=== PATIENT | male | born 1960 | race Caucasian/White ===

== ENCOUNTER 2018-09-22 16:58 | Inpatient (IN) | payer OTHER, SELFPAY ==
--- NOTE | 2018-09-22 17:00 | NURSING ---
Patient pleasant and cooperative, given demonstration of call maravilla use and aware that the must use the call maravilla for staff assist and verbalized understanding. Patient is alert and oriented but can be forgetful and confused per family report at times. PA in place and bed exit alarm.
[2018-09-22 17:23] VITALS: BP 154/79; PULSE 69; RESP 18; TEMP 36.4; O2SAT 95; BMI 31.1
--- NOTE | 2018-09-22 18:00 | NURSING ---
Oxygen use in place when patient is sleeping due to oxygen sats dropped below 88% on RA when patient was sleeping. Snoring heard very loud from his room up to the nurses station. Will monitor.
--- NOTE | 2018-09-22 19:03 | PCM.CONS.GEN ---
Problem List (1) Severe left internal carotid stenosis Status: Acute (2) Occlusion of right internal carotid artery Status: Acute (3) Embolic stroke Status: Acute (4) History of pulmonary embolism Status: Chronic (5) History of DVT (deep vein thrombosis) Status: Chronic (6) Hypertension Status: Chronic Reason for Consult Date of Consultation: 09/22/18 Reason for Consultation: Medical management after admission to inpatient rehab unit. History of Present Illness: The patient is a 58 year old M with past medical history as mentioned above admitted to inpatient rehabilitation unit after he suffered acute right MCA embolic stroke with resultant left-sided hemiplegia and left-sided facial droop and I am seeing this patient in consultation for medical management. Patient suffered a right MCA stroke on September 16, 2018 with resultant left-sided hemiplegia and left facial droop. No interventions was done for the acute stroke and it was treated conservatively. He was found to have occlusion of the right internal carotid artery and severe stenosis of the left internal carotid artery. The acute stroke presumed to be due to embolic stroke. At this time, patient complained of mild headache. Reportedly, patient had an episode of chest pain at the [facility] today before he was discharged for which EKG done as well as cardiac enzymes and reportedly, both came back negative. At this time, he denied any active chest pain. He did have left shoulder surgery on December, that was done for rotator cuff tear. He had a history of hypertension and according to his , he has not been taking his blood pressure medications consistently. He had a history of DVT and PE long time ago after he had left knee arthroscopic surgery and he was on Lovenox shots for a month and then he was on Coumadin that was completed. His mentioned that he had family history of blood clots as well. He had a history of GERD and he has been on omeprazole which seems to be under control. At this time, his blood pressure is 154/79, other vital signs are stable. Routine blood work from September 16, 2018 that was done at the outside facility was unremarkable. MRI brain revealed a right basal ganglia infarct. Imaging study of the neck revealed occlusion of the right internal carotid artery and severe stenosis of the left internal carotid artery. Past Medical History Past Medical History (Chronic Problems): Chronic Problems History of pulmonary embolism (Chronic) History of DVT (deep vein thrombosis) (Chronic) Hypertension (Chronic) Allergies codeine Allergy (Verified 09/22/18 17:24) Rash Home Medications: Ambulatory Orders Medication Instructions Recorded Acetaminophen [Tylenol] 325 mg PO TID PRN 09/22/18 Aspirin [Aspirin, Baby] 81 mg PO DAILY@0800 09/22/18 Atorvastatin Calcium [Lipitor] 40 mg PO QHS 09/22/18 Clopidogrel Bisulfate [Plavix] 75 mg PO DAILY 09/22/18 Diclofenac Sodium [Voltaren] 100 gm TP 4X/DAY 09/22/18 Lisinopril [Zestril] 10 mg PO DAILY 09/22/18 Omeprazole [Prilosec] 20 mg PO DAILY 09/22/18 Sennosides/Docusate Sodium 1 each PO DAILY 09/22/18 [Senna-S Tablet] Sertraline HCl [Zoloft] 25 mg PO DAILY 09/22/18 Surgical History: colectomy, - - Knee arthroscopic surgery. Back surgery. Psychiatric History: No pertinent psych hx Lives: Spouse/ Significant Other Smoking Status: Former smoker Alcohol: None Drugs: None - *Family History Maternal History Items: DVT, - - Blood clots. Paternal History Items: No pertinent history Sibling History Items: - - Brother with history of blood clots as well. Review of Systems Constitutional: Denies: Anorexia, Chills, Fever, Weakness Eyes: Denies: Blurred vision, Double vision, Drainage, Redness HEENT: Reports: Head Aches. Denies: Difficulty Hearing, Dysphasia, Ear Pain, Eye Pain, Nasal Congestion, Sore Throat Cardiovascular: Denies: Chest Pain, Chest Pressure, Chest Tightness, Heaviness, Light Headedness, Palpitations, Syncope Respiratory: Denies: Cough, Pleuritic Pain, Shortness of Breath, Sputum production, Wheezing Gastrointestinal: Denies: Abdominal Pain, Constipation, Diarrhea, Nausea, Vomiting Genitourinary: Denies: Dysuria, Frequency, Hematuria Musculoskeletal: Denies: Arm Pain, Back Pain, Foot Pain Skin: Denies: Dryness, Rash Neurological: Reports: Change in Speech, Focal weakness, Headaches. Denies: Balance problems, Confusion, Numbness, Tingling Psychiatric: Reports: Depression. Denies: Anxiety Endocrine: Denies: Change in Body Habitus, Polydipsia Patient Problems: Active and Suspected Problems Severe left internal carotid stenosis (Acute) Occlusion of right internal carotid artery (Acute) Embolic stroke (Acute) - Physical Exam General: Alert, Oriented x3, Cooperative, No apparent distress, - - Left facial droop. HEENT: Atraumatic, PERRLA, EOMI, Normocephalic Oral: Moist Mucosa, No Gingival or Mucosal Lesions/ Ulcerations Neck: Supple, No JVD, Negative Carotid Bruits, Trachea Midline, Thyroid Normal Size and Texture Lungs: Clear to auscultation, No rhonchi, No wheeze, No rales, Diminished Cardiovascular: Regular rate, Regular Rhythm, Normal S1, Normal S2, PMI Normal Abdomen: Bowel Sounds Present, Soft, Non Tender, Non-Distended, No Hepato-splenomegaly Extremities: No clubbing, No cyanosis, No edema Skin: No rashes, No breakdown Lymphatic: No Cervical, Supraclavicular, or Inguinal Adenopathy Neurological: - - Left facial droop, minimal dysarthria, left side hemiplegia. Power on the left upper extremity is 0 x 5, power on the left lower extremity is 3 x 5. Psych/Mental Status: Normal Affect, Appropriate, Alert and oriented to time, place, person, mood and affect Vital Signs Temp Pulse Resp BP Pulse Ox 97.5 F L 69 18 154/79 H 95 09/22/18 17:23 09/22/18 17:23 09/22/18 17:23 09/22/18 17:23 09/22/18 17:23 Oxygen Delivery Method Room Air Weight: 249 lb 1.957 oz Body Mass Index (BMI) 31.1 Intake and Output for Last 24 Hours 09/20/18 09/21/18 09/22/18 23:59 23:59 23:59 Output Total 250 / 250 Balance -250 / -250 CBC from September 16, 2018: Hemoglobin is 14.8, WBC 10.7, platelet count is 370,000. BMP from September 16, 2018: Glucose 133, sodium 141, potassium 4.5, serum bicarbonate 22, BUN 17, creatinine is 1.03. TSH is 1.03. Assessment/Plan All Active Problems Severe left internal carotid stenosis (Acute) Occlusion of right internal carotid artery (Acute) Embolic stroke (Acute) This is a 58-year-old male patient admitted to inpatient rehabilitation unit from [facility] after he suffered acute right MCA embolic stroke with resultant left-sided hemiplegia and left facial droop and I am seeing this patient in consultation for medical management. #1 acute right MCA embolic stroke: With resultant left-sided hemiplegia. MRI brain from the outside facility reviewed as well as the imaging studies of the neck. Patient was found to have a right basal ganglia infarct. Also, he was found to have complete occlusion of the right internal carotid artery and severe stenosis of the left internal carotid artery. At this time, his vital signs are stable, blood pressure slightly elevated but acceptable. Routine blood work from the outside facility reviewed and was unremarkable. He is on aspirin, statins and Plavix. Blood pressure seems to be under control. Plan for PT OT according to rehab team, CBC and CMP tomorrow morning. #2 occlusion of the right internal carotid artery/severe stenosis of the left internal carotid artery: Plan to continue aspirin, statins and Plavix, patient will need vascular surgery evaluation for the left internal carotid stenosis as outpatient. #3 hypertension: Blood pressure stable at this time, continue on lisinopril, close monitoring, adjust medication as needed. #4 history of DVT/PE: This was a long time ago, it was provoked after left knee arthroscopic surgery. Patient received Lovenox and Coumadin at that time, completed. #5 GERD: Continue PPI. #6 DVT prophylaxis: Subcu Lovenox. This note was generated with [employer] dictation software. It may contain incorrect words, spelling, and punctuation that were not noted in checking the note before signing. Code Visit Inpatient E&M: 30306 Init Hosp L2
[2018-09-22] MEDS: amLODIPine 5 MG Tablet PO (19:04)
[2018-09-22 19:46] VITALS: BP 163/87; PULSE 60; RESP 16; TEMP 36.9; O2SAT 97
[2018-09-22 21:35] VITALS: BMI 31.1
[2018-09-22] MEDS: Atorvastatin Calcium 40 MG Tablet PO (22:05)
[2018-09-22] MEDS: CYCLOBENZAPRINE HCL 5 MG TABLET PO (22:05)
[2018-09-23 06:29] LABS: Hematocrit 44.8 % (40-54); Hemoglobin 15.6 g/dl (13.0-16.5); Mean Corp Hgb Conc 34.8 g/gl (32-36); Mean Corpuscular Hgb 30.5 pg (27.0-32.0); Mean Corpuscular Volume 87.5 fL (80-94); Mean Platelet Vol. 10.3 fl (6.2-12.0); Platelet Count 324 K/mm3 (150-450); RBC Distribution Width CV 13.6 % (11.6-14.6); RBC Distribution Width SD 42.2 fl (35.1-43.9); Red Blood Count 5.12 M/mm3 (4.6-6.2); Scan Indicated on CBC? Y/N NO; White Blood Count 9.9 K/mm3 (4.4-11.0)
[2018-09-23 06:34] VITALS: O2SAT 92
[2018-09-23] MEDS: Enoxaparin 40 MG/0.4 ML Syringe SC (06:37)
[2018-09-23 06:46] LABS: ALB/GLOB Ratio 0.9 RATIO (0.9-2.4); AST(SGOT) 23 U/L (15-37); Alanine Aminotransfer ALT/SGPT 36 U/L (16-61); Albumin, Serum 3.3 g/dL (3.2-5.0); Alkaline Phosphatase 52 U/L (45-117); Anion Gap 11 (5-15); BUN 13 mg/dL (7-18); BUN/Creat Ratio 13.7 RATIO (10-20); Calcium,Total 8.9 mg/dL (8.5-10.1); Chloride 108 mmol/L (98-107); Creatinine, Serum 0.95 mg/dL (0.70-1.30); EST Glomerular Filtration Rate 86 mL/min (>60); Est Glom Filt Rate - Afr Amer 104 mL/min (>60); Estimated Creatinine Clearance 98.83 ml/min; Globulin 3.5 g/dL (2.2-4.2); Glucose 101 mg/dL (74-106); Potassium 3.6 mmol/L (3.5-5.1); Protein, Total 6.8 g/dL (6.4-8.2); Sodium Level 141 mmol/L (136-145)
[2018-09-23 07:13] VITALS: BP 145/72; PULSE 88; RESP 18; TEMP 36.9; O2SAT 94
[2018-09-23] MEDS: amLODIPine 10 MG Tablet PO (08:05)
[2018-09-23] MEDS: Aspirin 81 MG TAB.CHEW PO (08:05)
[2018-09-23] MEDS: Clopidogrel Bisulfate 75 MG Tablet PO (08:06)
[2018-09-23] MEDS: Pantoprazole Sodium 20 MG Tablet PO (08:06)
[2018-09-23] MEDS: Sertraline 50 MG Tablet 25 MG PO (08:06)
[2018-09-23] MEDS: Lisinopril 10 MG Tablet PO (08:06)
--- NOTE | 2018-09-23 14:11 | PCM.HP.COS ---
History of Present Illness Date of Admission: 09/22/18 Chief Complaint: CVA The patient is a 58 year old right handed male who was admitted to the rehab unit for rehabilitation after suffering a right MCA embolic stroke. He has a PMH of HTN, GERD, obesity (BMI is 31.1) and PE/DVT following Knee replacement surgery, which he was treated with Lovenox for a month and then Coumadin which he has completed. On 09/16/18 he to an OSH with left sided weakness and R eye deviation. NIHSS was 10. a CTH showed a hyperdense R MCA. He was then transferred to [facility] for possible thrombectomy. An MRI was done which showed a core infarct in R basal ganglia, vessel imaging showed a complete R ICA occlusion and > 70% stenosis of his L ICA. No intervention was done for the acute stroke and he was treated conservatively. He was seen by the Neurosurgery team who recommended follow up as an outpatient for consideration of CEA in 6-8 weeks, and to continue the ASA, and Plavix. Prior to discharge the patient had an episode of chest pain, an EKG was performed along with cardiac enzymes and reportedly, both came back negative. He also had left shoulder surgery on December, that was done for rotator cuff tear. He is still having moderate amount of pain in this area. He has several blisters on his left hand that where the result of a liquid burn from hot coffee, on arrival adaptic was placed on the area and the hand was wrapped in gauze. His left sided flaccidity has not changed. He lives with his in a single story home with no steps to get into the house, he was previously completely functionally independent and is admitted to the rehab unit in order to restore his previous level of functional independence. Past Medical History Past Medical History (Chronic Problems): Chronic Problems History of pulmonary embolism (Chronic) History of DVT (deep vein thrombosis) (Chronic) Hypertension (Chronic) Allergies codeine Allergy (Verified 09/22/18 17:24) Rash Home Medications: Ambulatory Orders Medication Instructions Recorded Acetaminophen [Tylenol] 325 mg PO TID PRN 09/22/18 Aspirin [Aspirin, Baby] 81 mg PO DAILY@0800 09/22/18 Atorvastatin Calcium [Lipitor] 40 mg PO QHS 09/22/18 Clopidogrel Bisulfate [Plavix] 75 mg PO DAILY 09/22/18 Diclofenac Sodium [Voltaren] 100 gm TP 4X/DAY 09/22/18 Lisinopril [Zestril] 10 mg PO DAILY 09/22/18 Omeprazole [Prilosec] 20 mg PO DAILY 09/22/18 Sennosides/Docusate Sodium 1 each PO DAILY 09/22/18 [Senna-S Tablet] Sertraline HCl [Zoloft] 25 mg PO DAILY 09/22/18 Surgical History: colectomy, - - Knee arthroscopic surgery. Back surgery. Psychiatric History: No pertinent psych hx Lives: Spouse/ Significant Other Smoking Status: Former smoker Tobacco Use: Cigarettes Alcohol: None Drugs: None - *Family History Maternal History Items: DVT, - - Blood clots. Paternal History Items: No pertinent history Sibling History Items: - - Brother with history of blood clots as well. Review of Systems Constitutional: Denies: Chills, Fever, Weight Change HEENT: Reports: Head Aches. Denies: Sinus Congestion, Sinus Drainage Cardiovascular: Denies: Chest Pain, Palpitations Respiratory: Denies: Cough, Shortness of breath at rest, Sputum production Gastrointestinal: Denies: Abdominal Pain, Nausea, Vomiting Genitourinary: Denies: Dysuria Musculoskeletal: Denies: Joint Pain, Joint Tenderness Skin: Denies: Rash, Wounds Neurological: Reports: Change in Speech, Focal weakness, Headaches. Denies: Numbness, Tingling Psychiatric: Reports: Depression. Denies: Anxiety, Homicidal Ideations, Suicidal Ideations Hematologic/ Lymphatic: Denies: Easy Bruising, Easy Bleeding VTE Information - Inpt Only VTE Present on Admission: No VTE Mechan Device Prophylaxis: SCD's, Knee High GENA Hose VTE Pharm Prophylaxis ordered?: Yes Patient Problems: Active and Suspected Problems Severe left internal carotid stenosis (Acute) Occlusion of right internal carotid artery (Acute) Embolic stroke (Acute) - Physical Exam General: Alert, Oriented x3, Cooperative, - - left facial droop HEENT: Atraumatic, PERRLA, EOMI, Normocephalic Neck: Supple, No JVD, Negative Carotid Bruits Lungs: Clear to auscultation, Normal air movement Cardiovascular: Regular rate, No murmurs Abdomen: Bowel Sounds Present, Soft, Non Tender Extremities: No edema, Capillary Refill Less than 3 Seconds, - Skin: No rashes, No breakdown Musculoskeletal: No Tenderness to Palpation of Joints or Extremities Neurological: Cranial nerves II-XII grossly intact, Facial Droop - Left, - - Left facial droop, minimal dysarthria, left side hemiplegia. Power on the left upper extremity is 0 x 5, power on the left lower extremity is 3 x 5. Psych/Mental Status: Normal Affect, Appropriate, Depressed Vital Signs Temp Pulse Resp BP Pulse Ox 98.4 F 88 18 145/72 H 94 09/23/18 07:13 09/23/18 07:13 09/23/18 07:13 09/23/18 07:13 09/23/18 07:13 Oxygen Flow Rate (L/min) 2 Oxygen Delivery Method Room Air Weight: 113 kg Body Mass Index (BMI) 31.1 Intake and Output for Last 24 Hours 09/21/18 09/22/18 09/23/18 23:59 23:59 23:59 Output Total 250 / 250 Balance -250 / -250 Laboratory Tests Past 24 Hrs 09/23/18 09/23/18 05:48 05:48 WBC 9.9 RBC 5.12 Hgb 15.6 Hct 44.8 MCV 87.5 MCH 30.5 MCHC 34.8 RDW 13.6 RDW Differential 42.2 Plt Count 324 MPV 10.3 Sodium 141 Potassium 3.6 Chloride 108 H Carbon Dioxide 22.0 Anion Gap 11 BUN 13 Creatinine 0.95 Estim Creat Clear Calc 98.83 Est GFR (MDRD) Af Amer 104 Est GFR (MDRD) Non-Af 86 BUN/Creatinine Ratio 13.7 Glucose 101 Calcium 8.9 Total Bilirubin 0.50 AST 23 ALT 36 Alkaline Phosphatase 52 Total Protein 6.8 Albumin 3.3 Globulin 3.5 Albumin/Globulin Ratio 0.9 Active Medications Acetaminophen (Tylenol) 325 mg PO TID PRN PRN Reason: PAIN Amlodipine Besylate (Norvasc) 10 mg PO DAILY [facility] Last Admin: 09/23/18 08:05 Dose: 10 mg Aspirin (Aspirin, Baby) 81 mg PO DAILY@0800 [facility] Last Admin: 09/23/18 08:05 Dose: 81 mg Atorvastatin Calcium (Lipitor) 40 mg PO QHS [facility] Last Admin: 09/22/18 22:05 Dose: 40 mg Bisacodyl (Dulcolax) 10 mg RECTAL .PRN X 1 PRN PRN Reason: Constipation Clopidogrel Bisulfate (Plavix) 75 mg PO DAILY [facility] Last Admin: 09/23/18 08:06 Dose: 75 mg Diclofenac Sodium (Voltaren) 1 applic TP 4X/DAY [facility] Enoxaparin Sodium (Lovenox) 40 mg SC DAILY@0600 [facility] Last Admin: 09/23/18 06:37 Dose: 40 mg Lisinopril (Zestril) 10 mg PO DAILY [facility] Last Admin: 09/23/18 08:06 Dose: 10 mg Magnesium Hydroxide (Milk Of Magnesia) 30 ml PO .PRN X 1 PRN PRN Reason: Constipation Menthol (Bengay Vanishing Scent) 1 applic TOPICAL 4X/DAY PRN PRN PRN Reason: PAIN Last Admin: 09/23/18 08:06 Dose: 1 applic Modafinil (Provigil) 200 mg PO DAILY@0600 [facility] Pantoprazole Sodium (Protonix) 20 mg PO DAILY [facility] Last Admin: 09/23/18 08:06 Dose: 20 mg Senna/Docusate Sodium (Senokot-S, Gladis-Colace) 1 tablet PO DAILY [facility] Last Admin: 09/23/18 09:09 Dose: Not Given Sertraline HCl (Zoloft) 25 mg PO DAILY [facility] Last Admin: 09/23/18 08:06 Dose: 25 mg Assessment/Plan All Active Problems Severe left internal carotid stenosis (Acute) Occlusion of right internal carotid artery (Acute) Embolic stroke (Acute) Debility status post Right MCA, complicated by a complete right ICA occlusion, >70% stenosis of his Left ICA, and HTN. Goal of rehab is islam of prior level of functional independence. Plan: - Physical therapy for gait and balance - Occupational Therapy for ADLs - As needed analgesics - Bowel protocol - DVT PPX - Lovenox, SCDs. - HLD - continue home dose of statin - GERD - continue home dose of PPI - HTN - stable => continue on lisinopril, and Norvasc, continue monitoring and adjust medication as needed - Acute right MCA embolic stroke -> continue on Plavix, ASA and statin - Complete occlusion of the right ICA and severe stenosis >70% of the left ICA -> continue aspirin, statins and Plavix, patient will need vascular surgery evaluation for stenosis of the left ICA on discharge as an outpatient. 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 - Hx of GERD: Continue PPI. - Loud Snoring - on O2 at night 2/2 loud snoring, and drop in SATs < 88% at night => Schedule a portable sleep study as soon as possible with placement on Auto-pap once study is complete, on discharge formal sleep study - Depression - continue Zoloft - Hypersomnia - start on Provigil 200mg daily at 0600 AM - Genetic testing for excessive clotting - Factor II, VIII, XI, and Von Willebrand - on discharge 30 day event monitor - Fall precaution
--- NOTE | 2018-09-23 15:37 | NURSING ---
wound photo: left hand
[2018-09-23 17:23] LABS: Bacteria 0 SEEN /hpf (None Seen); Mucous, Urine 0 SEEN /hpf (<or=2+); White Blood Cells 0 SEEN /hpf (0-5)
[2018-09-23 17:26] LABS: Color, Urine Yellow (Yellow); Glucose, Dipstick Normal (Normal); Ketone-Dipstick 50 mg/dl (Negative); Leukocyte Esterase-Dipstick Negative /ul (Negative); Nitrite-Dipstick Negative (Negative); Occult Blood-Urine 10 /ul (Negative); Protein-Dipstick 15 mg/dl (Negative); Specific Gravity, Urine 1.025 (1.002-1.030); Urine Bilirubin Dipstick Negative (Negative); Urine Clarity Clear (Clear); Urine Urobilinogen 1 mg/dl (Normal)
[2018-09-23 17:32] LABS: Red Blood Cells-Urine 0-5 SEEN /hpf (0-5); Squamous Epithelial Cells - UA 0-5 SEEN /hpf (0-5)
[2018-09-23 19:40] VITALS: BP 151/74; PULSE 76; RESP 18; TEMP 36.6; O2SAT 93
[2018-09-23 20:40] VITALS: PULSE 76; RESP 18; O2SAT 93
[2018-09-23] MEDS: Atorvastatin Calcium 40 MG Tablet PO (20:55)
--- NOTE | 2018-09-24 04:36 | NURSING ---
Reviewed and agree with PLATE CUTTER documentation and FIMs charting.
[2018-09-24] MEDS: Enoxaparin 40 MG/0.4 ML Syringe SC (06:05)
[2018-09-24] MEDS: Modafinil 200 MG Tablet PO (06:05)
[2018-09-24] MEDS: Acetaminophen 325 MG Tablet PO ×3 (06:05→23:56)
[2018-09-24 07:15] VITALS: O2SAT 93
[2018-09-24] MEDS: Aspirin 81 MG TAB.CHEW PO (08:09)
[2018-09-24] MEDS: Sertraline 50 MG Tablet 25 MG PO (08:14)
[2018-09-24] MEDS: Lisinopril 10 MG Tablet PO (08:16)
[2018-09-24] MEDS: Clopidogrel Bisulfate 75 MG Tablet PO (08:17)
[2018-09-24] MEDS: Pantoprazole Sodium 20 MG Tablet PO (08:17)
[2018-09-24] MEDS: amLODIPine 10 MG Tablet PO (08:17)
[2018-09-24 08:36] VITALS: BP 156/78; PULSE 78; RESP 16; TEMP 36.6; O2SAT 94
[2018-09-24 09:43] LABS: Hemoglobin A1c 6.4 % (4.2-6.3)
--- NOTE | 2018-09-24 12:22 | CASEMGMT ---
Insurance Clinical information sent. Pending continued stay approval at this time. Auth#[id number] TYRELL Braden, FRAUD MANAGER
--- NOTE | 2018-09-24 15:16 | CASEMGMT ---
Social Work Patient agreeable to this log chain worker contacting patient spouse in regards to discharge planning and insurance update process. This log chain worker contacting patient spouse, Jd. This log chain worker communicating to Jd that there is no guarantee of continued coverage by insurance. Jd voicing concern of this as patient level of care is currently more then Jd would be able to manage within the home. This log chain worker explaining other options for patient including possible skilled services if insurance would approve the transition. The hope is that insurance will continue to cover the Inpatient Rehab unit but there is a need to discuss a plan B if needed. Jd requesting for this log chain worker to contact the [facility] to check who is in network with patient insurance. Telephone call made to all mentioned facilities, none of the above mentioned facilities are in network with patient insurance. This log chain worker communicating this information to patient spouse. Jd to be in later to see patient and wanting to meet with this log chain worker to discuss further options. Support given. Will continue to follow. TYRELL Braden, PLATFORM MATERIAL HANDLING SUPERVISOR
--- NOTE | 2018-09-24 16:29 | PCM.PN.NEU ---
Patient Problems: Active and Suspected Problems Severe left internal carotid stenosis (Acute) Occlusion of right internal carotid artery (Acute) Embolic stroke (Acute) Subjective: Patient seen, tolerating therapy. The blisters on each finger of his left hand are still intact, covering with adaptic and gauze, dressing changed daily. Patient is refusing to eat or drink 2/2 not liking the honey thickened liquids and pureed diet. - Physical Exam General: Alert, Oriented x3, Cooperative HEENT: Atraumatic, PERRLA, EOMI, Normocephalic Neck: Supple, No JVD, Negative Carotid Bruits Lungs: Clear to auscultation, Normal air movement Cardiovascular: Regular rate, No murmurs Abdomen: Bowel Sounds Present, Soft, Non Tender Extremities: No edema, Capillary Refill Less than 3 Seconds, - - left side remains flaccid Skin: No rashes, No breakdown Musculoskeletal: No Tenderness to Palpation of Joints or Extremities Neurological: Cranial nerves II-XII grossly intact, Facial Droop - left -improving, - - left side Psych/Mental Status: Normal Affect, Appropriate, Alert and oriented to time, place, person, mood and affect Vital Signs Temp Pulse Resp BP Pulse Ox 97.9 F 78 16 156/78 H 94 09/24/18 08:36 09/24/18 08:36 09/24/18 08:36 09/24/18 08:36 09/24/18 08:36 Oxygen Flow Rate (L/min) 1 Oxygen Delivery Method Room Air Weight: 113 kg Body Mass Index (BMI) 31.1 Intake and Output for Last 24 Hours 09/22/18 09/23/18 09/24/18 23:59 23:59 23:59 Output Total 250 / 250 350 / 350 Balance -250 / -250 -350 / -350 Laboratory Tests Past 24 Hrs 09/23/18 09/24/18 09/24/18 15:50 06:48 06:48 Factor VIII Activity Pending von Willebrand Comment Pending Hemoglobin A1c 6.4 H Urine Color Yellow Urine Clarity Clear Urine pH 6.0 Ur Specific [place] 1.025 Urine Protein 15 H Urine Glucose (UA) Normal Urine Ketones 50 H Urine Occult Blood 10 H Urine Nitrite Negative Urine Bilirubin Negative Urine Urobilinogen 1 H Ur Leukocyte Esterase Negative Urine RBC 0-5 SEEN Urine WBC 0 SEEN Ur Squamous Epith Cells 0-5 SEEN Urine Bacteria 0 SEEN Urine Mucus 0 SEEN Factor II DNA Analysis Pending Active Medications Acetaminophen (Tylenol) 325 mg PO TID PRN PRN Reason: PAIN Last Admin: 09/24/18 06:05 Dose: 325 mg Amlodipine Besylate (Norvasc) 10 mg PO DAILY [facility] Last Admin: 09/24/18 08:17 Dose: 10 mg Aspirin (Aspirin, Baby) 81 mg PO DAILY@0800 [facility] Last Admin: 09/24/18 08:09 Dose: 81 mg Atorvastatin Calcium (Lipitor) 40 mg PO QHS [facility] Last Admin: 09/23/18 20:55 Dose: 40 mg Bisacodyl (Dulcolax) 10 mg RECTAL .PRN X 1 PRN PRN Reason: Constipation Clopidogrel Bisulfate (Plavix) 75 mg PO DAILY [facility] Last Admin: 09/24/18 08:17 Dose: 75 mg Diclofenac Sodium (Voltaren) 1 applic TP 4X/DAY [facility] Last Admin: 09/24/18 14:43 Dose: 1 applicatio Enoxaparin Sodium (Lovenox) 40 mg SC DAILY@0600 [facility] Last Admin: 09/24/18 06:05 Dose: 40 mg Sodium Chloride () 1,000 mls @ 75 mls/hr IV .[id number] [facility] Lisinopril (Zestril) 10 mg PO DAILY [facility] Last Admin: 09/24/18 08:16 Dose: 10 mg Magnesium Hydroxide (Milk Of Magnesia) 30 ml PO .PRN X 1 PRN PRN Reason: Constipation Menthol (Bengay Vanishing Scent) 1 applic TOPICAL 4X/DAY PRN PRN PRN Reason: PAIN Last Admin: 09/23/18 08:06 Dose: 1 applic Modafinil (Provigil) 200 mg PO DAILY@0600 [facility] Last Admin: 09/24/18 06:05 Dose: 200 mg Pantoprazole Sodium (Protonix) 20 mg PO DAILY [facility] Last Admin: 09/24/18 08:17 Dose: 20 mg Senna/Docusate Sodium (Senokot-S, Gladis-Colace) 1 tablet PO DAILY [facility] Last Admin: 09/24/18 08:14 Dose: Not Given Sertraline HCl (Zoloft) 25 mg PO DAILY [facility] Last Admin: 09/24/18 08:14 Dose: 25 mg Medical Necessity - Tobacco Use Smoking Status: Former smoker Tobacco Use: Cigarettes Assessment/Plan All Active Problems Severe left internal carotid stenosis (Acute) Occlusion of right internal carotid artery (Acute) Embolic stroke (Acute) Debility status post Right MCA, complicated by a complete right ICA occlusion, >70% stenosis of his Left ICA, and HTN. Goal of rehab is [place] of prior level of functional independence. Plan: - Physical therapy for gait and balance - Occupational Therapy for ADLs - As needed analgesics - Bowel protocol - DVT PPX - Lovenox, SCDs. - HLD - continue home dose of statin - GERD - continue home dose of PPI - HTN - stable => continue on lisinopril, and Norvasc, continue monitoring and adjust medication as needed - Acute right MCA embolic stroke -> continue on Plavix, ASA and statin - Complete occlusion of the right ICA and severe stenosis >70% of the left ICA -> continue aspirin, statins and Plavix, patient will need vascular surgery evaluation for stenosis of the left ICA on discharge as an outpatient. 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 - Hx of GERD: Continue PPI. - Loud Snoring - on O2 at night 2/2 loud snoring, and drop in SATs < 88% at night => Schedule a portable sleep study as soon as possible with placement on Auto-pap once study is complete, on discharge formal sleep study - Depression - continue Zoloft - Hypersomnia - start on Provigil 200mg daily at 0600 AM - Genetic testing for excessive clotting - Factor II, VIII, XI, and Von Willebrand - on discharge 30 day event monitor - Fall precaution - refusing to eat or drink - currently on a pureed diet and honey thicken liquids - IV placed for fluids NS 1L @ 75cc/hr
--- NOTE | 2018-09-24 16:34 | PN.NEURO_ITS ---
Patient Problems: Active and Suspected Problems Severe left internal carotid stenosis (Acute) Occlusion of right internal carotid artery (Acute) Embolic stroke (Acute) Subjective: Patient seen, tolerating therapy. The blisters on each finger of his left hand are still intact, covering with adaptic and gauze, dressing changed daily. Patient is refusing to eat or drink 2/2 not liking the honey thickened liquids and pureed diet. - Physical Exam General: Alert, Oriented x3, Cooperative HEENT: Atraumatic, PERRLA, EOMI, Normocephalic Neck: Supple, No JVD, Negative Carotid Bruits Lungs: Clear to auscultation, Normal air movement Cardiovascular: Regular rate, No murmurs Abdomen: Bowel Sounds Present, Soft, Non Tender Extremities: No edema, Capillary Refill Less than 3 Seconds, - - left side remains flaccid Skin: No rashes, No breakdown Musculoskeletal: No Tenderness to Palpation of Joints or Extremities Neurological: Cranial nerves II-XII grossly intact, Facial Droop - left - improving, - - left side Psych/Mental Status: Normal Affect, Appropriate, Alert and oriented to time, place, person, mood and affect Vital Signs Temp Pulse Resp BP Pulse Ox 97.9 F 78 16 156/78 H 94 09/24/18 08:36 09/24/18 08:36 09/24/18 08:36 09/24/18 08:36 09/24/18 08:36 Oxygen Flow Rate (L/min) 1 Oxygen Delivery Method Room Air Weight: 113 kg Body Mass Index (BMI) 31.1 Intake and Output for Last 24 Hours 09/22/18 09/23/18 09/24/18 23:59 23:59 23:59 Output Total 250 / 250 350 / 350 Balance -250 / -250 -350 / -350 Laboratory Tests Past 24 Hrs 09/23/18 09/24/18 09/24/18 15:50 06:48 06:48 Factor VIII Activity Pending von Willebrand Comment Pending Hemoglobin A1c 6.4 H Urine Color Yellow Urine Clarity Clear Urine pH 6.0 Ur Specific [place] 1.025 Urine Protein 15 H Urine Glucose (UA) Normal Urine Ketones 50 H Urine Occult Blood 10 H Urine Nitrite Negative Urine Bilirubin Negative Urine Urobilinogen 1 H Ur Leukocyte Esterase Negative Urine RBC 0-5 SEEN Urine WBC 0 SEEN Ur Squamous Epith Cells 0-5 SEEN Urine Bacteria 0 SEEN Urine Mucus 0 SEEN Factor II DNA Analysis Pending Active Medications Acetaminophen (Tylenol) 325 mg PO TID PRN PRN Reason: PAIN Last Admin: 09/24/18 06:05 Dose: 325 mg Amlodipine Besylate (Norvasc) 10 mg PO DAILY [facility] Last Admin: 09/24/18 08:17 Dose: 10 mg Aspirin (Aspirin, Baby) 81 mg PO DAILY@0800 [facility] Last Admin: 09/24/18 08:09 Dose: 81 mg Atorvastatin Calcium (Lipitor) 40 mg PO QHS [facility] Last Admin: 09/23/18 20:55 Dose: 40 mg Bisacodyl (Dulcolax) 10 mg RECTAL .PRN X 1 PRN PRN Reason: Constipation Clopidogrel Bisulfate (Plavix) 75 mg PO DAILY [facility] Last Admin: 09/24/18 08:17 Dose: 75 mg Diclofenac Sodium (Voltaren) 1 applic TP 4X/DAY [facility] Last Admin: 09/24/18 14:43 Dose: 1 applicatio Enoxaparin Sodium (Lovenox) 40 mg SC DAILY@0600 [facility] Last Admin: 09/24/18 06:05 Dose: 40 mg Sodium Chloride () 1,000 mls @ 75 mls/hr IV .[id number] [facility] Lisinopril (Zestril) 10 mg PO DAILY [facility] Last Admin: 09/24/18 08:16 Dose: 10 mg Magnesium Hydroxide (Milk Of Magnesia) 30 ml PO .PRN X 1 PRN PRN Reason: Constipation Menthol (Bengay Vanishing Scent) 1 applic TOPICAL 4X/DAY PRN PRN PRN Reason: PAIN Last Admin: 09/23/18 08:06 Dose: 1 applic Modafinil (Provigil) 200 mg PO DAILY@0600 [facility] Last Admin: 09/24/18 06:05 Dose: 200 mg Pantoprazole Sodium (Protonix) 20 mg PO DAILY [facility] Last Admin: 09/24/18 08:17 Dose: 20 mg Senna/Docusate Sodium (Senokot-S, Gladis-Colace) 1 tablet PO DAILY [facility] Last Admin: 09/24/18 08:14 Dose: Not Given Sertraline HCl (Zoloft) 25 mg PO DAILY [facility] Last Admin: 09/24/18 08:14 Dose: 25 mg Medical Necessity - Tobacco Use Smoking Status: Former smoker Tobacco Use: Cigarettes Assessment/Plan All Active Problems Severe left internal carotid stenosis (Acute) Occlusion of right internal carotid artery (Acute) Embolic stroke (Acute) Debility status post Right MCA, complicated by a complete right ICA occlusion, >70% stenosis of his Left ICA, and HTN. Goal of rehab is [place] of prior level of functional independence. Plan: - Physical therapy for gait and balance - Occupational Therapy for ADLs - As needed analgesics - Bowel protocol - DVT PPX - Lovenox, SCDs. - HLD - continue home dose of statin - GERD - continue home dose of PPI - HTN - stable => continue on lisinopril, and Norvasc, continue monitoring and adjust medication as needed - Acute right MCA embolic stroke -> continue on Plavix, ASA and statin - Complete occlusion of the right ICA and severe stenosis >70% of the left ICA - > continue aspirin, statins and Plavix, patient will need vascular surgery evaluation for stenosis of the left ICA on discharge as an outpatient. 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 - Hx of GERD: Continue PPI. - Loud Snoring - on O2 at night 2/2 loud snoring, and drop in SATs < 88% at night => Schedule a portable sleep study as soon as possible with placement on Auto-pap once study is complete, on discharge formal sleep study - Depression - continue Zoloft - Hypersomnia - start on Provigil 200mg daily at 0600 AM - Genetic testing for excessive clotting - Factor II, VIII, XI, and Von Willebrand - on discharge 30 day event monitor - Fall precaution - refusing to eat or drink - currently on a pureed diet and honey thicken liquids - IV placed for fluids NS 1L @ 75cc/hr
[2018-09-24] MEDS: 0.9% Normal Saline 1,000 ML 75 ML IV (18:02)
[2018-09-24 19:30] VITALS: BP 133/79; PULSE 84; RESP 18; TEMP 36.6; O2SAT 94
--- NOTE | 2018-09-24 19:35 | NURSING ---
pt removed. arianne griffith and states she does not need. Request they be thrown away by staff. Education provided.
[2018-09-24] MEDS: Atorvastatin Calcium 40 MG Tablet PO (20:13)
--- NOTE | 2018-09-25 01:16 | NURSING ---
pt has been restless this hs, reporting pain in his shoulder a 7/10 on pain scale even after volteran cream was applied and single tylenol was given as per order. pt attempting to use urinal per self and was incontinent requiring staff to change attends and bed linens. pt reports that he is also having spasms in his legs. pt given pudding with tylenol and finished cup and repositioned for comfort. pt remained restless for another hour before finally falling a sleep
--- NOTE | 2018-09-25 04:41 | NURSING ---
Reviewed and agree with [facility] documentation and [facility]IMs charting.
[2018-09-25] MEDS: Enoxaparin 40 MG/0.4 ML Syringe SC (06:01)
[2018-09-25] MEDS: Acetaminophen 325 MG Tablet PO ×3 (06:01→23:56)
[2018-09-25] MEDS: Modafinil 200 MG Tablet PO (06:01)
[2018-09-25 10:00] VITALS: BP 138/90; PULSE 69; RESP 16; TEMP 36.7; O2SAT 95
[2018-09-25] MEDS: Clopidogrel Bisulfate 75 MG Tablet PO (10:06)
[2018-09-25] MEDS: Lisinopril 10 MG Tablet PO (10:06)
[2018-09-25] MEDS: amLODIPine 10 MG Tablet PO (10:16)
[2018-09-25] MEDS: Aspirin 81 MG TAB.CHEW PO (10:16)
[2018-09-25] MEDS: Pantoprazole Sodium 20 MG Tablet PO (10:16)
[2018-09-25] MEDS: Sertraline 50 MG Tablet 25 MG PO (10:17)
--- NOTE | 2018-09-25 12:10 | NS ---
Patient would benefit from diet change to regular diet, no added salt from current cardiac diet. Continue w/ texture/consistency modification per CUSTOMER CARE REPRESENTATIVE recommendations. Regular diet will allow pt more options at meals which may encourage PO intake. If unable to advance textures/consistencies of diet, increase PO intake at meals, and/or if wt loss occurs over next week- may need to consider enteral support. Beto Pleitez MS, RDN, LD
--- NOTE | 2018-09-25 15:39 | CASEMGMT ---
Insurance Continued stay approved with next update due on 09/30/18. Auth#[id number] TYRELL Braden, COMPUTER FORENSICS INVESTIGATOR
[2018-09-25] MEDS: Gabapentin 400 MG Capsule PO (17:04)
--- NOTE | 2018-09-25 18:21 | NURSING ---
DC'd IV to L. AC occluded, no bleeding noted, pressure dressing applied, pt tolerated well.
--- NOTE | 2018-09-25 18:22 | NURSING ---
Dressing changed to L. hand, blisters intact, moderate amt. serous drainage noted area cleaned with soap/water, applied adaptic, kerlix and radu wrap. Pt tolerated well.
[2018-09-25 19:59] VITALS: BP 126/59; PULSE 61; RESP 16; TEMP 36.8; O2SAT 96
[2018-09-25] MEDS: Atorvastatin Calcium 40 MG Tablet PO (20:20)
[2018-09-25 20:25] VITALS: RESP 17
[2018-09-26] MEDS: Enoxaparin 40 MG/0.4 ML Syringe SC (06:29)
[2018-09-26] MEDS: Modafinil 200 MG Tablet PO (06:34)
[2018-09-26 07:00] VITALS: BP 133/62; PULSE 52; RESP 16; TEMP 36.3; O2SAT 98
[2018-09-26] MEDS: amLODIPine 10 MG Tablet PO (07:53)
[2018-09-26] MEDS: Pantoprazole Sodium 20 MG Tablet PO (07:53)
[2018-09-26] MEDS: Gabapentin 400 MG Capsule PO ×3 (07:53→17:16)
[2018-09-26] MEDS: Sertraline 50 MG Tablet 25 MG PO (07:53)
[2018-09-26] MEDS: Clopidogrel Bisulfate 75 MG Tablet PO (07:53)
[2018-09-26] MEDS: Lisinopril 10 MG Tablet PO (07:53)
[2018-09-26] MEDS: Aspirin 81 MG TAB.CHEW PO (07:53)
[2018-09-26 08:06] VITALS: O2SAT 98
--- NOTE | 2018-09-26 16:41 | PCM.PN.HOSP ---
Patient Problems: Active and Suspected Problems Severe left internal carotid stenosis (Acute) Occlusion of right internal carotid artery (Acute) Embolic stroke (Acute) Subjective: felt his left hip pop when doing therapy today. no movement in LUE, but improved movement in LLE. Vitals/I&O's: Vital Signs Temp Pulse Resp BP Pulse Ox 36.3 C L 52 L 16 133/62 H 98 09/26/18 07:00 09/26/18 07:00 09/26/18 07:00 09/26/18 07:00 09/26/18 08:06 Oxygen Flow Rate (L/min) 2.5 Oxygen Delivery Method Room Air Weight: 112.18 kg Body Mass Index (BMI) 31.1 Intake and Output for Last 24 Hours 09/24/18 09/25/18 09/26/18 23:59 23:59 23:59 Intake Total 75 / 75 240 / 240 180 / 180 Output Total 250 / 250 Balance 75 / 75 -10 / -10 180 / 180 General: Alert, Cooperative, No apparent distress HEENT: Atraumatic, Normocephalic Oral: Moist Mucosa, No Gingival or Mucosal Lesions/ Ulcerations Neck: No Nodes, Thyroid Normal Size and Texture Lungs: Clear to auscultation, Normal air movement, No rhonchi, No wheeze Cardiovascular: Regular rate, Regular Rhythm, Normal S1, Normal S2, No murmurs Abdomen: Bowel Sounds Present, Soft, Non Tender, Non-Distended, No Hepato-splenomegaly Extremities: No edema Musculoskeletal: - - FROM passive in left hip w/o crepitus nor pain. Neurological: - - MS 0/5 in LUE. MS 2/5 in LLE Microbiology Past 72 Hours 09/23/18 15:50 Urine, Catheterized Urine Culture - Final Culture exhibits no growth. Current Medications Acetaminophen (Tylenol) 325 mg PO TID PRN PRN Reason: PAIN Last Admin: 09/25/18 23:56 Dose: 325 mg Amlodipine Besylate (Norvasc) 10 mg PO DAILY [facility] Last Admin: 09/26/18 07:53 Dose: 10 mg Aspirin (Aspirin, Baby) 81 mg PO DAILY@0800 [facility] Last Admin: 09/26/18 07:53 Dose: 81 mg Atorvastatin Calcium (Lipitor) 40 mg PO QHS [facility] Last Admin: 09/25/18 20:20 Dose: 40 mg Bisacodyl (Dulcolax) 10 mg RECTAL .PRN X 1 PRN PRN Reason: Constipation Calcium Carbonate (Tums) 1,000 mg PO Q4H PRN PRN PRN Reason: HEARTBURN Clopidogrel Bisulfate (Plavix) 75 mg PO DAILY [facility] Last Admin: 09/26/18 07:53 Dose: 75 mg Diclofenac Sodium (Voltaren) 1 applic TP 4X/DAY [facility] Last Admin: 09/26/18 16:13 Dose: 1 applicatio Enoxaparin Sodium (Lovenox) 40 mg SC DAILY@0600 [facility] Last Admin: 09/26/18 06:29 Dose: 40 mg Gabapentin (Neurontin) 400 mg PO TIDCM [facility] Last Admin: 09/26/18 13:06 Dose: 400 mg Lisinopril (Zestril) 10 mg PO DAILY [facility] Last Admin: 09/26/18 07:53 Dose: 10 mg Magnesium Hydroxide (Milk Of Magnesia) 30 ml PO .PRN X 1 PRN PRN Reason: Constipation Menthol (Bengay Vanishing Scent) 1 applic TOPICAL 4X/DAY PRN PRN PRN Reason: PAIN Last Admin: 09/23/18 08:06 Dose: 1 applic Modafinil (Provigil) 200 mg PO DAILY@0600 [facility] Last Admin: 09/26/18 06:34 Dose: 200 mg Pantoprazole Sodium (Protonix) 20 mg PO DAILY [facility] Last Admin: 09/26/18 07:53 Dose: 20 mg Senna/Docusate Sodium (Senokot-S, Gladis-Colace) 1 tablet PO DAILY [facility] Last Admin: 09/26/18 10:06 Dose: Not Given Sertraline HCl (Zoloft) 25 mg PO DAILY [facility] Last Admin: 09/26/18 07:53 Dose: 25 mg Medical Necessity - Tobacco Use Smoking Status: Former smoker Tobacco Use: Cigarettes Assessment/Plan All Active Problems Severe left internal carotid stenosis (Acute) Occlusion of right internal carotid artery (Acute) Embolic stroke (Acute) 1. Acute right MCA CVA with Left-sided hemiparesis. Some improved mobility in leg Continue ASA, Plavix, HIS 2. Left hand hall reviewed pictures from 09/23 from wound care which showed large bullae on the dorsum on thumb, 2nd, and 3rd fingers extending to the DIPs. Smaller bullae on the dorsum of the 4th and 5th fingers, extending only to the DIP. Per patient and his , this was due to scalding from tea that he had spilled on himself while at . continue wound care Advised patient and family that proper wound care will minimize, but not eradicate risk of infection. 3. [facility] for now Follow up with vascular surgery as outpt. 4. HTN Controlled at this time. Continue Norvasc, Lisinopril 5. DVT proph: LMWH. Code Visit Inpatient E&M: 07565 Subs Hosp L2
--- NOTE | 2018-09-26 16:50 | PN_ITS ---
Patient Problems: Active and Suspected Problems Severe left internal carotid stenosis (Acute) Occlusion of right internal carotid artery (Acute) Embolic stroke (Acute) Subjective: felt his left hip pop when doing therapy today. no movement in LUE, but improved movement in LLE. Vitals/I&O's: Vital Signs Temp Pulse Resp BP Pulse Ox 36.3 C L 52 L 16 133/62 H 98 09/26/18 07:00 09/26/18 07:00 09/26/18 07:00 09/26/18 07:00 09/26/18 08:06 Oxygen Flow Rate (L/min) 2.5 Oxygen Delivery Method Room Air Weight: 112.18 kg Body Mass Index (BMI) 31.1 Intake and Output for Last 24 Hours 09/24/18 09/25/18 09/26/18 23:59 23:59 23:59 Intake Total 75 / 75 240 / 240 180 / 180 Output Total 250 / 250 Balance 75 / 75 -10 / -10 180 / 180 General: Alert, Cooperative, No apparent distress HEENT: Atraumatic, Normocephalic Oral: Moist Mucosa, No Gingival or Mucosal Lesions/ Ulcerations Neck: No Nodes, Thyroid Normal Size and Texture Lungs: Clear to auscultation, Normal air movement, No rhonchi, No wheeze Cardiovascular: Regular rate, Regular Rhythm, Normal S1, Normal S2, No murmurs Abdomen: Bowel Sounds Present, Soft, Non Tender, Non-Distended, No Hepato- splenomegaly Extremities: No edema Musculoskeletal: - - FROM passive in left hip w/o crepitus nor pain. Neurological: - - MS 0/5 in LUE. MS 2/5 in LLE Microbiology Past 72 Hours 09/23/18 15:50 Urine, Catheterized Urine Culture - Final Culture exhibits no growth. Current Medications Acetaminophen (Tylenol) 325 mg PO TID PRN PRN Reason: PAIN Last Admin: 09/25/18 23:56 Dose: 325 mg Amlodipine Besylate (Norvasc) 10 mg PO DAILY [facility] Last Admin: 09/26/18 07:53 Dose: 10 mg Aspirin (Aspirin, Baby) 81 mg PO DAILY@0800 [facility] Last Admin: 09/26/18 07:53 Dose: 81 mg Atorvastatin Calcium (Lipitor) 40 mg PO QHS [facility] Last Admin: 09/25/18 20:20 Dose: 40 mg Bisacodyl (Dulcolax) 10 mg RECTAL .PRN X 1 PRN PRN Reason: Constipation Calcium Carbonate (Tums) 1,000 mg PO Q4H PRN PRN PRN Reason: HEARTBURN Clopidogrel Bisulfate (Plavix) 75 mg PO DAILY [facility] Last Admin: 09/26/18 07:53 Dose: 75 mg Diclofenac Sodium (Voltaren) 1 applic TP 4X/DAY [facility] Last Admin: 09/26/18 16:13 Dose: 1 applicatio Enoxaparin Sodium (Lovenox) 40 mg SC DAILY@0600 [facility] Last Admin: 09/26/18 06:29 Dose: 40 mg Gabapentin (Neurontin) 400 mg PO TIDCM [facility] Last Admin: 09/26/18 13:06 Dose: 400 mg Lisinopril (Zestril) 10 mg PO DAILY [facility] Last Admin: 09/26/18 07:53 Dose: 10 mg Magnesium Hydroxide (Milk Of Magnesia) 30 ml PO .PRN X 1 PRN PRN Reason: Constipation Menthol (Bengay Vanishing Scent) 1 applic TOPICAL 4X/DAY PRN PRN PRN Reason: PAIN Last Admin: 09/23/18 08:06 Dose: 1 applic Modafinil (Provigil) 200 mg PO DAILY@0600 [facility] Last Admin: 09/26/18 06:34 Dose: 200 mg Pantoprazole Sodium (Protonix) 20 mg PO DAILY [facility] Last Admin: 09/26/18 07:53 Dose: 20 mg Senna/Docusate Sodium (Senokot-S, Gladis-Colace) 1 tablet PO DAILY [facility] Last Admin: 09/26/18 10:06 Dose: Not Given Sertraline HCl (Zoloft) 25 mg PO DAILY [facility] Last Admin: 09/26/18 07:53 Dose: 25 mg Medical Necessity - Tobacco Use Smoking Status: Former smoker Tobacco Use: Cigarettes Assessment/Plan All Active Problems Severe left internal carotid stenosis (Acute) Occlusion of right internal carotid artery (Acute) Embolic stroke (Acute) 1. Acute right MCA CVA with Left-sided hemiparesis. Some improved mobility in leg Continue ASA, Plavix, HIS 2. Left hand hall reviewed pictures from 09/23 from wound care which showed large bullae on the dorsum on thumb, 2nd, and 3rd fingers extending to the DIPs. Smaller bullae on the dorsum of the 4th and 5th fingers, extending only to the DIP. Per patient and his , this was due to scalding from tea that he had spilled on himself while at . continue wound care Advised patient and family that proper wound care will minimize, but not eradicate risk of infection. 3. [facility] for now Follow up with vascular surgery as outpt. 4. HTN Controlled at this time. Continue Norvasc, Lisinopril 5. DVT proph: LMWH. Code Visit Inpatient E&M: 27223 Subs Hosp L2
[2018-09-26 21:02] VITALS: BP 124/67; PULSE 61; RESP 18; TEMP 36.7; O2SAT 94
[2018-09-26 22:00] VITALS: O2SAT 95
[2018-09-26 23:00] VITALS: BP 120/72; PULSE 52; RESP 12; TEMP 36.3; O2SAT 96
--- NOTE | 2018-09-26 23:15 | NURSING ---
DR NAQVI NOTIFIED THAT PT DIFFICULT TO AWAKE AND MEDICATION NOT GIVEN PT DOES NOT SEEM AWAKE ENOUGH TO SWALLOW PILL. INFORMED THAT PT'S RESPIRATIONS ARE IRREGULAR AND THAT PT ASKS WHY CAN'T I WAKE UP? PT REMAINS EXTREMELY SLEEPY AFTER INTERACTION AND BEING REPOSITIONED. DR PRADO ADVISES TO GO AHEAD WITH SCHEDULED MED AND NO FURTHER ORDERS GIVEN.
[2018-09-26] MEDS: Atorvastatin Calcium 40 MG Tablet PO (23:21)
[2018-09-27] MEDS: Modafinil 200 MG Tablet PO (06:33)
[2018-09-27] MEDS: Enoxaparin 40 MG/0.4 ML Syringe SC (06:33)
[2018-09-27 07:00] VITALS: BP 142/81; PULSE 55; RESP 16; TEMP 36.6; O2SAT 94
[2018-09-27 07:02] VITALS: O2SAT 97
[2018-09-27] MEDS: Lisinopril 10 MG Tablet PO (07:59)
[2018-09-27] MEDS: Sertraline 50 MG Tablet 25 MG PO (07:59)
[2018-09-27] MEDS: Gabapentin 400 MG Capsule PO ×3 (08:00→17:12)
[2018-09-27] MEDS: amLODIPine 10 MG Tablet PO (08:00)
[2018-09-27] MEDS: Pantoprazole Sodium 20 MG Tablet PO (08:00)
[2018-09-27] MEDS: Clopidogrel Bisulfate 75 MG Tablet PO (08:00)
[2018-09-27] MEDS: Aspirin 81 MG TAB.CHEW PO (08:00)
[2018-09-27] MEDS: Senna/Docusate Sodium 1 Tablet PO (08:00)
--- NOTE | 2018-09-27 19:21 | NURSING ---
Refused MOM today and day 3 no bm, bs x4 and patient has been toileted but unsuccessful with having a bm but passing a lot of flatus.
[2018-09-27 19:36] VITALS: BP 138/70; PULSE 67; RESP 18; TEMP 36.6; O2SAT 95
[2018-09-27] MEDS: Atorvastatin Calcium 40 MG Tablet PO (19:43)
[2018-09-27] MEDS: Acetaminophen 325 MG Tablet PO (19:46)
[2018-09-28] MEDS: Acetaminophen 325 MG Tablet PO (04:44)
[2018-09-28] MEDS: Enoxaparin 40 MG/0.4 ML Syringe SC (05:24)
[2018-09-28] MEDS: Modafinil 200 MG Tablet PO (05:24)
[2018-09-28 06:47] VITALS: O2SAT 97
--- NOTE | 2018-09-28 08:08 | RAD_ITS ---
STUDY: SWALLOWING STUDY REASON FOR EXAM: Male, 58 years old. Dysphasia. TECHNIQUE: The examination was performed with Speech Pathology in attendance. Under fluoroscopic observation, the patient ingested thin barium, thick barium, barium pudding, and barium coated cracker. FLUOROSCOPY TIME: 2:41 minutes/seconds. 2488 fluoroscopic spot images were obtained. RADIOLOGIST INVOLVEMENT: Radiologist was present and providing direct supervision. COMPARISON: None. FINDINGS: The following was observed during swallowing of the various mixtures of barium: Thin Barium: Transient penetration with ingestion of thin liquids. Thick Barium: There was no evidence of aspiration or laryngeal penetration. Barium Pudding: There was no evidence of aspiration or laryngeal penetration. Barium Coated Cracker: There was no evidence of aspiration or laryngeal penetration. RAD/Swallowing Function w/Video IMPRESSION: Transient penetration with ingestion of thin liquids. The swallow study findings were discussed with the patient by the speech pathologist at the conclusion of the examination. Please see speech pathology report for more information and recommendations. Electronically Signed: Iggy Dumont MD at 10:57 EST Tel [phone], Service support ,
[2018-09-28] MEDS: Calcium Carbonate 500 MG Tablet 1000 MG PO (08:43)
[2018-09-28 09:09] VITALS: BP 153/96; PULSE 84; RESP 16; TEMP 36.6; O2SAT 95
[2018-09-28] MEDS: Aspirin 81 MG TAB.CHEW PO (09:23)
[2018-09-28] MEDS: Pantoprazole Sodium 20 MG Tablet PO (09:24)
[2018-09-28] MEDS: amLODIPine 10 MG Tablet PO (09:24)
[2018-09-28] MEDS: Clopidogrel Bisulfate 75 MG Tablet PO (09:24)
[2018-09-28] MEDS: Sertraline 50 MG Tablet 25 MG PO (09:25)
[2018-09-28] MEDS: Lisinopril 10 MG Tablet PO (09:26)
[2018-09-28] MEDS: Gabapentin 400 MG Capsule PO ×3 (09:27→17:39)
--- NOTE | 2018-09-28 13:00 | SP.MBSS_ITS ---
PRIMARY / SECONDARY DIAGNOSIS: dysphagia (I69.391) REFERRING PHYSICIAN: Dr. Ana Hernandez MD CURRENT DIET: mechanical soft textures, honey thickened liquids DENTITION: natural; upper partial MENTAL STATUS: sufficient for participation RESPIRATORY STATUS: O2 via room air PREVIOUS MODIFIED BARIUM SWALLOW STUDY: 09/21/2018 MBS at report details an equivalent of moderate to severe oropharyngeal dysphagia with deficits in oral containment, pharyngeal dyssynchrony and dysmotility with resulting penetration without consistent ejection with SILENT aspiration of thin liquids and overt aspiration of regular textures; recommended repeat MBS in 3-4 weeks. 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 MEDICAL HISTORY: Pulmonary embolism, hypertension, deep vein thrombosis, and gastroesophageal reflux disease. STUDY FINDINGS: Patient participated in a Modified Barium Swallow (MBS) study on 09/28/2018. This study was recorded in the lateral view and images were sent to PACs for storage. The following consistencies were presented to this patient for analysis of oropharyngeal swallow function: thin liquids, pudding, and a regular textured, Megan Doone cookie. Results of the MBS are as follows: PENETRATION / ASPIRATION SCALE (PALENCIA): 1 = does not enter airway 2 = enters airway/above vocal folds/ejected 3 = enters airway/above vocal folds/not ejected 4 = enters airway/contacts vocal folds/ejected 5 = enters airway/contacts vocal folds/not ejected 6 = enters airway/below vocal folds/ejected 7 = enters airway/below vocal folds/not ejected despite effort 8 = enters airway/below vocal folds/no effort PENETRATION / ASPIRATION SCALE (SCORE): Thin liquid - 5 mL tsp.: 1 Thin liquids via cup (single sip): 1 Thin liquids via cup (single sip): 1 Thin liquids via cup (single sip): NA* Thin liquids via straw (single sip): 2 Thin liquids via straw (single sip): 1 Pudding via spoon: 1 Pudding via spoon (left head turn): 1 Thin liquids via straw (single sip): 2 Pudding via spoon (right head turn): 1 Regular textured cookie (right head turn): 1 Thin liquids via straw (chin tuck): 2 Thin liquids via straw (chin tuck): 1 Thin liquids via straw (chin tuck): 1 Thin liquids via straw (single sip): 2 * view compromised by excessive movement, no suspected penetration / aspiration. IMPRESSION: DIAGNOSIS: mild to moderate oropharyngeal dysphagia (I69.391) ORAL PHASE CHARACTERIZED BY: LABIAL SEAL: escape beyond mid chin TONGUE CONTROL DURING BOLUS MANIPULATION: posterior escape of less than half of bolus BOLUS PREPARATION / MASTICATION: slow prolonged chewing/mashing with complete recollection BOLUS TRANSPORT / LINGUAL MOTION: repetitive/disorganized tongue motion ORAL RESIDUE: residue collection on oral structures PHARYNGEAL PHASE CHARACTERIZED BY: INITIATION OF PHARYNGEAL SWALLOW: bolus head at posterior laryngeal surface of epiglottis at first hyoid excursion SOFT PALATE ELEVATION: trace column of contrast/air between soft palate and pharyngeal wall LARYNGEAL ELEVATION: partial superior movement of thyroid cartilage/partial approximation of arytenoids cartilage to epiglottic petiole ANTERIOR HYOID EXCURSION: partial anterior movement EPIGLOTTIC MOVEMENT: complete epiglottic inversion LARYNGEAL VESTIBULE CLOSURE AT HEIGHT OF SWALLOW: complete laryngeal vestibule closure with no air/contrast in laryngeal vestibule PHARYNGEAL STRIPPING WAVE: pharyngeal stripping wave present / diminished PHARYNGOESOPHAGEAL SEGMENT OPENING: partial distension and partial duration; partial obstruction of flow TONGUE BASE RETRACTION: trace column of contrast between tongue base and posterior pharyngeal wall PHARYNGEAL RESIDUE: collection of residue within or on pharyngeal structures ESOPHAGEAL PHASE CHARACTERIZED BY: ESOPHAGEAL BOLUS CLEARANCE IN THE UPRIGHT POSITION: complete clearance; esophageal coating EFFECTS OF TREATMENT STRATEGIES ATTEMPTED: Chin tuck posture = somewhat effective Left head turn = ineffective Right head turn = effective Liquid chaser = effective Reduced bolus size = effective Reduced rate of intake = effective DIET TEXTURE RECOMMENDATIONS: Will recommend a mechanical soft textured, thin liquid diet. 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 Oral phase marked by both intermittent right sided anterior bolus loss in addition to intermittent and premature posterior bolus loss with thin liquids; suboptimal bolus transportation with intermittent delayed onset with mild undulating movements; previously identified tendency for left sided bolus pocketing ameliorated with cueing for right sided bolus manipulate and transportation. Pharyngeal phase primarily marked by mild pharyngeal swallow onset dyssynchrony contributing to intermittent and transient prandial penetration with thin liquids somewhat improved with execution of the chin tuck posture; poor pharyngeal motility attributed to left sided posterior pharyngeal constrictor weakness ameliorated with execution of a right head turn during deglutition. Intermittent reductions in hyolaryngeal excursion correspond to bolus volume, lacking clinical significance, with sufficient laryngeal vestibule pressure generated to expel penetrated material. No aspiration appreciated throughout trials, unable to definitively rule out silent aspiration. RECOMMENDATIONS: Patient requires intensive skilled speech-language intervention targeting continued diet texture management; training and implementation of recommended compensatory strategies; training and implementation of recommended oropharyngeal strengthening exercises to facilitate improved labial control / strength, lingual control / strength, pharyngeal motility, and velopharyngeal competence; Patient and caregiver education regarding dysphagia associated with cerebrovascular accidents; and Patient / caregiver training targeting meal preparation / thickened liquid preparation if unable to advance to baseline diet textures prior to discharge. ADDITIONAL COMMENTS/RECOMMENDATIONS: Results and recommendations were discussed with the Patient immediately following MBS completion, with the Patient verbalizing understanding and agreement with all recommendations and education provided. IMAGE COUNT: [id number] G-CODES: SWALLOWING G8996 Current Status: CK SWALLOWING G8997 Goal Status: KENDRICK Westbrook M.A., CCC-[employer] ADMINISTRATOR [facility] Speech-Language Pathology Department [email or web address]
--- NOTE | 2018-09-28 14:03 | CASEMGMT ---
Team meeting held today with pt, and sister in law in attendance. Pt is making progress with therapy at this time. No d/c date has been set and plans are to continue with therapy. SW met with pt after team and explained insurance coverage. Pt is hopeful pt will be well enough to return home from [facility], but in the event pt is discharged prior to time can care for him at home, pt would prefer pt go to [facility] or [facility]. Will continue with treatment plan at this time and reteam next week. TYRELL Mccord
--- NOTE | 2018-09-28 15:40 | PCM.PN.NEU ---
Patient Problems: Active and Suspected Problems Severe left internal carotid stenosis (Acute) Occlusion of right internal carotid artery (Acute) Embolic stroke (Acute) Subjective: Staffed in team meeting. Family at bedside, questions answered. With Physical therapy, he he is a min assist of 2 to instant print operator the parallel bars. He is minimal to moderate assist for transfers, to go from a lying to a sitting position. With Occupational therapy he is moderate assist grooming and total assist for upper and lower body washing and dressing. With speech therapy he is advanced to regular diet with honey thicken liquids. His speech has improved. With Nursing he has chronic left shoulder pain from rotator cuff surgery, currently,on GPN will increase dose, schedule Tylenol 1000mg, and start Fentanyl patch. Will re-team again next Friday10/05/18. - Physical Exam General: Alert, Oriented x3, Cooperative HEENT: Atraumatic, PERRLA, EOMI, Normocephalic Neck: Supple, No JVD, Negative Carotid Bruits Lungs: Clear to auscultation, Normal air movement Cardiovascular: Regular rate, No murmurs Abdomen: Bowel Sounds Present, Soft, Non Tender Extremities: No edema, Capillary Refill Less than 3 Seconds Skin: No rashes, No breakdown Musculoskeletal: No Tenderness to Palpation of Joints or Extremities Neurological: Cranial nerves II-XII grossly intact Psych/Mental Status: Normal Affect, Appropriate, Alert and oriented to time, place, person, mood and affect Vital Signs Temp Pulse Resp BP Pulse Ox 98 F 84 16 153/96 H 95 09/28/18 09:09 09/28/18 09:09 09/28/18 09:09 09/28/18 09:09 09/28/18 09:09 Oxygen Flow Rate (L/min) 2.5 Oxygen Delivery Method Room Air Weight: 112.18 kg Body Mass Index (BMI) 31.1 Intake and Output for Last 24 Hours 09/26/18 09/27/18 09/28/18 23:59 23:59 23:59 Intake Total 1180 / 1180 1260 / 1260 200 / 200 Output Total 350 / 350 1300 / 1300 250 / 250 Balance 830 / 830 -40 / -40 -50 / -50 Microbiology Past 72 Hours 09/23/18 15:50 Urine Culture - Final Urine, Catheterized Culture exhibits no growth. Active Medications Acetaminophen (Tylenol) 325 mg PO TID PRN PRN Reason: PAIN Last Admin: 09/28/18 04:44 Dose: 325 mg Amlodipine Besylate (Norvasc) 10 mg PO DAILY [facility] Last Admin: 09/28/18 09:24 Dose: 10 mg Aspirin (Aspirin, Baby) 81 mg PO DAILY@0800 [facility] Last Admin: 09/28/18 09:23 Dose: 81 mg Atorvastatin Calcium (Lipitor) 40 mg PO QHS [facility] Last Admin: 09/27/18 19:43 Dose: 40 mg Bisacodyl (Dulcolax) 10 mg RECTAL .PRN X 1 PRN PRN Reason: Constipation Calcium Carbonate (Tums) 1,000 mg PO Q4H PRN PRN PRN Reason: HEARTBURN Last Admin: 09/28/18 08:43 Dose: 1,000 mg Clopidogrel Bisulfate (Plavix) 75 mg PO DAILY [facility] Last Admin: 09/28/18 09:24 Dose: 75 mg Diclofenac Sodium (Voltaren) 1 applic TP 4X/DAY [facility] Last Admin: 09/28/18 13:00 Dose: 1 applicatio Enoxaparin Sodium (Lovenox) 40 mg SC DAILY@0600 [facility] Last Admin: 09/28/18 05:24 Dose: 40 mg Gabapentin (Neurontin) 400 mg PO TIDCM [facility] Last Admin: 09/28/18 12:58 Dose: 400 mg Lisinopril (Zestril) 10 mg PO DAILY [facility] Last Admin: 09/28/18 09:26 Dose: 10 mg Magnesium Hydroxide (Milk Of Magnesia) 30 ml PO .PRN X 1 PRN PRN Reason: Constipation Menthol (Bengay Vanishing Scent) 1 applic TOPICAL 4X/DAY PRN PRN PRN Reason: PAIN Last Admin: 09/28/18 05:24 Dose: 1 applic Modafinil (Provigil) 200 mg PO DAILY@0600 [facility] Last Admin: 09/28/18 05:24 Dose: 200 mg Pantoprazole Sodium (Protonix) 20 mg PO DAILY [facility] Last Admin: 09/28/18 09:24 Dose: 20 mg Senna/Docusate Sodium (Senokot-S, Gladis-Colace) 1 tablet PO DAILY [facility] Last Admin: 09/28/18 09:29 Dose: Not Given Sertraline HCl (Zoloft) 25 mg PO DAILY [facility] Last Admin: 09/28/18 09:25 Dose: 25 mg Medical Necessity - Tobacco Use Smoking Status: Former smoker Tobacco Use: Cigarettes Assessment/Plan All Active Problems Severe left internal carotid stenosis (Acute) Occlusion of right internal carotid artery (Acute) Embolic stroke (Acute) Debility status post Right MCA, complicated by a complete right ICA occlusion, >70% stenosis of his Left ICA, and HTN. Goal of rehab is adventist of prior level of functional independence. Plan: - Physical therapy for gait and balance - Occupational Therapy for ADLs - As needed analgesics - Bowel protocol - DVT PPX - Lovenox, SCDs. - HLD - continue home dose of statin - GERD - continue home dose of PPI - HTN - stable => continue on lisinopril, and Norvasc, continue monitoring and adjust medication as needed - Acute right MCA embolic stroke -> continue on Plavix, ASA and statin - Complete occlusion of the right ICA and severe stenosis >70% of the left ICA -> continue aspirin, statins and Plavix, patient will need vascular surgery evaluation for stenosis of the left ICA on discharge as an outpatient. 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 - Hx of GERD: Continue PPI. - Loud Snoring - on O2 at night 2/2 loud snoring, and drop in SATs < 88% at night => Schedule a portable sleep study as soon as possible with placement on Auto-pap once study is complete, on discharge formal sleep study - Depression - continue Zoloft - Hypersomnia - start on Provigil 200mg daily at 0600 AM - Genetic testing for excessive clotting - Factor II, VIII, XI, and Von Willebrand - on discharge 30 day event monitor - Fall precaution - refusing to eat or drink - currently on a pureed diet and honey thicken liquids - IV placed for fluids NS 1L @ 75cc/hr - Diet changed to Regular diet with honey thicken liquids per Speech therapy -> tolerating new diet - Chronic pain start low dose of Fentanyl patch now that he is more awake then on admission.
[2018-09-28] MEDS: Acetaminophen 500 MG Tablet 1000 MG PO (21:29)
[2018-09-28] MEDS: Atorvastatin Calcium 40 MG Tablet PO (21:30)
--- NOTE | 2018-09-28 21:37 | NURSING ---
Dressing changed to left hand. Blistered areas cleansed with sterile water and patted dry with minimal drainage present. Fresh Adaptic reapplied and gauze wrapped around each finger. Gauze wrap & SARAN wrap applied around whole hand and hand elevated on pillow.
[2018-09-28 21:55] VITALS: BP 134/67; PULSE 60; RESP 18; TEMP 36.7; O2SAT 96
[2018-09-29] MEDS: Acetaminophen 500 MG Tablet 1000 MG PO ×3 (05:38→22:42)
[2018-09-29] MEDS: Enoxaparin 40 MG/0.4 ML Syringe SC (05:38)
[2018-09-29] MEDS: Modafinil 200 MG Tablet PO (05:39)
[2018-09-29 07:00] VITALS: BP 120/72; PULSE 58; RESP 18; TEMP 36.7; O2SAT 94
[2018-09-29] MEDS: Senna/Docusate Sodium 1 Tablet PO (07:36)
[2018-09-29] MEDS: Sertraline 50 MG Tablet 25 MG PO (07:36)
[2018-09-29] MEDS: Aspirin 81 MG TAB.CHEW PO (07:37)
[2018-09-29] MEDS: Pantoprazole Sodium 20 MG Tablet PO (07:37)
[2018-09-29] MEDS: Clopidogrel Bisulfate 75 MG Tablet PO (07:37)
[2018-09-29] MEDS: Mesalamine 1.2 GM Tablet 4.8 GM PO (07:37)
[2018-09-29] MEDS: amLODIPine 10 MG Tablet PO (07:37)
[2018-09-29] MEDS: Lisinopril 10 MG Tablet PO (07:37)
[2018-09-29] MEDS: Gabapentin 400 MG Capsule PO ×3 (07:37→17:22)
[2018-09-29 07:40] VITALS: O2SAT 95
[2018-09-29 13:22] LABS: Factor VIII Activity 217 % (57-163)
[2018-09-29 22:30] VITALS: BP 126/81; PULSE 55; RESP 16; TEMP 36.4; O2SAT 93
[2018-09-29] MEDS: Atorvastatin Calcium 40 MG Tablet PO (22:42)
--- NOTE | 2018-09-30 03:49 | NURSING ---
Reviewed and agree with ODD TICKET CLERK documentation and FIMs charting.
[2018-09-30] MEDS: Enoxaparin 40 MG/0.4 ML Syringe SC (04:57)
[2018-09-30] MEDS: Acetaminophen 500 MG Tablet 1000 MG PO ×3 (04:57→19:27)
[2018-09-30] MEDS: Modafinil 200 MG Tablet PO (04:58)
[2018-09-30] MEDS: Mesalamine 1.2 GM Tablet 4.8 GM PO (08:01)
[2018-09-30] MEDS: Gabapentin 400 MG Capsule PO ×3 (08:02→17:32)
[2018-09-30] MEDS: Lisinopril 10 MG Tablet PO (08:02)
[2018-09-30] MEDS: amLODIPine 10 MG Tablet PO (08:02)
[2018-09-30] MEDS: Sertraline 50 MG Tablet 25 MG PO (08:02)
[2018-09-30] MEDS: Clopidogrel Bisulfate 75 MG Tablet PO (08:02)
[2018-09-30] MEDS: Aspirin 81 MG TAB.CHEW PO (08:02)
[2018-09-30] MEDS: Pantoprazole Sodium 20 MG Tablet PO (08:02)
[2018-09-30] MEDS: Senna/Docusate Sodium 1 Tablet PO (08:08)
[2018-09-30 09:41] VITALS: BP 149/84; PULSE 58; RESP 16; TEMP 36.6; O2SAT 95
[2018-09-30] MEDS: Senna/Docusate Sodium 1 Tablet 2 TABLET PO ×2 (12:54→19:30)
--- NOTE | 2018-09-30 13:45 | CASEMGMT ---
Insurance Clinical information sent. Pending continued stay approval at this time. Auth#[id number] TYRELL Braden, ELECTROPHYSIOLOGY SCIENTIST
--- NOTE | 2018-09-30 15:10 | PCM.PN.NEU ---
Patient Problems: Active and Suspected Problems Severe left internal carotid stenosis (Acute) Occlusion of right internal carotid artery (Acute) Embolic stroke (Acute) Subjective: Patient seen, lying in bed conversing with a family friend. No new complaints, having some issues with constipation have increased his bowel regime to help with this. He is tolerating therapy, diet is advance to mechanical soft with thin liquids utilizing the chin tuck method to swallow. He starting to get movement in his left leg, able to move it, still 0/5 strength, is able to shrug his left shoulder slightly. - Physical Exam General: Alert, Oriented x3, Cooperative HEENT: Atraumatic, PERRLA, EOMI, Normocephalic Neck: Supple, No JVD, Negative Carotid Bruits Lungs: Clear to auscultation, Normal air movement Cardiovascular: Regular rate, No murmurs Abdomen: Bowel Sounds Present, Soft, Non Tender Extremities: No edema, Capillary Refill Less than 3 Seconds Skin: No rashes, No breakdown Musculoskeletal: No Tenderness to Palpation of Joints or Extremities Neurological: Cranial nerves II-XII grossly intact Psych/Mental Status: Normal Affect, Appropriate, Alert and oriented to time, place, person, mood and affect Vital Signs Temp Pulse Resp BP Pulse Ox 97.8 F 58 L 16 149/84 H 95 09/30/18 09:41 09/30/18 09:41 09/30/18 09:41 09/30/18 09:41 09/30/18 09:41 Oxygen Flow Rate (L/min) 2 Oxygen Delivery Method Room Air Weight: 107.9 kg Body Mass Index (BMI) 31.1 Intake and Output for Last 24 Hours 09/28/18 09/29/18 09/30/18 23:59 23:59 23:59 Intake Total 680 / 680 1420 / 1420 600 / 600 Output Total 500 / 500 750 / 750 400 / 400 Balance 180 / 180 670 / 670 200 / 200 Active Medications Acetaminophen (Tylenol) 1,000 mg PO TID [facility] Last Admin: 09/30/18 12:54 Dose: 1,000 mg Amlodipine Besylate (Norvasc) 10 mg PO DAILY [facility] Last Admin: 09/30/18 08:02 Dose: 10 mg Aspirin (Aspirin, Baby) 81 mg PO DAILY@0800 [facility] Last Admin: 09/30/18 08:02 Dose: 81 mg Atorvastatin Calcium (Lipitor) 40 mg PO QHS [facility] [place] Last Admin: 09/29/18 22:42 Dose: 40 mg Bisacodyl (Dulcolax) 10 mg RECTAL .PRN X 1 PRN PRN Reason: Constipation Calcium Carbonate (Tums) 1,000 mg PO Q4H PRN PRN PRN Reason: HEARTBURN Last Admin: 09/28/18 08:43 Dose: 1,000 mg Clopidogrel Bisulfate (Plavix) 75 mg PO DAILY [facility] [place] Last Admin: 09/30/18 08:02 Dose: 75 mg Diclofenac Sodium (Voltaren) 1 applic TP 4X/DAY [facility] [place] Last Admin: 09/30/18 12:55 Dose: 1 applicatio Enoxaparin Sodium (Lovenox) 40 mg SC DAILY@0600 [facility] Last Admin: 09/30/18 04:57 Dose: 40 mg Fentanyl (Duragesic Patch) 12 mcg TRANSDERM. Q3D [facility] Last Admin: 09/28/18 18:25 Dose: 12 mcg Gabapentin (Neurontin) 400 mg PO TIDCM [facility] Last Admin: 09/30/18 12:54 Dose: 400 mg Lisinopril (Zestril) 10 mg PO DAILY [facility] Last Admin: 09/30/18 08:02 Dose: 10 mg Magnesium Hydroxide (Milk Of Magnesia) 30 ml PO .PRN X 1 PRN PRN Reason: Constipation Menthol (Bengay Vanishing Scent) 1 applic TOPICAL 4X/DAY PRN PRN PRN Reason: PAIN Last Admin: 09/30/18 04:57 Dose: 1 applic Mesalamine (Lialda) 4.8 gm PO DAILY [facility] Last Admin: 09/30/18 08:01 Dose: 4.8 gm Modafinil (Provigil) 200 mg PO DAILY@0600 [facility] [place] Last Admin: 09/30/18 04:58 Dose: 200 mg Pantoprazole Sodium (Protonix) 20 mg PO DAILY [facility] [place] Last Admin: 09/30/18 08:02 Dose: 20 mg Senna/Docusate Sodium (Senokot-S, Gladis-Colace) 2 tablet PO BID [facility] Last Admin: 09/30/18 12:54 Dose: 2 tablet Sertraline HCl (Zoloft) 25 mg PO DAILY [facility] Last Admin: 09/30/18 08:02 Dose: 25 mg Medical Necessity - Tobacco Use Smoking Status: Former smoker Tobacco Use: Cigarettes Assessment/Plan All Active Problems Severe left internal carotid stenosis (Acute) Occlusion of right internal carotid artery (Acute) Embolic stroke (Acute) Debility status post Right MCA, complicated by a complete right ICA occlusion, >70% stenosis of his Left ICA, and HTN. Goal of rehab is scientology of prior level of functional independence. Plan: - Physical therapy for gait and balance - Occupational Therapy for ADLs - As needed analgesics - Bowel protocol - DVT PPX - Lovenox, SCDs. - HLD - continue home dose of statin - GERD - continue home dose of PPI - HTN - stable => continue on lisinopril, and Norvasc, continue monitoring and adjust medication as needed - Acute right MCA embolic stroke -> continue on Plavix, ASA and statin - Complete occlusion of the right ICA and severe stenosis >70% of the left ICA -> continue aspirin, statins and Plavix, patient will need vascular surgery evaluation for stenosis of the left ICA on discharge as an outpatient. 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 - Hx of GERD: Continue PPI. - Loud Snoring - on O2 at night 2/2 loud snoring, and drop in SATs < 88% at night => Schedule a portable sleep study as soon as possible with placement on Auto-pap once study is complete, on discharge formal sleep study - Depression - continue Zoloft - Hypersomnia - start on Provigil 200mg daily at 0600 AM - Genetic testing for excessive clotting - Factor II, VIII, XI, and Von Willebrand => Factor II, and Von Willebrand are Negative, his Factor VIII is 217 -> hematology has been consulted. - on discharge 30 day event monitor - Fall precaution - refusing to eat or drink - currently on a pureed diet and honey thicken liquids - IV placed for fluids NS 1L @ 75cc/hr - Diet changed to Regular diet with honey thicken liquids per Speech therapy -> tolerating new diet - Chronic pain start low dose of Fentanyl patch now that he is more awake then on admission.
--- NOTE | 2018-09-30 15:35 | NURSING ---
wound photo: left hand
[2018-09-30 19:07] VITALS: BP 124/67; PULSE 56; RESP 18; TEMP 36.6; O2SAT 94
[2018-09-30] MEDS: Atorvastatin Calcium 40 MG Tablet PO (19:29)
--- NOTE | 2018-09-30 21:16 | NURSING ---
PT C/O L SHOULDER PAIN. MERCEDEZ APPLIED AND PT REPOSITIONED. OK TO CALL HOSPITALIST FOR FURTHER PAIN MEDS ORDER FOR L SHOULDER THIS SHIFT IF NEEDED PER DR KIRAN PER TELEPHONE.
--- NOTE | 2018-10-01 03:43 | NURSING ---
CONTINENT OF URINE THUS FAR THIS SHIFT. URINE CLEAR, JENNIFER, WITHOUT ODOR.
[2018-10-01] MEDS: Acetaminophen 500 MG Tablet 1000 MG PO ×3 (06:15→20:52)
[2018-10-01] MEDS: Modafinil 200 MG Tablet PO (06:16)
[2018-10-01] MEDS: Enoxaparin 40 MG/0.4 ML Syringe SC (06:16)
--- NOTE | 2018-10-01 07:00 | NURSING ---
PT WANTS TO SIT ON A BEDPAN FOR A POSSIBLE BM. PT PASSES FLATUS ONLY AND NO STOOL. DOES NOT WANT TO SIT ON A BSC AT THIS TIME. PT DOES NOT WANT MILK OF MAG AND REQUESTS A RECTAL SUPP. GIVEN.
[2018-10-01 07:05] VITALS: O2SAT 94
[2018-10-01] MEDS: Bisacodyl 10 MG Suppository RECTAL (07:09)
[2018-10-01 08:16] VITALS: BP 120/71; PULSE 54; RESP 18; TEMP 36.8; O2SAT 92
[2018-10-01] MEDS: Mesalamine 1.2 GM Tablet 4.8 GM PO (08:44)
[2018-10-01] MEDS: Gabapentin 400 MG Capsule PO ×3 (08:46→17:11)
[2018-10-01] MEDS: Aspirin 81 MG TAB.CHEW PO (08:46)
[2018-10-01] MEDS: Senna/Docusate Sodium 1 Tablet 2 TABLET PO (08:49)
--- NOTE | 2018-10-01 09:08 | RAD_ITS ---
STUDY: X-RAY - LEFT HIP REASON FOR EXAM: Male, 58 years old. Left hip pain TECHNIQUE: 2 views of the hip. COMPARISON: None. FINDINGS: Surgery in the lower lumbosacral spine. Degenerative changes of the sacroiliac joints. The hip joints are normal. There are no acute fractures. Calcifications in both groins and there is a prominent prostate are noted in the colon RAD/HIP, UNI W/ Pelvis 2-3 Views IMPRESSION: No acute fracture. Degenerative changes of the lower lumbosacral spine. Electronically Signed: Antonio Puentes MD at 7:23 EST Tel , Service support ,
[2018-10-01] MEDS: Sertraline 50 MG Tablet 25 MG PO (09:44)
[2018-10-01] MEDS: Clopidogrel Bisulfate 75 MG Tablet PO (09:45)
[2018-10-01] MEDS: Lisinopril 10 MG Tablet PO (09:45)
[2018-10-01] MEDS: Pantoprazole Sodium 20 MG Tablet PO (09:45)
[2018-10-01] MEDS: amLODIPine 10 MG Tablet PO (09:46)
--- NOTE | 2018-10-01 11:21 | PCM.RU.PYE ---
Admission Information Status Changes from Prescreening?: No changes Identified Actual Problem List:: Mobility Impaired, Self Care Deficit, Ineffective Communication, BP, Hypertension Potential Problem List:: DVT, Bleeding, Infection, UTI, Aspiration, Falls, Skin Integrity, Depression Risk of Complications DVT: LMWH, GENA Hose, Sequential Compression Device Bleeding: Monitor Lab Values, Nursing to Teach Precautions for anti-coagulation therapy., Wound, if applicable, to be assessed every shift., Stroke patients assessed for lethargy or change in status. Infection: Clinical Staff to Monitor for S/S of infection:, S/S of infection include fever, redness, warmth, etc. Urinary Tract Infection: Monitor for frequency, burning, discomfort, or incontinence., Nursing will obtain urine sample for urinalysis and C&S when ordered. Aspiration: Clinical staff will monitor for coughing, drooling, congestion., Speech will evaluate swallowing and dsyphasia., Nursing will monitor patient swallowing during meals. Falls: Patient will be evaluated for Fall Precautions, Patient will be placed on Fall Precautions as indicated per protocol. Skin Breakdown: Nursing will assess skin daily using assessment tool., Nursing will place on Skin Breakdown Precautions as indicated. Pain: Clinical staff will assess patient's pain level per protocol., Medications will be given, if needed, and the pain level reassessed., Other methods: Massage, distraction, decrease stimulus, etc. used PRN. Plan of Care Patient requires physician specializing in physical medicine and rehab oversight to provide close medical supervision of rehab issues including: Pain Management, Sleep Problems, Bowel and Bladder, Medical and co-morbidity Management, DVT prophylaxis, Rehabilitation Leadership, Coordination of treatment team Patient needs Physical Therapy: For a minimum of 1 hour, At least 5 out of 7 days Patient needs Physical Therapy to improve:: Mobility, Mobility, Mobility, Strengthening, Transfers, Stretching, ROM, Endurance, Stairs, Gait, Balance Patient needs Occupational Therapy: For a minimum of 1 hour, At least 5 out of 7 days Patient needs Occupational Therapy to improve ADL's incl.: Eating, Grooming, Bathing, Dressing, Toileting, Toilet transfers, Community Reintegration, Higher functioning activities, Household tasks, Adaptive Equipment, Splinting, Other activities as determined Patient requires speech therapy: For a minimum of 1 hour, At least 5 out of 7 days Patient requires speech therapy for: Swallowing, Cognition, Language Skills, Compensatory Strategies Patient requires 24/7 Rehabilitation Nursing for: Pain Issues, Identifying and preventing risk factors, Monitoring and reporting current medical conditions, Assisting with ambulation, transfer, and all ADL's, Teaching patients about disease process and medications, Family teaching, Providing safe environment, Bowel and Bladder Issues, Skin integrity, Medication Management Patient needs Tractor Engine Assembler/ Case Management for: Discharge Planning, Arranging Home Equipment or Services, Family Interventions Patient needs Dietary and Nutrition Services for: Adequate Nutrition, Nutritional Supplements, Nutritional Education Goals Patient will remain: free from falls, or injury at time of discharge. Patient will perform bed mobility at: MOD I level of assist. Patient will complete transfers from bed to chair at: MOD I level of assist. Patient will ambulate: 100 feet, with MOD I assist, with LRD Patient will complete upper body dressing at: MOD I level of assist. Patient will complete lower body dressing at: MOD I level of assist. Patient will complete toileting at: MOD I level of assist. Patient will perform bathing at: MOD I level of assist. Patient will complete grooming at: MOD I level of assist. Patient will complete home management skills at: MOD I level of assist. Patient will achieve: 12 stairs, at MOD I assist Patient will have pain level of: of 3 or less Patient's skin will: remain intact, free from infection. Patient will receive: adequate nutrition. Discharge Planning Pt Prognosis for Sig. Practical Improv. w/in Reasonable Time: Fair Estimated Length of stay (days): 20 Anticipated D/C Destination: Home with Outpt Therapy Was Preadmission Assessment Accurate?: Yes
--- NOTE | 2018-10-01 11:32 | PCM.PN.NEU ---
Patient Problems: Active and Suspected Problems Elevated factor VIII level (Acute) Severe left internal carotid stenosis (Acute) Occlusion of right internal carotid artery (Acute) Embolic stroke (Acute) Subjective: Patient seen, his left hip is popping when he moves it lateral, per patient feels as if it is popping out of the socket. Pain has improved some. He is tolerating therapy. No issues with upgrade in diet to mechanical soft thin liquids. Had to have a suppository today since he has not had a bowel movement in the last three days. - Physical Exam General: Alert, Oriented x3, Cooperative HEENT: Atraumatic, PERRLA, EOMI, Normocephalic Neck: Supple, No JVD, Negative Carotid Bruits Lungs: Clear to auscultation, Normal air movement Cardiovascular: Regular rate, No murmurs Abdomen: Bowel Sounds Present, Soft, Non Tender Extremities: No edema, Capillary Refill Less than 3 Seconds Skin: No rashes, No breakdown Musculoskeletal: No Tenderness to Palpation of Joints or Extremities Neurological: Cranial nerves II-XII grossly intact Psych/Mental Status: Normal Affect, Appropriate, Alert and oriented to time, place, person, mood and affect Vital Signs Temp Pulse Resp BP Pulse Ox 98.3 F 54 L 18 120/71 92 10/01/18 08:16 10/01/18 08:16 10/01/18 08:16 10/01/18 08:16 10/01/18 08:16 Oxygen Flow Rate (L/min) 2 Oxygen Delivery Method Room Air Weight: 107.9 kg Body Mass Index (BMI) 31.1 Intake and Output for Last 24 Hours 09/29/18 09/30/18 10/01/18 23:59 23:59 23:59 Intake Total 1420 / 1420 600 / 600 Output Total 750 / 750 400 / 400 375 / 375 Balance 670 / 670 200 / 200 -375 / -375 Active Medications Acetaminophen (Tylenol) 1,000 mg PO TID [facility] Last Admin: 10/01/18 06:15 Dose: 1,000 mg Amlodipine Besylate (Norvasc) 10 mg PO DAILY [facility] Last Admin: 10/01/18 09:46 Dose: 10 mg Aspirin (Aspirin, Baby) 81 mg PO DAILY@0800 [facility] Last Admin: 10/01/18 08:46 Dose: 81 mg Atorvastatin Calcium (Lipitor) 40 mg PO QHS [facility] Last Admin: 09/30/18 19:29 Dose: 40 mg Bisacodyl (Dulcolax) 10 mg RECTAL .PRN X 1 PRN PRN Reason: Constipation Last Admin: 10/01/18 07:09 Dose: 10 mg Calcium Carbonate (Tums) 1,000 mg PO Q4H PRN PRN PRN Reason: HEARTBURN Last Admin: 09/28/18 08:43 Dose: 1,000 mg Clopidogrel Bisulfate (Plavix) 75 mg PO DAILY [facility] Last Admin: 10/01/18 09:45 Dose: 75 mg Diclofenac Sodium (Voltaren) 1 applic TP 4X/DAY [facility] Last Admin: 10/01/18 08:47 Dose: 1 applicatio Enoxaparin Sodium (Lovenox) 40 mg SC DAILY@0600 [facility] Last Admin: 10/01/18 06:16 Dose: 40 mg Fentanyl (Duragesic Patch) 12 mcg TRANSDERM. Q3D [facility] Last Admin: 09/28/18 18:25 Dose: 12 mcg Gabapentin (Neurontin) 400 mg PO TIDCM [facility] Last Admin: 10/01/18 08:46 Dose: 400 mg Lisinopril (Zestril) 10 mg PO DAILY [facility] Last Admin: 10/01/18 09:45 Dose: 10 mg Magnesium Hydroxide (Milk Of Magnesia) 30 ml PO .PRN X 1 PRN PRN Reason: Constipation Menthol (Bengay Vanishing Scent) 1 applic TOPICAL 4X/DAY PRN PRN PRN Reason: PAIN Last Admin: 10/01/18 06:17 Dose: 1 applic Mesalamine (Lialda) 4.8 gm PO DAILY [facility] Last Admin: 10/01/18 08:44 Dose: 4.8 gm Modafinil (Provigil) 200 mg PO DAILY@0600 [facility] Last Admin: 10/01/18 06:16 Dose: 200 mg Pantoprazole Sodium (Protonix) 20 mg PO DAILY [facility] Last Admin: 10/01/18 09:45 Dose: 20 mg Senna/Docusate Sodium (Senokot-S, Gladis-Colace) 2 tablet PO BID [facility] Last Admin: 10/01/18 08:49 Dose: 2 tablet Sertraline HCl (Zoloft) 25 mg PO DAILY [facility] Last Admin: 10/01/18 09:44 Dose: 25 mg Medical Necessity - Tobacco Use Smoking Status: Former smoker Tobacco Use: Cigarettes Assessment/Plan All Active Problems Elevated factor VIII level (Acute) Severe left internal carotid stenosis (Acute) Occlusion of right internal carotid artery (Acute) Embolic stroke (Acute) Debility status post Right MCA, complicated by a complete right ICA occlusion, >70% stenosis of his Left ICA, and HTN. Goal of rehab is shinto of prior level of functional independence. Plan: - Physical therapy for gait and balance - Occupational Therapy for ADLs - As needed analgesics - Bowel protocol - DVT PPX - Lovenox, SCDs. - HLD - continue home dose of statin - GERD - continue home dose of PPI - HTN - stable => continue on lisinopril, and Norvasc, continue monitoring and adjust medication as needed - Acute right MCA embolic stroke -> continue on Plavix, ASA and statin - Complete occlusion of the right ICA and severe stenosis >70% of the left ICA -> continue aspirin, statins and Plavix, patient will need vascular surgery evaluation for stenosis of the left ICA on discharge as an outpatient. 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 - Hx of GERD: Continue PPI. - Loud Snoring - on O2 at night 2/2 loud snoring, and drop in SATs < 88% at night => Schedule a portable sleep study as soon as possible with placement on Auto-pap once study is complete, on discharge formal sleep study - Depression - continue Zoloft - Hypersomnia - start on Provigil 200mg daily at 0600 AM - Genetic testing for excessive clotting - Factor II, VIII, XI, and Von Willebrand => Factor II, and Von Willebrand are Negative, his Factor VIII is 217 -> hematology has been consulted. - on discharge 30 day event monitor - Fall precaution - refusing to eat or drink - currently on a pureed diet and honey thicken liquids - IV placed for fluids NS 1L @ 75cc/hr - Diet changed to Regular diet with honey thicken liquids per Speech therapy -> tolerating new diet - Chronic pain start low dose of Fentanyl patch now that he is more awake then on admission. - Left hip popping causing pain - Hip/pelvic x-ray
--- NOTE | 2018-10-01 11:36 | PN.NEURO_ITS ---
Patient Problems: Active and Suspected Problems Elevated factor VIII level (Acute) Severe left internal carotid stenosis (Acute) Occlusion of right internal carotid artery (Acute) Embolic stroke (Acute) Subjective: Patient seen, his left hip is popping when he moves it lateral, per patient feels as if it is popping out of the socket. Pain has improved some. He is tolerating therapy. No issues with upgrade in diet to mechanical soft thin liquids. Had to have a suppository today since he has not had a bowel movement in the last three days. - Physical Exam General: Alert, Oriented x3, Cooperative HEENT: Atraumatic, PERRLA, EOMI, Normocephalic Neck: Supple, No JVD, Negative Carotid Bruits Lungs: Clear to auscultation, Normal air movement Cardiovascular: Regular rate, No murmurs Abdomen: Bowel Sounds Present, Soft, Non Tender Extremities: No edema, Capillary Refill Less than 3 Seconds Skin: No rashes, No breakdown Musculoskeletal: No Tenderness to Palpation of Joints or Extremities Neurological: Cranial nerves II-XII grossly intact Psych/Mental Status: Normal Affect, Appropriate, Alert and oriented to time, place, person, mood and affect Vital Signs Temp Pulse Resp BP Pulse Ox 98.3 F 54 L 18 120/71 92 10/01/18 08:16 10/01/18 08:16 10/01/18 08:16 10/01/18 08:16 10/01/18 08:16 Oxygen Flow Rate (L/min) 2 Oxygen Delivery Method Room Air Weight: 107.9 kg Body Mass Index (BMI) 31.1 Intake and Output for Last 24 Hours 09/29/18 09/30/18 10/01/18 23:59 23:59 23:59 Intake Total 1420 / 1420 600 / 600 Output Total 750 / 750 400 / 400 375 / 375 Balance 670 / 670 200 / 200 -375 / -375 Active Medications Acetaminophen (Tylenol) 1,000 mg PO TID [facility] Last Admin: 10/01/18 06:15 Dose: 1,000 mg Amlodipine Besylate (Norvasc) 10 mg PO DAILY [facility] Last Admin: 10/01/18 09:46 Dose: 10 mg Aspirin (Aspirin, Baby) 81 mg PO DAILY@0800 [facility] Last Admin: 10/01/18 08:46 Dose: 81 mg Atorvastatin Calcium (Lipitor) 40 mg PO QHS [facility] Last Admin: 09/30/18 19:29 Dose: 40 mg Bisacodyl (Dulcolax) 10 mg RECTAL .PRN X 1 PRN PRN Reason: Constipation Last Admin: 10/01/18 07:09 Dose: 10 mg Calcium Carbonate (Tums) 1,000 mg PO Q4H PRN PRN PRN Reason: HEARTBURN Last Admin: 09/28/18 08:43 Dose: 1,000 mg Clopidogrel Bisulfate (Plavix) 75 mg PO DAILY [facility] Last Admin: 10/01/18 09:45 Dose: 75 mg Diclofenac Sodium (Voltaren) 1 applic TP 4X/DAY [facility] Last Admin: 10/01/18 08:47 Dose: 1 applicatio Enoxaparin Sodium (Lovenox) 40 mg SC DAILY@0600 [facility] Last Admin: 10/01/18 06:16 Dose: 40 mg Fentanyl (Duragesic Patch) 12 mcg TRANSDERM. Q3D [facility] Last Admin: 09/28/18 18:25 Dose: 12 mcg Gabapentin (Neurontin) 400 mg PO TIDCM [facility] Last Admin: 10/01/18 08:46 Dose: 400 mg Lisinopril (Zestril) 10 mg PO DAILY [facility] Last Admin: 10/01/18 09:45 Dose: 10 mg Magnesium Hydroxide (Milk Of Magnesia) 30 ml PO .PRN X 1 PRN PRN Reason: Constipation Menthol (Bengay Vanishing Scent) 1 applic TOPICAL 4X/DAY PRN PRN PRN Reason: PAIN Last Admin: 10/01/18 06:17 Dose: 1 applic Mesalamine (Lialda) 4.8 gm PO DAILY [facility] Last Admin: 10/01/18 08:44 Dose: 4.8 gm Modafinil (Provigil) 200 mg PO DAILY@0600 [facility] Last Admin: 10/01/18 06:16 Dose: 200 mg Pantoprazole Sodium (Protonix) 20 mg PO DAILY [facility] Last Admin: 10/01/18 09:45 Dose: 20 mg Senna/Docusate Sodium (Senokot-S, Gladis-Colace) 2 tablet PO BID [facility] Last Admin: 10/01/18 08:49 Dose: 2 tablet Sertraline HCl (Zoloft) 25 mg PO DAILY [facility] Last Admin: 10/01/18 09:44 Dose: 25 mg Medical Necessity - Tobacco Use Smoking Status: Former smoker Tobacco Use: Cigarettes Assessment/Plan All Active Problems Elevated factor VIII level (Acute) Severe left internal carotid stenosis (Acute) Occlusion of right internal carotid artery (Acute) Embolic stroke (Acute) Debility status post Right MCA, complicated by a complete right ICA occlusion, >70% stenosis of his Left ICA, and HTN. Goal of rehab is judaism of prior level of functional independence. Plan: - Physical therapy for gait and balance - Occupational Therapy for ADLs - As needed analgesics - Bowel protocol - DVT PPX - Lovenox, SCDs. - HLD - continue home dose of statin - GERD - continue home dose of PPI - HTN - stable => continue on lisinopril, and Norvasc, continue monitoring and adjust medication as needed - Acute right MCA embolic stroke -> continue on Plavix, ASA and statin - Complete occlusion of the right ICA and severe stenosis >70% of the left ICA - > continue aspirin, statins and Plavix, patient will need vascular surgery evaluation for stenosis of the left ICA on discharge as an outpatient. 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 - Hx of GERD: Continue PPI. - Loud Snoring - on O2 at night 2/2 loud snoring, and drop in SATs < 88% at night => Schedule a portable sleep study as soon as possible with placement on Auto-pap once study is complete, on discharge formal sleep study - Depression - continue Zoloft - Hypersomnia - start on Provigil 200mg daily at 0600 AM - Genetic testing for excessive clotting - Factor II, VIII, XI, and Von Willebrand => Factor II, and Von Willebrand are Negative, his Factor VIII is 217 -> hematology has been consulted. - on discharge 30 day event monitor - Fall precaution - refusing to eat or drink - currently on a pureed diet and honey thicken liquids - IV placed for fluids NS 1L @ 75cc/hr - Diet changed to Regular diet with honey thicken liquids per Speech therapy -> tolerating new diet - Chronic pain start low dose of Fentanyl patch now that he is more awake then on admission. - Left hip popping causing pain - Hip/pelvic x-ray
[2018-10-01 20:50] VITALS: BP 131/71; PULSE 66; RESP 16; TEMP 36.9; O2SAT 93
[2018-10-01] MEDS: Atorvastatin Calcium 80 MG Tablet PO (20:54)
[2018-10-02 00:29] VITALS: BMI 31.1
--- NOTE | 2018-10-02 04:56 | NURSING ---
C/O feeling like I'm having a stroke. C/O chest pain 8/. No diaphoresis. Nausea present. c/o feeling dizzy. Seeing floaters. Hospitalist called. Here now to evaluate.
--- NOTE | 2018-10-02 04:58 | NURSING ---
139/82 HR 62 with sats of 93%. Resp easy and reg
--- NOTE | 2018-10-02 05:12 | EKGRS_ITS ---
Test Reason : CP Blood Pressure : / mmHG Vent. Rate : 066 BPM Atrial Rate : 066 BPM P-R Int : 148 ms QRS Dur : 090 ms QT Int : 404 ms P-R-T Axes : 021 017 -03 degrees QTc Int : 423 ms Sinus rhythm with Fusion complexes ST & T wave abnormality, consider inferior ischemia Abnormal ECG Confirmed by KEI SINGLETON, BETHANY ([id number]), web editor CURTIS ALATORRE ([id number] on 10/08/2018 11:12:39 AM Referred By: ALEX Confirmed By:BETHANY CHOUDHURY MD
[2018-10-02] MEDS: Enoxaparin 40 MG/0.4 ML Syringe SC (05:58)
[2018-10-02] MEDS: Mag Hydrox/Al Hydrox/Simeth 30 ML UDC PO (05:58)
[2018-10-02] MEDS: Modafinil 200 MG Tablet PO (06:03)
[2018-10-02] MEDS: Acetaminophen 500 MG Tablet 1000 MG PO ×2 (06:03→14:36)
--- NOTE | 2018-10-02 06:07 | PN_ITS ---
Progress Note Patient's nurse called that patient thinks he is having a stroke. Nurse reports that patients says he is having nausea, chest pain and he is seeing floaters. Patient reports that these signs are reminiscent of his previous stroke. Upon examination patient reported chest pain that started while he was in a chair. His symptoms started about 5-10 minutes prior to my examination. He describes substernal pain, 7/10 in severity; pressure-like pain with nausea and diaphoresis. His NIH was 9. He score 9 because of flaccid left arm; and no effort versus gravity on left leg but with some movements; and with left facial droop. Patient is here for rehab after MCA stroke where his NIH was scored as 10. He went to [facility] for his stroke. He is on aspirin 81mg, plavix, and high intensity statin. At outside hospital he received therapeutic anticoagulation. Physical exams showed normal heart sounds with S1, S2 present. Lungs sounds were clear. His abdomen was non tender and bowel sounds were present. About 5 minutes after initial assessment he reported that he is no longer seeing floaters; and his chest pain had resolved. EKG was done and it showed T-wave inversion in lateral leads. There were no previous EKG to compare with. Serial cardiac enzymes were ordered Assessment and Plan Indigestion - Mylanta ordered Angina-Chemical stress test was ordered. If stress test is remarkable consider transfer to PCU and consult cardiology. Will give aspirin 325mg x1 now. Continue aspirin 81mg daily. Continue plavix and high intensity statin. Etiology of his transient floaters is unclear at this time Case was discussed with Neurologist, Dr. Hernandez.
[2018-10-02 06:31] VITALS: O2SAT 96
[2018-10-02] MEDS: Aspirin 325 MG Tablet PO (06:55)
--- NOTE | 2018-10-02 08:09 | PCM.PN.BLA ---
Progress Note Patient is a 58-year-old male admitted to the rehab unit for physical therapy/occupational therapy following a right MCA ischemic CVA. He was seen and examined by the night hospitalist Dr. Woods for complaints of floaters and substernal chest pain. He is afebrile. Heart rate has ranged from 50-66 over the past 2 days. Blood pressures are well controlled. No sudden increase in blood pressure last night. Pulse ox is 93-96% on room air. EKG showed NSR with T wave inversions in lead III and lead aVF-possibly secondary to ischemia but also possibly a normal variant. No prior EKG to compare to. Floaters and CP resolved. Initial troponin is less than 0.015. He tells me that all day yesterday he was lightheaded and having trouble with his balance....it gets worse when he is sitting and standing. He got diaphoretic and felt as though he might faint. No radiation of the pain. No vomiting but felt nauseated No hx of CAD. There is a + FH of CAD in his mother He is somewhat anxious about having a chemical nuclear stress test because he feels he is not strong enough. Alert, oriented x3, somewhat anxious Lungs-clear to auscultation throughout Heart-regular rate and rhythm, no murmur, no gallop, no rub Abdomen-soft, nontender, nondistended, normal bowel sounds No calf tenderness, no ankle edema, no cyanosis Impressions 1. CP with an unremarkable EKG - T wave inversions in AVF and III can be normal 2. ischemic CVA - R MCA 3. HTN If the second troponin is negative today will proceed with the chemical nuclear stress test......pt was reassured that the test is safe. Check orthostatics Check H&H, BMP Code Visit Inpatient E&M: 89949 Subs Hosp L2
[2018-10-02 09:25] LABS: Anion Gap 10 (5-15); BUN 14 mg/dL (7-18); BUN/Creat Ratio 14.2 RATIO (10-20); Calcium,Total 9.2 mg/dL (8.5-10.1); Chloride 108 mmol/L (98-107); Creatinine, Serum 0.99 mg/dL (0.70-1.30); EST Glomerular Filtration Rate 82 mL/min (>60); Est Glom Filt Rate - Afr Amer 100 mL/min (>60); Estimated Creatinine Clearance 94.84 ml/min; Glucose 102 mg/dL (74-106); Magnesium 2.3 mg/dL (1.6-2.6); Sodium Level 143 mmol/L (136-145); Thyroid Stim Hormone (TSH) 0.95 uIU/mL (0.358-3.74)
--- NOTE | 2018-10-02 09:36 | NURSING ---
Pt. is off floor for stress test.
[2018-10-02 10:00] VITALS: BP 159/87; PULSE 59; RESP 18; TEMP 36.8; O2SAT 95
--- NOTE | 2018-10-02 11:26 | MDS.RN ---
Pt. returned from stress test, stable in room, bed in lowest position, call light within reach of pt.
[2018-10-02 11:59] LABS: Hematocrit 46.6 % (40-54); Hemoglobin 15.5 g/dl (13.0-16.5)
--- NOTE | 2018-10-02 12:15 | CASEMGMT ---
Social Work: Spoke to patient in room and by phone with patient's permission. Both aware that [facility] is approving more days in rehab and next update is due Friday10/06/18. GENE Yancey
--- NOTE | 2018-10-02 12:59 | STRESSREP_ITS ---
Stress Test Report Date: 10/02/2018 Procedure: Pharmacologic stress nuclear imaging study Indications: Chest pain Consent: Per the patient Procedure: The patient underwent pharmacologic (Regadenoson) evaluation with a peak heart rate of 96 beats per minute (60 predicted maximal heart rate) and a peak blood pressure of 158/80 mmHg. The baseline ECG demonstrated normal sinus rhythm; nonspecific ST segment abnormality. The peak pharmacologic ECG demonstrated no obvious G changes. There were no cardiac dysrhythmias pretest, during pharmacologic infusion, or recovery. There was no complaint of chest discomfort during pharmacologic infusion or recovery. The examination was discontinued secondary to completion of protocol. Impression: 1. Pharmacologic (Regadenoson) evaluation 2. Peak pharmacologic ECG with no obvious ECG changes. 3. There were no cardiac dysrhythmias pretest, during pharmacologic infusion, or recovery. 4. Nuclear images pending Myocardial perfusion imaging study: Technique: The patient was injected with 14.5 millicuries of technetium 99m Cardiolite and subsequently rest SPECT Cardiolite nuclear imaging was obtained in the horizontal long, vertical long, and short axis views. The patient underwent pharmacologic (Regadenoson) evaluation with a peak heart rate of 96 beats per minute (60 % percent predicted maximal heart rate) and a peak blood pressure of 158/80 mmHg. The patient was injected with 44.8 millicuries of technetium 99m Cardiolite and subsequently stress SPECT Cardiolite nuclear imaging was obtained in the horizontal long, vertical long, and short axis views. A gated Cardiolite study at peak stress was obtained. Interpretation: Rest and stress SPECT Cardiolite nuclear imaging status post realignment, normalization, and attenuation correction demonstrate relative uniform tracer uptake and myocardial perfusion appearing within normal limits. There is end systolic thickening and brightening. The gated Cardiolite study demonstrates myocardial thickening and inward wall motion. The reported LVEF is 82 %. Impression: 1. Rest and stress SPECT Cardiolite nuclear imaging demonstrate relative uniform tracer uptake and myocardial perfusion appearing within normal limits. 2. The gated Cardiolite study reports an LVEF of 82 %. This note was generated with [employer] software. It may contain incorrect words, spelling, and punctuation that were not noted in checking the note before signing.
--- NOTE | 2018-10-02 13:03 | CASEMGMT ---
Insurance: Auth#[id number] Patient approved additional days. Next clinical update due Friday with therapy notes and team meeting documentation. GENE Yancey
[2018-10-02] MEDS: Mesalamine 1.2 GM Tablet 4.8 GM PO (14:33)
[2018-10-02] MEDS: Senna/Docusate Sodium 1 Tablet 2 TABLET PO ×2 (14:33→20:22)
[2018-10-02] MEDS: Sertraline 50 MG Tablet 25 MG PO (14:34)
[2018-10-02] MEDS: Lisinopril 10 MG Tablet PO (14:34)
[2018-10-02] MEDS: amLODIPine 10 MG Tablet PO (14:35)
[2018-10-02] MEDS: Gabapentin 400 MG Capsule PO (14:35)
[2018-10-02] MEDS: Clopidogrel Bisulfate 75 MG Tablet PO (14:35)
[2018-10-02] MEDS: Pantoprazole Sodium 20 MG Tablet PO (14:35)
[2018-10-02 17:00] VITALS: BMI 31.1
--- NOTE | 2018-10-02 18:52 | NURSING ---
When attempting to give scheduled gabapetin, pt states she read side effects of this medication and thinks it may be what is keeping him fatigued. Pt refused gabapentin. Education given. RN made aware.
[2018-10-02 19:04] VITALS: BP 111/59; BP 127/73; BP 134/81; PULSE 64; PULSE 69; PULSE 78
[2018-10-02] MEDS: Atorvastatin Calcium 80 MG Tablet PO (20:21)
[2018-10-02 20:52] VITALS: BP 128/72; PULSE 58; RESP 18; TEMP 37; O2SAT 95
[2018-10-03 01:49] VITALS: BMI 31.1
[2018-10-03] MEDS: Enoxaparin 40 MG/0.4 ML Syringe SC (05:55)
[2018-10-03] MEDS: Acetaminophen 500 MG Tablet 1000 MG PO ×3 (05:55→21:11)
[2018-10-03] MEDS: Modafinil 200 MG Tablet PO (05:55)
[2018-10-03 07:55] VITALS: BP 146/80; PULSE 54; RESP 18; TEMP 36.6; O2SAT 95
[2018-10-03 08:32] VITALS: O2SAT 97
--- NOTE | 2018-10-03 10:15 | NURSING ---
Patient is drowsy. Will awaken to voice but is not interested in taking AM meds at this time. Will attempt to give later this morning.
--- NOTE | 2018-10-03 10:16 | NURSING ---
Pt found sitting on floor in front of recliner during shift change, no injury noted, v/s stable. Pt. stated to staff that he was trying to get up to urinate. , nurse mgr and banking supervisor notified. NNO's given.
[2018-10-03] MEDS: Aspirin 81 MG TAB.CHEW PO (11:18)
[2018-10-03] MEDS: Mesalamine 1.2 GM Tablet 4.8 GM PO (11:19)
[2018-10-03] MEDS: amLODIPine 10 MG Tablet PO (11:19)
[2018-10-03] MEDS: Senna/Docusate Sodium 1 Tablet 2 TABLET PO ×2 (11:20→21:11)
[2018-10-03] MEDS: Pantoprazole Sodium 20 MG Tablet PO ×2 (11:20→21:12)
[2018-10-03] MEDS: Lisinopril 10 MG Tablet PO (11:20)
[2018-10-03] MEDS: Sertraline 50 MG Tablet 25 MG PO (11:20)
[2018-10-03] MEDS: Clopidogrel Bisulfate 75 MG Tablet PO (11:21)
[2018-10-03 14:17] VITALS: BMI 31.1
[2018-10-03] MEDS: Ondansetron 8 MG Tablet 4 MG PO (15:18)
[2018-10-03 19:04] VITALS: BP 115/58; BP 137/78; BP 150/63; PULSE 63; PULSE 64; PULSE 72
[2018-10-03 21:06] VITALS: BMI 31.1
[2018-10-03] MEDS: Mesalamine 1.2 GM Tablet 2.4 GM PO (21:12)
[2018-10-03] MEDS: Atorvastatin Calcium 80 MG Tablet PO (21:12)
[2018-10-03] MEDS: Gabapentin 400 MG Capsule PO (21:12)
[2018-10-03 21:35] VITALS: PULSE 82; O2SAT 97
[2018-10-03 22:00] VITALS: BP 151/82; PULSE 64; RESP 16; TEMP 36.6; O2SAT 93
[2018-10-04] MEDS: Enoxaparin 40 MG/0.4 ML Syringe SC (05:50)
[2018-10-04] MEDS: Modafinil 200 MG Tablet PO (05:51)
[2018-10-04] MEDS: Acetaminophen 500 MG Tablet 1000 MG PO ×3 (05:51→17:26)
[2018-10-04] MEDS: 0.9% NaCl Peripheral Flush Adult/Peds IV (06:08)
[2018-10-04 06:38] VITALS: O2SAT 96
[2018-10-04 07:26] VITALS: BP 156/99; PULSE 66; RESP 18; TEMP 36.7; O2SAT 94
[2018-10-04] MEDS: Mesalamine 1.2 GM Tablet 2.4 GM PO ×2 (09:28→21:05)
[2018-10-04] MEDS: Aspirin 81 MG TAB.CHEW PO (09:28)
[2018-10-04] MEDS: amLODIPine 5 MG Tablet PO (09:29)
[2018-10-04] MEDS: Clopidogrel Bisulfate 75 MG Tablet PO (09:29)
[2018-10-04] MEDS: Pantoprazole Sodium 20 MG Tablet PO ×2 (09:29→21:06)
[2018-10-04] MEDS: Senna/Docusate Sodium 1 Tablet 2 TABLET PO ×2 (09:30→21:06)
[2018-10-04] MEDS: Lisinopril 10 MG Tablet PO (09:30)
[2018-10-04] MEDS: Sertraline 50 MG Tablet 25 MG PO (09:30)
[2018-10-04] MEDS: Gabapentin 100 MG Capsule 200 MG PO ×2 (09:34→14:26)
--- NOTE | 2018-10-04 10:46 | NURSING ---
removed SL from R. hand,cath. tip intact, no bleeding noted, applied bandage, pt tolerated well.
--- NOTE | 2018-10-04 10:47 | NURSING ---
changed dressing to L. hand, cleaned hand with soap and water, no drainage noted, reapplied adaptic and kerlix dressing, pt tolerated well.
--- NOTE | 2018-10-04 11:00 | NURSING ---
Suggested suppository to pt. d/t no bm since 10/01. Pt refused.
[2018-10-04 16:43] VITALS: BMI 31.1
--- NOTE | 2018-10-04 17:58 | NURSING ---
Patient requesting we take off fentanyl 12 mcg patch, stated he thinks that is what is making him dizzy and nauseated. Patch removed and wasted in destroyer in med room.
[2018-10-04 20:21] VITALS: BP 113/64; PULSE 62; RESP 16; TEMP 36.7; O2SAT 93
[2018-10-04] MEDS: Atorvastatin Calcium 80 MG Tablet PO (21:05)
[2018-10-04] MEDS: Gabapentin 400 MG Capsule PO (21:06)
[2018-10-04 21:22] VITALS: BMI 31.1
[2018-10-05 00:41] VITALS: BMI 31.1
--- NOTE | 2018-10-05 05:45 | NURSING ---
Pt asked by nurse to get up on BSC to enhance positioning for bm. Pt has not had bm since 10/01 and nurse has been encouraging better positioning and gravity. Pt refused and denied any urgency.
[2018-10-05] MEDS: Acetaminophen 500 MG Tablet 1000 MG PO ×3 (06:26→23:08)
[2018-10-05] MEDS: Modafinil 200 MG Tablet PO (06:27)
[2018-10-05] MEDS: Enoxaparin 40 MG/0.4 ML Syringe SC (06:27)
[2018-10-05 07:00] VITALS: BP 123/76; PULSE 65; RESP 18; TEMP 36.8; O2SAT 96
--- NOTE | 2018-10-05 07:24 | NURSING ---
Left hand dressing removed, cleaned with sterile water, and new adapetic applied. Fresh gauze and SARAN wrap applied.
--- NOTE | 2018-10-05 10:23 | CT_ITS ---
STUDY: CT BRAIN WITHOUT CONTRAST REASON FOR EXAM: Male, 58 years old. Mental status change RADIATION DOSAGE (If Supplied By Facility): CTDIvol = ( 44.99 ) mGy, DLP = ( 829.85 ) mGycm TECHNIQUE: Transaxial CT imaging of the brain was performed without administration of intravenous contrast material. Individualized dose optimization techniques were used for this CT. COMPARISON: None. FINDINGS: Normal soft tissue structures. Normal calvarium. Normal size ventricles and extra-axial spaces for the patient's age. Normal white matter tracts of the cerebral hemispheres. Hypoattenuation noted in the right basal ganglia suggests a subacute infarct. No acute hemorrhage noted. Normal brainstem. Normal cerebellum. There is no intracranial hemorrhage. There are no findings of an acute ischemic infarction. Normal visualized paranasal sinuses. CT/Brain/Head without Contrast IMPRESSION: Hypoattenuation in the right basal ganglia suggests subacute infarct. No acute hemorrhage midline shift or mass effect. Electronically Signed: Tomás Heaton MD at 16:46 EST , Service support ,
[2018-10-05 10:43] VITALS: O2SAT 96
--- NOTE | 2018-10-05 12:10 | CASEMGMT ---
Team meeting held. Patient present as well as patient family. No discharge date set at this time. Patient to continue with further care and treatment on the Inpatient Rehab Unit. Patient with insurance update due on 10/06/18 and aware that continued stay approval is not guaranteed. Patient plans to discharge to home with spouse vs. SNF at time of discharge. Support given. Will continue to follow. TYRELL Braden, THERMOMETER PRODUCTION WORKER
[2018-10-05] MEDS: Bisacodyl 10 MG Suppository RECTAL (13:26)
[2018-10-05] MEDS: Sertraline 50 MG Tablet 25 MG PO (13:28)
[2018-10-05] MEDS: Lisinopril 10 MG Tablet PO (13:28)
[2018-10-05] MEDS: Aspirin 81 MG TAB.CHEW PO (13:30)
[2018-10-05] MEDS: Senna/Docusate Sodium 1 Tablet 2 TABLET PO ×2 (13:40→23:10)
[2018-10-05] MEDS: Mesalamine 1.2 GM Tablet 2.4 GM PO ×2 (13:40→23:10)
[2018-10-05] MEDS: Clopidogrel Bisulfate 75 MG Tablet PO (13:41)
[2018-10-05] MEDS: Pantoprazole Sodium 20 MG Tablet PO ×2 (13:41→23:09)
[2018-10-05] MEDS: amLODIPine 5 MG Tablet PO (13:41)
[2018-10-05] MEDS: Gabapentin 100 MG Capsule 200 MG PO (13:43)
--- NOTE | 2018-10-05 14:32 | NURSING ---
In to reassess the hall to the left hand. very minimal drainage noted. can leave TOUR BUS DRIVER/GUIDE. will monitor.
--- NOTE | 2018-10-05 14:41 | NURSING ---
Pt had Lg. BM after suppository given on BSC. Pt was 3 assist getting back to bed. Pt stated to this RN and 2 other staff members that he is done for the day he just wants to go back to bed and sleep. This RN informed pt that he has PT at 1500, pt stated, I am done for the day, I am not doing it. This RN encouraged pt to do therapy again, pt still refusing.
--- NOTE | 2018-10-05 14:43 | PCM.PN.NEU ---
Patient Problems: Active and Suspected Problems Elevated factor VIII level (Acute) Severe left internal carotid stenosis (Acute) Occlusion of right internal carotid artery (Acute) Embolic stroke (Acute) Subjective: Staffed in team meeting. Family at bedside, questions addressed and answered. With Physical therapy, he is moderate assist 2 persons to walk with the paul walker, he was able to go 10 feet, with wheel chair follow. 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 With Occupational therapy, he is moderate assist for bathing, minimal assist with personal care, and minimal assist for dressing his upper body. He is total assist for lower body dressing, bathing and toileting. He still has no active movement in his left arm, has some movement in his hand. With Speech therapy, he is on soft textures and thin liquids and is doing well with the thin liquids. Will continue to work with him to get him on to regular texture foods. He has vision inattention to the left side. With nursing, will do a repeat CAT scan, had some blurry vision in his right field. Having some issues occasionally with urinating will do post residual voids and send a UA sample. Will re-team again next Thursday 10/12. - Physical Exam General: Alert, Oriented x3, Cooperative HEENT: Atraumatic, PERRLA, EOMI, Normocephalic Neck: Supple, No JVD, Negative Carotid Bruits Lungs: Clear to auscultation, Normal air movement Cardiovascular: Regular rate, No murmurs Abdomen: Bowel Sounds Present, Soft, Non Tender Extremities: No edema, Capillary Refill Less than 3 Seconds Skin: No rashes, No breakdown Musculoskeletal: No Tenderness to Palpation of Joints or Extremities Neurological: Cranial nerves II-XII grossly intact Psych/Mental Status: Normal Affect, Appropriate, Alert and oriented to time, place, person, mood and affect Vital Signs Temp Pulse Resp BP Pulse Ox 98.2 F 65 18 123/76 H 96 10/05/18 07:00 10/05/18 07:00 10/05/18 07:00 10/05/18 07:00 10/05/18 10:43 Oxygen Flow Rate (L/min) 2 Oxygen Delivery Method Room Air Weight: 107.9 kg Body Mass Index (BMI) 31.1 Intake and Output for Last 24 Hours 10/03/18 10/04/18 10/05/18 23:59 23:59 23:59 Intake Total 240 / 240 120 / 120 480 / 480 Output Total 100 / 100 Balance 240 / 240 20 / 20 480 / 480 Active Medications Acetaminophen (Tylenol) 1,000 mg PO TID [facility] Last Admin: 10/05/18 13:45 Dose: 1,000 mg Amlodipine Besylate (Norvasc) 5 mg PO DAILY [facility] Last Admin: 10/05/18 13:41 Dose: 5 mg Aspirin (Aspirin, Baby) 81 mg PO DAILY@0800 [facility] Last Admin: 10/05/18 13:30 Dose: 81 mg Atorvastatin Calcium (Lipitor) 80 mg PO QHS [facility] Last Admin: 10/04/18 21:05 Dose: 80 mg Bisacodyl (Dulcolax) 10 mg RECTAL .PRN X 1 PRN PRN Reason: Constipation Last Admin: 10/05/18 13:26 Dose: 10 mg Calcium Carbonate (Tums) 1,000 mg PO Q4H PRN PRN PRN Reason: HEARTBURN Last Admin: 09/28/18 08:43 Dose: 1,000 mg Clopidogrel Bisulfate (Plavix) 75 mg PO DAILY [facility] Last Admin: 10/05/18 13:41 Dose: 75 mg Diclofenac Sodium (Voltaren) 1 applic TP 4X/DAY [facility] Last Admin: 10/05/18 13:43 Dose: 1 applicatio Enoxaparin Sodium (Lovenox) 40 mg SC DAILY@0600 [facility] Last Admin: 10/05/18 06:27 Dose: 40 mg Gabapentin (Neurontin) 200 mg PO 0800,1400 [facility] Last Admin: 10/05/18 13:43 Dose: 200 mg Gabapentin (Neurontin) 400 mg PO QHS [facility] Last Admin: 10/04/18 21:06 Dose: 400 mg Lisinopril (Zestril) 10 mg PO DAILY [facility] Last Admin: 10/05/18 13:28 Dose: 10 mg Magnesium Hydroxide (Milk Of Magnesia) 30 ml PO .PRN X 1 PRN PRN Reason: Constipation Menthol (Bengay Vanishing Scent) 1 applic TOPICAL 4X/DAY PRN PRN PRN Reason: PAIN Last Admin: 10/01/18 06:17 Dose: 1 applic Mesalamine (Lialda) 2.4 gm PO BID [facility] Last Admin: 10/05/18 13:40 Dose: 2.4 gm Modafinil (Provigil) 200 mg PO DAILY@0600 [facility] Last Admin: 10/05/18 06:27 Dose: 200 mg Ondansetron HCl (Zofran) 4 mg PO Q8H PRN PRN PRN Reason: NAUSEA/VOMITING Last Admin: 10/03/18 15:18 Dose: 4 mg Pantoprazole Sodium (Protonix) 20 mg PO BID [facility] Last Admin: 10/05/18 13:41 Dose: 20 mg Polyethylene Glycol (Miralax) 17 gm PO DAILY PRN PRN Reason: CONSTIPATION Senna/Docusate Sodium (Senokot-S, Gladis-Colace) 2 tablet PO BID [facility] Last Admin: 10/05/18 13:40 Dose: 2 tablet Sertraline HCl (Zoloft) 25 mg PO DAILY [facility] Last Admin: 10/05/18 13:28 Dose: 25 mg Sodium Chloride () 5 - 15 ml IV UD PRN PRN Reason: SALINE FLUSH Last Admin: 10/04/18 06:08 Dose: 10 ml Medical Necessity - Tobacco Use Smoking Status: Former smoker Tobacco Use: Cigarettes Assessment/Plan All Active Problems Elevated factor VIII level (Acute) Severe left internal carotid stenosis (Acute) Occlusion of right internal carotid artery (Acute) Embolic stroke (Acute) Debility status post Right MCA, complicated by a complete right ICA occlusion, >70% stenosis of his Left ICA, and HTN. Goal of rehab is sabianist of prior level of functional independence. Plan: - Physical therapy for gait and balance - Occupational Therapy for ADLs - As needed analgesics - Bowel protocol - DVT PPX - Lovenox, SCDs. - HLD - continue home dose of statin - GERD - continue home dose of PPI - HTN - stable => continue on lisinopril, and Norvasc, continue monitoring and adjust medication as needed - Acute right MCA embolic stroke -> continue on Plavix, ASA and statin - Complete occlusion of the right ICA and severe stenosis >70% of the left ICA -> continue aspirin, statins and Plavix, patient will need vascular surgery evaluation for stenosis of the left ICA on discharge as an outpatient. 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 - Hx of GERD: Continue PPI. - Loud Snoring - on O2 at night 2/2 loud snoring, and drop in SATs < 88% at night => Schedule a portable sleep study as soon as possible with placement on Auto-pap once study is complete, on discharge formal sleep study - Depression - continue Zoloft - Hypersomnia - start on Provigil 200mg daily at 0600 AM - Genetic testing for excessive clotting - Factor II, VIII, XI, and Von Willebrand => Factor II, and Von Willebrand are Negative, his Factor VIII is 217 -> hematology has been consulted. - on discharge 30 day event monitor - Fall precaution - refusing to eat or drink - currently on a pureed diet and honey thicken liquids - IV placed for fluids NS 1L @ 75cc/hr - Diet changed to Regular diet with honey thicken liquids per Speech therapy -> tolerating new diet - Chronic pain start low dose of Fentanyl patch now that he is more awake then on admission. - Left hip popping causing pain - Hip/pelvic x-ray - shows some degenerative changes to the lumbosacral spine, but no acute processes - Stress test -> showed no Arrhythmia, LVEF 82% - Right lower field blurriness - repeat CTH scan - Difficulty with urinating do post residual scan and send UA for testing
--- NOTE | 2018-10-05 14:56 | NURSING ---
Pt assisted off BSC x3 assist. Pt assisted back to bed at this time. When RN stated to pt that he had PT at 1500, pt states I'm done, no more, tell them I'm not doing therapy. Education and reassurance given at this time.
[2018-10-05 16:15] LABS: Bacteria 0 SEEN /hpf (None Seen); Squamous Epithelial Cells - UA 0 SEEN /hpf (0-5)
[2018-10-05 16:29] LABS: Color, Urine Yellow (Yellow); Glucose, Dipstick 50 mg/dl (Normal); Ketone-Dipstick 5 mg/dl (Negative); Leukocyte Esterase-Dipstick 25 /ul (Negative); Nitrite-Dipstick Negative (Negative); Occult Blood-Urine 25 /ul (Negative); Protein-Dipstick 15 mg/dl (Negative); Specific Gravity, Urine 1.025 (1.002-1.030); Urine Clarity Clear (Clear); Urine Urobilinogen 1 mg/dl (Normal)
[2018-10-05 16:30] LABS: Urine Bilirubin Dipstick 1 mg/dL (Negative)
[2018-10-05 16:48] LABS: Mucous, Urine 1+ /hpf (<or=2+); Red Blood Cells-Urine 0-5 SEEN /hpf (0-5); White Blood Cells 0-5 SEEN /hpf (0-5)
[2018-10-05 17:00] VITALS: BMI 31.1
--- NOTE | 2018-10-05 17:06 | NURSING ---
PerKenrick Lemons, PATTERNMAKER WOOD need to send urine for culture before treating.
--- NOTE | 2018-10-05 21:49 | NURSING ---
Pt spouse called re: urine cx results. Urine was just sent during previous shift. Nurse explained that this result is not available at this time. Spouse asked if she could talk to nurse later in shift for updates.
[2018-10-05 22:45] VITALS: PULSE 76; RESP 16; BMI 31.1
[2018-10-05] MEDS: Gabapentin 400 MG Capsule PO (23:09)
[2018-10-05] MEDS: Atorvastatin Calcium 80 MG Tablet PO (23:10)
--- NOTE | 2018-10-06 01:08 | NURSING ---
Addendum entered by hSaunna Funk 10/06/18 01:29: 0030 bladder scan completed at this time and pt was noted to have 222cc in bladder and rn aware;pt had not voided when up to the bsc Original Note: 0000 spouse called and given update on pt. voiced concerned over possible uti and ct scan. spouse informed of ua results and that the culture was still pending before the uti was treated and pt needed to and should be encouraged to drink more fluids, in spouses response to pts urine being tea colored. explained to the spouse that pt vs were stable and afebrile. spouse asked if the pt had oxygen on at this time and staff responded no stating 94% was an acceptable level at this time. spouse also asked if pt had eaten dinner and staff responded that a family member had gone to [employer] but did not know for sure if that pt had eaten that or not. staff explained that the urine for ua was obtained via clean catch and no catheter was used. spoused thanked for her patience in waiting in staff to return her call. staff to recheck on pt who was resting with his eyes closed, o2 at 2l/m was placed on at this time for sleep apnea 0030 pt rings to report that his bowels have to move and wanted to use the bedpan, staff strongly encouraged to use the bsc and required 3 assists to complete the task. pt became nauseous upon returning to bed. pt positioned for comfort O2 placed back on and call light in reach pt .
--- NOTE | 2018-10-06 01:34 | NURSING ---
Reviewed and agree with EDUCATIONAL GUIDANCE COUNSELOR documentation and FIMs charting.
[2018-10-06] MEDS: Acetaminophen 500 MG Tablet 1000 MG PO ×3 (05:56→20:57)
[2018-10-06] MEDS: Ondansetron 8 MG Tablet 4 MG PO ×2 (05:56→20:56)
[2018-10-06] MEDS: Modafinil 200 MG Tablet PO (05:57)
[2018-10-06] MEDS: Enoxaparin 40 MG/0.4 ML Syringe SC (05:57)
[2018-10-06 06:56] VITALS: O2SAT 95
[2018-10-06] MEDS: Aspirin 81 MG TAB.CHEW PO (08:30)
[2018-10-06] MEDS: Senna/Docusate Sodium 1 Tablet 2 TABLET PO ×2 (08:30→20:56)
[2018-10-06] MEDS: amLODIPine 5 MG Tablet PO (08:31)
[2018-10-06] MEDS: Pantoprazole Sodium 20 MG Tablet PO ×2 (08:31→20:56)
[2018-10-06] MEDS: Mesalamine 1.2 GM Tablet 2.4 GM PO ×2 (08:31→20:58)
[2018-10-06] MEDS: Gabapentin 100 MG Capsule 200 MG PO ×2 (08:32→13:15)
[2018-10-06] MEDS: Clopidogrel Bisulfate 75 MG Tablet PO (08:33)
[2018-10-06] MEDS: Sertraline 50 MG Tablet 25 MG PO (08:34)
[2018-10-06] MEDS: Lisinopril 10 MG Tablet PO (08:35)
[2018-10-06 10:00] VITALS: BP 135/88; PULSE 77; RESP 18; TEMP 36.9; O2SAT 95
[2018-10-06 11:35] VITALS: BMI 31.1
--- NOTE | 2018-10-06 14:14 | CASEMGMT ---
Insurance Clinical information sent. Pending continued stay approval at this time. Auth#[id number] TYRELL Braden, TRUCK SAFETY INSPECTOR
--- NOTE | 2018-10-06 15:38 | CASEMGMT ---
Insurance Continued stay approved with next update due on 10/12/18. Auth#[id number] TYRELL Braden, CASE TECHNICIAN
[2018-10-06] MEDS: Gabapentin 400 MG Capsule PO (20:57)
[2018-10-06] MEDS: Atorvastatin Calcium 80 MG Tablet PO (20:58)
[2018-10-06 21:00] VITALS: BP 147/70; PULSE 67; RESP 18; TEMP 36.9; O2SAT 92; BMI 31.1
[2018-10-07] MEDS: Enoxaparin 40 MG/0.4 ML Syringe SC (04:42)
[2018-10-07] MEDS: Acetaminophen 500 MG Tablet 1000 MG PO ×3 (04:46→22:16)
[2018-10-07] MEDS: Modafinil 200 MG Tablet PO (04:47)
[2018-10-07] MEDS: Ondansetron 8 MG Tablet 4 MG PO (05:30)
[2018-10-07 07:00] VITALS: BP 140/91; PULSE 99; RESP 20; TEMP 36.7; O2SAT 95
[2018-10-07] MEDS: Gabapentin 100 MG Capsule 200 MG PO ×2 (07:45→14:05)
[2018-10-07] MEDS: Pantoprazole Sodium 20 MG Tablet PO ×2 (07:46→22:17)
[2018-10-07] MEDS: Senna/Docusate Sodium 1 Tablet 2 TABLET PO ×2 (07:46→22:16)
[2018-10-07] MEDS: Aspirin 81 MG TAB.CHEW PO (07:46)
[2018-10-07] MEDS: Lisinopril 10 MG Tablet PO (07:46)
[2018-10-07] MEDS: Sertraline 50 MG Tablet 25 MG PO (07:46)
[2018-10-07] MEDS: Clopidogrel Bisulfate 75 MG Tablet PO (07:46)
[2018-10-07] MEDS: Mesalamine 1.2 GM Tablet 2.4 GM PO ×2 (07:47→22:17)
[2018-10-07] MEDS: amLODIPine 5 MG Tablet PO (07:47)
[2018-10-07 10:54] VITALS: O2SAT 93
--- NOTE | 2018-10-07 13:49 | PCM.PN.NEU ---
Patient Problems: Active and Suspected Problems Elevated factor VIII level (Acute) Severe left internal carotid stenosis (Acute) Occlusion of right internal carotid artery (Acute) Embolic stroke (Acute) Subjective: Patient seen, had a large bowel movement on the 7th and a smaller one yesterday, states he is feeling much better. Repeat CTH scan showed no new stroke or hemorrhage. Tolerating therapy. No issues with . Tolerating mechanical soft diet. - Physical Exam General: Alert, Oriented x3, Cooperative HEENT: Atraumatic, PERRLA, EOMI, Normocephalic Neck: Supple, No JVD, Negative Carotid Bruits Lungs: Clear to auscultation, Normal air movement Cardiovascular: Regular rate, No murmurs Abdomen: Bowel Sounds Present, Soft, Non Tender Extremities: No edema, Capillary Refill Less than 3 Seconds Skin: No rashes, No breakdown Musculoskeletal: No Tenderness to Palpation of Joints or Extremities Neurological: Cranial nerves II-XII grossly intact Psych/Mental Status: Normal Affect, Appropriate, Alert and oriented to time, place, person, mood and affect Vital Signs Temp Pulse Resp BP Pulse Ox 98.1 F 99 20 H 140/91 H 93 10/07/18 07:00 10/07/18 07:00 10/07/18 07:00 10/07/18 07:00 10/07/18 10:54 Oxygen Flow Rate (L/min) 2 Oxygen Delivery Method Room Air Weight: 107.9 kg Body Mass Index (BMI) 31.1 Intake and Output for Last 24 Hours 10/05/18 10/06/18 10/07/18 23:59 23:59 23:59 Intake Total 720 / 720 440 / 440 180 / 180 Output Total 350 / 350 400 / 400 Balance 720 / 720 90 / 90 -220 / -220 Microbiology Past 72 Hours 10/05/18 15:40 Urine Culture - Preliminary Urine, Clean Catch Mixed Gram Positive Organisms Active Medications Acetaminophen (Tylenol) 1,000 mg PO TID [facility] Last Admin: 10/07/18 04:46 Dose: 1,000 mg Amlodipine Besylate (Norvasc) 5 mg PO DAILY [facility] Last Admin: 10/07/18 07:47 Dose: 5 mg Aspirin (Aspirin, Baby) 81 mg PO DAILY@0800 [facility] Last Admin: 10/07/18 07:46 Dose: 81 mg Atorvastatin Calcium (Lipitor) 80 mg PO QHS [facility] Last Admin: 10/06/18 20:58 Dose: 80 mg Bisacodyl (Dulcolax) 10 mg RECTAL .PRN X 1 PRN PRN Reason: Constipation Last Admin: 10/05/18 13:26 Dose: 10 mg Calcium Carbonate (Tums) 1,000 mg PO Q4H PRN PRN PRN Reason: HEARTBURN Last Admin: 09/28/18 08:43 Dose: 1,000 mg Clopidogrel Bisulfate (Plavix) 75 mg PO DAILY [facility] Last Admin: 10/07/18 07:46 Dose: 75 mg Diclofenac Sodium (Voltaren) 1 applic TP 4X/DAY [facility] Last Admin: 10/07/18 07:51 Dose: 1 applicatio Enoxaparin Sodium (Lovenox) 40 mg SC DAILY@0600 [facility] Last Admin: 10/07/18 04:42 Dose: 40 mg Gabapentin (Neurontin) 200 mg PO 0800,1400 [facility] Last Admin: 10/07/18 07:45 Dose: 200 mg Gabapentin (Neurontin) 400 mg PO QHS [facility] Last Admin: 10/06/18 20:57 Dose: 400 mg Lisinopril (Zestril) 10 mg PO DAILY [facility] Last Admin: 10/07/18 07:46 Dose: 10 mg Magnesium Hydroxide (Milk Of Magnesia) 30 ml PO .PRN X 1 PRN PRN Reason: Constipation Menthol (Bengay Vanishing Scent) 1 applic TOPICAL 4X/DAY PRN PRN PRN Reason: PAIN Last Admin: 10/07/18 04:40 Dose: 1 applic Mesalamine (Lialda) 2.4 gm PO BID [facility] Last Admin: 10/07/18 07:47 Dose: 2.4 gm Modafinil (Provigil) 200 mg PO DAILY@0600 [facility] Last Admin: 10/07/18 04:47 Dose: 200 mg Ondansetron HCl (Zofran) 4 mg PO Q8H PRN PRN PRN Reason: NAUSEA/VOMITING Last Admin: 10/07/18 05:30 Dose: 4 mg Pantoprazole Sodium (Protonix) 20 mg PO BID [facility] Last Admin: 10/07/18 07:46 Dose: 20 mg Polyethylene Glycol (Miralax) 17 gm PO DAILY PRN PRN Reason: CONSTIPATION Senna/Docusate Sodium (Senokot-S, Gladis-Colace) 2 tablet PO BID [facility] Last Admin: 10/07/18 07:46 Dose: 2 tablet Sertraline HCl (Zoloft) 50 mg PO DAILY [facility] Sodium Chloride () 5 - 15 ml IV UD PRN PRN Reason: SALINE FLUSH Last Admin: 10/04/18 06:08 Dose: 10 ml Medical Necessity - Tobacco Use Smoking Status: Former smoker Tobacco Use: Cigarettes Assessment/Plan All Active Problems Elevated factor VIII level (Acute) Severe left internal carotid stenosis (Acute) Occlusion of right internal carotid artery (Acute) Embolic stroke (Acute) Debility status post Right MCA, complicated by a complete right ICA occlusion, >70% stenosis of his Left ICA, and HTN. Goal of rehab is worship of prior level of functional independence. Plan: - Physical therapy for gait and balance - Occupational Therapy for ADLs - As needed analgesics - Bowel protocol - DVT PPX - Lovenox, SCDs. - HLD - continue home dose of statin - GERD - continue home dose of PPI - HTN - stable => continue on lisinopril, and Norvasc, continue monitoring and adjust medication as needed - Acute right MCA embolic stroke -> continue on Plavix, ASA and statin - Complete occlusion of the right ICA and severe stenosis >70% of the left ICA -> continue aspirin, statins and Plavix, patient will need vascular surgery evaluation for stenosis of the left ICA on discharge as an outpatient. 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 - Hx of GERD: Continue PPI. - Loud Snoring - on O2 at night 2/2 loud snoring, and drop in SATs < 88% at night => Schedule a portable sleep study as soon as possible with placement on Auto-pap once study is complete, on discharge formal sleep study - Depression - currently on Zoloft 25mg, increase to 50mg daily - Hypersomnia - start on Provigil 200mg daily at 0600 AM - Genetic testing for excessive clotting - Factor II, VIII, XI, and Von Willebrand => Factor II, and Von Willebrand are Negative, his Factor VIII is 217 -> hematology has been consulted. - on discharge 30 day event monitor - Fall precaution - refusing to eat or drink - currently on a pureed diet and honey thicken liquids - IV placed for fluids NS 1L @ 75cc/hr - Diet changed to Regular diet with honey thicken liquids per Speech therapy -> tolerating new diet - Chronic pain start low dose of Fentanyl patch now that he is more awake then on admission. - Left hip popping causing pain - Hip/pelvic x-ray - shows some degenerative changes to the lumbosacral spine, but no acute processes - Stress test -> showed no Arrhythmia, LVEF 82% - Right lower field blurriness - repeat CTH scan => negative for new stroke or hemorrhage - Difficulty with urinating do post residual scan and send UA for testing = negative for UTI, urination improved since having BM
--- NOTE | 2018-10-07 13:53 | PN.NEURO_ITS ---
Addendum entered and electronically signed by ROSSI Castorena 10/07/18 17:02: Original Note: Patient Problems: Active and Suspected Problems Elevated factor VIII level (Acute) Severe left internal carotid stenosis (Acute) Occlusion of right internal carotid artery (Acute) Embolic stroke (Acute) Subjective: Patient seen, had a large bowel movement on the 7th and a smaller one yesterday, states he is feeling much better. Repeat CTH scan showed no new stroke or hemorrhage. Tolerating therapy. No issues with . Tolerating mechanical soft diet. - Physical Exam General: Alert, Oriented x3, Cooperative HEENT: Atraumatic, PERRLA, EOMI, Normocephalic Neck: Supple, No JVD, Negative Carotid Bruits Lungs: Clear to auscultation, Normal air movement Cardiovascular: Regular rate, No murmurs Abdomen: Bowel Sounds Present, Soft, Non Tender Extremities: No edema, Capillary Refill Less than 3 Seconds Skin: No rashes, No breakdown Musculoskeletal: No Tenderness to Palpation of Joints or Extremities Neurological: Cranial nerves II-XII grossly intact Psych/Mental Status: Normal Affect, Appropriate, Alert and oriented to time, place, person, mood and affect Vital Signs Temp Pulse Resp BP Pulse Ox 98.1 F 99 20 H 140/91 H 93 10/07/18 07:00 10/07/18 07:00 10/07/18 07:00 10/07/18 07:00 10/07/18 10:54 Oxygen Flow Rate (L/min) 2 Oxygen Delivery Method Room Air Weight: 107.9 kg Body Mass Index (BMI) 31.1 Intake and Output for Last 24 Hours 10/05/18 10/06/18 10/07/18 23:59 23:59 23:59 Intake Total 720 / 720 440 / 440 180 / 180 Output Total 350 / 350 400 / 400 Balance 720 / 720 90 / 90 -220 / -220 Microbiology Past 72 Hours 10/05/18 15:40 Urine Culture - Preliminary Urine, Clean Catch Mixed Gram Positive Organisms Active Medications Acetaminophen (Tylenol) 1,000 mg PO TID [facility] Last Admin: 10/07/18 04:46 Dose: 1,000 mg Amlodipine Besylate (Norvasc) 5 mg PO DAILY [facility] Last Admin: 10/07/18 07:47 Dose: 5 mg Aspirin (Aspirin, Baby) 81 mg PO DAILY@0800 [facility] Last Admin: 10/07/18 07:46 Dose: 81 mg Atorvastatin Calcium (Lipitor) 80 mg PO QHS [facility] Last Admin: 10/06/18 20:58 Dose: 80 mg Bisacodyl (Dulcolax) 10 mg RECTAL .PRN X 1 PRN PRN Reason: Constipation Last Admin: 10/05/18 13:26 Dose: 10 mg Calcium Carbonate (Tums) 1,000 mg PO Q4H PRN PRN PRN Reason: HEARTBURN Last Admin: 09/28/18 08:43 Dose: 1,000 mg Clopidogrel Bisulfate (Plavix) 75 mg PO DAILY [facility] Last Admin: 10/07/18 07:46 Dose: 75 mg Diclofenac Sodium (Voltaren) 1 applic TP 4X/DAY [facility] Last Admin: 10/07/18 07:51 Dose: 1 applicatio Enoxaparin Sodium (Lovenox) 40 mg SC DAILY@0600 [facility] Last Admin: 10/07/18 04:42 Dose: 40 mg Gabapentin (Neurontin) 200 mg PO 0800,1400 [facility] Last Admin: 10/07/18 07:45 Dose: 200 mg Gabapentin (Neurontin) 400 mg PO QHS [facility] Last Admin: 10/06/18 20:57 Dose: 400 mg Lisinopril (Zestril) 10 mg PO DAILY [facility] Last Admin: 10/07/18 07:46 Dose: 10 mg Magnesium Hydroxide (Milk Of Magnesia) 30 ml PO .PRN X 1 PRN PRN Reason: Constipation Menthol (Bengay Vanishing Scent) 1 applic TOPICAL 4X/DAY PRN PRN PRN Reason: PAIN Last Admin: 10/07/18 04:40 Dose: 1 applic Mesalamine (Lialda) 2.4 gm PO BID [facility] Last Admin: 10/07/18 07:47 Dose: 2.4 gm Modafinil (Provigil) 200 mg PO DAILY@0600 [facility] Last Admin: 10/07/18 04:47 Dose: 200 mg Ondansetron HCl (Zofran) 4 mg PO Q8H PRN PRN PRN Reason: NAUSEA/VOMITING Last Admin: 10/07/18 05:30 Dose: 4 mg Pantoprazole Sodium (Protonix) 20 mg PO BID [facility] Last Admin: 10/07/18 07:46 Dose: 20 mg Polyethylene Glycol (Miralax) 17 gm PO DAILY PRN PRN Reason: CONSTIPATION Senna/Docusate Sodium (Senokot-S, Gladis-Colace) 2 tablet PO BID [facility] Last Admin: 10/07/18 07:46 Dose: 2 tablet Sertraline HCl (Zoloft) 50 mg PO DAILY [facility] Sodium Chloride () 5 - 15 ml IV UD PRN PRN Reason: SALINE FLUSH Last Admin: 10/04/18 06:08 Dose: 10 ml Medical Necessity - Tobacco Use Smoking Status: Former smoker Tobacco Use: Cigarettes Assessment/Plan All Active Problems Elevated factor VIII level (Acute) Severe left internal carotid stenosis (Acute) Occlusion of right internal carotid artery (Acute) Embolic stroke (Acute) Debility status post Right MCA, complicated by a complete right ICA occlusion, >70% stenosis of his Left ICA, and HTN. Goal of rehab is buddhism of prior level of functional independence. Plan: - Physical therapy for gait and balance - Occupational Therapy for ADLs - As needed analgesics - Bowel protocol - DVT PPX - Lovenox, SCDs. - HLD - continue home dose of statin - GERD - continue home dose of PPI - HTN - stable => continue on lisinopril, and Norvasc, continue monitoring and adjust medication as needed - Acute right MCA embolic stroke -> continue on Plavix, ASA and statin - Complete occlusion of the right ICA and severe stenosis >70% of the left ICA - > continue aspirin, statins and Plavix, patient will need vascular surgery evaluation for stenosis of the left ICA on discharge as an outpatient. 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 - Hx of GERD: Continue PPI. - Loud Snoring - on O2 at night 2/2 loud snoring, and drop in SATs < 88% at night => Schedule a portable sleep study as soon as possible with placement on Auto-pap once study is complete, on discharge formal sleep study - Depression - currently on Zoloft 25mg, increase to 50mg daily - Hypersomnia - start on Provigil 200mg daily at 0600 AM - Genetic testing for excessive clotting - Factor II, VIII, XI, and Von Willebrand => Factor II, and Von Willebrand are Negative, his Factor VIII is 217 -> hematology has been consulted. - on discharge 30 day event monitor - Fall precaution - refusing to eat or drink - currently on a pureed diet and honey thicken l iquids - IV placed for fluids NS 1L @ 75cc/hr - Diet changed to Regular diet with honey thicken liquids per Speech therapy -> tolerating new diet - Chronic pain start low dose of Fentanyl patch now that he is more awake then on admission. - Left hip popping causing pain - Hip/pelvic x-ray - shows some degenerative changes to the lumbosacral spine, but no acute processes - Stress test -> showed no Arrhythmia, LVEF 82% - Right lower field blurriness - repeat CTH scan => negative for new stroke or hemorrhage - Difficulty with urinating do post residual scan and send UA for testing = negative for UTI, urination improved since having BM
[2018-10-07 14:20] VITALS: BMI 31.1
[2018-10-07 19:43] VITALS: BP 107/63; PULSE 72; RESP 18; TEMP 36.8; O2SAT 95
[2018-10-07 22:00] VITALS: BMI 31.1
[2018-10-07] MEDS: Atorvastatin Calcium 80 MG Tablet PO (22:16)
[2018-10-07] MEDS: Gabapentin 400 MG Capsule PO (22:17)
[2018-10-08] MEDS: Ondansetron 8 MG Tablet 4 MG PO (06:51)
[2018-10-08] MEDS: Modafinil 200 MG Tablet PO (06:53)
[2018-10-08] MEDS: Enoxaparin 40 MG/0.4 ML Syringe SC (06:53)
[2018-10-08] MEDS: Acetaminophen 500 MG Tablet 1000 MG PO ×3 (06:54→20:16)
[2018-10-08 07:58] VITALS: BP 147/85; PULSE 67; RESP 18; TEMP 36.6; O2SAT 94
[2018-10-08] MEDS: Pantoprazole Sodium 20 MG Tablet PO ×2 (10:13→20:17)
[2018-10-08] MEDS: Sertraline 50 MG Tablet PO (10:13)
[2018-10-08] MEDS: Senna/Docusate Sodium 1 Tablet 2 TABLET PO ×2 (10:13→20:16)
[2018-10-08] MEDS: Lisinopril 10 MG Tablet PO (10:13)
[2018-10-08] MEDS: Clopidogrel Bisulfate 75 MG Tablet PO (10:13)
[2018-10-08] MEDS: Gabapentin 100 MG Capsule 200 MG PO ×2 (10:14→14:50)
[2018-10-08] MEDS: amLODIPine 5 MG Tablet PO (10:14)
[2018-10-08] MEDS: Mesalamine 1.2 GM Tablet 2.4 GM PO ×2 (10:14→20:17)
[2018-10-08] MEDS: Aspirin 81 MG TAB.CHEW PO (10:14)
[2018-10-08] MEDS: oxyCODONE 5 MG Tablet PO ×2 (10:22→19:56)
--- NOTE | 2018-10-08 12:05 | PCM.PN.NEU ---
Patient Problems: Active and Suspected Problems Elevated factor VIII level (Acute) Severe left internal carotid stenosis (Acute) Occlusion of right internal carotid artery (Acute) Embolic stroke (Acute) Subjective: Patient seen, lying quietly in bed working with Speech therapy. Having increase pain and discomfort in his left shoulder, and becomes very nauseated when he stands and moves his head around. Tolerating therapy and working hard. No issues with GI/ today. - Physical Exam General: Alert, Oriented x3, Cooperative HEENT: Atraumatic, PERRLA, EOMI, Normocephalic Neck: Supple, No JVD, Negative Carotid Bruits Lungs: Clear to auscultation, Normal air movement Cardiovascular: Regular rate, No murmurs Abdomen: Bowel Sounds Present, Soft, Non Tender Extremities: No edema, Capillary Refill Less than 3 Seconds Skin: No rashes, No breakdown Musculoskeletal: No Tenderness to Palpation of Joints or Extremities Neurological: Cranial nerves II-XII grossly intact Psych/Mental Status: Normal Affect, Appropriate, Alert and oriented to time, place, person, mood and affect Vital Signs Temp Pulse Resp BP Pulse Ox 97.9 F 67 18 147/85 H 94 10/08/18 07:58 10/08/18 07:58 10/08/18 07:58 10/08/18 07:58 10/08/18 07:58 Oxygen Flow Rate (L/min) 2 Oxygen Delivery Method Room Air Weight: 99.8 kg Body Mass Index (BMI) 31.1 Intake and Output for Last 24 Hours 10/06/18 10/07/18 10/08/18 23:59 23:59 23:59 Intake Total 440 / 440 180 / 180 440 / 440 Output Total 350 / 350 400 / 400 Balance 90 / 90 -220 / -220 440 / 440 Microbiology Past 72 Hours 10/05/18 15:40 Urine Culture - Final Urine, Clean Catch Mixed Gram Positive Organisms Active Medications Acetaminophen (Tylenol) 1,000 mg PO TID [facility] Last Admin: 10/08/18 06:54 Dose: 1,000 mg Amlodipine Besylate (Norvasc) 5 mg PO DAILY [facility] Last Admin: 10/08/18 10:14 Dose: 5 mg Aspirin (Aspirin, Baby) 81 mg PO DAILY@0800 [facility] Last Admin: 10/08/18 10:14 Dose: 81 mg Atorvastatin Calcium (Lipitor) 80 mg PO QHS [facility] Last Admin: 10/07/18 22:16 Dose: 80 mg Bisacodyl (Dulcolax) 10 mg RECTAL .PRN X 1 PRN PRN Reason: Constipation Last Admin: 10/05/18 13:26 Dose: 10 mg Calcium Carbonate (Tums) 1,000 mg PO Q4H PRN PRN PRN Reason: HEARTBURN Last Admin: 09/28/18 08:43 Dose: 1,000 mg Clopidogrel Bisulfate (Plavix) 75 mg PO DAILY [facility] Last Admin: 10/08/18 10:13 Dose: 75 mg Diclofenac Sodium (Voltaren) 1 applic TP 4X/DAY [facility] Last Admin: 10/08/18 10:14 Dose: 1 applicatio Enoxaparin Sodium (Lovenox) 40 mg SC DAILY@0600 [facility] Last Admin: 10/08/18 06:53 Dose: 40 mg Gabapentin (Neurontin) 200 mg PO 0800,1400 [facility] Last Admin: 10/08/18 10:14 Dose: 200 mg Gabapentin (Neurontin) 400 mg PO QHS [facility] Last Admin: 10/07/18 22:17 Dose: 400 mg Lisinopril (Zestril) 10 mg PO DAILY [facility] Last Admin: 10/08/18 10:13 Dose: 10 mg Magnesium Hydroxide (Milk Of Magnesia) 30 ml PO .PRN X 1 PRN PRN Reason: Constipation Meclizine HCl (Antivert) 12.5 mg PO BID PRN PRN PRN Reason: DIZZINESS Menthol (Bengay Vanishing Scent) 1 applic TOPICAL 4X/DAY PRN PRN PRN Reason: PAIN Last Admin: 10/08/18 00:40 Dose: 1 applic Mesalamine (Lialda) 2.4 gm PO BID [facility] Last Admin: 10/08/18 10:14 Dose: 2.4 gm Modafinil (Provigil) 200 mg PO DAILY@0600 [facility] Last Admin: 10/08/18 06:53 Dose: 200 mg Ondansetron HCl (Zofran) 4 mg PO Q8H PRN PRN PRN Reason: NAUSEA/VOMITING Last Admin: 10/08/18 06:51 Dose: 4 mg Oxycodone HCl (Oxyir) 5 mg PO Q6H PRN PRN PRN Reason: SEVERE PAIN (6-10/10) Last Admin: 10/08/18 10:22 Dose: 5 mg Pantoprazole Sodium (Protonix) 20 mg PO BID [facility] Last Admin: 10/08/18 10:13 Dose: 20 mg Polyethylene Glycol (Miralax) 17 gm PO DAILY PRN PRN Reason: CONSTIPATION Senna/Docusate Sodium (Senokot-S, Gladis-Colace) 2 tablet PO BID [facility] Last Admin: 10/08/18 10:13 Dose: 2 tablet Sertraline HCl (Zoloft) 50 mg PO DAILY [facility] Last Admin: 10/08/18 10:13 Dose: 50 mg Sodium Chloride () 5 - 15 ml IV UD PRN PRN Reason: SALINE FLUSH Last Admin: 10/04/18 06:08 Dose: 10 ml Medical Necessity - Tobacco Use Smoking Status: Former smoker Tobacco Use: Cigarettes Assessment/Plan All Active Problems Elevated factor VIII level (Acute) Severe left internal carotid stenosis (Acute) Occlusion of right internal carotid artery (Acute) Embolic stroke (Acute) Debility status post Right MCA, complicated by a complete right ICA occlusion, >70% stenosis of his Left ICA, and HTN. Goal of rehab is scientology of prior level of functional independence. Plan: - Physical therapy for gait and balance - Occupational Therapy for ADLs - As needed analgesics - Bowel protocol - DVT PPX - Lovenox, SCDs. - HLD - continue home dose of statin - GERD - continue home dose of PPI - HTN - stable => continue on lisinopril, and Norvasc, continue monitoring and adjust medication as needed - Acute right MCA embolic stroke -> continue on Plavix, ASA and statin - Complete occlusion of the right ICA and severe stenosis >70% of the left ICA -> continue aspirin, statins and Plavix, patient will need vascular surgery evaluation for stenosis of the left ICA on discharge as an outpatient. 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 - Hx of GERD: Continue PPI. - Loud Snoring - on O2 at night 2/2 loud snoring, and drop in SATs < 88% at night => Schedule a portable sleep study as soon as possible with placement on Auto-pap once study is complete, on discharge formal sleep study - Depression - currently on Zoloft 25mg, increase to 50mg daily - Hypersomnia - start on Provigil 200mg daily at 0600 AM - Genetic testing for excessive clotting - Factor II, VIII, XI, and Von Willebrand => Factor II, and Von Willebrand are Negative, his Factor VIII is 217 -> hematology has been consulted. - on discharge 30 day event monitor - Fall precaution - refusing to eat or drink - currently on a pureed diet and honey thicken liquids - IV placed for fluids NS 1L @ 75cc/hr - Diet changed to Regular diet with honey thicken liquids per Speech therapy -> tolerating new diet - Chronic pain start low dose of Fentanyl patch now that he is more awake then on admission. - Left hip popping causing pain - Hip/pelvic x-ray - shows some degenerative changes to the lumbosacral spine, but no acute processes - Stress test -> showed no Arrhythmia, LVEF 82% - Right lower field blurriness - repeat CTH scan => negative for new stroke or hemorrhage - Difficulty with urinating do post residual scan and send UA for testing = negative for UTI, urination improved since having BM - Restart Oxy IR 5mg q6 PRN for shoulder pain, and meclizine for the nausea
--- NOTE | 2018-10-08 12:10 | PN.NEURO_ITS ---
Patient Problems: Active and Suspected Problems Elevated factor VIII level (Acute) Severe left internal carotid stenosis (Acute) Occlusion of right internal carotid artery (Acute) Embolic stroke (Acute) Subjective: Patient seen, lying quietly in bed working with Speech therapy. Having increase pain and discomfort in his left shoulder, and becomes very nauseated when he stands and moves his head around. Tolerating therapy and working hard. No issues with GI/ today. - Physical Exam General: Alert, Oriented x3, Cooperative HEENT: Atraumatic, PERRLA, EOMI, Normocephalic Neck: Supple, No JVD, Negative Carotid Bruits Lungs: Clear to auscultation, Normal air movement Cardiovascular: Regular rate, No murmurs Abdomen: Bowel Sounds Present, Soft, Non Tender Extremities: No edema, Capillary Refill Less than 3 Seconds Skin: No rashes, No breakdown Musculoskeletal: No Tenderness to Palpation of Joints or Extremities Neurological: Cranial nerves II-XII grossly intact Psych/Mental Status: Normal Affect, Appropriate, Alert and oriented to time, place, person, mood and affect Vital Signs Temp Pulse Resp BP Pulse Ox 97.9 F 67 18 147/85 H 94 10/08/18 07:58 10/08/18 07:58 10/08/18 07:58 10/08/18 07:58 10/08/18 07:58 Oxygen Flow Rate (L/min) 2 Oxygen Delivery Method Room Air Weight: 99.8 kg Body Mass Index (BMI) 31.1 Intake and Output for Last 24 Hours 10/06/18 10/07/18 10/08/18 23:59 23:59 23:59 Intake Total 440 / 440 180 / 180 440 / 440 Output Total 350 / 350 400 / 400 Balance 90 / 90 -220 / -220 440 / 440 Microbiology Past 72 Hours 10/05/18 15:40 Urine Culture - Final Urine, Clean Catch Mixed Gram Positive Organisms Active Medications Acetaminophen (Tylenol) 1,000 mg PO TID [facility] Last Admin: 10/08/18 06:54 Dose: 1,000 mg Amlodipine Besylate (Norvasc) 5 mg PO DAILY [facility] Last Admin: 10/08/18 10:14 Dose: 5 mg Aspirin (Aspirin, Baby) 81 mg PO DAILY@0800 [facility] Last Admin: 10/08/18 10:14 Dose: 81 mg Atorvastatin Calcium (Lipitor) 80 mg PO QHS [facility] Last Admin: 10/07/18 22:16 Dose: 80 mg Bisacodyl (Dulcolax) 10 mg RECTAL .PRN X 1 PRN PRN Reason: Constipation Last Admin: 10/05/18 13:26 Dose: 10 mg Calcium Carbonate (Tums) 1,000 mg PO Q4H PRN PRN PRN Reason: HEARTBURN Last Admin: 09/28/18 08:43 Dose: 1,000 mg Clopidogrel Bisulfate (Plavix) 75 mg PO DAILY [facility] Last Admin: 10/08/18 10:13 Dose: 75 mg Diclofenac Sodium (Voltaren) 1 applic TP 4X/DAY [facility] Last Admin: 10/08/18 10:14 Dose: 1 applicatio Enoxaparin Sodium (Lovenox) 40 mg SC DAILY@0600 [facility] Last Admin: 10/08/18 06:53 Dose: 40 mg Gabapentin (Neurontin) 200 mg PO 0800,1400 [facility] Last Admin: 10/08/18 10:14 Dose: 200 mg Gabapentin (Neurontin) 400 mg PO QHS [facility] Last Admin: 10/07/18 22:17 Dose: 400 mg Lisinopril (Zestril) 10 mg PO DAILY [facility] Last Admin: 10/08/18 10:13 Dose: 10 mg Magnesium Hydroxide (Milk Of Magnesia) 30 ml PO .PRN X 1 PRN PRN Reason: Constipation Meclizine HCl (Antivert) 12.5 mg PO BID PRN PRN PRN Reason: DIZZINESS Menthol (Bengay Vanishing Scent) 1 applic TOPICAL 4X/DAY PRN PRN PRN Reason: PAIN Last Admin: 10/08/18 00:40 Dose: 1 applic Mesalamine (Lialda) 2.4 gm PO BID [facility] Last Admin: 10/08/18 10:14 Dose: 2.4 gm Modafinil (Provigil) 200 mg PO DAILY@0600 [facility] Last Admin: 10/08/18 06:53 Dose: 200 mg Ondansetron HCl (Zofran) 4 mg PO Q8H PRN PRN PRN Reason: NAUSEA/VOMITING Last Admin: 10/08/18 06:51 Dose: 4 mg Oxycodone HCl (Oxyir) 5 mg PO Q6H PRN PRN PRN Reason: SEVERE PAIN (6-10/10) Last Admin: 10/08/18 10:22 Dose: 5 mg Pantoprazole Sodium (Protonix) 20 mg PO BID [facility] Last Admin: 10/08/18 10:13 Dose: 20 mg Polyethylene Glycol (Miralax) 17 gm PO DAILY PRN PRN Reason: CONSTIPATION Senna/Docusate Sodium (Senokot-S, Gladis-Colace) 2 tablet PO BID [facility] Last Admin: 10/08/18 10:13 Dose: 2 tablet Sertraline HCl (Zoloft) 50 mg PO DAILY [facility] Last Admin: 10/08/18 10:13 Dose: 50 mg Sodium Chloride () 5 - 15 ml IV UD PRN PRN Reason: SALINE FLUSH Last Admin: 10/04/18 06:08 Dose: 10 ml Medical Necessity - Tobacco Use Smoking Status: Former smoker Tobacco Use: Cigarettes Assessment/Plan All Active Problems Elevated factor VIII level (Acute) Severe left internal carotid stenosis (Acute) Occlusion of right internal carotid artery (Acute) Embolic stroke (Acute) Debility status post Right MCA, complicated by a complete right ICA occlusion, >70% stenosis of his Left ICA, and HTN. Goal of rehab is advent of prior level of functional independence. Plan: - Physical therapy for gait and balance - Occupational Therapy for ADLs - As needed analgesics - Bowel protocol - DVT PPX - Lovenox, SCDs. - HLD - continue home dose of statin - GERD - continue home dose of PPI - HTN - stable => continue on lisinopril, and Norvasc, continue monitoring and adjust medication as needed - Acute right MCA embolic stroke -> continue on Plavix, ASA and statin - Complete occlusion of the right ICA and severe stenosis >70% of the left ICA - > continue aspirin, statins and Plavix, patient will need vascular surgery evaluation for stenosis of the left ICA on discharge as an outpatient. 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 - Hx of GERD: Continue PPI. - Loud Snoring - on O2 at night 2/2 loud snoring, and drop in SATs < 88% at night => Schedule a portable sleep study as soon as possible with placement on Auto-pap once study is complete, on discharge formal sleep study - Depression - currently on Zoloft 25mg, increase to 50mg daily - Hypersomnia - start on Provigil 200mg daily at 0600 AM - Genetic testing for excessive clotting - Factor II, VIII, XI, and Von Willebrand => Factor II, and Von Willebrand are Negative, his Factor VIII is 217 -> hematology has been consulted. - on discharge 30 day event monitor - Fall precaution - refusing to eat or drink - currently on a pureed diet and honey thicken liquids - IV placed for fluids NS 1L @ 75cc/hr - Diet changed to Regular diet with honey thicken liquids per Speech therapy -> tolerating new diet - Chronic pain start low dose of Fentanyl patch now that he is more awake then on admission. - Left hip popping causing pain - Hip/pelvic x-ray - shows some degenerative changes to the lumbosacral spine, but no acute processes - Stress test -> showed no Arrhythmia, LVEF 82% - Right lower field blurriness - repeat CTH scan => negative for new stroke or hemorrhage - Difficulty with urinating do post residual scan and send UA for testing = negative for UTI, urination improved since having BM - Restart Oxy IR 5mg q6 PRN for shoulder pain, and meclizine for the nausea
[2018-10-08] MEDS: Meclizine 12.5 MG Tablet PO (14:50)
[2018-10-08 16:22] VITALS: BMI 31.1
[2018-10-08 20:01] VITALS: BP 131/74; PULSE 64; RESP 16; TEMP 36.3; O2SAT 94
[2018-10-08] MEDS: Atorvastatin Calcium 80 MG Tablet PO (20:17)
[2018-10-08] MEDS: Gabapentin 400 MG Capsule PO (20:17)
[2018-10-09] MEDS: Acetaminophen 500 MG Tablet 1000 MG PO ×3 (07:22→22:08)
[2018-10-09] MEDS: Modafinil 200 MG Tablet PO (07:23)
[2018-10-09] MEDS: Enoxaparin 40 MG/0.4 ML Syringe SC (07:23)
[2018-10-09] MEDS: Gabapentin 100 MG Capsule 200 MG PO ×2 (08:57→13:31)
[2018-10-09] MEDS: Aspirin 81 MG TAB.CHEW PO (08:57)
[2018-10-09] MEDS: Polyethylene Glycol 3350 17 GM PACKET PO (09:06)
[2018-10-09] MEDS: Senna/Docusate Sodium 1 Tablet 2 TABLET PO ×2 (09:06→22:08)
[2018-10-09] MEDS: Meclizine 12.5 MG Tablet PO (09:09)
[2018-10-09 09:21] VITALS: BP 133/87; PULSE 74; RESP 16; TEMP 36.8; O2SAT 97
[2018-10-09] MEDS: Sertraline 50 MG Tablet PO (10:42)
[2018-10-09] MEDS: amLODIPine 5 MG Tablet PO (10:43)
[2018-10-09] MEDS: Clopidogrel Bisulfate 75 MG Tablet PO (10:43)
[2018-10-09] MEDS: Mesalamine 1.2 GM Tablet 2.4 GM PO ×2 (10:43→22:09)
[2018-10-09] MEDS: Pantoprazole Sodium 20 MG Tablet PO ×2 (10:43→22:11)
[2018-10-09] MEDS: Ondansetron 8 MG Tablet 4 MG PO (10:44)
[2018-10-09] MEDS: Lisinopril 10 MG Tablet PO (10:47)
[2018-10-09 14:24] VITALS: BMI 31.1
[2018-10-09 21:26] VITALS: BP 105/86; PULSE 76; RESP 18; TEMP 36.7; O2SAT 92
[2018-10-09] MEDS: Gabapentin 400 MG Capsule PO (22:09)
[2018-10-09] MEDS: Atorvastatin Calcium 80 MG Tablet PO (22:09)
[2018-10-10 01:49] VITALS: BMI 31.1
[2018-10-10] MEDS: Enoxaparin 40 MG/0.4 ML Syringe SC (05:54)
[2018-10-10] MEDS: Meclizine 12.5 MG Tablet PO (05:54)
[2018-10-10] MEDS: Bisacodyl 10 MG Suppository RECTAL (05:54)
[2018-10-10] MEDS: Modafinil 200 MG Tablet PO (05:54)
[2018-10-10] MEDS: Acetaminophen 500 MG Tablet 1000 MG PO ×3 (05:55→20:21)
[2018-10-10 07:00] VITALS: BP 132/90; PULSE 68; RESP 17; TEMP 36.4; O2SAT 95
[2018-10-10] MEDS: Polyethylene Glycol 3350 17 GM PACKET PO (07:51)
[2018-10-10] MEDS: Pantoprazole Sodium 20 MG Tablet PO ×2 (09:13→20:21)
[2018-10-10] MEDS: Lisinopril 10 MG Tablet PO (09:13)
[2018-10-10] MEDS: amLODIPine 5 MG Tablet PO (09:13)
[2018-10-10] MEDS: Gabapentin 100 MG Capsule 200 MG PO ×2 (09:13→14:21)
[2018-10-10] MEDS: Sertraline 50 MG Tablet PO (09:14)
[2018-10-10] MEDS: Ondansetron 8 MG Tablet 4 MG PO (09:14)
[2018-10-10] MEDS: Mesalamine 1.2 GM Tablet 2.4 GM PO ×2 (09:14→20:22)
[2018-10-10] MEDS: Aspirin 81 MG TAB.CHEW PO (09:14)
[2018-10-10] MEDS: Clopidogrel Bisulfate 75 MG Tablet PO (09:15)
[2018-10-10] MEDS: oxyCODONE 5 MG Tablet PO ×2 (11:47→20:22)
[2018-10-10 14:14] VITALS: BMI 31.1
[2018-10-10 20:05] VITALS: BP 116/66; PULSE 69; RESP 20; TEMP 37.1; O2SAT 95
[2018-10-10] MEDS: Senna/Docusate Sodium 1 Tablet 2 TABLET PO (20:20)
[2018-10-10] MEDS: Atorvastatin Calcium 80 MG Tablet PO (20:22)
[2018-10-10] MEDS: Gabapentin 400 MG Capsule PO (20:22)
[2018-10-10 23:35] VITALS: BMI 31.1
--- NOTE | 2018-10-11 02:26 | NURSING ---
pt called into rehab unit at 0210 stating to this nurse that pt called her to say i need to take a walk. this nurse reassured that staff would go back into room to check on patient and reorient him to the situation. thankful and requesting a call back. upon entering room to speak with patient, this nurse told pt that his called into rehab unit and pt stated he told he had to take a leak. nursing staff reoriented pt to use of call light. pt assisted with urinal by [employer]IV[employer] VOLUNTEER. this nurse called at 0220 in regards to what pt stated. understanding. nursing reassured of hourly rounds, and if needed staff will round more frequently. pt was noted to be asleep at 0200 rounding. states that when pt takes oxy and neurontin he becomes more confused, and this was not the first time pt had called for assistance instead of using call light. will continue to monitor.
[2018-10-11] MEDS: Enoxaparin 40 MG/0.4 ML Syringe SC (05:54)
[2018-10-11] MEDS: Acetaminophen 500 MG Tablet 1000 MG PO ×3 (05:54→20:10)
[2018-10-11] MEDS: Modafinil 200 MG Tablet PO (05:59)
[2018-10-11 06:49] VITALS: O2SAT 95
[2018-10-11 08:31] VITALS: BP 132/84; PULSE 62; RESP 16; TEMP 36.8; O2SAT 95
[2018-10-11] MEDS: Lisinopril 10 MG Tablet PO (10:15)
[2018-10-11] MEDS: Clopidogrel Bisulfate 75 MG Tablet PO (10:16)
[2018-10-11] MEDS: Gabapentin 100 MG Capsule 200 MG PO ×2 (10:16→14:52)
[2018-10-11] MEDS: Mesalamine 1.2 GM Tablet 2.4 GM PO ×2 (10:16→20:11)
[2018-10-11] MEDS: Aspirin 81 MG TAB.CHEW PO (10:16)
[2018-10-11] MEDS: Senna/Docusate Sodium 1 Tablet 2 TABLET PO ×2 (10:16→20:11)
[2018-10-11] MEDS: Sertraline 50 MG Tablet PO (10:16)
[2018-10-11] MEDS: amLODIPine 5 MG Tablet PO (10:16)
[2018-10-11] MEDS: Pantoprazole Sodium 20 MG Tablet PO ×2 (10:16→20:11)
[2018-10-11] MEDS: Polyethylene Glycol 3350 17 GM PACKET PO (10:17)
[2018-10-11] MEDS: Ondansetron 8 MG Tablet 4 MG PO (10:20)
[2018-10-11] MEDS: oxyCODONE 5 MG Tablet PO ×2 (10:26→17:49)
[2018-10-11 16:07] VITALS: BMI 31.1
[2018-10-11] MEDS: Atorvastatin Calcium 80 MG Tablet PO (20:11)
[2018-10-11] MEDS: Gabapentin 400 MG Capsule PO (20:12)
[2018-10-11 20:15] VITALS: BP 121/71; PULSE 62; RESP 16; TEMP 36.6; O2SAT 94
[2018-10-12 00:45] VITALS: BMI 31.1
[2018-10-12] MEDS: Acetaminophen 500 MG Tablet 1000 MG PO ×3 (06:14→21:41)
[2018-10-12] MEDS: Enoxaparin 40 MG/0.4 ML Syringe SC (06:14)
[2018-10-12] MEDS: Modafinil 200 MG Tablet PO (06:24)
[2018-10-12] MEDS: Aspirin 81 MG TAB.CHEW PO (08:23)
[2018-10-12] MEDS: Meclizine 12.5 MG Tablet PO (08:23)
[2018-10-12 10:00] VITALS: BP 133/83; PULSE 57; RESP 17; TEMP 36.4; O2SAT 94
[2018-10-12] MEDS: Mesalamine 1.2 GM Tablet 2.4 GM PO ×2 (10:57→21:42)
[2018-10-12] MEDS: Pantoprazole Sodium 20 MG Tablet PO ×2 (10:58→21:41)
[2018-10-12] MEDS: Lisinopril 10 MG Tablet PO (10:58)
[2018-10-12] MEDS: amLODIPine 5 MG Tablet PO (10:58)
[2018-10-12] MEDS: Gabapentin 100 MG Capsule 200 MG PO ×2 (10:58→15:23)
[2018-10-12] MEDS: Clopidogrel Bisulfate 75 MG Tablet PO (10:58)
[2018-10-12] MEDS: Sertraline 50 MG Tablet PO (10:58)
[2018-10-12] MEDS: Senna/Docusate Sodium 1 Tablet 2 TABLET PO ×2 (10:58→21:42)
--- NOTE | 2018-10-12 12:11 | CASEMGMT ---
Team meeting held. Patient present as well as patient family. Collaborating with team, discharge date set for 10/19/18 pending continued stay approval with insurance. Team wanting to continue with another week of therapy and then are recommending for patient to transition to a custodial facility. This nephrology social worker has been in discussion with patient and patient spouse on SNF's in the area that are in network with patient insurance. Patient reporting that first choice is the Transitional Care Unit at [facility]. This nephrology social worker also providing patient and patient spouse with [facility], and [facility] as other facilities that are in network with patient insurance. Patient to continue with further care and treatment on the Inpatient Rehab Unit until time of discharge. Patient also have an insurance update due on this day and aware that continued stay approval is not guaranteed through day of proposed discharge date mentioned above. Support given. Telephone call to [facility] reporting to not have any openings at this time but plans to be able to have openings by 10/19/18 and would be able to accept patient. Did also speak with patient spouse extensively after the team meeting about Medicaid, SNF, and home support. Proposed discharge date: 10/19/18 pending insurance approval. PLAN: Discharge to the Transitional Care Unit pending insurance approving until 10/19/18. PRINCE Braden, TIP FINISHER
--- NOTE | 2018-10-12 12:19 | CASEMGMT ---
Insurance Clinical information sent. Pending continued stay approval at this time. Auth#[id number] SHANI Mosley
[2018-10-12] MEDS: oxyCODONE 5 MG Tablet PO ×2 (12:22→21:52)
--- NOTE | 2018-10-12 12:55 | RAD_ITS ---
STUDY: X-RAY - LEFT SHOULDER REASON FOR EXAM: Male, 58 years old. Pain TECHNIQUE: 3 view(s) of the shoulder. COMPARISON: None. FINDINGS: There is moderate degenerative arthrosis of the glenohumeral articulation. There is degenerative arthrosis of the acromioclavicular joint without inferior osseous spur formation. Normal acromion. Normal humeral head and visualized proximal humerus. The soft tissue structures are unremarkable. Normal visualized pulmonary apex. RAD/Shoulder min 2 Views IMPRESSION: Degenerative arthrosis Electronically Signed: Tomás Heaton MD at 13:27 EST , Service support ,
--- NOTE | 2018-10-12 16:09 | CASEMGMT ---
Insurance Continued stay approved until 10/19/18 with anticipated discharge on 10/19/18. Auth#[id number] SHANI Mosley
--- NOTE | 2018-10-12 16:41 | PCM.PN.NEU ---
Patient Problems: Active and Suspected Problems Elevated factor VIII level (Acute) Severe left internal carotid stenosis (Acute) Occlusion of right internal carotid artery (Acute) Embolic stroke (Acute) Subjective: Staffed in team meeting. Family at bedside, questions addressed and answered. With Physical therapy, with transfers he is minimal to contact assist to come to a stand. he is moderate assist to walk with the paul walker, he was able to go 21 feet, without the wheel chair or the wall rail. He is able to mixing engineer the Parallel bars and walk a couple of feet. With Occupational therapy, he is moderate assist for bathing, minimal assist with personal care, and minimal assist for dressing his upper body. He is total assist for lower body dressing, bathing and toileting. He still has no active movement in his left arm, has some movement in his hand. With Speech therapy, he is on soft textures with inconsistencies for swallowing. Will continue to work with him to get him on to regular texture foods. He has vision inattention to the left side. With nursing, pain is controlled, still having issues with his left shoulder will get an x-ray of shoulder. Will re-team again next Friday10/19/18. - Physical Exam General: Alert, Oriented x3, Cooperative HEENT: Atraumatic, PERRLA, EOMI, Normocephalic Neck: Supple, No JVD, Negative Carotid Bruits Lungs: Clear to auscultation, Normal air movement Cardiovascular: Regular rate, No murmurs Abdomen: Bowel Sounds Present, Soft, Non Tender Extremities: No edema, Capillary Refill Less than 3 Seconds Skin: No rashes, No breakdown Musculoskeletal: No Tenderness to Palpation of Joints or Extremities Neurological: Cranial nerves II-XII grossly intact Psych/Mental Status: Normal Affect, Appropriate, Alert and oriented to time, place, person, mood and affect Vital Signs Temp Pulse Resp BP Pulse Ox 97.6 F L 57 L 17 133/83 H 94 10/12/18 10:10/12/18 10:10/12/18 10:00 10/12/18 10:10/12/18 10:00 Oxygen Flow Rate (L/min) 2 Oxygen Delivery Method Room Air Weight: 99.8 kg Body Mass Index (BMI) 31.1 Intake and Output for Last 24 Hours 10/10/18 10/11/18 10/12/18 23:59 23:59 23:59 Intake Total 480 / 480 360 / 360 680 / 680 Balance 480 / 480 360 / 360 680 / 680 Active Medications Acetaminophen (Tylenol) 1,000 mg PO TID [facility] Last Admin: 10/12/18 15:23 Dose: 1,000 mg Amlodipine Besylate (Norvasc) 5 mg PO DAILY [facility] Last Admin: 10/12/18 10:58 Dose: 5 mg Aspirin (Aspirin, Baby) 81 mg PO DAILY@0800 [facility] Last Admin: 10/12/18 08:23 Dose: 81 mg Atorvastatin Calcium (Lipitor) 80 mg PO QHS [facility] Last Admin: 10/11/18 20:11 Dose: 80 mg Bisacodyl (Dulcolax) 10 mg RECTAL .PRN X 1 PRN PRN Reason: Constipation Last Admin: 10/10/18 05:54 Dose: 10 mg Calcium Carbonate (Tums) 1,000 mg PO Q4H PRN PRN PRN Reason: HEARTBURN Last Admin: 09/28/18 08:43 Dose: 1,000 mg Clopidogrel Bisulfate (Plavix) 75 mg PO DAILY [facility] Last Admin: 10/12/18 10:58 Dose: 75 mg Diclofenac Sodium (Voltaren) 1 applic TP 4X/DAY [facility] Last Admin: 10/12/18 15:23 Dose: 1 applicatio Enoxaparin Sodium (Lovenox) 40 mg SC DAILY@0600 [facility] Last Admin: 10/12/18 06:14 Dose: 40 mg Gabapentin (Neurontin) 200 mg PO 0800,1400 [facility] Last Admin: 10/12/18 15:23 Dose: 200 mg Gabapentin (Neurontin) 400 mg PO QHS [facility] Last Admin: 10/11/18 20:12 Dose: 400 mg Lisinopril (Zestril) 10 mg PO DAILY [facility] Last Admin: 10/12/18 10:58 Dose: 10 mg Magnesium Hydroxide (Milk Of Magnesia) 30 ml PO .PRN X 1 PRN PRN Reason: Constipation Meclizine HCl (Antivert) 12.5 mg PO BID PRN PRN PRN Reason: DIZZINESS Last Admin: 10/12/18 08:23 Dose: 12.5 mg Menthol (Bengay Vanishing Scent) 1 applic TOPICAL 4X/DAY PRN PRN PRN Reason: PAIN Last Admin: 10/08/18 14:50 Dose: 1 applic Mesalamine (Lialda) 2.4 gm PO BID [facility] Last Admin: 10/12/18 10:57 Dose: 2.4 gm Modafinil (Provigil) 200 mg PO DAILY@0600 [facility] Last Admin: 10/12/18 06:24 Dose: 200 mg Ondansetron HCl (Zofran) 4 mg PO Q8H PRN PRN PRN Reason: NAUSEA/VOMITING Last Admin: 10/11/18 10:20 Dose: 4 mg Oxycodone HCl (Oxyir) 5 mg PO Q6H PRN PRN PRN Reason: SEVERE PAIN (6-10/10) Last Admin: 10/12/18 12:22 Dose: 5 mg Pantoprazole Sodium (Protonix) 20 mg PO BID [facility] Last Admin: 10/12/18 10:58 Dose: 20 mg Polyethylene Glycol (Miralax) 17 gm PO DAILY PRN PRN Reason: CONSTIPATION Last Admin: 10/11/18 10:17 Dose: 17 gm Senna/Docusate Sodium (Senokot-S, Gladis-Colace) 2 tablet PO BID [facility] Last Admin: 10/12/18 10:58 Dose: 2 tablet Sertraline HCl (Zoloft) 50 mg PO DAILY [facility] Last Admin: 10/12/18 10:58 Dose: 50 mg Sodium Chloride () 5 - 15 ml IV UD PRN PRN Reason: SALINE FLUSH Last Admin: 10/04/18 06:08 Dose: 10 ml Medical Necessity - Tobacco Use Smoking Status: Former smoker Tobacco Use: Cigarettes Assessment/Plan All Active Problems Elevated factor VIII level (Acute) Severe left internal carotid stenosis (Acute) Occlusion of right internal carotid artery (Acute) Embolic stroke (Acute) Debility status post Right MCA, complicated by a complete right ICA occlusion, >70% stenosis of his Left ICA, and HTN. Goal of rehab is caodaism of prior level of functional independence. Plan: - Physical therapy for gait and balance - Occupational Therapy for ADLs - As needed analgesics - Bowel protocol - DVT PPX - Lovenox, SCDs. - HLD - continue home dose of statin - GERD - continue home dose of PPI - HTN - stable => continue on lisinopril, and Norvasc, continue monitoring and adjust medication as needed - Acute right MCA embolic stroke -> continue on Plavix, ASA and statin - Complete occlusion of the right ICA and severe stenosis >70% of the left ICA -> continue aspirin, statins and Plavix, patient will need vascular surgery evaluation for stenosis of the left ICA on discharge as an outpatient. 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 - Hx of GERD: Continue PPI. - Loud Snoring - on O2 at night 2/2 loud snoring, and drop in SATs < 88% at night => Schedule a portable sleep study as soon as possible with placement on Auto-pap once study is complete, on discharge formal sleep study - Depression - currently on Zoloft 25mg, increase to 50mg daily - Hypersomnia - start on Provigil 200mg daily at 0600 AM - Genetic testing for excessive clotting - Factor II, VIII, XI, and Von Willebrand => Factor II, and Von Willebrand are Negative, his Factor VIII is 217 -> hematology has been consulted. - on discharge 30 day event monitor - Fall precaution - refusing to eat or drink - currently on a pureed diet and honey thicken liquids - IV placed for fluids NS 1L @ 75cc/hr - Diet changed to Regular diet with honey thicken liquids per Speech therapy -> tolerating new diet - Chronic pain start low dose of Fentanyl patch now that he is more awake then on admission. - Left hip popping causing pain - Hip/pelvic x-ray - shows some degenerative changes to the lumbosacral spine, but no acute processes - Stress test -> showed no Arrhythmia, LVEF 82% - Right lower field blurriness - repeat CTH scan => negative for new stroke or hemorrhage - Difficulty with urinating do post residual scan and send UA for testing = negative for UTI, urination improved since having BM - Restart Oxy IR 5mg q6 PRN for shoulder pain, and meclizine for the nausea - X-ray of shoulder => which showed degenerative arthrosis
--- NOTE | 2018-10-12 16:46 | CASEMGMT ---
Social Work Spoke with patient and patient spouse. This social staff worker communicating that continued stay has been approved by insurance until 10/19/18 with the plan for patient to discharge on 10/19/18 to the transitional care unit. Patient and patient spouse are agreeable to this plan. Telephone call to [facility] on the Transitional Care Unit. This social staff worker communicating above information. Proposed discharge date: 10/19/18 PLAN: Transition to the Transitional Care Unit - PRINCE Fernandez, [employer]ION
[2018-10-12 17:00] VITALS: BMI 31.1
[2018-10-12] MEDS: Gabapentin 400 MG Capsule PO (21:41)
[2018-10-12] MEDS: Atorvastatin Calcium 80 MG Tablet PO (21:43)
[2018-10-12 21:58] VITALS: BP 130/82; PULSE 60; RESP 17; TEMP 36.6; O2SAT 95
[2018-10-12 22:02] VITALS: BMI 31.1
--- NOTE | 2018-10-13 03:41 | NURSING ---
Reviewed and agree with FINE ARTIST documentation and FIMs charting.
[2018-10-13] MEDS: Enoxaparin 40 MG/0.4 ML Syringe SC (06:47)
[2018-10-13] MEDS: Modafinil 200 MG Tablet PO (06:48)
[2018-10-13] MEDS: Acetaminophen 500 MG Tablet 1000 MG PO ×3 (06:48→22:25)
--- NOTE | 2018-10-13 06:49 | NURSING ---
Pt c/o pain of 7/10 pain this a.m. and nurse offered prn oxyir. Pt refused this pain med till closer to therapy time.
[2018-10-13] MEDS: Meclizine 12.5 MG Tablet PO (07:03)
[2018-10-13 08:46] VITALS: BP 148/81; PULSE 53; RESP 18; TEMP 36.5; O2SAT 98
[2018-10-13] MEDS: Gabapentin 100 MG Capsule 200 MG PO ×2 (09:11→15:09)
[2018-10-13] MEDS: Pantoprazole Sodium 20 MG Tablet PO ×2 (09:11→22:25)
[2018-10-13] MEDS: oxyCODONE 5 MG Tablet PO ×2 (09:11→22:28)
[2018-10-13] MEDS: Senna/Docusate Sodium 1 Tablet 2 TABLET PO ×2 (09:11→22:25)
[2018-10-13] MEDS: Aspirin 81 MG TAB.CHEW PO (09:11)
[2018-10-13] MEDS: Polyethylene Glycol 3350 17 GM PACKET PO ×2 (09:12→22:24)
[2018-10-13] MEDS: Mesalamine 1.2 GM Tablet 2.4 GM PO ×2 (10:53→22:24)
[2018-10-13] MEDS: Sertraline 50 MG Tablet PO (10:54)
[2018-10-13] MEDS: Lisinopril 10 MG Tablet PO (10:54)
[2018-10-13] MEDS: amLODIPine 5 MG Tablet PO (10:54)
[2018-10-13] MEDS: Clopidogrel Bisulfate 75 MG Tablet PO (10:54)
--- NOTE | 2018-10-13 15:07 | NURSING ---
In to reassess the hall to the left hand. all areas are dry with thin scabbing noted. was able to remove a large portion of the scabbed skin. all tissues are epithelialized underneath. there is new hair growth on a couple fingers as well. no signs of infection noted. the middle finger still with a moderate amount of scabbing. will continue to monitor.
[2018-10-13 15:14] VITALS: BMI 31.1
--- NOTE | 2018-10-13 16:57 | PCM.PN.HOSP ---
Patient Problems: Active and Suspected Problems Elevated factor VIII level (Acute) Severe left internal carotid stenosis (Acute) Occlusion of right internal carotid artery (Acute) Embolic stroke (Acute) Subjective: Seen and examined. Patient is admitted with left-sided weakness and language deficit. Patient has low volume speech. Vitals/I&O's: Vital Signs Temp Pulse Resp BP Pulse Ox 97.7 F L 53 L 18 148/81 H 98 10/13/18 08:46 10/13/18 08:46 10/13/18 08:46 10/13/18 08:46 10/13/18 08:46 Oxygen Flow Rate (L/min) 2 Oxygen Delivery Method Room Air Weight: 220 lb 0.341 oz Body Mass Index (BMI) 31.1 Intake and Output for Last 24 Hours 10/11/18 10/12/18 10/13/18 23:59 23:59 23:59 Intake Total 360 / 360 680 / 680 560 / 560 Balance 360 / 360 680 / 680 560 / 560 General: Alert, Oriented x3, Cooperative HEENT: Atraumatic, PERRLA, EOMI, Normocephalic Neck: Supple, No JVD, Negative Carotid Bruits Lungs: Clear to auscultation, Normal air movement, No rhonchi, No wheeze, No rales Cardiovascular: Regular rate, Regular Rhythm, Normal S1, Normal S2, No murmurs Abdomen: Bowel Sounds Present, Soft, Non Tender, Non-Distended Extremities: Capillary Refill Less than 3 Seconds, Edema Skin: No rashes, No breakdown Musculoskeletal: No Tenderness to Palpation of Joints or Extremities, Arthritic Changes Neurological: - - Left-sided facial droop. Left-sided flaccid weakness. Low volume speech and slurred speech Psych/Mental Status: Normal Affect, Appropriate Current Medications Acetaminophen (Tylenol) 1,000 mg PO TID [facility] Last Admin: 10/13/18 15:09 Dose: 1,000 mg Amlodipine Besylate (Norvasc) 5 mg PO DAILY [facility] Last Admin: 10/13/18 10:54 Dose: 5 mg Aspirin (Aspirin, Baby) 81 mg PO DAILY@0800 [facility] Last Admin: 10/13/18 09:11 Dose: 81 mg Atorvastatin Calcium (Lipitor) 80 mg PO QHS [facility] Last Admin: 10/12/18 21:43 Dose: 80 mg Bisacodyl (Dulcolax) 10 mg RECTAL .PRN X 1 PRN PRN Reason: Constipation Last Admin: 10/10/18 05:54 Dose: 10 mg Calcium Carbonate (Tums) 1,000 mg PO Q4H PRN PRN PRN Reason: HEARTBURN Last Admin: 09/28/18 08:43 Dose: 1,000 mg Clopidogrel Bisulfate (Plavix) 75 mg PO DAILY [facility] Last Admin: 10/13/18 10:54 Dose: 75 mg Diclofenac Sodium (Voltaren) 1 applic TP 4X/DAY [facility] Last Admin: 10/13/18 15:10 Dose: 1 applicatio Enoxaparin Sodium (Lovenox) 40 mg SC DAILY@0600 [facility] Last Admin: 10/13/18 06:47 Dose: 40 mg Gabapentin (Neurontin) 200 mg PO 0800,1400 [facility] Last Admin: 10/13/18 15:09 Dose: 200 mg Gabapentin (Neurontin) 400 mg PO QHS [facility] Last Admin: 10/12/18 21:41 Dose: 400 mg Lisinopril (Zestril) 10 mg PO DAILY [facility] Last Admin: 10/13/18 10:54 Dose: 10 mg Magnesium Hydroxide (Milk Of Magnesia) 30 ml PO .PRN X 1 PRN PRN Reason: Constipation Meclizine HCl (Antivert) 12.5 mg PO BID PRN PRN PRN Reason: DIZZINESS Last Admin: 10/13/18 07:03 Dose: 12.5 mg Menthol (Bengay Vanishing Scent) 1 applic TOPICAL 4X/DAY PRN PRN PRN Reason: PAIN Last Admin: 10/08/18 14:50 Dose: 1 applic Mesalamine (Lialda) 2.4 gm PO BID [facility] Last Admin: 10/13/18 10:53 Dose: 2.4 gm Modafinil (Provigil) 200 mg PO DAILY@0600 [facility] Last Admin: 10/13/18 06:48 Dose: 200 mg Ondansetron HCl (Zofran) 4 mg PO Q8H PRN PRN PRN Reason: NAUSEA/VOMITING Last Admin: 10/11/18 10:20 Dose: 4 mg Oxycodone HCl (Oxyir) 5 mg PO Q6H PRN PRN PRN Reason: SEVERE PAIN (6-10/10) Last Admin: 10/13/18 09:11 Dose: 5 mg Pantoprazole Sodium (Protonix) 20 mg PO BID [facility] Last Admin: 10/13/18 09:11 Dose: 20 mg Polyethylene Glycol (Miralax) 17 gm PO DAILY PRN PRN Reason: CONSTIPATION Last Admin: 10/13/18 09:12 Dose: 17 gm Senna/Docusate Sodium (Senokot-S, Gladis-Colace) 2 tablet PO BID [facility] Last Admin: 10/13/18 09:11 Dose: 2 tablet Sertraline HCl (Zoloft) 50 mg PO DAILY [facility] Last Admin: 10/13/18 10:54 Dose: 50 mg Sodium Chloride () 5 - 15 ml IV UD PRN PRN Reason: SALINE FLUSH Last Admin: 10/04/18 06:08 Dose: 10 ml Medical Necessity - Tobacco Use Smoking Status: Former smoker Tobacco Use: Cigarettes Assessment/Plan All Active Problems Elevated factor VIII level (Acute) Severe left internal carotid stenosis (Acute) Occlusion of right internal carotid artery (Acute) Embolic stroke (Acute) This 58-year-old gentleman who was admitted to rehab unit after he had a right MCA ischemic stroke. Patient was seen by other hospitalist on 10/02 for substernal chest pain floaters. Patient heart rate stable. Vitals are stable. EKG at that time shows normal sinus rhythm with T wave inversion NSR with T wave inversions in lead III and lead aVF No prior EKG to compare to. Patient further had nuclear pharmacological stress test and showed normal myocardial perfusion and stress-induced ischemia ruled out. EF 82%. 1 right MCA ischemic stroke: On PT and OT and speech and swallow evaluation and treatment. Blood pressure is controlled. On Plavix and aspirin. 2. Hypertension: Blood pressure is controlled. On lisinopril and amlodipine. 3. Severe left ICA stenosis: Plan for outpatient neurosurgery appointment to assess for ICA stenting. 4. History of DVT and PE: On Lovenox prophylactic 40 mg daily. 5. Bladder and bowel care: On a stool softener. Active Medications Acetaminophen (Tylenol) 1,000 mg PO TID [facility] Last Admin: 10/13/18 15:09 Dose: 1,000 mg Amlodipine Besylate (Norvasc) 5 mg PO DAILY [facility] Last Admin: 10/13/18 10:54 Dose: 5 mg Aspirin (Aspirin, Baby) 81 mg PO DAILY@0800 [facility] Last Admin: 10/13/18 09:11 Dose: 81 mg Atorvastatin Calcium (Lipitor) 80 mg PO QHS [facility] Last Admin: 10/12/18 21:43 Dose: 80 mg Bisacodyl (Dulcolax) 10 mg RECTAL .PRN X 1 PRN PRN Reason: Constipation Last Admin: 10/10/18 05:54 Dose: 10 mg Calcium Carbonate (Tums) 1,000 mg PO Q4H PRN PRN PRN Reason: HEARTBURN Last Admin: 09/28/18 08:43 Dose: 1,000 mg Clopidogrel Bisulfate (Plavix) 75 mg PO DAILY [facility] Last Admin: 10/13/18 10:54 Dose: 75 mg Diclofenac Sodium (Voltaren) 1 applic TP 4X/DAY [facility] Last Admin: 10/13/18 15:10 Dose: 1 applicatio Enoxaparin Sodium (Lovenox) 40 mg SC DAILY@0600 [facility] Last Admin: 10/13/18 06:47 Dose: 40 mg Gabapentin (Neurontin) 200 mg PO 0800,1400 [facility] Last Admin: 10/13/18 15:09 Dose: 200 mg Gabapentin (Neurontin) 400 mg PO QHS [facility] Last Admin: 10/12/18 21:41 Dose: 400 mg Lisinopril (Zestril) 10 mg PO DAILY [facility] Last Admin: 10/13/18 10:54 Dose: 10 mg Magnesium Hydroxide (Milk Of Magnesia) 30 ml PO .PRN X 1 PRN PRN Reason: Constipation Meclizine HCl (Antivert) 12.5 mg PO BID PRN PRN PRN Reason: DIZZINESS Last Admin: 10/13/18 07:03 Dose: 12.5 mg Menthol (Bengay Vanishing Scent) 1 applic TOPICAL 4X/DAY PRN PRN PRN Reason: PAIN Last Admin: 10/08/18 14:50 Dose: 1 applic Mesalamine (Lialda) 2.4 gm PO BID [facility] Last Admin: 10/13/18 10:53 Dose: 2.4 gm Modafinil (Provigil) 200 mg PO DAILY@0600 [facility] Last Admin: 10/13/18 06:48 Dose: 200 mg Ondansetron HCl (Zofran) 4 mg PO Q8H PRN PRN PRN Reason: NAUSEA/VOMITING Last Admin: 10/11/18 10:20 Dose: 4 mg Oxycodone HCl (Oxyir) 5 mg PO Q6H PRN PRN PRN Reason: SEVERE PAIN (-07/08) Last Admin: 10/13/18 09:11 Dose: 5 mg Pantoprazole Sodium (Protonix) 20 mg PO BID [facility] Last Admin: 10/13/18 09:11 Dose: 20 mg Polyethylene Glycol (Miralax) 17 gm PO DAILY PRN PRN Reason: CONSTIPATION Last Admin: 10/13/18 09:12 Dose: 17 gm Senna/Docusate Sodium (Senokot-S, Gladis-Colace) 2 tablet PO BID [facility] Last Admin: 10/13/18 09:11 Dose: 2 tablet Sertraline HCl (Zoloft) 50 mg PO DAILY [facility] Last Admin: 10/13/18 10:54 Dose: 50 mg Sodium Chloride () 5 - 15 ml IV UD PRN PRN Reason: SALINE FLUSH Last Admin: 10/04/18 06:08 Dose: 10 ml Code Visit Inpatient E&M: 39607 Subs Hosp L2
--- NOTE | 2018-10-13 17:04 | PN_ITS ---
Patient Problems: Active and Suspected Problems Elevated factor VIII level (Acute) Severe left internal carotid stenosis (Acute) Occlusion of right internal carotid artery (Acute) Embolic stroke (Acute) Subjective: Seen and examined. Patient is admitted with left-sided weakness and language deficit. Patient has low volume speech. Vitals/I&O's: Vital Signs Temp Pulse Resp BP Pulse Ox 97.7 F L 53 L 18 148/81 H 98 10/13/18 08:46 10/13/18 08:46 10/13/18 08:46 10/13/18 08:46 10/13/18 08:46 Oxygen Flow Rate (L/min) 2 Oxygen Delivery Method Room Air Weight: 220 lb 0.341 oz Body Mass Index (BMI) 31.1 Intake and Output for Last 24 Hours 10/11/18 10/12/18 10/13/18 23:59 23:59 23:59 Intake Total 360 / 360 680 / 680 560 / 560 Balance 360 / 360 680 / 680 560 / 560 General: Alert, Oriented x3, Cooperative HEENT: Atraumatic, PERRLA, EOMI, Normocephalic Neck: Supple, No JVD, Negative Carotid Bruits Lungs: Clear to auscultation, Normal air movement, No rhonchi, No wheeze, No rales Cardiovascular: Regular rate, Regular Rhythm, Normal S1, Normal S2, No murmurs Abdomen: Bowel Sounds Present, Soft, Non Tender, Non-Distended Extremities: Capillary Refill Less than 3 Seconds, Edema Skin: No rashes, No breakdown Musculoskeletal: No Tenderness to Palpation of Joints or Extremities, Arthritic Changes Neurological: - - Left-sided facial droop. Left-sided flaccid weakness. Low volume speech and slurred speech Psych/Mental Status: Normal Affect, Appropriate Current Medications Acetaminophen (Tylenol) 1,000 mg PO TID [facility] Last Admin: 10/13/18 15:09 Dose: 1,000 mg Amlodipine Besylate (Norvasc) 5 mg PO DAILY [facility] Last Admin: 10/13/18 10:54 Dose: 5 mg Aspirin (Aspirin, Baby) 81 mg PO DAILY@0800 [facility] Last Admin: 10/13/18 09:11 Dose: 81 mg Atorvastatin Calcium (Lipitor) 80 mg PO QHS [facility] Last Admin: 10/12/18 21:43 Dose: 80 mg Bisacodyl (Dulcolax) 10 mg RECTAL .PRN X 1 PRN PRN Reason: Constipation Last Admin: 10/10/18 05:54 Dose: 10 mg Calcium Carbonate (Tums) 1,000 mg PO Q4H PRN PRN PRN Reason: HEARTBURN Last Admin: 09/28/18 08:43 Dose: 1,000 mg Clopidogrel Bisulfate (Plavix) 75 mg PO DAILY [facility] Last Admin: 10/13/18 10:54 Dose: 75 mg Diclofenac Sodium (Voltaren) 1 applic TP 4X/DAY [facility] Last Admin: 10/13/18 15:10 Dose: 1 applicatio Enoxaparin Sodium (Lovenox) 40 mg SC DAILY@0600 [facility] Last Admin: 10/13/18 06:47 Dose: 40 mg Gabapentin (Neurontin) 200 mg PO 0800,1400 [facility] Last Admin: 10/13/18 15:09 Dose: 200 mg Gabapentin (Neurontin) 400 mg PO QHS [facility] Last Admin: 10/12/18 21:41 Dose: 400 mg Lisinopril (Zestril) 10 mg PO DAILY [facility] Last Admin: 10/13/18 10:54 Dose: 10 mg Magnesium Hydroxide (Milk Of Magnesia) 30 ml PO .PRN X 1 PRN PRN Reason: Constipation Meclizine HCl (Antivert) 12.5 mg PO BID PRN PRN PRN Reason: DIZZINESS Last Admin: 10/13/18 07:03 Dose: 12.5 mg Menthol (Bengay Vanishing Scent) 1 applic TOPICAL 4X/DAY PRN PRN PRN Reason: PAIN Last Admin: 10/08/18 14:50 Dose: 1 applic Mesalamine (Lialda) 2.4 gm PO BID [facility] Last Admin: 10/13/18 10:53 Dose: 2.4 gm Modafinil (Provigil) 200 mg PO DAILY@0600 [facility] Last Admin: 10/13/18 06:48 Dose: 200 mg Ondansetron HCl (Zofran) 4 mg PO Q8H PRN PRN PRN Reason: NAUSEA/VOMITING Last Admin: 10/11/18 10:20 Dose: 4 mg Oxycodone HCl (Oxyir) 5 mg PO Q6H PRN PRN PRN Reason: SEVERE PAIN (6-10/10) Last Admin: 10/13/18 09:11 Dose: 5 mg Pantoprazole Sodium (Protonix) 20 mg PO BID [facility] Last Admin: 10/13/18 09:11 Dose: 20 mg Polyethylene Glycol (Miralax) 17 gm PO DAILY PRN PRN Reason: CONSTIPATION Last Admin: 10/13/18 09:12 Dose: 17 gm Senna/Docusate Sodium (Senokot-S, Gladis-Colace) 2 tablet PO BID [facility] Last Admin: 10/13/18 09:11 Dose: 2 tablet Sertraline HCl (Zoloft) 50 mg PO DAILY [facility] Last Admin: 10/13/18 10:54 Dose: 50 mg Sodium Chloride () 5 - 15 ml IV UD PRN PRN Reason: SALINE FLUSH Last Admin: 10/04/18 06:08 Dose: 10 ml Medical Necessity - Tobacco Use Smoking Status: Former smoker Tobacco Use: Cigarettes Assessment/Plan All Active Problems Elevated factor VIII level (Acute) Severe left internal carotid stenosis (Acute) Occlusion of right internal carotid artery (Acute) Embolic stroke (Acute) This 58-year-old gentleman who was admitted to rehab unit after he had a right MCA ischemic stroke. Patient was seen by other hospitalist on 10/02 for substernal chest pain floaters. Patient heart rate stable. Vitals are stable. EKG at that time shows normal sinus rhythm with T wave inversion NSR with T wave inversions in lead III and lead aVF No prior EKG to compare to. Patient further had nuclear pharmacological stress test and showed normal myocardial perfusion and stress-induced ischemia ruled out. EF 82%. 1 right MCA ischemic stroke: On PT and OT and speech and swallow evaluation and treatment. Blood pressure is controlled. On Plavix and aspirin. 2. Hypertension: Blood pressure is controlled. On lisinopril and amlodipine. 3. Severe left ICA stenosis: Plan for outpatient neurosurgery appointment to assess for ICA stenting. 4. History of DVT and PE: On Lovenox prophylactic 40 mg daily. 5. Bladder and bowel care: On a stool softener. Active Medications Acetaminophen (Tylenol) 1,000 mg PO TID [facility] Last Admin: 10/13/18 15:09 Dose: 1,000 mg Amlodipine Besylate (Norvasc) 5 mg PO DAILY [facility] Last Admin: 10/13/18 10:54 Dose: 5 mg Aspirin (Aspirin, Baby) 81 mg PO DAILY@0800 [facility] Last Admin: 10/13/18 09:11 Dose: 81 mg Atorvastatin Calcium (Lipitor) 80 mg PO QHS [facility] Last Admin: 10/12/18 21:43 Dose: 80 mg Bisacodyl (Dulcolax) 10 mg RECTAL .PRN X 1 PRN PRN Reason: Constipation Last Admin: 10/10/18 05:54 Dose: 10 mg Calcium Carbonate (Tums) 1,000 mg PO Q4H PRN PRN PRN Reason: HEARTBURN Last Admin: 09/28/18 08:43 Dose: 1,000 mg Clopidogrel Bisulfate (Plavix) 75 mg PO DAILY [facility] Last Admin: 10/13/18 10:54 Dose: 75 mg Diclofenac Sodium (Voltaren) 1 applic TP 4X/DAY [facility] Last Admin: 10/13/18 15:10 Dose: 1 applicatio Enoxaparin Sodium (Lovenox) 40 mg SC DAILY@0600 [facility] Last Admin: 10/13/18 06:47 Dose: 40 mg Gabapentin (Neurontin) 200 mg PO 0800,1400 [facility] Last Admin: 10/13/18 15:09 Dose: 200 mg Gabapentin (Neurontin) 400 mg PO QHS [facility] Last Admin: 10/12/18 21:41 Dose: 400 mg Lisinopril (Zestril) 10 mg PO DAILY [facility] Last Admin: 10/13/18 10:54 Dose: 10 mg Magnesium Hydroxide (Milk Of Magnesia) 30 ml PO .PRN X 1 PRN PRN Reason: Constipation Meclizine HCl (Antivert) 12.5 mg PO BID PRN PRN PRN Reason: DIZZINESS Last Admin: 10/13/18 07:03 Dose: 12.5 mg Menthol (Bengay Vanishing Scent) 1 applic TOPICAL 4X/DAY PRN PRN PRN Reason: PAIN Last Admin: 10/08/18 14:50 Dose: 1 applic Mesalamine (Lialda) 2.4 gm PO BID [facility] Last Admin: 10/13/18 10:53 Dose: 2.4 gm Modafinil (Provigil) 200 mg PO DAILY@0600 [facility] Last Admin: 10/13/18 06:48 Dose: 200 mg Ondansetron HCl (Zofran) 4 mg PO Q8H PRN PRN PRN Reason: NAUSEA/VOMITING Last Admin: 10/11/18 10:20 Dose: 4 mg Oxycodone HCl (Oxyir) 5 mg PO Q6H PRN PRN PRN Reason: SEVERE PAIN (-07/08) Last Admin: 10/13/18 09:11 Dose: 5 mg Pantoprazole Sodium (Protonix) 20 mg PO BID [facility] Last Admin: 10/13/18 09:11 Dose: 20 mg Polyethylene Glycol (Miralax) 17 gm PO DAILY PRN PRN Reason: CONSTIPATION Last Admin: 10/13/18 09:12 Dose: 17 gm Senna/Docusate Sodium (Senokot-S, Gladis-Colace) 2 tablet PO BID [facility] Last Admin: 10/13/18 09:11 Dose: 2 tablet Sertraline HCl (Zoloft) 50 mg PO DAILY [facility] Last Admin: 10/13/18 10:54 Dose: 50 mg Sodium Chloride () 5 - 15 ml IV UD PRN PRN Reason: SALINE FLUSH Last Admin: 10/04/18 06:08 Dose: 10 ml Code Visit Inpatient E&M: 55218 Subs Hosp L2
[2018-10-13 19:52] VITALS: BP 142/66; PULSE 58; RESP 17; TEMP 36.9; O2SAT 94
[2018-10-13 22:00] VITALS: BMI 31.1
[2018-10-13] MEDS: Gabapentin 400 MG Capsule PO (22:24)
[2018-10-13] MEDS: Atorvastatin Calcium 80 MG Tablet PO (22:24)
[2018-10-14] MEDS: Acetaminophen 500 MG Tablet 1000 MG PO ×3 (06:24→21:23)
[2018-10-14] MEDS: Enoxaparin 40 MG/0.4 ML Syringe SC (06:24)
[2018-10-14] MEDS: Modafinil 200 MG Tablet PO (06:25)
[2018-10-14 07:05] VITALS: BP 133/87; PULSE 54; RESP 20; TEMP 36.5; O2SAT 95
[2018-10-14] MEDS: oxyCODONE 5 MG Tablet PO ×2 (08:42→18:57)
[2018-10-14] MEDS: Mesalamine 1.2 GM Tablet 2.4 GM PO ×2 (08:43→21:24)
[2018-10-14] MEDS: Aspirin 81 MG TAB.CHEW PO (08:43)
[2018-10-14] MEDS: Gabapentin 100 MG Capsule 200 MG PO ×2 (08:43→13:32)
[2018-10-14] MEDS: Sertraline 50 MG Tablet PO (08:44)
[2018-10-14] MEDS: amLODIPine 5 MG Tablet PO (08:44)
[2018-10-14] MEDS: Lisinopril 10 MG Tablet PO (08:44)
[2018-10-14] MEDS: Clopidogrel Bisulfate 75 MG Tablet PO (08:44)
[2018-10-14] MEDS: Pantoprazole Sodium 20 MG Tablet PO ×2 (08:44→21:24)
--- NOTE | 2018-10-14 08:50 | NURSING ---
pt refused scheduled miralax and senna plus this AM. Medium BM noted this AM.
--- NOTE | 2018-10-14 10:19 | PCM.PN.NEU ---
Patient Problems: Active and Suspected Problems Elevated factor VIII level (Acute) Severe left internal carotid stenosis (Acute) Occlusion of right internal carotid artery (Acute) Embolic stroke (Acute) Subjective: Patient seen and examined. No new complaints. Tolerating therapy, pain is better since restarting pain pill. Most of his pain is in his left should did obtain x-ray which showed degenerative arthrorisis. No issues with , still having issues with constipation. - Physical Exam General: Alert, Oriented x3, Cooperative HEENT: Atraumatic, PERRLA, EOMI, Normocephalic Neck: Supple, No JVD, Negative Carotid Bruits Lungs: Clear to auscultation, Normal air movement Cardiovascular: Regular rate, No murmurs Abdomen: Bowel Sounds Present, Soft, Non Tender Extremities: No edema, Capillary Refill Less than 3 Seconds Skin: No rashes, No breakdown Musculoskeletal: No Tenderness to Palpation of Joints or Extremities Neurological: Cranial nerves II-XII grossly intact Psych/Mental Status: Normal Affect, Appropriate, Alert and oriented to time, place, person, mood and affect Vital Signs Temp Pulse Resp BP Pulse Ox 97.7 F L 54 L 20 H 133/87 H 95 10/14/18 07:05 10/14/18 07:05 10/14/18 07:05 10/14/18 07:05 10/14/18 07:05 Oxygen Flow Rate (L/min) 2 Oxygen Delivery Method Nasal Cannula Weight: 99.8 kg Body Mass Index (BMI) 31.1 Intake and Output for Last 24 Hours 10/12/18 10/13/18 10/14/18 23:59 23:59 23:59 Intake Total 680 / 680 560 / 560 360 / 360 Balance 680 / 680 560 / 560 360 / 360 Active Medications Acetaminophen (Tylenol) 1,000 mg PO TID [facility] Last Admin: 10/14/18 06:24 Dose: 1,000 mg Amlodipine Besylate (Norvasc) 5 mg PO DAILY [facility] Last Admin: 10/14/18 08:44 Dose: 5 mg Aspirin (Aspirin, Baby) 81 mg PO DAILY@0800 [facility] Last Admin: 10/14/18 08:43 Dose: 81 mg Atorvastatin Calcium (Lipitor) 80 mg PO QHS [facility] Last Admin: 10/13/18 22:24 Dose: 80 mg Bisacodyl (Dulcolax) 10 mg RECTAL .PRN X 1 PRN PRN Reason: Constipation Last Admin: 10/10/18 05:54 Dose: 10 mg Calcium Carbonate (Tums) 1,000 mg PO Q4H PRN PRN PRN Reason: HEARTBURN Last Admin: 09/28/18 08:43 Dose: 1,000 mg Clopidogrel Bisulfate (Plavix) 75 mg PO DAILY [facility] Last Admin: 10/14/18 08:44 Dose: 75 mg Diclofenac Sodium (Voltaren) 1 applic TP 4X/DAY [facility] Last Admin: 10/14/18 08:40 Dose: 1 applicatio Enoxaparin Sodium (Lovenox) 40 mg SC DAILY@0600 [facility] Last Admin: 10/14/18 06:24 Dose: 40 mg Gabapentin (Neurontin) 200 mg PO 0800,1400 [facility] Last Admin: 10/14/18 08:43 Dose: 200 mg Gabapentin (Neurontin) 400 mg PO QHS [facility] Last Admin: 10/13/18 22:24 Dose: 400 mg Lisinopril (Zestril) 10 mg PO DAILY [facility] Last Admin: 10/14/18 08:44 Dose: 10 mg Magnesium Hydroxide (Milk Of Magnesia) 30 ml PO .PRN X 1 PRN PRN Reason: Constipation Meclizine HCl (Antivert) 12.5 mg PO BID PRN PRN PRN Reason: DIZZINESS Last Admin: 10/13/18 07:03 Dose: 12.5 mg Menthol (Bengay Vanishing Scent) 1 applic TOPICAL 4X/DAY PRN PRN PRN Reason: PAIN Last Admin: 10/08/18 14:50 Dose: 1 applic Mesalamine (Lialda) 2.4 gm PO BID [facility] Last Admin: 10/14/18 08:43 Dose: 2.4 gm Modafinil (Provigil) 200 mg PO DAILY@0600 [facility] Last Admin: 10/14/18 06:25 Dose: 200 mg Ondansetron HCl (Zofran) 4 mg PO Q8H PRN PRN PRN Reason: NAUSEA/VOMITING Last Admin: 10/11/18 10:20 Dose: 4 mg Oxycodone HCl (Oxyir) 5 mg PO Q6H PRN PRN PRN Reason: SEVERE PAIN (6-10/10) Last Admin: 01/16/19 08:42 Dose: 5 mg Pantoprazole Sodium (Protonix) 20 mg PO BID [facility] Last Admin: 10/14/18 08:44 Dose: 20 mg Polyethylene Glycol (Miralax) 17 gm PO BID [facility] Last Admin: 10/14/18 08:44 Dose: Not Given Senna/Docusate Sodium (Senokot-S, Gladis-Colace) 2 tablet PO BID [facility] Last Admin: 10/14/18 08:45 Dose: Not Given Sertraline HCl (Zoloft) 50 mg PO DAILY [facility] Last Admin: 10/14/18 08:44 Dose: 50 mg Sodium Chloride () 5 - 15 ml IV UD PRN PRN Reason: SALINE FLUSH Last Admin: 10/04/18 06:08 Dose: 10 ml Medical Necessity - Tobacco Use Smoking Status: Former smoker Tobacco Use: Cigarettes Assessment/Plan All Active Problems Elevated factor VIII level (Acute) Severe left internal carotid stenosis (Acute) Occlusion of right internal carotid artery (Acute) Embolic stroke (Acute) Debility status post Right MCA, complicated by a complete right ICA occlusion, >70% stenosis of his Left ICA, and HTN. Goal of rehab is amish of prior level of functional independence. Plan: - Physical therapy for gait and balance - Occupational Therapy for ADLs - As needed analgesics - Bowel protocol - DVT PPX - Lovenox, SCDs. - HLD - continue home dose of statin - GERD - continue home dose of PPI - HTN - stable => continue on lisinopril, and Norvasc, continue monitoring and adjust medication as needed - Acute right MCA embolic stroke -> continue on Plavix, ASA and statin - Complete occlusion of the right ICA and severe stenosis >70% of the left ICA -> continue aspirin, statins and Plavix, patient will need vascular surgery evaluation for stenosis of the left ICA on discharge as an outpatient. 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 - Hx of GERD: Continue PPI. - Loud Snoring - on O2 at night 2/2 loud snoring, and drop in SATs < 88% at night => Schedule a portable sleep study as soon as possible with placement on Auto-pap once study is complete, on discharge formal sleep study - Depression - currently on Zoloft 25mg, increase to 50mg daily - Hypersomnia - start on Provigil 200mg daily at 0600 AM - Genetic testing for excessive clotting - Factor II, VIII, XI, and Von Willebrand => Factor II, and Von Willebrand are Negative, his Factor VIII is 217 -> hematology has been consulted. - on discharge 30 day event monitor - Fall precaution - refusing to eat or drink - currently on a pureed diet and honey thicken liquids - IV placed for fluids NS 1L @ 75cc/hr - Diet changed to Regular diet with honey thicken liquids per Speech therapy -> tolerating new diet - Chronic pain start low dose of Fentanyl patch now that he is more awake then on admission. - Left hip popping causing pain - Hip/pelvic x-ray - shows some degenerative changes to the lumbosacral spine, but no acute processes - Stress test -> showed no Arrhythmia, LVEF 82% - Right lower field blurriness - repeat CTH scan => negative for new stroke or hemorrhage - Difficulty with urinating do post residual scan and send UA for testing = negative for UTI, urination improved since having BM - Restart Oxy IR 5mg q6 PRN for shoulder pain, and meclizine for the nausea - X-ray of shoulder => which showed degenerative arthrosis
[2018-10-14 17:00] VITALS: BMI 31.1
[2018-10-14 20:34] VITALS: BP 131/85; PULSE 81; RESP 18; TEMP 36.4; O2SAT 94
[2018-10-14 20:36] VITALS: BMI 31.1
[2018-10-14] MEDS: Atorvastatin Calcium 80 MG Tablet PO (21:23)
[2018-10-14] MEDS: Gabapentin 400 MG Capsule PO (21:25)
[2018-10-15] MEDS: oxyCODONE 5 MG Tablet PO ×2 (02:34→17:38)
[2018-10-15] MEDS: Enoxaparin 40 MG/0.4 ML Syringe SC (05:35)
[2018-10-15] MEDS: Modafinil 200 MG Tablet PO (05:37)
[2018-10-15] MEDS: Acetaminophen 500 MG Tablet 1000 MG PO ×3 (05:37→22:26)
[2018-10-15] MEDS: amLODIPine 5 MG Tablet PO (08:10)
[2018-10-15] MEDS: Aspirin 81 MG TAB.CHEW PO (08:10)
[2018-10-15] MEDS: Gabapentin 100 MG Capsule 200 MG PO ×2 (08:10→13:19)
[2018-10-15] MEDS: Mesalamine 1.2 GM Tablet 2.4 GM PO ×2 (08:10→22:26)
[2018-10-15] MEDS: Polyethylene Glycol 3350 17 GM PACKET PO (08:10)
[2018-10-15] MEDS: Lisinopril 10 MG Tablet PO (08:11)
[2018-10-15] MEDS: Clopidogrel Bisulfate 75 MG Tablet PO (08:11)
[2018-10-15] MEDS: Sertraline 50 MG Tablet PO (08:11)
[2018-10-15] MEDS: Pantoprazole Sodium 20 MG Tablet PO ×2 (08:11→22:26)
[2018-10-15] MEDS: Senna/Docusate Sodium 1 Tablet 2 TABLET PO (08:12)
[2018-10-15 09:30] VITALS: O2SAT 95
[2018-10-15 09:48] VITALS: BP 144/89; PULSE 58; RESP 18; TEMP 36.6; O2SAT 95
[2018-10-15 15:20] VITALS: BMI 31.1
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
--- NOTE | 2018-10-15 15:41 | PN.NEURO_ITS ---
Patient Problems: Active and Suspected Problems Elevated factor VIII level (Acute) Severe left internal carotid stenosis (Acute) Occlusion of right internal carotid artery (Acute) Embolic stroke (Acute) Subjective: Patient seen and examined. No new complaints, tolerating therapy, pain is tolerable on current medications. - Physical Exam General: Alert, Oriented x3, Cooperative HEENT: Atraumatic, PERRLA, EOMI, Normocephalic Neck: Supple, No JVD, Negative Carotid Bruits Lungs: Clear to auscultation, Normal air movement Cardiovascular: Regular rate, No murmurs Abdomen: Bowel Sounds Present, Soft, Non Tender Extremities: No edema, Capillary Refill Less than 3 Seconds Skin: No rashes, No breakdown Musculoskeletal: No Tenderness to Palpation of Joints or Extremities Neurological: Cranial nerves II-XII grossly intact Psych/Mental Status: Normal Affect, Appropriate, Alert and oriented to time, place, person, mood and affect Vital Signs Temp Pulse Resp BP Pulse Ox 97.8 F 58 L 18 144/89 H 95 10/15/18 09:48 10/15/18 09:48 10/15/18 09:48 10/15/18 09:48 10/15/18 09:48 Oxygen Flow Rate (L/min) 2 Oxygen Delivery Method Room Air Weight: 103.674 kg Body Mass Index (BMI) 31.1 Intake and Output for Last 24 Hours 10/13/18 10/14/18 10/15/18 23:59 23:59 23:59 Intake Total 560 / 560 840 / 840 440 / 440 Balance 560 / 560 840 / 840 440 / 440 Active Medications Acetaminophen (Tylenol) 1,000 mg PO TID [facility] Last Admin: 10/15/18 13:18 Dose: 1,000 mg Amlodipine Besylate (Norvasc) 5 mg PO DAILY [facility] Last Admin: 10/15/18 08:10 Dose: 5 mg Aspirin (Aspirin, Baby) 81 mg PO DAILY@0800 [facility] Last Admin: 10/15/18 08:10 Dose: 81 mg Atorvastatin Calcium (Lipitor) 80 mg PO QHS [facility] Last Admin: 10/14/18 21:23 Dose: 80 mg Bisacodyl (Dulcolax) 10 mg RECTAL .PRN X 1 PRN PRN Reason: Constipation Last Admin: 10/10/18 05:54 Dose: 10 mg Calcium Carbonate (Tums) 1,000 mg PO Q4H PRN PRN PRN Reason: HEARTBURN Last Admin: 09/28/18 08:43 Dose: 1,000 mg Clopidogrel Bisulfate (Plavix) 75 mg PO DAILY [facility] Last Admin: 10/15/18 08:11 Dose: 75 mg Diclofenac Sodium (Voltaren) 1 applic TP 4X/DAY [facility] Last Admin: 10/15/18 13:20 Dose: 1 applicatio Enoxaparin Sodium (Lovenox) 40 mg SC DAILY@0600 [facility] Last Admin: 10/15/18 05:35 Dose: 40 mg Gabapentin (Neurontin) 200 mg PO 0800,1400 [facility] Last Admin: 10/15/18 13:19 Dose: 200 mg Gabapentin (Neurontin) 400 mg PO QHS [facility] Last Admin: 10/14/18 21:25 Dose: 400 mg Lisinopril (Zestril) 10 mg PO DAILY [facility] Last Admin: 10/15/18 08:11 Dose: 10 mg Magnesium Hydroxide (Milk Of Magnesia) 30 ml PO .PRN X 1 PRN PRN Reason: Constipation Meclizine HCl (Antivert) 12.5 mg PO BID PRN PRN PRN Reason: DIZZINESS Last Admin: 10/13/18 07:03 Dose: 12.5 mg Menthol (Bengay Vanishing Scent) 1 applic TOPICAL 4X/DAY PRN PRN PRN Reason: PAIN Last Admin: 10/08/18 14:50 Dose: 1 applic Mesalamine (Lialda) 2.4 gm PO BID [facility] Last Admin: 10/15/18 08:10 Dose: 2.4 gm Modafinil (Provigil) 200 mg PO DAILY@0600 [facility] Last Admin: 10/15/18 05:37 Dose: 200 mg Ondansetron HCl (Zofran) 4 mg PO Q8H PRN PRN PRN Reason: NAUSEA/VOMITING Last Admin: 10/11/18 10:20 Dose: 4 mg Oxycodone HCl (Oxyir) 5 mg PO Q6H PRN PRN PRN Reason: SEVERE PAIN (6-10/10) Last Admin: 10/15/18 02:34 Dose: 5 mg Pantoprazole Sodium (Protonix) 20 mg PO BID [facility] Last Admin: 10/15/18 08:11 Dose: 20 mg Polyethylene Glycol (Miralax) 17 gm PO BID [facility] Last Admin: 10/15/18 08:10 Dose: 17 gm Senna/Docusate Sodium (Senokot-S, Gladis-Colace) 2 tablet PO BID [facility] Last Admin: 10/15/18 08:12 Dose: 2 tablet Sertraline HCl (Zoloft) 50 mg PO DAILY [facility] Last Admin: 10/15/18 08:11 Dose: 50 mg Sodium Chloride () 5 - 15 ml IV UD PRN PRN Reason: SALINE FLUSH Last Admin: 10/04/18 06:08 Dose: 10 ml Medical Necessity - Tobacco Use Smoking Status: Former smoker Tobacco Use: Cigarettes Assessment/Plan All Active Problems Elevated factor VIII level (Acute) Severe left internal carotid stenosis (Acute) Occlusion of right internal carotid artery (Acute) Embolic stroke (Acute) Debility status post Right MCA, complicated by a complete right ICA occlusion, >70% stenosis of his Left ICA, and HTN. Goal of rehab is adventism of prior level of functional independence. Plan: - Physical therapy for gait and balance - Occupational Therapy for ADLs - As needed analgesics - Bowel protocol - DVT PPX - Lovenox, SCDs. - HLD - continue home dose of statin - GERD - continue home dose of PPI - HTN - stable => continue on lisinopril, and Norvasc, continue monitoring and adjust medication as needed - Acute right MCA embolic stroke -> continue on Plavix, ASA and statin - Complete occlusion of the right ICA and severe stenosis >70% of the left ICA - > continue aspirin, statins and Plavix, patient will need vascular surgery evaluation for stenosis of the left ICA on discharge as an outpatient. 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 - Hx of GERD: Continue PPI. - Loud Snoring - on O2 at night 2/2 loud snoring, and drop in SATs < 88% at night => Schedule a portable sleep study as soon as possible with placement on Auto-pap once study is complete, on discharge formal sleep study - Depression - currently on Zoloft 25mg, increase to 50mg daily - Hypersomnia - start on Provigil 200mg daily at 0600 AM - Genetic testing for excessive clotting - Factor II, VIII, XI, and Von Willebrand => Factor II, and Von Willebrand are Negative, his Factor VIII is 217 -> hematology has been consulted. - on discharge 30 day event monitor - Fall precaution - refusing to eat or drink - currently on a pureed diet and honey thicken liquids - IV placed for fluids NS 1L @ 75cc/hr - Diet changed to Regular diet with honey thicken liquids per Speech therapy -> tolerating new diet - Chronic pain start low dose of Fentanyl patch now that he is more awake then on admission. - Left hip popping causing pain - Hip/pelvic x-ray - shows some degenerative changes to the lumbosacral spine, but no acute processes - Stress test -> showed no Arrhythmia, LVEF 82% - Right lower field blurriness - repeat CTH scan => negative for new stroke or hemorrhage - Difficulty with urinating do post residual scan and send UA for testing = negative for UTI, urination improved since having BM - Restart Oxy IR 5mg q6 PRN for shoulder pain, and meclizine for the nausea - X-ray of shoulder => which showed degenerative arthrosis
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
[2018-10-15 22:00] VITALS: BP 115/67; PULSE 64; RESP 18; TEMP 36.6; O2SAT 93
[2018-10-15] MEDS: Atorvastatin Calcium 80 MG Tablet PO (22:25)
[2018-10-15] MEDS: Gabapentin 400 MG Capsule PO (22:26)
[2018-10-16] MEDS: oxyCODONE 5 MG Tablet PO ×3 (06:52→21:09)
[2018-10-16] MEDS: Modafinil 200 MG Tablet PO (06:53)
[2018-10-16] MEDS: Enoxaparin 40 MG/0.4 ML Syringe SC (06:53)
[2018-10-16] MEDS: Acetaminophen 500 MG Tablet 1000 MG PO ×3 (06:53→20:34)
[2018-10-16 09:56] VITALS: BP 143/76; PULSE 61; RESP 16; TEMP 36.6; O2SAT 96
[2018-10-16] MEDS: Gabapentin 100 MG Capsule 200 MG PO ×2 (09:58→15:00)
[2018-10-16] MEDS: Mesalamine 1.2 GM Tablet 2.4 GM PO ×2 (09:58→09:59)
[2018-10-16] MEDS: Pantoprazole Sodium 20 MG Tablet PO ×2 (09:59→20:34)
[2018-10-16] MEDS: Sertraline 50 MG Tablet PO (09:59)
[2018-10-16] MEDS: Clopidogrel Bisulfate 75 MG Tablet PO (09:59)
[2018-10-16] MEDS: amLODIPine 5 MG Tablet PO (09:59)
[2018-10-16] MEDS: Lisinopril 10 MG Tablet PO (09:59)
[2018-10-16] MEDS: Aspirin 81 MG TAB.CHEW PO (09:59)
--- NOTE | 2018-10-16 10:01 | NURSING ---
Pt. refusing senna and miralax this moring, stated to this RN, I am running out of clothes.
[2018-10-16 14:53] VITALS: BMI 31.1
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
[2018-10-16 20:31] VITALS: BP 136/73; PULSE 58; RESP 18; TEMP 36.5; O2SAT 96
[2018-10-16] MEDS: Gabapentin 400 MG Capsule PO (20:35)
[2018-10-16] MEDS: Atorvastatin Calcium 80 MG Tablet PO (20:41)
[2018-10-17 01:13] VITALS: BMI 31.1
[2018-10-17] MEDS: Acetaminophen 500 MG Tablet 1000 MG PO ×3 (06:37→19:31)
[2018-10-17] MEDS: Modafinil 200 MG Tablet PO (06:38)
[2018-10-17] MEDS: Enoxaparin 40 MG/0.4 ML Syringe SC (06:38)
[2018-10-17 07:00] VITALS: BP 126/72; PULSE 64; RESP 17; TEMP 36.8; O2SAT 96
[2018-10-17 07:06] VITALS: O2SAT 92
[2018-10-17] MEDS: Pantoprazole Sodium 20 MG Tablet PO ×2 (08:38→19:32)
[2018-10-17] MEDS: Sertraline 50 MG Tablet PO (08:38)
[2018-10-17] MEDS: amLODIPine 5 MG Tablet PO (08:38)
[2018-10-17] MEDS: Mesalamine 1.2 GM Tablet 2.4 GM PO ×2 (08:39→19:32)
[2018-10-17] MEDS: Gabapentin 100 MG Capsule 200 MG PO ×2 (08:39→13:41)
[2018-10-17] MEDS: Aspirin 81 MG TAB.CHEW PO (08:39)
[2018-10-17] MEDS: Clopidogrel Bisulfate 75 MG Tablet PO (08:39)
[2018-10-17] MEDS: Lisinopril 10 MG Tablet PO (08:39)
[2018-10-17] MEDS: oxyCODONE 5 MG Tablet PO ×2 (09:33→19:37)
[2018-10-17 16:00] VITALS: BMI 31.1
[2018-10-17] MEDS: Atorvastatin Calcium 80 MG Tablet PO (19:32)
[2018-10-17] MEDS: Gabapentin 400 MG Capsule PO (19:32)
[2018-10-17 19:50] VITALS: BP 116/69; PULSE 63; RESP 18; TEMP 36.6; O2SAT 95
[2018-10-18] MEDS: Acetaminophen 500 MG Tablet 1000 MG PO ×3 (06:13→19:51)
[2018-10-18] MEDS: Enoxaparin 40 MG/0.4 ML Syringe SC (06:14)
[2018-10-18] MEDS: Modafinil 200 MG Tablet PO (06:14)
[2018-10-18 07:01] VITALS: O2SAT 92
[2018-10-18 07:06] VITALS: BP 129/74; PULSE 58; RESP 18; TEMP 36.8; O2SAT 93
[2018-10-18] MEDS: Mesalamine 1.2 GM Tablet 2.4 GM PO ×2 (08:31→19:52)
[2018-10-18] MEDS: Gabapentin 100 MG Capsule 200 MG PO ×2 (08:31→14:14)
[2018-10-18] MEDS: Aspirin 81 MG TAB.CHEW PO (08:31)
[2018-10-18] MEDS: Lisinopril 10 MG Tablet PO (08:32)
[2018-10-18] MEDS: Pantoprazole Sodium 20 MG Tablet PO ×2 (08:32→19:52)
[2018-10-18] MEDS: amLODIPine 5 MG Tablet PO (08:32)
[2018-10-18] MEDS: Clopidogrel Bisulfate 75 MG Tablet PO (08:32)
[2018-10-18] MEDS: Sertraline 50 MG Tablet PO (08:32)
[2018-10-18] MEDS: oxyCODONE 5 MG Tablet PO ×2 (08:38→18:17)
[2018-10-18 12:00] VITALS: BMI 31.1
--- NOTE | 2018-10-18 13:26 | PN_ITS ---
Patient Problems: Active and Suspected Problems Elevated factor VIII level (Acute) Severe left internal carotid stenosis (Acute) Occlusion of right internal carotid artery (Acute) Embolic stroke (Acute) Subjective: Patient is doing well with physical therapy. Blood pressure is controlled. Objective: General: Alert, Oriented x3, Cooperative HEENT: Atraumatic, PERRLA, EOMI, Normocephalic Neck: Supple, No JVD, Negative Carotid Bruits Lungs: Clear to auscultation, Normal air movement, No rhonchi, No wheeze, No rales Cardiovascular: Regular rate, Regular Rhythm, Normal S1, Normal S2, No murmurs Abdomen: Bowel Sounds Present, Soft, Non Tender, Non-Distended. No palpable mass Extremities: No edema, Capillary Refill Less than 3 Seconds Skin: No rashes, No breakdown Musculoskeletal: No Tenderness to Palpation of Joints or Extremities, Arthritic Changes Neurological: Deep Tendon Reflexes 2+/4 and Symmetrical, Left-sided facial droop. Left upper extremity flaccid weakness. Speech has improved. Left lower extremity strength improved 3+/5 Psych/Mental Status: Normal Affect, Appropriate Vitals/I&O's: Vital Signs Temp Pulse Resp BP Pulse Ox 98.3 F 58 L 18 129/74 H 93 10/18/18 07:06 10/18/18 07:06 10/18/18 07:06 10/18/18 07:06 10/18/18 07:06 Oxygen Flow Rate (L/min) 2 Oxygen Delivery Method Room Air Weight: 237 lb 1.362 oz Body Mass Index (BMI) 31.1 Intake and Output for Last 24 Hours 10/16/18 10/17/18 10/18/18 23:59 23:59 23:59 Intake Total 240 / 240 480 / 480 120 / 120 Balance 240 / 240 480 / 480 120 / 120 Current Medications Acetaminophen (Tylenol) 1,000 mg PO TID [facility] Last Admin: 10/18/18 06:13 Dose: 1,000 mg Amlodipine Besylate (Norvasc) 5 mg PO DAILY [facility] Last Admin: 10/18/18 08:32 Dose: 5 mg Aspirin (Aspirin, Baby) 81 mg PO DAILY@0800 [facility] Last Admin: 10/18/18 08:31 Dose: 81 mg Atorvastatin Calcium (Lipitor) 80 mg PO QHS [facility] Last Admin: 10/17/18 19:32 Dose: 80 mg Bisacodyl (Dulcolax) 10 mg RECTAL .PRN X 1 PRN PRN Reason: Constipation Last Admin: 10/10/18 05:54 Dose: 10 mg Calcium Carbonate (Tums) 1,000 mg PO Q4H PRN PRN PRN Reason: HEARTBURN Last Admin: 09/28/18 08:43 Dose: 1,000 mg Clopidogrel Bisulfate (Plavix) 75 mg PO DAILY [facility] Last Admin: 10/18/18 08:32 Dose: 75 mg Diclofenac Sodium (Voltaren) 1 applic TP 4X/DAY [facility] Last Admin: 10/18/18 08:32 Dose: 1 applicatio Enoxaparin Sodium (Lovenox) 40 mg SC DAILY@0600 [facility] Last Admin: 10/18/18 06:14 Dose: 40 mg Gabapentin (Neurontin) 200 mg PO 0800,1400 [facility] Last Admin: 10/18/18 08:31 Dose: 200 mg Gabapentin (Neurontin) 400 mg PO QHS [facility] Last Admin: 10/17/18 19:32 Dose: 400 mg Lisinopril (Zestril) 10 mg PO DAILY [facility] Last Admin: 10/18/18 08:32 Dose: 10 mg Magnesium Hydroxide (Milk Of Magnesia) 30 ml PO .PRN X 1 PRN PRN Reason: Constipation Meclizine HCl (Antivert) 12.5 mg PO BID PRN PRN PRN Reason: DIZZINESS Last Admin: 10/13/18 07:03 Dose: 12.5 mg Menthol (Bengay Vanishing Scent) 1 applic TOPICAL 4X/DAY PRN PRN PRN Reason: PAIN Last Admin: 10/08/18 14:50 Dose: 1 applic Mesalamine (Lialda) 2.4 gm PO BID [facility] Last Admin: 10/18/18 08:31 Dose: 2.4 gm Modafinil (Provigil) 200 mg PO DAILY@0600 [facility] Last Admin: 10/18/18 06:14 Dose: 200 mg Ondansetron HCl (Zofran) 4 mg PO Q8H PRN PRN PRN Reason: NAUSEA/VOMITING Last Admin: 10/11/18 10:20 Dose: 4 mg Oxycodone HCl (Oxyir) 5 mg PO Q6H PRN PRN PRN Reason: SEVERE PAIN (6-10/10) Last Admin: 10/18/18 08:38 Dose: 5 mg Pantoprazole Sodium (Protonix) 20 mg PO BID [facility] Last Admin: 10/18/18 08:32 Dose: 20 mg Polyethylene Glycol (Miralax) 17 gm PO BID [facility] Last Admin: 10/18/18 09:56 Dose: Not Given Senna/Docusate Sodium (Senokot-S, Gladis-Colace) 2 tablet PO BID [facility] Last Admin: 10/18/18 09:56 Dose: Not Given Sertraline HCl (Zoloft) 50 mg PO DAILY [facility] Last Admin: 10/18/18 08:32 Dose: 50 mg Sodium Chloride () 5 - 15 ml IV UD PRN PRN Reason: SALINE FLUSH Last Admin: 10/04/18 06:08 Dose: 10 ml Medical Necessity - Tobacco Use Smoking Status: Former smoker Tobacco Use: Cigarettes Assessment/Plan All Active Problems Elevated factor VIII level (Acute) Severe left internal carotid stenosis (Acute) Occlusion of right internal carotid artery (Acute) Embolic stroke (Acute) This 58-year-old gentleman who was admitted to rehab unit after he had a right MCA ischemic stroke. Patient was seen by other hospitalist on 10/02 for substernal chest pain floaters. Patient heart rate stable. Vitals are stable. EKG at that time shows normal sinus rhythm with T wave inversion NSR with T wave inversions in lead III and lead aVF No prior EKG to compare to. Patient further had nuclear pharmacological stress test and showed normal myocardial perfusion and stress-induced ischemia ruled out. EF 82%. 1 right MCA ischemic stroke: On PT and OT and speech and swallow evaluation and treatment. Blood pressure is controlled. On Plavix and aspirin. 2. Hypertension: Blood pressure is controlled. On lisinopril and amlodipine. 3. Severe left ICA stenosis: Plan for outpatient neurosurgery appointment to assess for ICA stenting. 4. History of DVT and PE: On Lovenox prophylactic 40 mg daily. 5. Bladder and bowel care: On a stool softener. Active Medications Acetaminophen (Tylenol) 1,000 mg PO TID [facility] Last Admin: 10/18/18 06:13 Dose: 1,000 mg Amlodipine Besylate (Norvasc) 5 mg PO DAILY [facility] Last Admin: 10/18/18 08:32 Dose: 5 mg Aspirin (Aspirin, Baby) 81 mg PO DAILY@0800 [facility] Last Admin: 10/18/18 08:31 Dose: 81 mg Atorvastatin Calcium (Lipitor) 80 mg PO QHS [facility] Last Admin: 10/17/18 19:32 Dose: 80 mg Bisacodyl (Dulcolax) 10 mg RECTAL .PRN X 1 PRN PRN Reason: Constipation Last Admin: 10/10/18 05:54 Dose: 10 mg Calcium Carbonate (Tums) 1,000 mg PO Q4H PRN PRN PRN Reason: HEARTBURN Last Admin: 09/28/18 08:43 Dose: 1,000 mg Clopidogrel Bisulfate (Plavix) 75 mg PO DAILY [facility] Last Admin: 10/18/18 08:32 Dose: 75 mg Diclofenac Sodium (Voltaren) 1 applic TP 4X/DAY [facility] Last Admin: 10/18/18 08:32 Dose: 1 applicatio Enoxaparin Sodium (Lovenox) 40 mg SC DAILY@0600 [facility] Last Admin: 10/18/18 06:14 Dose: 40 mg Gabapentin (Neurontin) 200 mg PO 0800,1400 [facility] Last Admin: 10/18/18 08:31 Dose: 200 mg Gabapentin (Neurontin) 400 mg PO QHS [facility] Last Admin: 10/17/18 19:32 Dose: 400 mg Lisinopril (Zestril) 10 mg PO DAILY [facility] Last Admin: 10/18/18 08:32 Dose: 10 mg Magnesium Hydroxide (Milk Of Magnesia) 30 ml PO .PRN X 1 PRN PRN Reason: Constipation Meclizine HCl (Antivert) 12.5 mg PO BID PRN PRN PRN Reason: DIZZINESS Last Admin: 10/13/18 07:03 Dose: 12.5 mg Menthol (Bengay Vanishing Scent) 1 applic TOPICAL 4X/DAY PRN PRN PRN Reason: PAIN Last Admin: 10/08/18 14:50 Dose: 1 applic Mesalamine (Lialda) 2.4 gm PO BID [facility] Last Admin: 10/18/18 08:31 Dose: 2.4 gm Modafinil (Provigil) 200 mg PO DAILY@0600 [facility] Last Admin: 10/18/18 06:14 Dose: 200 mg Ondansetron HCl (Zofran) 4 mg PO Q8H PRN PRN PRN Reason: NAUSEA/VOMITING Last Admin: 10/11/18 10:20 Dose: 4 mg Oxycodone HCl (Oxyir) 5 mg PO Q6H PRN PRN PRN Reason: SEVERE PAIN (6-07/08) Last Admin: 10/18/18 08:38 Dose: 5 mg Pantoprazole Sodium (Protonix) 20 mg PO BID [facility] Last Admin: 10/18/18 08:32 Dose: 20 mg Polyethylene Glycol (Miralax) 17 gm PO BID [facility] Last Admin: 10/18/18 09:56 Dose: Not Given Senna/Docusate Sodium (Senokot-S, Gladis-Colace) 2 tablet PO BID [facility] Last Admin: 10/18/18 09:56 Dose: Not Given Sertraline HCl (Zoloft) 50 mg PO DAILY [facility] Last Admin: 10/18/18 08:32 Dose: 50 mg Sodium Chloride () 5 - 15 ml IV UD PRN PRN Reason: SALINE FLUSH Last Admin: 10/04/18 06:08 Dose: 10 ml Code Visit Inpatient E&M: 05658 Subs Hosp L2
[2018-10-18 19:29] VITALS: BP 117/76; PULSE 62; RESP 16; TEMP 36.6; O2SAT 98
[2018-10-18] MEDS: Gabapentin 400 MG Capsule PO (19:52)
[2018-10-18] MEDS: Atorvastatin Calcium 80 MG Tablet PO (19:52)
[2018-10-19 05:00] VITALS: BMI 31.1
[2018-10-19] MEDS: Acetaminophen 500 MG Tablet 1000 MG PO ×2 (05:58→15:27)
[2018-10-19] MEDS: Enoxaparin 40 MG/0.4 ML Syringe SC (05:59)
[2018-10-19] MEDS: Modafinil 200 MG Tablet PO (05:59)
[2018-10-19] MEDS: oxyCODONE 5 MG Tablet PO ×2 (06:03→13:12)
[2018-10-19 07:19] VITALS: BP 125/74; PULSE 55; RESP 12; TEMP 36.4; O2SAT 96
--- NOTE | 2018-10-19 10:11 | PCM.RU.DC ---
Rehab Discharge Summary DATE OF ADMISSION: 09/22/18 DATE OF DISCHARGE: 10/19/18 - Rehab Diagnosis CVA Patient Problems: Active and Suspected Problems Elevated factor VIII level (Acute) Severe left internal carotid stenosis (Acute) Occlusion of right internal carotid artery (Acute) Embolic stroke (Acute) - Physical Exam General: Alert, Oriented x3, Cooperative HEENT: Atraumatic, PERRLA, EOMI, Normocephalic Neck: Supple, No JVD, Negative Carotid Bruits Lungs: Clear to auscultation, Normal air movement Cardiovascular: Regular rate, No murmurs Abdomen: Bowel Sounds Present, Soft, Non Tender Extremities: No edema, Capillary Refill Less than 3 Seconds Skin: No rashes, No breakdown Musculoskeletal: No Tenderness to Palpation of Joints or Extremities Neurological: Cranial nerves II-XII grossly intact Psych/Mental Status: Normal Affect, Appropriate, Alert and oriented to time, place, person, mood and affect Vital Signs Temp Pulse Resp BP Pulse Ox 97.6 F L 55 L 12 125/74 H 96 10/19/18 07:19 10/19/18 07:19 10/19/18 07:19 10/19/18 07:19 10/19/18 07:19 Oxygen Flow Rate (L/min) 2 Oxygen Delivery Method Room Air Weight: 107.54 kg Body Mass Index (BMI) 31.1 Intake and Output for Last 24 Hours 10/17/18 10/18/18 10/19/18 23:59 23:59 23:59 Intake Total 480 / 480 480 / 480 260 / 260 Balance 480 / 480 480 / 480 260 / 260 Active Medications Acetaminophen (Tylenol) 1,000 mg PO TID [facility] Last Admin: 10/19/18 05:58 Dose: 1,000 mg Amlodipine Besylate (Norvasc) 5 mg PO DAILY [facility] Last Admin: 10/19/18 11:25 Dose: 5 mg Aspirin (Aspirin, Baby) 81 mg PO DAILY@0800 [facility] Last Admin: 10/19/18 11:25 Dose: 81 mg Atorvastatin Calcium (Lipitor) 80 mg PO QHS [facility] Last Admin: 10/18/18 19:52 Dose: 80 mg Bisacodyl (Dulcolax) 10 mg RECTAL .PRN X 1 PRN PRN Reason: Constipation Last Admin: 10/10/18 05:54 Dose: 10 mg Calcium Carbonate (Tums) 1,000 mg PO Q4H PRN PRN PRN Reason: HEARTBURN Last Admin: 09/28/18 08:43 Dose: 1,000 mg Clopidogrel Bisulfate (Plavix) 75 mg PO DAILY [facility] Last Admin: 10/19/18 11:28 Dose: 75 mg Diclofenac Sodium (Voltaren) 1 applic TP 4X/DAY [facility] Last Admin: 10/19/18 11:27 Dose: 1 applicatio Enoxaparin Sodium (Lovenox) 40 mg SC DAILY@0600 [facility] Last Admin: 10/19/18 05:59 Dose: 40 mg Gabapentin (Neurontin) 200 mg PO 0800,1400 [facility] Last Admin: 10/19/18 11:26 Dose: 200 mg Gabapentin (Neurontin) 400 mg PO QHS [facility] Last Admin: 10/18/18 19:52 Dose: 400 mg Lisinopril (Zestril) 10 mg PO DAILY [facility] Last Admin: 10/19/18 11:25 Dose: 10 mg Magnesium Hydroxide (Milk Of Magnesia) 30 ml PO .PRN X 1 PRN PRN Reason: Constipation Meclizine HCl (Antivert) 12.5 mg PO BID PRN PRN PRN Reason: DIZZINESS Last Admin: 10/13/18 07:03 Dose: 12.5 mg Menthol (Bengay Vanishing Scent) 1 applic TOPICAL 4X/DAY PRN PRN PRN Reason: PAIN Last Admin: 10/08/18 14:50 Dose: 1 applic Mesalamine (Lialda) 2.4 gm PO BID [facility] Last Admin: 10/19/18 11:25 Dose: 2.4 gm Modafinil (Provigil) 200 mg PO DAILY@0600 [facility] Last Admin: 10/19/18 05:59 Dose: 200 mg Ondansetron HCl (Zofran) 4 mg PO Q8H PRN PRN PRN Reason: NAUSEA/VOMITING Last Admin: 10/11/18 10:20 Dose: 4 mg Oxycodone HCl (Oxyir) 5 mg PO Q6H PRN PRN PRN Reason: SEVERE PAIN (6-10/10) Last Admin: 10/19/18 13:12 Dose: 5 mg Pantoprazole Sodium (Protonix) 20 mg PO BID [facility] Last Admin: 10/19/18 11:25 Dose: 20 mg Polyethylene Glycol (Miralax) 17 gm PO BID [facility] Last Admin: 10/19/18 11:23 Dose: Not Given Senna/Docusate Sodium (Senokot-S, Gladis-Colace) 2 tablet PO BID [facility] Last Admin: 10/19/18 11:27 Dose: Not Given Sertraline HCl (Zoloft) 50 mg PO DAILY [facility] Last Admin: 10/19/18 11:25 Dose: 50 mg Sodium Chloride () 5 - 15 ml IV UD PRN PRN Reason: SALINE FLUSH Last Admin: 10/04/18 06:08 Dose: 10 ml Discharge Diet: Soft diet Discharge Activity: May Not Drive, May Shower, Use Walker Weight Bearing Status: Weight bearing as tolerated Call your doctor if you observe: Fever of 101 or Higher, Coldness, Increased Pain, Numbness or Tingling, Change in Color, Inability to urinate, Inability to have a bowel movement, Using more than one pad per hour, Shortness of breath, Dizziness, Fainting spells, Swelling in the ankles, Chest pain, Prolonged hiccoughing, Increased palpitations (irregular heartbeat), Calf discomfort, Uncontrolled pain Home Medications: Medications to take at Discharge Acetaminophen [Tylenol] 325 mg PO TID PRN 09/22/18 Aspirin [Aspirin, Baby] 81 mg PO DAILY@0800 09/22/18 Atorvastatin Calcium [Lipitor] 40 mg PO QHS 09/22/18 Clopidogrel Bisulfate [Plavix] 75 mg PO DAILY 09/22/18 Diclofenac Sodium [Voltaren] 100 gm TP 4X/DAY 09/22/18 Lisinopril [Zestril] 10 mg PO DAILY 09/22/18 Sennosides/Docusate Sodium [Senna-S Tablet] 1 each PO DAILY 09/22/18 Amlodipine [Norvasc] 5 mg PO DAILY tablet 10/19/18 Calcium Carbonate [Tums] 1,000 mg PO Q4H PRN PRN tablet 10/19/18 Enoxaparin [Lovenox] 40 mg SC DAILY@0600 syringe 10/19/18 Gabapentin [Neurontin] 200 mg PO 0800,1400 capsule 10/19/18 Gabapentin [Neurontin] 400 mg PO QHS capsule 10/19/18 Meclizine HCl [Antivert] 12.5 mg PO BID PRN PRN tablet 10/19/18 Menthol [Bengay Vanishing Scent] 1 applic TOPICAL 4X/DAY PRN PRN tube 10/19/18 Mesalamine [Lialda] 2.4 gm PO BID tablet 10/19/18 Modafinil [Provigil] 200 mg PO DAILY@0600 #30 tab 10/19/18 Ondansetron [Zofran] 4 mg PO Q8H PRN PRN tablet 10/19/18 Oxycodone [Oxyir] 5 mg PO Q6H PRN PRN 7 Days #30 tab 10/19/18 Pantoprazole Sodium [Protonix] 20 mg PO BID tablet 10/19/18 Polyethylene Glycol 3350 [Miralax] 17 gm PO BID packet 10/19/18 Sertraline HCl [Zoloft] 25 mg PO DAILY #30 tab 10/19/18 Following Prescrptions Were Given to Patient: Oxycodone [Oxyir] 5 mg PO Q6H PRN PRN 7 Days #30 tab PRN Reason: Severe Pain (-07/08) Modafinil [Provigil] 200 mg PO DAILY@0600 #30 tab Sertraline HCl [Zoloft] 25 mg PO DAILY #30 tab Disposition: Halfway facility Minutes spent on discharge:: 40 Patient Condition:: Good Rehab Course The patient is a 58 year old right handed male who was admitted to the rehab unit for rehabilitation after suffering a right MCA embolic stroke. He has a PMH of HTN, GERD, obesity (BMI is 31.1) and PE/DVT following Knee replacement surgery, which he was treated with Lovenox for a month and then Coumadin which he has completed. On 09/16/18 he to an OSH with left sided weakness and R eye deviation. NIHSS was 10. a CTH showed a hyperdense R MCA. He was then transferred to [facility] for possible thrombectomy. An MRI was done which showed a core infarct in R basal ganglia, vessel imaging showed a complete R ICA occlusion and > 70% stenosis of his L ICA. No intervention was done for the acute stroke and he was treated conservatively. He was seen by the Neurosurgery team who recommended follow up as an outpatient for consideration of CEA in 6-8 weeks, and to continue the ASA, and Plavix. Prior to discharge the patient had an episode of chest pain, an EKG was performed along with cardiac enzymes and reportedly, both came back negative. He also had left shoulder surgery on December, that was done for rotator cuff tear. He is still having moderate amount of pain in this area. He has several blisters on his left hand that where the result of a liquid burn from hot coffee, on arrival adaptic was placed on the area and the hand was wrapped in gauze. His left sided flaccidity has not changed. He lives with his in a single story home with no steps to get into the house, he was previously completely functionally independent and is admitted to the rehab unit in order to restore his previous level of functional independence. Summary of Care: - Physical therapy for gait and balance - Occupational Therapy for ADLs - As needed analgesics - Bowel protocol - DVT PPX - Lovenox, SCDs. - HLD - continue home dose of statin - GERD - continue home dose of PPI - HTN - stable => continue on lisinopril, and Norvasc, continue monitoring and adjust medication as needed - Acute right MCA embolic stroke -> continue on Plavix, ASA and statin - Complete occlusion of the right ICA and severe stenosis >70% of the left ICA -> continue aspirin, statins and Plavix, patient will need vascular surgery evaluation for stenosis of the left ICA on discharge as an outpatient. 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 - Hx of GERD: Continue PPI. - Loud Snoring - on O2 at night 2/2 loud snoring, and drop in SATs < 88% at night => Schedule a portable sleep study as soon as possible with placement on Auto-pap once study is complete, on discharge formal sleep study - Depression - currently on Zoloft 25mg, increase to 50mg daily - Hypersomnia - start on Provigil 200mg daily at 0600 AM - Genetic testing for excessive clotting - Factor II, VIII, XI, and Von Willebrand => Factor II, and Von Willebrand are Negative, his Factor VIII is 217 -> hematology has been consulted. - on discharge 30 day event monitor - Fall precaution - refusing to eat or drink - currently on a pureed diet and honey thicken liquids - IV placed for fluids NS 1L @ 75cc/hr - Diet changed to Regular diet with honey thicken liquids per Speech therapy -> tolerating new diet - Chronic pain start low dose of Fentanyl patch now that he is more awake then on admission. - Left hip popping causing pain - Hip/pelvic x-ray - shows some degenerative changes to the lumbosacral spine, but no acute processes - Stress test -> showed no Arrhythmia, LVEF 82% - Right lower field blurriness - repeat CTH scan => negative for new stroke or hemorrhage - Difficulty with urinating do post residual scan and send UA for testing = negative for UTI, urination improved since having BM - Restart Oxy IR 5mg q6 PRN for shoulder pain, and meclizine for the nausea - X-ray of shoulder => which showed degenerative arthrosis Summary of Therapy: With Physical therapy, with transfers he is minimal to contact assist to come to a stand. he is moderate assist to walk with the paul walker, he was able to go 21 feet, without the wheel chair or the wall rail. 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 With Occupational therapy, he is moderate assist for bathing, minimal assist with personal care, and minimal assist for dressing his upper body. He is total assist for lower body dressing, bathing and toileting. He still has no active movement in his left arm, has some movement in his hand. With Speech therapy, he is on soft textures with inconsistencies for swallowing. Will continue to work with him to get him on to regular texture foods. He has vision inattention to the left side. With nursing, pain is controlled, still having issues with his left shoulder will get an x-ray of shoulder. The patient will need to follow up with vascular surgeon of choice. Meaningful Use Info Meaningful Use Diagnoses (Choose all that apply): Ischemic CVA - CVA Therapy Assessed for PT,OT and/or ST?: Yes - Ischemic Stroke Antithrombotic order at d/c?: Yes Dx of Atrial fib/flutter?: No Statins at discharge?: Yes Primary Dx Acute Ischemic CVA?: Yes IV tPA ordered during stay?: No Reason IV t-PA not ordered: Treatment not Indicated
--- NOTE | 2018-10-19 10:15 | DS.PCM_ITS ---
Rehab Discharge Summary DATE OF ADMISSION: 09/22/18 DATE OF DISCHARGE: 10/19/18 - Rehab Diagnosis CVA Patient Problems: Active and Suspected Problems Elevated factor VIII level (Acute) Severe left internal carotid stenosis (Acute) Occlusion of right internal carotid artery (Acute) Embolic stroke (Acute) - Physical Exam General: Alert, Oriented x3, Cooperative HEENT: Atraumatic, PERRLA, EOMI, Normocephalic Neck: Supple, No JVD, Negative Carotid Bruits Lungs: Clear to auscultation, Normal air movement Cardiovascular: Regular rate, No murmurs Abdomen: Bowel Sounds Present, Soft, Non Tender Extremities: No edema, Capillary Refill Less than 3 Seconds Skin: No rashes, No breakdown Musculoskeletal: No Tenderness to Palpation of Joints or Extremities Neurological: Cranial nerves II-XII grossly intact Psych/Mental Status: Normal Affect, Appropriate, Alert and oriented to time, place, person, mood and affect Vital Signs Temp Pulse Resp BP Pulse Ox 97.6 F L 55 L 12 125/74 H 96 10/19/18 07:19 10/19/18 07:19 10/19/18 07:19 10/19/18 07:19 10/19/18 07:19 Oxygen Flow Rate (L/min) 2 Oxygen Delivery Method Room Air Weight: 107.54 kg Body Mass Index (BMI) 31.1 Intake and Output for Last 24 Hours 10/17/18 10/18/18 10/19/18 23:59 23:59 23:59 Intake Total 480 / 480 480 / 480 260 / 260 Balance 480 / 480 480 / 480 260 / 260 Active Medications Acetaminophen (Tylenol) 1,000 mg PO TID [facility] Last Admin: 10/19/18 05:58 Dose: 1,000 mg Amlodipine Besylate (Norvasc) 5 mg PO DAILY [facility] Last Admin: 10/19/18 11:25 Dose: 5 mg Aspirin (Aspirin, Baby) 81 mg PO DAILY@0800 [facility] Last Admin: 10/19/18 11:25 Dose: 81 mg Atorvastatin Calcium (Lipitor) 80 mg PO QHS [facility] Last Admin: 10/18/18 19:52 Dose: 80 mg Bisacodyl (Dulcolax) 10 mg RECTAL .PRN X 1 PRN PRN Reason: Constipation Last Admin: 10/10/18 05:54 Dose: 10 mg Calcium Carbonate (Tums) 1,000 mg PO Q4H PRN PRN PRN Reason: HEARTBURN Last Admin: 09/28/18 08:43 Dose: 1,000 mg Clopidogrel Bisulfate (Plavix) 75 mg PO DAILY [facility] Last Admin: 10/19/18 11:28 Dose: 75 mg Diclofenac Sodium (Voltaren) 1 applic TP 4X/DAY [facility] Last Admin: 10/19/18 11:27 Dose: 1 applicatio Enoxaparin Sodium (Lovenox) 40 mg SC DAILY@0600 [facility] Last Admin: 10/19/18 05:59 Dose: 40 mg Gabapentin (Neurontin) 200 mg PO 0800,1400 [facility] Last Admin: 10/19/18 11:26 Dose: 200 mg Gabapentin (Neurontin) 400 mg PO QHS [facility] Last Admin: 10/18/18 19:52 Dose: 400 mg Lisinopril (Zestril) 10 mg PO DAILY [facility] Last Admin: 10/19/18 11:25 Dose: 10 mg Magnesium Hydroxide (Milk Of Magnesia) 30 ml PO .PRN X 1 PRN PRN Reason: Constipation Meclizine HCl (Antivert) 12.5 mg PO BID PRN PRN PRN Reason: DIZZINESS Last Admin: 10/13/18 07:03 Dose: 12.5 mg Menthol (Bengay Vanishing Scent) 1 applic TOPICAL 4X/DAY PRN PRN PRN Reason: PAIN Last Admin: 10/08/18 14:50 Dose: 1 applic Mesalamine (Lialda) 2.4 gm PO BID [facility] Last Admin: 10/19/18 11:25 Dose: 2.4 gm Modafinil (Provigil) 200 mg PO DAILY@0600 [facility] Last Admin: 10/19/18 05:59 Dose: 200 mg Ondansetron HCl (Zofran) 4 mg PO Q8H PRN PRN PRN Reason: NAUSEA/VOMITING Last Admin: 10/11/18 10:20 Dose: 4 mg Oxycodone HCl (Oxyir) 5 mg PO Q6H PRN PRN PRN Reason: SEVERE PAIN (6-10/10) Last Admin: 10/19/18 13:12 Dose: 5 mg Pantoprazole Sodium (Protonix) 20 mg PO BID [facility] Last Admin: 10/19/18 11:25 Dose: 20 mg Polyethylene Glycol (Miralax) 17 gm PO BID [facility] Last Admin: 10/19/18 11:23 Dose: Not Given Senna/Docusate Sodium (Senokot-S, Gladis-Colace) 2 tablet PO BID [facility] Last Admin: 10/19/18 11:27 Dose: Not Given Sertraline HCl (Zoloft) 50 mg PO DAILY [facility] Last Admin: 10/19/18 11:25 Dose: 50 mg Sodium Chloride () 5 - 15 ml IV UD PRN PRN Reason: SALINE FLUSH Last Admin: 10/04/18 06:08 Dose: 10 ml Discharge Diet: Soft diet Discharge Activity: May Not Drive, May Shower, Use Walker Weight Bearing Status: Weight bearing as tolerated Call your doctor if you observe: Fever of 101 or Higher, Coldness, Increased Pain, Numbness or Tingling, Change in Color, Inability to urinate, Inability to have a bowel movement, Using more than one pad per hour, Shortness of breath, Dizziness, Fainting spells, Swelling in the ankles, Chest pain, Prolonged hiccoughing, Increased palpitations (irregular heartbeat), Calf discomfort, Uncontrolled pain Home Medications: Medications to take at Discharge Acetaminophen [Tylenol] 325 mg PO TID PRN 09/22/18 Aspirin [Aspirin, Baby] 81 mg PO DAILY@0800 09/22/18 Atorvastatin Calcium [Lipitor] 40 mg PO QHS 09/22/18 Clopidogrel Bisulfate [Plavix] 75 mg PO DAILY 09/22/18 Diclofenac Sodium [Voltaren] 100 gm TP 4X/DAY 09/22/18 Lisinopril [Zestril] 10 mg PO DAILY 09/22/18 Sennosides/Docusate Sodium [Senna-S Tablet] 1 each PO DAILY 09/22/18 Amlodipine [Norvasc] 5 mg PO DAILY tablet 10/19/18 Calcium Carbonate [Tums] 1,000 mg PO Q4H PRN PRN tablet 10/19/18 Enoxaparin [Lovenox] 40 mg SC DAILY@0600 syringe 10/19/18 Gabapentin [Neurontin] 200 mg PO 0800,1400 capsule 10/19/18 Gabapentin [Neurontin] 400 mg PO QHS capsule 10/19/18 Meclizine HCl [Antivert] 12.5 mg PO BID PRN PRN tablet 10/19/18 Menthol [Bengay Vanishing Scent] 1 applic TOPICAL 4X/DAY PRN PRN tube 10/19/18 Mesalamine [Lialda] 2.4 gm PO BID tablet 10/19/18 Modafinil [Provigil] 200 mg PO DAILY@0600 #30 tab 10/19/18 Ondansetron [Zofran] 4 mg PO Q8H PRN PRN tablet 10/19/18 Oxycodone [Oxyir] 5 mg PO Q6H PRN PRN 7 Days #30 tab 10/19/18 Pantoprazole Sodium [Protonix] 20 mg PO BID tablet 10/19/18 Polyethylene Glycol 3350 [Miralax] 17 gm PO BID packet 10/19/18 Sertraline HCl [Zoloft] 25 mg PO DAILY #30 tab 10/19/18 Following Prescrptions Were Given to Patient: Oxycodone [Oxyir] 5 mg PO Q6H PRN PRN 7 Days #30 tab PRN Reason: Severe Pain (-07/08) Modafinil [Provigil] 200 mg PO DAILY@0600 #30 tab Sertraline HCl [Zoloft] 25 mg PO DAILY #30 tab Disposition: Shelter facility Minutes spent on discharge:: 40 Patient Condition:: Good Rehab Course The patient is a 58 year old right handed male who was admitted to the rehab unit for rehabilitation after suffering a right MCA embolic stroke. He has a PMH of HTN, GERD, obesity (BMI is 31.1) and PE/DVT following Knee replacement surgery, which he was treated with Lovenox for a month and then Coumadin which he has completed. On 09/16/18 he to an OSH with left sided weakness and R eye deviation. NIHSS was 10. a CTH showed a hyperdense R MCA. He was then transferred to [facility] for possible thrombectomy. An MRI was done which showed a core infarct in R basal ganglia, vessel imaging showed a complete R ICA occlusion and > 70% stenosis of his L ICA. No intervention was done for the acute stroke and he was treated conservatively. He was seen by the Neurosurgery team who recommended follow up as an outpatient for consideration of CEA in 6-8 weeks, and to continue the ASA, and Plavix. Prior to discharge the patient had an episode of chest pain, an EKG was performed along with cardiac enzymes and reportedly, both came back negative. He also had left shoulder surgery on December, that was done for rotator cuff tear. He is still having moderate amount of pain in this area. He has several blisters on his left hand that where the result of a liquid burn from hot coffee, on arrival adaptic was placed on the area and the hand was wrapped in gauze. His left sided flaccidity has not changed. He lives with his in a single story home with no steps to get into the house, he was previously completely functionally independent and is admitted to the rehab unit in order to restore his previous level of functional independence. Summary of Care: - Physical therapy for gait and balance - Occupational Therapy for ADLs - As needed analgesics - Bowel protocol - DVT PPX - Lovenox, SCDs. - HLD - continue home dose of statin - GERD - continue home dose of PPI - HTN - stable => continue on lisinopril, and Norvasc, continue monitoring and adjust medication as needed - Acute right MCA embolic stroke -> continue on Plavix, ASA and statin - Complete occlusion of the right ICA and severe stenosis >70% of the left ICA - > continue aspirin, statins and Plavix, patient will need vascular surgery evaluation for stenosis of the left ICA on discharge as an outpatient. 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 - Hx of GERD: Continue PPI. - Loud Snoring - on O2 at night 2/2 loud snoring, and drop in SATs < 88% at night => Schedule a portable sleep study as soon as possible with placement on Auto-pap once study is complete, on discharge formal sleep study - Depression - currently on Zoloft 25mg, increase to 50mg daily - Hypersomnia - start on Provigil 200mg daily at 0600 AM - Genetic testing for excessive clotting - Factor II, VIII, XI, and Von Willebrand => Factor II, and Von Willebrand are Negative, his Factor VIII is 217 -> hematology has been consulted. - on discharge 30 day event monitor - Fall precaution - refusing to eat or drink - currently on a pureed diet and honey thicken liquids - IV placed for fluids NS 1L @ 75cc/hr - Diet changed to Regular diet with honey thicken liquids per Speech therapy -> tolerating new diet - Chronic pain start low dose of Fentanyl patch now that he is more awake then on admission. - Left hip popping causing pain - Hip/pelvic x-ray - shows some degenerative changes to the lumbosacral spine, but no acute processes - Stress test -> showed no Arrhythmia, LVEF 82% - Right lower field blurriness - repeat CTH scan => negative for new stroke or hemorrhage - Difficulty with urinating do post residual scan and send UA for testing = neg ative for UTI, urination improved since having BM - Restart Oxy IR 5mg q6 PRN for shoulder pain, and meclizine for the nausea - X-ray of shoulder => which showed degenerative arthrosis Summary of Therapy: With Physical therapy, with transfers he is minimal to contact assist to come to a stand. he is moderate assist to walk with the paul walker, he was able to go 21 feet, without the wheel chair or the wall rail. 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 With Occupational therapy, he is moderate assist for bathing, minimal assist with personal care, and minimal as sist for dressing his upper body. He is total assist for lower body dressing, bathing and toileting. He still has no active movement in his left arm, has some movement in his hand. With Speech therapy, he is on soft textures with inconsistencies for swallowing. Will continue to work with him to get him on to regular texture foods. He has vision inattention to the left side. With nursing, pain is controlled, still having issues with his left shoulder will get an x- ray of shoulder. The patient will need to follow up with vascular surgeon of choice. Meaningful Use Info Meaningful Use Diagnoses (Choose all that apply): Ischemic CVA - CVA Therapy Assessed for PT,OT and/or ST?: Yes - Ischemic Stroke Antithrombotic order at d/c?: Yes Dx of Atrial fib/flutter?: No Statins at discharge?: Yes Primary Dx Acute Ischemic CVA?: Yes IV tPA ordered during stay?: No Reason IV t-PA not ordered: Treatment not Indicated
[2018-10-19] MEDS: Sertraline 50 MG Tablet PO (11:25)
[2018-10-19] MEDS: Mesalamine 1.2 GM Tablet 2.4 GM PO (11:25)
[2018-10-19] MEDS: Lisinopril 10 MG Tablet PO (11:25)
[2018-10-19] MEDS: Pantoprazole Sodium 20 MG Tablet PO (11:25)
[2018-10-19] MEDS: amLODIPine 5 MG Tablet PO (11:25)
[2018-10-19] MEDS: Aspirin 81 MG TAB.CHEW PO (11:25)
[2018-10-19] MEDS: Gabapentin 100 MG Capsule 200 MG PO ×2 (11:26→15:26)
[2018-10-19] MEDS: Clopidogrel Bisulfate 75 MG Tablet PO (11:28)
--- NOTE | 2018-10-19 12:35 | NURSING ---
This RN called report to Brenna [facility] on TCU
--- NOTE | 2018-10-19 14:25 | DCINST_ITS ---
- Discharge Diagnoses Current Active Problems: Current Active and Chronic Problems Elevated factor VIII level (Acute) Severe left internal carotid stenosis (Acute) Occlusion of right internal carotid artery (Acute) Embolic stroke (Acute) History of pulmonary embolism (Chronic) History of DVT (deep vein thrombosis) (Chronic) Hypertension (Chronic) You will use the following diet at home:: Regular Your food should be the consistency of: Regular Your liquids should be the consistency of: Regular/Thin Discharge Activity: May Not Drive, May Shower, Use Walker Weight Bearing Status: Weight bearing as tolerated Call your doctor if you observe: Fever of 101 or Higher, Coldness, Increased Pain, Numbness or Tingling, Change in Color, Inability to urinate, Inability to have a bowel movement, Using more than one pad per hour, Shortness of breath, Dizziness, Fainting spells, Swelling in the ankles, Chest pain, Prolonged hiccoughing, Increased palpitations (irregular heartbeat), Calf discomfort, Uncontrolled pain Allergies/Adverse Reactions: Allergies codeine Allergy (Verified 09/22/18 17:24) Rash Medications to take at Discharge Acetaminophen [Tylenol] 325 mg PO TID PRN 09/22/18 Aspirin [Aspirin, Baby] 81 mg PO DAILY@0800 09/22/18 Atorvastatin Calcium [Lipitor] 40 mg PO QHS 09/22/18 Clopidogrel Bisulfate [Plavix] 75 mg PO DAILY 09/22/18 Diclofenac Sodium [Voltaren] 100 gm TP 4X/DAY 09/22/18 Lisinopril [Zestril] 10 mg PO DAILY 09/22/18 Sennosides/Docusate Sodium [Senna-S Tablet] 1 each PO DAILY 09/22/18 Amlodipine [Norvasc] 5 mg PO DAILY tablet 10/19/18 Calcium Carbonate [Tums] 1,000 mg PO Q4H PRN PRN tablet 10/19/18 Enoxaparin [Lovenox] 40 mg SC DAILY@0600 syringe 10/19/18 Gabapentin [Neurontin] 200 mg PO 0800,1400 capsule 10/19/18 Gabapentin [Neurontin] 400 mg PO QHS capsule 10/19/18 Meclizine HCl [Antivert] 12.5 mg PO BID PRN PRN tablet 10/19/18 Menthol [Bengay Vanishing Scent] 1 applic TOPICAL 4X/DAY PRN PRN tube 10/19/18 Mesalamine [Lialda] 2.4 gm PO BID tablet 10/19/18 Modafinil [Provigil] 200 mg PO DAILY@0600 #30 tab 10/19/18 Ondansetron [Zofran] 4 mg PO Q8H PRN PRN tablet 10/19/18 Oxycodone [Oxyir] 5 mg PO Q6H PRN PRN 7 Days #30 tab 10/19/18 Pantoprazole Sodium [Protonix] 20 mg PO BID tablet 10/19/18 Polyethylene Glycol 3350 [Miralax] 17 gm PO BID packet 10/19/18 Sertraline HCl [Zoloft] 25 mg PO DAILY #30 tab 10/19/18 The following prescriptions were given: Oxycodone [Oxyir] 5 mg PO Q6H PRN PRN 7 Days #30 tab PRN Reason: Severe Pain (6-10/10) Modafinil [Provigil] 200 mg PO DAILY@0600 #30 tab Sertraline HCl [Zoloft] 25 mg PO DAILY #30 tab Test Results: Test results from this visit will be discussed in further detail at your follow- up appointment, if applicable. Proposed Discharge Date: 10/19/18
[2018-10-19 14:53] VITALS: BP 125/74; PULSE 55; RESP 16; TEMP 36.4; O2SAT 96
--- NOTE | 2018-10-19 16:30 | CASEMGMT ---
Social Work Patient approved for transition to the Transitional Care Unit under skilled as precert has been obtained. Patient to discharge to the Transitional Care Unit on this day, 10/19/18. Patient notified as well as patient spouse, all agreeable to plan. Support given. Proposed discharge date: 10/19/18 PLAN: Discharge to TCU - skilled. SHANI Mosley
[2018-10-19 17:00] VITALS: BMI 31.1
--- NOTE | 2018-10-21 10:03 | CASEMGMT ---
Insurance Notified insurance of resident [facility]18 [facility] Auth#[id number] SHANI Mosley
== END 2018-10-19 17:39 | disposition skilled nursing facility (03) | DRG 57 ==
PROVIDERS: Hospitalist; Internal Medicine; Nurse Practitioner Acute Care; Psychiatry & Neurology Neurology; Admitting Provider Psychiatry & Neurology Neurology
DX: I69.354 Hemiplegia and hemiparesis following cerebral infarction affecting left non-dominant side (principal); I69.392 Facial weakness following cerebral infarction; K21.9 Gastro-esophageal reflux disease without esophagitis; I10 Essential (primary) hypertension; Z86.718 Personal history of other venous thrombosis and embolism; Z86.711 Personal history of pulmonary embolism; Z87.891 Personal history of nicotine dependence; R47.1 Dysarthria and anarthria; E66.9 Obesity, unspecified; Z68.31 Body mass index [BMI] 31.0-31.9, adult; Z71.3 Dietary counseling and surveillance; F32.9 Major depressive disorder, single episode, unspecified; T23.04 Burn of unspecified degree of multiple fingers (nail), including thumb; X10.0XXD Contact with hot drinks, subsequent encounter; E78.5 Hyperlipidemia, unspecified; G47.10 Hypersomnia, unspecified; G89.29 Other chronic pain
CPT/HCPCS: 36415; 70450; 73030; 73502; 74230; 78452; 80048; 80053; 81001; 81240; 83036; 83735; 84443; 84484; 85014; 85018; 85027; 85240; 85245; 87086; 87088; 92507; 92523; 92526; 92611; 93005; 93017; 94762; 95806; 97110; 97112; 97116; 97140; 97162; 97166; 97530; 97535; 97542; 97802; A9500; J7030; A4216; J2785

== ENCOUNTER 2018-10-19 17:30 | Inpatient (IN) | payer OTHER, SELFPAY ==
[2018-10-19 17:00] VITALS: BMI 31.1
[2018-10-19 18:06] VITALS: BP 123/78; PULSE 57; RESP 18; TEMP 36.8; O2SAT 95
--- NOTE | 2018-10-19 19:22 | NURSING ---
Per Kendall dayshift charge rn, pt arrived at 1700 from [facility] rehab.
[2018-10-19] MEDS: oxyCODONE 5 MG Tablet PO (19:41)
[2018-10-19 19:54] VITALS: BMI 28.1
[2018-10-19 19:56] VITALS: BMI 28.1
--- NOTE | 2018-10-19 20:42 | NURSING ---
Code status discussed with pt and family, pt wishes to be a full code
--- NOTE | 2018-10-19 21:40 | PCM.HP.STD ---
Problem List (1) GERD (gastroesophageal reflux disease) Status: Chronic (2) Obesity Status: Chronic (3) Rotator cuff arthropathy Status: Chronic (4) Osteoarthritis Status: Chronic (5) Depression Status: Chronic (6) Elevated factor VIII level Status: Acute (7) Severe left internal carotid stenosis Status: Acute (8) Occlusion of right internal carotid artery Status: Acute (9) Embolic stroke Status: Acute (10) History of pulmonary embolism Status: Chronic (11) History of DVT (deep vein thrombosis) Status: Chronic (12) Hypertension Status: Chronic History of Present Illness Date of Admission: 10/19/18 Chief Complaint: Here for rehabilitation, strengthening, prior to discharge home with spouse. The patient is a 58 year old Male with below past medical history suffered right MCA embolic stroke 09/16/2018. CT brain showed hyperdense right MCA stroke. Patient transferred to [facility] for consideration of invasive intervention. MRI neck showed right ICA occlusion, > 70% stenosis left ICA. Patient was treated conservatively, medically. 09/23/2018 Admit to [facility]. Provigil started for hypersomnia. Zoloft increased from 25MG to 50MG for post stroke depression. Factor 8 elevated, hematology consulted. Pureed diet, honey thick liquids for dysphagia. Fentanyl patch, Oxycodone for chronic pain. Patient needs formal sleep study to evaluate for sleep apnea. He had urinary retention which resolved with bowel movement. He required IV fluids for refusing to eat. 10/19/2018 Admit to TCU for rehabilitation, strengthening, prior to discharge home with spouse. Past Medical History Past Medical History (Chronic Problems): Chronic Problems GERD (gastroesophageal reflux disease) (Chronic) Obesity (Chronic) Rotator cuff arthropathy (Chronic) Osteoarthritis (Chronic) Depression (Chronic) History of pulmonary embolism (Chronic) History of DVT (deep vein thrombosis) (Chronic) Hypertension (Chronic) Allergies codeine Allergy (Verified 09/22/18 17:24) Rash Home Medications: Ambulatory Orders Medication Instructions Recorded Acetaminophen [Tylenol] 325 mg PO TID PRN 09/22/18 Aspirin [Aspirin, Baby] 81 mg PO DAILY@0800 09/22/18 Atorvastatin Calcium [Lipitor] 40 mg PO QHS 09/22/18 Clopidogrel Bisulfate [Plavix] 75 mg PO DAILY 09/22/18 Diclofenac Sodium [Voltaren] 100 gm TP 4X/DAY 09/22/18 Lisinopril [Zestril] 10 mg PO DAILY 09/22/18 Sennosides/Docusate Sodium 1 each PO DAILY 09/22/18 [Senna-S Tablet] Amlodipine [Norvasc] 5 mg PO DAILY 10/19/18 Calcium Carbonate [Tums] 1,000 mg PO Q4H PRN PRN tablet 10/19/18 Enoxaparin [Lovenox] 40 mg SC DAILY@0600 10/19/18 Gabapentin [Neurontin] 200 mg PO 0800,1400 10/19/18 Gabapentin [Neurontin] 400 mg PO QHS 10/19/18 Meclizine HCl [Antivert] 12.5 mg PO BID PRN PRN tablet 10/19/18 Menthol [Bengay Vanishing Scent] 1 applic TOPICAL 4X/DAY PRN PRN 10/19/18 tube Mesalamine [Lialda] 2.4 gm PO BID 10/19/18 Modafinil [Provigil] 200 mg PO DAILY@0600 10/19/18 Ondansetron [Zofran] 4 mg PO Q8H PRN PRN tablet 10/19/18 Oxycodone [Oxyir] 5 mg PO Q6H PRN PRN 7 Days #30 tab 10/19/18 Pantoprazole Sodium [Protonix] 20 mg PO BID 10/19/18 Polyethylene Glycol 3350 [Miralax] 17 gm PO BID 10/19/18 Sertraline HCl [Zoloft] 25 mg PO DAILY #30 tab 10/19/18 Surgical History: colectomy, - - Knee arthroscopic surgery. Back surgery. Psychiatric History: Depression Lives: Spouse/ Significant Other Smoking Status: Former smoker Tobacco Use: Cigarettes Alcohol: None Drugs: None - *Family History Maternal History Items: DVT, - - Blood clots. Paternal History Items: No pertinent history Sibling History Items: - - Brother with history of blood clots as well. Review of Systems Constitutional: Denies: Chills, Fever, Weight Change HEENT: Denies: Head Aches, Sinus Congestion, Sinus Drainage Cardiovascular: Denies: Chest Pain, Palpitations Respiratory: Denies: Cough, Shortness of breath at rest, Sputum production Gastrointestinal: Denies: Abdominal Pain, Nausea, Vomiting Genitourinary: Denies: Dysuria Musculoskeletal: Denies: Joint Pain, Joint Tenderness Skin: Denies: Rash, Wounds Neurological: Denies: Numbness, Tingling, Focal weakness Psychiatric: Denies: Anxiety, Depression, Homicidal Ideations, Suicidal Ideations Hematologic/ Lymphatic: Denies: Easy Bruising, Easy Bleeding VTE Information - Inpt Only VTE Present on Admission: No VTE Mechan Device Prophylaxis: Knee High GENA Hose VTE Pharm Prophylaxis ordered?: Yes - Physical Exam General: Alert, Oriented x3, Cooperative HEENT: Atraumatic, PERRLA, EOMI, Normocephalic Neck: Supple, No JVD, Negative Carotid Bruits Lungs: Clear to auscultation, Normal air movement Cardiovascular: Regular rate, No murmurs Abdomen: Bowel Sounds Present, Soft, Non Tender Extremities: No edema, Capillary Refill Less than 3 Seconds Skin: No rashes, No breakdown Musculoskeletal: No Tenderness to Palpation of Joints or Extremities Neurological: Cranial nerves II-XII grossly intact, - - Left upper extremity hemiplegia, left lower extremity hemiparesis. Psych/Mental Status: Normal Affect, Appropriate Vital Signs Temp Pulse Resp BP Pulse Ox 98.3 F 57 L 18 123/78 H 95 10/19/18 18:06 10/19/18 18:06 10/19/18 18:06 10/19/18 18:06 10/19/18 18:06 Oxygen Delivery Method Room Air Weight: 102.058 kg Body Mass Index (BMI) 28.1 Assessment/Plan All Active Problems Elevated factor VIII level (Acute) Severe left internal carotid stenosis (Acute) Occlusion of right internal carotid artery (Acute) Embolic stroke (Acute) 58 year old male with below past medical history [facility] resident, suffered right MCA stroke, admitted to TCU with debility, here for rehabilitation, strengthening, prior to discharge home with spouse. Debility - PT/OT. Dysphagia - ST. Pain - Tylenol 1000MG Q8H PRN mild pain, Oxycodone 5MG Q6H PRN severe pain. Bowel - Miralax 17GM BID, Senna/colace 2 tablets BID, Dulcolax 10MG PO daily PRN. Pneumonia vaccination - Administer Prevnar 13 and/or Pneumovax 23 as necessary. DVT prophylaxis - Lovenox 40MG SC daily. Hypertension - Lisinopril 10MG daily, Amlodipine 5MG daily. Stroke - Aspirin 81MG daily, Plavix 75MG daily. Hyperlipidemia - Atorvastatin 40MG QHS. Indigestion - Pantoprazole 20MG BID, TUMS 1000MG Q4H PRN. Osteoarthritis - Voltaren gel topical 4x/day, Bengay topical 4x/day PRN. Neuropathic pain - Gabapentin 200MG BID, 400MG QHS. Dizziness - Meclizine 12.5MG BID PRN. Colitis - Lialda 2.4GM BID. Hypersomnia - Provigil 200MG daily. Nausea - Zofran 4MG Q8H PRN. Depression - Sertraline 25MG daily.
--- NOTE | 2018-10-19 21:45 | HP.PCM_ITS ---
Problem List (1) GERD (gastroesophageal reflux disease) Status: Chronic (2) Obesity Status: Chronic (3) Rotator cuff arthropathy Status: Chronic (4) Osteoarthritis Status: Chronic (5) Depression Status: Chronic (6) Elevated factor VIII level Status: Acute (7) Severe left internal carotid stenosis Status: Acute (8) Occlusion of right internal carotid artery Status: Acute (9) Embolic stroke Status: Acute (10) History of pulmonary embolism Status: Chronic (11) History of DVT (deep vein thrombosis) Status: Chronic (12) Hypertension Status: Chronic History of Present Illness Date of Admission: 10/19/18 Chief Complaint: Here for rehabilitation, strengthening, prior to discharge home with spouse. The patient is a 58 year old Male with below past medical history suffered right MCA embolic stroke 09/16/2018. CT brain showed hyperdense right MCA stroke. Patient transferred to [facility] for consideration of invasive intervention. MRI neck showed right ICA occlusion, > 70% stenosis left ICA. Patient was treated conservatively, medically. 09/23/2018 Admit to [facility]. Provigil started for hypersomnia. Zoloft increased from 25MG to 50MG for post stroke depression. Factor 8 elevated, hematology consulted. Pureed diet, honey thick liquids for dysphagia. Fentanyl patch, Oxycodone for chronic pain. Patient needs formal sleep study to evaluate for sleep apnea. He had urinary retention which resolved with bowel movement. He required IV fluids for refusing to eat. 10/19/2018 Admit to TCU for rehabilitation, strengthening, prior to discharge home with spouse. Past Medical History Past Medical History (Chronic Problems): Chronic Problems GERD (gastroesophageal reflux disease) (Chronic) Obesity (Chronic) Rotator cuff arthropathy (Chronic) Osteoarthritis (Chronic) Depression (Chronic) History of pulmonary embolism (Chronic) History of DVT (deep vein thrombosis) (Chronic) Hypertension (Chronic) Allergies codeine Allergy (Verified 09/22/18 17:24) Rash Home Medications: Ambulatory Orders Medication Instructions Recorded Acetaminophen [Tylenol] 325 mg PO TID PRN 09/22/18 Aspirin [Aspirin, Baby] 81 mg PO DAILY@0800 09/22/18 Atorvastatin Calcium [Lipitor] 40 mg PO QHS 09/22/18 Clopidogrel Bisulfate [Plavix] 75 mg PO DAILY 09/22/18 Diclofenac Sodium [Voltaren] 100 gm TP 4X/DAY 09/22/18 Lisinopril [Zestril] 10 mg PO DAILY 09/22/18 Sennosides/Docusate Sodium 1 each PO DAILY 09/22/18 [Senna-S Tablet] Amlodipine [Norvasc] 5 mg PO DAILY 10/19/18 Calcium Carbonate [Tums] 1,000 mg PO Q4H PRN PRN tablet 10/19/18 Enoxaparin [Lovenox] 40 mg SC DAILY@0600 10/19/18 Gabapentin [Neurontin] 200 mg PO 0800,1400 10/19/18 Gabapentin [Neurontin] 400 mg PO QHS 10/19/18 Meclizine HCl [Antivert] 12.5 mg PO BID PRN PRN tablet 10/19/18 Menthol [Bengay Vanishing Scent] 1 applic TOPICAL 4X/DAY PRN PRN 10/19/18 tube Mesalamine [Lialda] 2.4 gm PO BID 10/19/18 Modafinil [Provigil] 200 mg PO DAILY@0600 10/19/18 Ondansetron [Zofran] 4 mg PO Q8H PRN PRN tablet 10/19/18 Oxycodone [Oxyir] 5 mg PO Q6H PRN PRN 7 Days #30 tab 10/19/18 Pantoprazole Sodium [Protonix] 20 mg PO BID 10/19/18 Polyethylene Glycol 3350 [Miralax] 17 gm PO BID 10/19/18 Sertraline HCl [Zoloft] 25 mg PO DAILY #30 tab 10/19/18 Surgical History: colectomy, - - Knee arthroscopic surgery. Back surgery. Psychiatric History: Depression Lives: Spouse/ Significant Other Smoking Status: Former smoker Tobacco Use: Cigarettes Alcohol: None Drugs: None - *Family History Maternal History Items: DVT, - - Blood clots. Paternal History Items: No pertinent history Sibling History Items: - - Brother with history of blood clots as well. Review of Systems Constitutional: Denies: Chills, Fever, Weight Change HEENT: Denies: Head Aches, Sinus Congestion, Sinus Drainage Cardiovascular: Denies: Chest Pain, Palpitations Respiratory: Denies: Cough, Shortness of breath at rest, Sputum production Gastrointestinal: Denies: Abdominal Pain, Nausea, Vomiting Genitourinary: Denies: Dysuria Musculoskeletal: Denies: Joint Pain, Joint Tenderness Skin: Denies: Rash, Wounds Neurological: Denies: Numbness, Tingling, Focal weakness Psychiatric: Denies: Anxiety, Depression, Homicidal Ideations, Suicidal Ideations Hematologic/ Lymphatic: Denies: Easy Bruising, Easy Bleeding VTE Information - Inpt Only VTE Present on Admission: No VTE Mechan Device Prophylaxis: Knee High GENA Hose VTE Pharm Prophylaxis ordered?: Yes - Physical Exam General: Alert, Oriented x3, Cooperative HEENT: Atraumatic, PERRLA, EOMI, Normocephalic Neck: Supple, No JVD, Negative Carotid Bruits Lungs: Clear to auscultation, Normal air movement Cardiovascular: Regular rate, No murmurs Abdomen: Bowel Sounds Present, Soft, Non Tender Extremities: No edema, Capillary Refill Less than 3 Seconds Skin: No rashes, No breakdown Musculoskeletal: No Tenderness to Palpation of Joints or Extremities Neurological: Cranial nerves II-XII grossly intact, - - Left upper extremity hemiplegia, left lower extremity hemiparesis. Psych/Mental Status: Normal Affect, Appropriate Vital Signs Temp Pulse Resp BP Pulse Ox 98.3 F 57 L 18 123/78 H 95 10/19/18 18:06 10/19/18 18:06 10/19/18 18:06 10/19/18 18:06 10/19/18 18:06 Oxygen Delivery Method Room Air Weight: 102.058 kg Body Mass Index (BMI) 28.1 Assessment/Plan All Active Problems Elevated factor VIII level (Acute) Severe left internal carotid stenosis (Acute) Occlusion of right internal carotid artery (Acute) Embolic stroke (Acute) 58 year old male with below past medical history [facility] resident, suffered right MCA stroke, admitted to TCU with debility, here for rehabilitation, strengthening, prior to discharge home with spouse. * Debility - PT/OT. * Dysphagia - ST. * Pain - Tylenol 1000MG Q8H PRN mild pain, Oxycodone 5MG Q6H PRN severe pain. * Bowel - Miralax 17GM BID, Senna/colace 2 tablets BID, Dulcolax 10MG PO daily PRN. * Pneumonia vaccination - Administer Prevnar 13 and/or Pneumovax 23 as necessary. * DVT prophylaxis - Lovenox 40MG SC daily. * Hypertension - Lisinopril 10MG daily, Amlodipine 5MG daily. * Stroke - Aspirin 81MG daily, Plavix 75MG daily. * Hyperlipidemia - Atorvastatin 40MG QHS. * Indigestion - Pantoprazole 20MG BID, TUMS 1000MG Q4H PRN. * Osteoarthritis - Voltaren gel topical 4x/day, Bengay topical 4x/day PRN. * Neuropathic pain - Gabapentin 200MG BID, 400MG QHS. * Dizziness - Meclizine 12.5MG BID PRN. * Colitis - Lialda 2.4GM BID. * Hypersomnia - Provigil 200MG daily. * Nausea - Zofran 4MG Q8H PRN. * Depression - Sertraline 25MG daily.
[2018-10-19] MEDS: Gabapentin 400 MG Capsule PO (22:09)
[2018-10-19] MEDS: Atorvastatin Calcium 40 MG Tablet PO (22:09)
[2018-10-20 05:47] LABS: Absolute Lymphocyte Count 1.53 X10^3/ul (0.83-4.51); Absolute Neutrophil Count 6.2 X10^3/uL (2.0-7.7); Basophil# 0.03 X10^3/uL; Basophil% 0.4 % (0-1); Eosinophils% 2.4 % (0-5); Hematocrit 44.3 % (40-54); Hemoglobin 14.5 g/dl (13.0-16.5); Lymphocyte # 1.53 X10^3/ul (4.0); Mean Corp Hgb Conc 32.7 g/gl (32-36); Mean Corpuscular Hgb 29.9 pg (27.0-32.0); Mean Corpuscular Volume 91.3 fL (80-94); Mean Platelet Vol. 10.2 fl (6.2-12.0); Monocyte# 0.56 X10^3/uL; Monocyte% 6.6 % (0-10); Neutrophil # 6.15 X10^3/uL (2.7-7.7); Neutrophil % 72.4 % (47-70); Platelet Count 267 K/mm3 (150-450); RBC Distribution Width SD 46.3 fl (35.1-43.9); Red Blood Count 4.85 M/mm3 (4.6-6.2); White Blood Count 8.5 K/mm3 (4.4-11.0)
[2018-10-20 06:03] LABS: POSITIVE COUNT NO; POSITIVE DIFFERENTIAL NO; POSITIVE MORPHOLOGY NO
[2018-10-20] MEDS: Enoxaparin 40 MG/0.4 ML Syringe SC (06:06)
[2018-10-20] MEDS: Mesalamine 1.2 GM Tablet 2.4 GM PO ×2 (06:08→17:32)
[2018-10-20] MEDS: amLODIPine 5 MG Tablet PO (06:09)
[2018-10-20] MEDS: Lisinopril 10 MG Tablet PO (06:09)
[2018-10-20] MEDS: Sertraline 50 MG Tablet 25 MG PO (06:09)
[2018-10-20] MEDS: Senna/Docusate Sodium 1 Tablet 2 TABLET PO (06:09)
[2018-10-20] MEDS: Pantoprazole Sodium 20 MG Tablet PO ×2 (06:09→17:32)
[2018-10-20] MEDS: Clopidogrel Bisulfate 75 MG Tablet PO (06:09)
[2018-10-20 06:22] LABS: Anion Gap 10 (5-15); BUN 14 mg/dL (7-18); BUN/Creat Ratio 15.9 RATIO (10-20); Calcium,Total 8.8 mg/dL (8.5-10.1); Chloride 111 mmol/L (98-107); Creatinine, Serum 0.88 mg/dL (0.70-1.30); EST Glomerular Filtration Rate 94 mL/min (>60); Est Glom Filt Rate - Afr Amer 113 mL/min (>60); Estimated Creatinine Clearance 106.69 ml/min; Glucose 87 mg/dL (74-106); Potassium 4.1 mmol/L (3.5-5.1); Sodium Level 144 mmol/L (136-145)
[2018-10-20] MEDS: Menthol/Lanolin/Calamine/Znox 113 GM Tube 1 APPLIC TOPICAL ×2 (06:32→21:53)
[2018-10-20 07:24] VITALS: O2SAT 93
[2018-10-20 07:25] VITALS: O2SAT 93
--- NOTE | 2018-10-20 07:25 | CPS ---
Wears at night only
--- NOTE | 2018-10-20 07:59 | NURSING ---
Pt was notified that we found pt knee brace put in pt room by produce associate.
--- NOTE | 2018-10-20 08:53 | PCM.PN.RX ---
<George Cariasip D - Last Filed: 10/20/18 08:53> Progress Note - Pharmacy Subjective: TCU Admission Objective: Allergies codeine Allergy (Verified 09/22/18 17:24) Rash Current Medications Generic Name Dose Route Start Last Admin Trade Name Freq PRN Reason Stop Dose Admin Acetaminophen 1,000 mg 10/19/18 21:56 Tylenol PO TID PRN PRN MILD PAIN (1-3/10) Amlodipine Besylate 5 mg 10/20/18 06:00 10/20/18 06:09 Norvasc PO 5 mg DAILY [facility] Administration Aspirin 81 mg 10/20/18 08:00 Aspirin, Baby PO DAILY@0800 [facility] Atorvastatin Calcium 40 mg 10/19/18 22:00 10/19/18 22:09 Lipitor PO 40 mg QHS [facility] Administration Bisacodyl 10 mg 10/19/18 21:55 Dulcolax PO DAILY PRN Constipation Calamine/Phenol 1 applic 10/20/18 06:00 10/20/18 06:32 Calmoseptine Ointment TOPICAL 1 applicatio 0600,2200 [facility] Administration Protocol Calcium Carbonate 1,000 mg 10/19/18 18:29 Tums PO Q4H PRN PRN [facility] Clopidogrel Bisulfate 75 mg 10/20/18 06:00 10/20/18 06:09 Plavix PO 75 mg DAILY [facility] Administration Diclofenac Sodium 1 applic 10/19/18 22:00 10/20/18 06:10 Voltaren TP 1 applicatio 4X/DAY [facility] Administration Enoxaparin Sodium 40 mg 10/20/18 06:00 10/20/18 06:06 Lovenox SC 40 mg DAILY@0600 [facility] Administration Gabapentin 400 mg 10/19/18 22:00 10/19/18 22:09 Neurontin PO 400 mg QHS [facility] Administration Gabapentin 200 mg 10/20/18 08:00 Neurontin PO 0800,1400 [facility] Lisinopril 10 mg 10/20/18 06:00 10/20/18 06:09 Zestril PO 10 mg DAILY [facility] Administration Meclizine HCl 12.5 mg 10/19/18 18:29 Antivert PO BID PRN PRN DIZZINESS Menthol 1 applic 10/19/18 21:56 Bengay Vanishing Scent TOPICAL 4X/DAY PRN PRN MODERATE PAIN (4-5/10) Mesalamine 2.4 gm 10/20/18 06:00 10/20/18 06:08 Lialda PO 2.4 gm BID [facility] Administration Modafinil 200 mg 10/20/18 06:00 Provigil PO DAILY@0600 [facility] Multi-Ingredient Cream 1 applic 10/20/18 06:00 10/20/18 06:21 Eucerin TOPICAL 1 applicatio 0600,2200 [facility] Administration Protocol Ondansetron HCl 4 mg 10/19/18 18:29 Zofran PO Q8H PRN PRN NAUSEA/VOMITING Oxycodone HCl 5 mg 10/19/18 18:29 10/19/18 19:41 Oxyir PO 5 mg Q6H PRN PRN Administration SEVERE PAIN (6-10/10) Pantoprazole Sodium 20 mg 10/20/18 06:00 10/20/18 06:09 Protonix PO 20 mg BID [facility] Administration Polyethylene Glycol 17 gm 10/20/18 06:00 10/20/18 06:21 Miralax PO Not Given BID [facility] Senna/Docusate Sodium 2 tablet 10/20/18 06:00 10/20/18 06:09 Senokot-S, Gladis-Colace PO 2 tablet BID [facility] Administration Sertraline HCl 25 mg 10/20/18 06:00 10/20/18 06:09 Zoloft PO 25 mg DAILY [facility] Administration Tuberculin PPD 5 10/20/18 10:00 Tubersol, Aplisol, Ppd ID 10/20/18 10:01 X1 ONE Tuberculin PPD 5 10/27/18 10:00 Tubersol, Aplisol, Ppd ID 10/27/18 10:01 X1 ONE Problem List GERD (gastroesophageal reflux disease) (Chronic) Obesity (Chronic) Rotator cuff arthropathy (Chronic) Osteoarthritis (Chronic) Depression (Chronic) Vital Signs Temp Pulse Resp BP Pulse Ox 98.3 F 57 L 18 123/78 H 93 10/19/18 18:06 10/19/18 18:06 10/19/18 18:06 10/19/18 18:06 10/20/18 07:25 Oxygen Flow Rate (L/min) 2 Oxygen Delivery Method Room Air Weight: 102.058 kg Body Mass Index (BMI) 28.1 Sodium 144 mmol/L (136-145) 10/20/18 05:15 Potassium 4.1 mmol/L (3.5-5.1) 10/20/18 05:15 Chloride 111 mmol/L (98-107) H 10/20/18 05:15 Carbon Dioxide 23.0 mmol/L (21.0-32.0) 10/20/18 05:15 Anion Gap 10 (5-15) 10/20/18 05:15 BUN 14 mg/dL (7-18) 10/20/18 05:15 Creatinine 0.88 mg/dL (0.70-1.30) 10/20/18 05:15 Est GFR (MDRD) Af Amer 113 mL/min (>60) 10/20/18 05:15 Est GFR (MDRD) Non-Af 94 mL/min (>60) 10/20/18 05:15 BUN/Creatinine Ratio 15.9 RATIO (10-20) 10/20/18 05:15 Glucose 87 mg/dL (74-106) 10/20/18 05:15 Assessment/Plan: 1) Pain APAP for mild pain, oxycodone for severe pain, gabapentin. Continue to monitor daily pain scores, prn medication use. 2) HTN/CAD Amlodipine, lisinopril, ASA, atorvastatin, clopidogrel. Continue to monitor BP/HR, renal function, electrolytes, s/s chest pain. 3) Hypersomnia Modafinil. Continue to monitor clinically. 4) GI Pantoprazole, mesalamine, prn TUMS, prn ondansetron. Continue to monitor prn medication use, s/s GI distress. 5) DVT PPx Enoxaparin daily. Continue to monitor s/s bleeding/clot. Psychotropic Medications: 6) Depression Sertraline daily. Continue to monitor s/s depression. Unnecessary Medications: Bowel Regimen: 7) Senna/s, PEG, prn bisacodyl. Continue to monitor prn medication use, for constipation/diarrhea. Date of Note:: 10/20/18 - Provider Comments Provider responsibility: Provider responsible to enter orders to implement recommendations <Florencio Olvera Chi - Last Filed: 10/20/18 17:29> Progress Note - Pharmacy Subjective: [] Objective: Allergies codeine Allergy (Verified 09/22/18 17:24) Rash Current Medications Generic Name Dose Route Start Last Admin Trade Name Freq PRN Reason Stop Dose Admin Acetaminophen 1,000 mg 10/19/18 21:56 10/20/18 09:16 Tylenol PO 1,000 mg TID PRN PRN Administration MILD PAIN (1-3/10) Amlodipine Besylate 5 mg 10/20/18 06:00 10/20/18 06:09 Norvasc PO 5 mg DAILY [facility] Administration Aspirin 81 mg 10/20/18 08:00 10/20/18 09:13 Aspirin, Baby PO 81 mg DAILY@0800 [facility] Administration Atorvastatin Calcium 40 mg 10/19/18 22:00 10/19/18 22:09 Lipitor PO 40 mg QHS [facility] Administration Bisacodyl 10 mg 10/19/18 21:55 Dulcolax PO DAILY PRN Constipation Calamine/Phenol 1 applic 10/20/18 06:00 10/20/18 06:32 Calmoseptine Ointment TOPICAL 1 applicatio 0600,2200 [facility] Administration Protocol Calcium Carbonate 1,000 mg 10/19/18 18:29 Tums PO Q4H PRN PRN HE[facility]URN Clopidogrel Bisulfate 75 mg 10/20/18 06:00 10/20/18 06:09 Plavix PO 75 mg DAILY [facility] Administration Diclofenac Sodium 1 applic 10/19/18 22:00 10/20/18 11:20 Voltaren TP 1 applicatio 4X/DAY [facility] Administration Enoxaparin Sodium 40 mg 10/20/18 06:00 10/20/18 06:06 Lovenox SC 40 mg DAILY@0600 [facility] Administration Gabapentin 400 mg 10/19/18 22:00 10/19/18 22:09 Neurontin PO 400 mg QHS [facility] Administration Gabapentin 200 mg 10/20/18 08:00 10/20/18 13:28 Neurontin PO 200 mg 0800,1400 [facility] Administration Lisinopril 10 mg 10/20/18 06:00 10/20/18 06:09 Zestril PO 10 mg DAILY [facility] Administration Meclizine HCl 12.5 mg 10/19/18 18:29 Antivert PO BID PRN PRN DIZZINESS Menthol 1 applic 10/19/18 21:56 Bengay Vanishing Scent TOPICAL 4X/DAY PRN PRN MODERATE PAIN (4-5/10) Mesalamine 2.4 gm 10/20/18 06:00 10/20/18 06:08 Lialda PO 2.4 gm BID [facility] Administration Modafinil 200 mg 10/20/18 06:00 10/20/18 09:13 Provigil PO 200 mg DAILY@0600 [facility] Administration Multi-Ingredient Cream 1 applic 10/20/18 06:00 10/20/18 06:21 Eucerin TOPICAL 1 applicatio 0600,2200 [facility] Administration Protocol Ondansetron HCl 4 mg 10/19/18 18:29 Zofran PO Q8H PRN PRN NAUSEA/VOMITING Oxycodone HCl 5 mg 10/19/18 18:29 10/19/18 19:41 Oxyir PO 5 mg Q6H PRN PRN Administration SEVERE PAIN (6-10/10) Pantoprazole Sodium 20 mg 10/20/18 06:00 10/20/18 06:09 Protonix PO 20 mg BID [facility] Administration Polyethylene Glycol 17 gm 10/20/18 06:00 10/20/18 06:21 Miralax PO Not Given BID [facility] Senna/Docusate Sodium 2 tablet 10/20/18 06:00 10/20/18 06:09 Senokot-S, Gladis-Colace PO 2 tablet BID [facility] Administration Sertraline HCl 25 mg 10/20/18 06:00 10/20/18 06:09 Zoloft PO 25 mg DAILY [facility] Administration Tuberculin PPD 5 tu 10/27/18 10:00 Tubersol, Aplisol, Ppd ID 10/27/18 10:01 X1 ONE Problem List GERD (gastroesophageal reflux disease) (Chronic) Obesity (Chronic) Rotator cuff arthropathy (Chronic) Osteoarthritis (Chronic) Depression (Chronic) Vital Signs Temp Pulse Resp BP Pulse Ox 98.8 F 69 14 123/80 H 91 10/20/18 16:00 10/20/18 16:00 10/20/18 16:00 10/20/18 16:00 10/20/18 16:00 Oxygen Flow Rate (L/min) 2 Oxygen Delivery Method Room Air Weight: 101.831 kg Body Mass Index (BMI) 28.1 Sodium 144 mmol/L (136-145) 10/20/18 05:15 Potassium 4.1 mmol/L (3.5-5.1) 10/20/18 05:15 Chloride 111 mmol/L (98-107) H 10/20/18 05:15 Carbon Dioxide 23.0 mmol/L (21.0-32.0) 10/20/18 05:15 Anion Gap 10 (5-15) 10/20/18 05:15 BUN 14 mg/dL (7-18) 10/20/18 05:15 Creatinine 0.88 mg/dL (0.70-1.30) 10/20/18 05:15 Est GFR (MDRD) Af Amer 113 mL/min (>60) 10/20/18 05:15 Est GFR (MDRD) Non-Af 94 mL/min (>60) 10/20/18 05:15 BUN/Creatinine Ratio 15.9 RATIO (10-20) 10/20/18 05:15 Glucose 87 mg/dL (74-106) 10/20/18 05:15 Assessment/Plan: Psychotropic Medications: Unnecessary Medications: Bowel Regimen: - Provider Comments Provider responsibility: Provider responsible to enter orders to implement recommendations Provider Comments to Recommendations by Pharmacy: Agree
--- NOTE | 2018-10-20 08:59 | PHA.CONS_ITS ---
Addendum entered and electronically signed by Rafi Carias 10/20/18 09:41: Patient's sertraline was increased to 50mg daily and atorvastatin was increased to 80mg at HS on rehab but the med list was not updated. Please clarify and increase doses of both if appropriate. Original Note: <Rafi Carias - Last Filed: 10/20/18 08:53> Progress Note - Pharmacy Subjective: TCU Admission Objective: Allergies codeine Allergy (Verified 09/22/18 17:24) Rash Current Medications Generic Name Dose Route Start Last Admin Trade Name Freq PRN Reason Stop Dose Admin Acetaminophen 1,000 mg 10/19/18 21:56 Tylenol PO TID PRN PRN MILD PAIN (1-10) Amlodipine Besylate 5 mg 10/20/18 06:00 10/20/18 06:09 Norvasc PO 5 mg DAILY [facility] Administration Aspirin 81 mg 10/20/18 08:00 Aspirin, Baby PO DAILY@0800 [facility] Atorvastatin Calcium 40 mg 10/19/18 22:00 10/19/18 22:09 Lipitor PO 40 mg QHS [facility] Administration Bisacodyl 10 mg 10/19/18 21:55 Dulcolax PO DAILY PRN Constipation Calamine/Phenol 1 applic 10/20/18 06:00 10/20/18 06:32 Calmoseptine Ointment TOPICAL 1 applicatio 0600,2200 [facility] Administration Protocol Calcium Carbonate 1,000 mg 10/19/18 18:29 Tums PO Q4H PRN PRN [facility] Clopidogrel Bisulfate 75 mg 10/20/18 06:00 10/20/18 06:09 Plavix PO 75 mg DAILY [facility] Administration Diclofenac Sodium 1 applic 10/19/18 22:00 10/20/18 06:10 Voltaren TP 1 applicatio 4X/DAY [facility] Administration Enoxaparin Sodium 40 mg 10/20/18 06:00 10/20/18 06:06 Lovenox SC 40 mg DAILY@0600 [facility] Administration Gabapentin 400 mg 10/19/18 22:00 10/19/18 22:09 Neurontin PO 400 mg QHS [facility] Administration Gabapentin 200 mg 10/20/18 08:00 Neurontin PO 0800,1400 [facility] Lisinopril 10 mg 10/20/18 06:00 10/20/18 06:09 Zestril PO 10 mg DAILY [facility] Administration Meclizine HCl 12.5 mg 10/19/18 18:29 Antivert PO BID PRN PRN DIZZINESS Menthol 1 applic 10/19/18 21:56 Bengay Vanishing Scent TOPICAL 4X/DAY PRN PRN MODERATE PAIN (4-5/10) Mesalamine 2.4 gm 10/20/18 06:00 10/20/18 06:08 Lialda PO 2.4 gm BID [facility] Administration Modafinil 200 mg 10/20/18 06:00 Provigil PO DAILY@0600 [facility] Multi-Ingredient Cream 1 applic 10/20/18 06:00 10/20/18 06:21 Eucerin TOPICAL 1 applicatio 0600,2200 [facility] Administration Protocol Ondansetron HCl 4 mg 10/19/18 18:29 Zofran PO Q8H PRN PRN NAUSEA/VOMITING Oxycodone HCl 5 mg 10/19/18 18:29 10/19/18 19:41 Oxyir PO 5 mg Q6H PRN PRN Administration SEVERE PAIN (6-10/10) Pantoprazole Sodium 20 mg 10/20/18 06:00 10/20/18 06:09 Protonix PO 20 mg BID [facility] Administration Polyethylene Glycol 17 gm 10/20/18 06:00 10/20/18 06:21 Miralax PO Not Given BID [facility] Senna/Docusate Sodium 2 tablet 10/20/18 06:00 10/20/18 06:09 Senokot-S, Gladis-Colace PO 2 tablet BID [facility] Administration Sertraline HCl 25 mg 10/20/18 06:00 10/20/18 06:09 Zoloft PO 25 mg DAILY [facility] Administration Tuberculin PPD 5 10/20/18 10:00 Tubersol, Aplisol, Ppd ID 10/20/18 10:01 X1 ONE Tuberculin PPD 5 10/27/18 10:00 Tubersol, Aplisol, Ppd ID 10/27/18 10:01 X1 ONE Problem List GERD (gastroesophageal reflux disease) (Chronic) Obesity (Chronic) Rotator cuff arthropathy (Chronic) Osteoarthritis (Chronic) Depression (Chronic) Vital Signs Temp Pulse Resp BP Pulse Ox 98.3 F 57 L 18 123/78 H 93 10/19/18 18:06 10/19/18 18:06 10/19/18 18:06 10/19/18 18:06 10/20/18 07:25 Oxygen Flow Rate (L/min) 2 Oxygen Delivery Method Room Air Weight: 102.058 kg Body Mass Index (BMI) 28.1 Sodium 144 mmol/L (136-145) 10/20/18 05:15 Potassium 4.1 mmol/L (3.5-5.1) 10/20/18 05:15 Chloride 111 mmol/L (98-107) H 10/20/18 05:15 Carbon Dioxide 23.0 mmol/L (21.0-32.0) 10/20/18 05:15 Anion Gap 10 (5-15) 10/20/18 05:15 BUN 14 mg/dL (7-18) 10/20/18 05:15 Creatinine 0.88 mg/dL (0.70-1.30) 10/20/18 05:15 Est GFR (MDRD) Af Amer 113 mL/min (>60) 10/20/18 05:15 Est GFR (MDRD) Non-Af 94 mL/min (>60) 10/20/18 05:15 BUN/Creatinine Ratio 15.9 RATIO (10-20) 10/20/18 05:15 Glucose 87 mg/dL (74-106) 10/20/18 05:15 Assessment/Plan: 1) Pain APAP for mild pain, oxycodone for severe pain, gabapentin. Continue to monitor daily pain scores, prn medication use. 2) HTN/CAD Amlodipine, lisinopril, ASA, atorvastatin, clopidogrel. Continue to monitor BP/HR, renal function, electrolytes, s/s chest pain. 3) Hypersomnia Modafinil. Continue to monitor clinically. 4) GI Pantoprazole, mesalamine, prn TUMS, prn ondansetron. Continue to monitor prn medication use, s/s GI distress. 5) DVT PPx Enoxaparin daily. Continue to monitor s/s bleeding/clot. Psychotropic Medications: 6) Depression Sertraline daily. Continue to monitor s/s depression. Unnecessary Medications: Bowel Regimen: 7) Senna/s, PEG, prn bisacodyl. Continue to monitor prn medication use, for constipation/diarrhea. Date of Note:: 10/20/18 - Provider Comments Provider responsibility: Provider responsible to enter orders to implement recommendations <Wade,Florencio Mathew - Last Filed: 10/20/18 17:29> Progress Note - Pharmacy Subjective: [] Objective: Allergies codeine Allergy (Verified 09/22/18 17:24) Rash Current Medications Generic Name Dose Route Start Last Admin Trade Name Freq PRN Reason Stop Dose Admin Acetaminophen 1,000 mg 10/19/18 21:56 10/20/18 09:16 Tylenol PO 1,000 mg TID PRN PRN Administration MILD PAIN (1-310) Amlodipine Besylate 5 mg 10/20/18 06:00 10/20/18 06:09 Norvasc PO 5 mg DAILY [facility] Administration Aspirin 81 mg 10/20/18 08:00 10/20/18 09:13 Aspirin, Baby PO 81 mg DAILY@0800 [facility] Administration Atorvastatin Calcium 40 mg 10/19/18 22:00 10/19/18 22:09 Lipitor PO 40 mg QHS [facility] Administration Bisacodyl 10 mg 10/19/18 21:55 Dulcolax PO DAILY PRN Constipation Calamine/Phenol 1 applic 10/20/18 06:00 10/20/18 06:32 Calmoseptine Ointment TOPICAL 1 applicatio 0600,2200 [facility] Administration Protocol Calcium Carbonate 1,000 mg 10/19/18 18:29 Tums PO Q4H PRN PRN [facility] Clopidogrel Bisulfate 75 mg 10/20/18 06:00 10/20/18 06:09 Plavix PO 75 mg DAILY [facility] Administration Diclofenac Sodium 1 applic 10/19/18 22:00 10/20/18 11:20 Voltaren TP 1 applicatio 4X/DAY [facility] Administration Enoxaparin Sodium 40 mg 10/20/18 06:00 10/20/18 06:06 Lovenox SC 40 mg DAILY@0600 [facility] Administration Gabapentin 400 mg 10/19/18 22:00 10/19/18 22:09 Neurontin PO 400 mg QHS [facility] Administration Gabapentin 200 mg 10/20/18 08:00 10/20/18 13:28 Neurontin PO 200 mg 0800,1400 [facility] Administration Lisinopril 10 mg 10/20/18 06:00 10/20/18 06:09 Zestril PO 10 mg DAILY [facility] Administration Meclizine HCl 12.5 mg 10/19/18 18:29 Antivert PO BID PRN PRN DIZZINESS Menthol 1 applic 10/19/18 21:56 Bengay Vanishing Scent TOPICAL 4X/DAY PRN PRN MODERATE PAIN (4-5/10) Mesalamine 2.4 gm 10/20/18 06:00 10/20/18 06:08 Lialda PO 2.4 gm BID [facility] Administration Modafinil 200 mg 10/20/18 06:00 10/20/18 09:13 Provigil PO 200 mg DAILY@0600 [facility] Administration Multi-Ingredient Cream 1 applic 10/20/18 06:00 10/20/18 06:21 Eucerin TOPICAL 1 applicatio 0600,2200 [facility] Administration Protocol Ondansetron HCl 4 mg 10/19/18 18:29 Zofran PO Q8H PRN PRN NAUSEA/VOMITING Oxycodone HCl 5 mg 10/19/18 18:29 10/19/18 19:41 Oxyir PO 5 mg Q6H PRN PRN Administration SEVERE PAIN (6-10/10) Pantoprazole Sodium 20 mg 10/20/18 06:00 10/20/18 06:09 Protonix PO 20 mg BID [facility] Administration Polyethylene Glycol 17 gm 10/20/18 06:00 10/20/18 06:21 Miralax PO Not Given BID [facility] Senna/Docusate Sodium 2 tablet 10/20/18 06:00 10/20/18 06:09 Senokot-S, Gladis-Colace PO 2 tablet BID [facility] Administration Sertraline HCl 25 mg 10/20/18 06:00 10/20/18 06:09 Zoloft PO 25 mg DAILY [facility] Administration Tuberculin PPD 5 tu 10/27/18 10:00 Tubersol, Aplisol, Ppd ID 10/27/18 10:01 X1 ONE Problem List GERD (gastroesophageal reflux disease) (Chronic) Obesity (Chronic) Rotator cuff arthropathy (Chronic) Osteoarthritis (Chronic) Depression (Chronic) Vital Signs Temp Pulse Resp BP Pulse Ox 98.8 F 69 14 123/80 H 91 10/20/18 16:00 10/20/18 16:00 10/20/18 16:00 10/20/18 16:00 10/20/18 16:00 Oxygen Flow Rate (L/min) 2 Oxygen Delivery Method Room Air Weight: 101.831 kg Body Mass Index (BMI) 28.1 Sodium 144 mmol/L (136-145) 10/20/18 05:15 Potassium 4.1 mmol/L (3.5-5.1) 10/20/18 05:15 Chloride 111 mmol/L (98-107) H 10/20/18 05:15 Carbon Dioxide 23.0 mmol/L (21.0-32.0) 10/20/18 05:15 Anion Gap 10 (5-15) 10/20/18 05:15 BUN 14 mg/dL (7-18) 10/20/18 05:15 Creatinine 0.88 mg/dL (0.70-1.30) 10/20/18 05:15 Est GFR (MDRD) Af Amer 113 mL/min (>60) 10/20/18 05:15 Est GFR (MDRD) Non-Af 94 mL/min (>60) 10/20/18 05:15 BUN/Creatinine Ratio 15.9 RATIO (10-20) 10/20/18 05:15 Glucose 87 mg/dL (74-106) 10/20/18 05:15 Assessment/Plan: Psychotropic Medications: Unnecessary Medications: Bowel Regimen: - Provider Comments Provider responsibility: Provider responsible to enter orders to implement recommendations Provider Comments to Recommendations by Pharmacy: Agree
[2018-10-20] MEDS: Modafinil 200 MG Tablet PO (09:13)
[2018-10-20] MEDS: Gabapentin 100 MG Capsule 200 MG PO ×2 (09:13→13:28)
[2018-10-20] MEDS: Aspirin 81 MG TAB.CHEW PO (09:13)
[2018-10-20] MEDS: Acetaminophen 500 MG Tablet 1000 MG PO (09:16)
[2018-10-20] MEDS: Tuberculin,Purif.prot.deriv. 50 TU/ML Vial 5 ML ID (10:35)
--- NOTE | 2018-10-20 11:07 | NURSING ---
Pt has c/o ringing in ear. Dr. Olvera updated, NNO. R/T tinnitus, no treatment necessary.
[2018-10-20 14:45] VITALS: PULSE 81; RESP 18; O2SAT 93
[2018-10-20 16:00] VITALS: BP 123/80; PULSE 69; RESP 14; TEMP 37.1; O2SAT 91
[2018-10-20] MEDS: oxyCODONE 5 MG Tablet PO (17:35)
[2018-10-20] MEDS: Gabapentin 400 MG Capsule PO (21:54)
[2018-10-20] MEDS: Atorvastatin Calcium 40 MG Tablet PO (21:54)
[2018-10-21] MEDS: Pantoprazole Sodium 20 MG Tablet PO ×2 (06:19→17:21)
[2018-10-21] MEDS: amLODIPine 5 MG Tablet PO (06:19)
[2018-10-21] MEDS: Modafinil 200 MG Tablet PO (06:19)
[2018-10-21] MEDS: Lisinopril 10 MG Tablet PO (06:20)
[2018-10-21] MEDS: Enoxaparin 40 MG/0.4 ML Syringe SC (06:20)
[2018-10-21] MEDS: Menthol/Lanolin/Calamine/Znox 113 GM Tube 1 APPLIC TOPICAL ×2 (06:20→20:13)
[2018-10-21] MEDS: Sertraline 50 MG Tablet 25 MG PO (06:21)
[2018-10-21] MEDS: Clopidogrel Bisulfate 75 MG Tablet PO (06:21)
[2018-10-21] MEDS: Mesalamine 1.2 GM Tablet 2.4 GM PO ×2 (06:21→17:20)
[2018-10-21] MEDS: Aspirin 81 MG TAB.CHEW PO (07:54)
[2018-10-21] MEDS: oxyCODONE 5 MG Tablet PO ×2 (07:55→17:31)
[2018-10-21] MEDS: Gabapentin 100 MG Capsule 200 MG PO ×2 (07:55→13:14)
--- NOTE | 2018-10-21 10:30 | CPS ---
patient has been wearing 3lpm o2 at night.
[2018-10-21 15:26] VITALS: BP 143/83; PULSE 66; RESP 18; TEMP 36.8; O2SAT 95
[2018-10-21] MEDS: Gabapentin 400 MG Capsule PO (20:13)
[2018-10-21] MEDS: Atorvastatin Calcium 40 MG Tablet PO (20:14)
[2018-10-21 21:00] VITALS: PULSE 72; RESP 18; O2SAT 96
--- NOTE | 2018-10-21 21:05 | NURSING ---
Addendum entered by Almaz Warner 10/21/18 22:16: Dr. Olvera notified of patient being in pain in his left shoulder and that he is rating it a 10/10. Patient is requesting a higher dose of oxyir or a higher frequency. New orders given for oxyir 10 mg q4h prn as well as medrol dose pack. Patient aware of order, patient's Jd aware of the new orders. Original Note: Pt called nurses station, said pt text phone stating pain was so bad he could not move. Pt was given voltaren gel early, states his pain is still a 10/10 and has 'never been worse'. Asked if something happened that increased pain as last night pt denied such high pain. Pt stated no. Cannot get comfortable, asking for either higher dose or higher frequency of current oxyir orders, which is 5mg q 6 hours. Pt repositioned but stated 'nothing helps'. RN aware.
[2018-10-21] MEDS: oxyCODONE 5 MG Tablet 10 MG PO (22:00)
[2018-10-22] MEDS: Menthol/Lanolin/Calamine/Znox 113 GM Tube 1 APPLIC TOPICAL ×2 (06:23→21:28)
[2018-10-22] MEDS: Modafinil 200 MG Tablet PO (06:23)
[2018-10-22] MEDS: oxyCODONE 5 MG Tablet 10 MG PO ×2 (06:23→17:30)
[2018-10-22] MEDS: Mesalamine 1.2 GM Tablet 2.4 GM PO ×2 (06:24→17:31)
[2018-10-22] MEDS: amLODIPine 5 MG Tablet PO (06:25)
[2018-10-22] MEDS: Enoxaparin 40 MG/0.4 ML Syringe SC (06:25)
[2018-10-22] MEDS: Sertraline 50 MG Tablet 25 MG PO (06:25)
[2018-10-22] MEDS: Clopidogrel Bisulfate 75 MG Tablet PO (06:25)
[2018-10-22] MEDS: Pantoprazole Sodium 20 MG Tablet PO ×2 (06:26→17:31)
[2018-10-22] MEDS: Lisinopril 10 MG Tablet PO (06:27)
[2018-10-22 06:34] VITALS: O2SAT 96
[2018-10-22] MEDS: Aspirin 81 MG TAB.CHEW PO (08:08)
[2018-10-22] MEDS: Gabapentin 100 MG Capsule 200 MG PO ×2 (08:09→14:39)
[2018-10-22] MEDS: Meclizine 12.5 MG Tablet PO ×2 (09:17→21:20)
--- NOTE | 2018-10-22 09:25 | NURSING ---
Addendum entered by Salima Larkin 10/22/18 22:30: Pt called back in. Pt and wanting to hold off on making an appt at this time. will update staff when they would like it made. Original Note: Addendum entered by Salima Larkin 10/22/18 20:18: Pt updated. requesting appt be set up with Dr. Fuentes in [place]. Original Note: Addendum entered by Salima Larkin 10/22/18 19:57: Dr. Olvera updated on MRI results. Schedule appt with Dr. Davis. Original Note: Dr Olvera updated by material handler 2nd shift that pt has concern regarding medrol dose callie causing agitation. new order to d/c medrol, apply sling lt arm and MRI lt shoulder.
[2018-10-22 15:46] VITALS: BP 117/62; PULSE 68; RESP 16; TEMP 36.8; O2SAT 92
[2018-10-22] MEDS: Senna/Docusate Sodium 1 Tablet 2 TABLET PO (17:32)
[2018-10-22] MEDS: Atorvastatin Calcium 40 MG Tablet PO (21:30)
[2018-10-22] MEDS: Gabapentin 400 MG Capsule PO (21:32)
[2018-10-22 22:00] VITALS: PULSE 68; O2SAT 93
[2018-10-23] MEDS: oxyCODONE 5 MG Tablet 10 MG PO ×2 (03:33→13:55)
[2018-10-23 06:38] VITALS: O2SAT 97
[2018-10-23] MEDS: amLODIPine 5 MG Tablet PO (06:40)
[2018-10-23] MEDS: Sertraline 50 MG Tablet 25 MG PO (06:40)
[2018-10-23] MEDS: Lisinopril 10 MG Tablet PO (06:40)
[2018-10-23] MEDS: Clopidogrel Bisulfate 75 MG Tablet PO (06:41)
[2018-10-23] MEDS: Mesalamine 1.2 GM Tablet 2.4 GM PO ×2 (06:42→17:59)
[2018-10-23] MEDS: Meclizine 12.5 MG Tablet PO ×2 (06:43→21:42)
[2018-10-23] MEDS: Pantoprazole Sodium 20 MG Tablet PO ×2 (06:49→18:03)
[2018-10-23] MEDS: Enoxaparin 40 MG/0.4 ML Syringe SC (06:53)
[2018-10-23] MEDS: Menthol/Lanolin/Calamine/Znox 113 GM Tube 1 APPLIC TOPICAL ×2 (07:01→21:38)
[2018-10-23] MEDS: Senna/Docusate Sodium 1 Tablet 2 TABLET PO (07:01)
[2018-10-23] MEDS: Modafinil 200 MG Tablet PO (07:08)
[2018-10-23] MEDS: Gabapentin 100 MG Capsule 200 MG PO ×2 (08:01→13:34)
[2018-10-23] MEDS: Aspirin 81 MG TAB.CHEW PO (08:02)
[2018-10-23 10:00] VITALS: PULSE 70; RESP 18; O2SAT 92
--- NOTE | 2018-10-23 12:28 | CASEMGMT ---
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 Cameron MORRISON, SHANI Original Note: Brief interview for mental status (BIMS) and mood (PHQ-9) completed on this day. BIMS score . PHQ-9 score 12/23. Zachariah Diehl social work student
--- NOTE | 2018-10-23 15:26 | PCM.TCUNOT ---
Subjective: Resident seen in room, lying in bed. I spoked with his Jd over the phone. He has been having severe left shoulder pain, his Oxycodone was increased to 10MG Q4H PRN severe pain. Jd told me after taking Oxycodone 10MG, he was incomprehensible, unable to follow conversation, and somnolent all day long. 1 year ago, he had left shoulder surgery, recently, he fell on left shoulder and reinjured it. MRI left shoulder shows left rotator cuff tendinopathy. We also discussed his bilateral carotid artery stenosis, right occluded, left > 70% stenosis. 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 Vitals/I&O's: Vital Signs Temp Pulse Resp BP Pulse Ox 98.3 F 70 18 117/62 92 10/22/18 15:46 10/23/18 10:00 10/23/18 10:00 10/22/18 15:46 10/23/18 10:00 Oxygen Flow Rate (L/min) 3 Oxygen Delivery Method Nasal Cannula Weight: 101.831 kg Body Mass Index (BMI) 28.1 Intake and Output for Last 24 Hours 10/21/18 10/22/18 10/23/18 23:59 23:59 23:59 Intake Total 920 / 920 480 / 480 420 / 420 Balance 920 / 920 480 / 480 420 / 420 Past Medical History Past Medical History (Chronic Problems): Chronic Problems GERD (gastroesophageal reflux disease) (Chronic) Obesity (Chronic) Rotator cuff arthropathy (Chronic) Osteoarthritis (Chronic) Depression (Chronic) History of pulmonary embolism (Chronic) History of DVT (deep vein thrombosis) (Chronic) Hypertension (Chronic) Allergies codeine Allergy (Verified 09/22/18 17:24) Rash Home Medications: Ambulatory Orders Medication Instructions Recorded Acetaminophen [Tylenol] 325 mg PO TID PRN 09/22/18 Aspirin [Aspirin, Baby] 81 mg PO DAILY@0800 09/22/18 Atorvastatin Calcium [Lipitor] 40 mg PO QHS 09/22/18 Clopidogrel Bisulfate [Plavix] 75 mg PO DAILY 09/22/18 Diclofenac Sodium [Voltaren] 100 gm TP 4X/DAY 09/22/18 Lisinopril [Zestril] 10 mg PO DAILY 09/22/18 Sennosides/Docusate Sodium 1 each PO DAILY 09/22/18 [Senna-S Tablet] Amlodipine [Norvasc] 5 mg PO DAILY 10/19/18 Calcium Carbonate [Tums] 1,000 mg PO Q4H PRN PRN tablet 10/19/18 Enoxaparin [Lovenox] 40 mg SC DAILY@0600 10/19/18 Gabapentin [Neurontin] 200 mg PO 0800,1400 10/19/18 Gabapentin [Neurontin] 400 mg PO QHS 10/19/18 Meclizine HCl [Antivert] 12.5 mg PO BID PRN PRN tablet 10/19/18 Menthol [Bengay Vanishing Scent] 1 applic TOPICAL 4X/DAY PRN PRN 10/19/18 tube Mesalamine [Lialda] 2.4 gm PO BID 10/19/18 Modafinil [Provigil] 200 mg PO DAILY@0600 10/19/18 Ondansetron [Zofran] 4 mg PO Q8H PRN PRN tablet 10/19/18 Oxycodone [Oxyir] 5 mg PO Q6H PRN PRN 7 Days #30 tab 10/19/18 Pantoprazole Sodium [Protonix] 20 mg PO BID 10/19/18 Polyethylene Glycol 3350 [Miralax] 17 gm PO BID 10/19/18 Sertraline HCl [Zoloft] 25 mg PO DAILY #30 tab 10/19/18 Surgical History: colectomy, - - Knee arthroscopic surgery. Back surgery. Psychiatric History: Depression Lives: Spouse/ Significant Other Smoking Status: Former smoker Tobacco Use: Cigarettes Alcohol: None Drugs: None - *Family History Maternal History Items: DVT, - - Blood clots. Paternal History Items: No pertinent history Sibling History Items: - - Brother with history of blood clots as well. Review of Systems Constitutional: Denies: Chills, Fever, Weight Change HEENT: Denies: Head Aches, Sinus Congestion, Sinus Drainage Cardiovascular: Denies: Chest Pain, Palpitations Respiratory: Denies: Cough, Shortness of breath at rest, Sputum production Gastrointestinal: Denies: Abdominal Pain, Nausea, Vomiting Genitourinary: Denies: Dysuria Musculoskeletal: Reports: Shoulder Pain - Left, severe.. Denies: Joint Pain, Joint Tenderness Skin: Denies: Rash, Wounds Neurological: Denies: Numbness, Tingling, Focal weakness Psychiatric: Denies: Anxiety, Depression, Homicidal Ideations, Suicidal Ideations Hematologic/ Lymphatic: Denies: Easy Bruising, Easy Bleeding - Physical Exam General: Alert, Oriented x3, Cooperative HEENT: Atraumatic, PERRLA, EOMI, Normocephalic Neck: Supple, No JVD, Negative Carotid Bruits Lungs: Clear to auscultation, Normal air movement Cardiovascular: Regular rate, No murmurs Abdomen: Bowel Sounds Present, Soft, Non Tender Extremities: No edema, Capillary Refill Less than 3 Seconds Skin: No rashes, No breakdown Musculoskeletal: No Tenderness to Palpation of Joints or Extremities Neurological: Cranial nerves II-XII grossly intact Psych/Mental Status: Normal Affect, Appropriate Vital Signs Temp Pulse Resp BP Pulse Ox 98.3 F 70 18 117/62 92 10/22/18 15:46 10/23/18 10:00 10/23/18 10:00 10/22/18 15:46 10/23/18 10:00 Oxygen Flow Rate (L/min) 3 Oxygen Delivery Method Nasal Cannula Weight: 101.831 kg Body Mass Index (BMI) 28.1 Intake and Output for Last 24 Hours 10/21/18 10/22/18 10/23/18 23:59 23:59 23:59 Intake Total 920 / 920 480 / 480 420 / 420 Balance 920 / 920 480 / 480 420 / 420 Assessment/Plan All Active Problems Elevated factor VIII level (Acute) Severe left internal carotid stenosis (Acute) Occlusion of right internal carotid artery (Acute) Embolic stroke (Acute) 58 year old male with below past medical history [facility] resident, suffered right MCA stroke, admitted to TCU with debility, here for rehabilitation, strengthening, prior to discharge home with spouse. Pain - Tylenol 1000MG Q8H PRN mild pain, Oxycodone 5MG Q6H PRN severe pain. Stroke - Aspirin 81MG daily, Plavix 75MG daily. Left rotator cuff tear - After informed consent, the area was prepped and draped in sterile manner, anesthesia with vapocoolant spray, the subacromial bursa was injected with Kenalog 40MG, Lidocaine 2% 1ML, no immediate complications. Bilateral carotid artery stenosis - Right ICA occluded, Left ICA > 70% stenosis, recommend left carotid endarterectomy earliest surgery date 03/17/2019.
--- NOTE | 2018-10-23 15:32 | PN_ITS ---
Subjective: Resident seen in room, lying in bed. I spoked with his Jd over the phone. He has been having severe left shoulder pain, his Oxycodone was i ncreased to 10MG Q4H PRN severe pain. Jd told me after taking Oxycodone 10MG, he was incomprehensible, unable to follow conversation, and somnolent all day long. 1 year ago, he had left shoulder surgery, recently, he fell on left shoulder and reinjured it. MRI left shoulder shows left rotator cuff tendinopathy. We also discussed his bilateral carotid artery stenosis, right occluded, left > 70% stenosis. 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 Vitals/I&O's: Vital Signs Temp Pulse Resp BP Pulse Ox 98.3 F 70 18 117/62 92 10/22/18 15:46 10/23/18 10:00 10/23/18 10:00 10/22/18 15:46 10/23/18 10:00 Oxygen Flow Rate (L/min) 3 Oxygen Delivery Method Nasal Cannula Weight: 101.831 kg Body Mass Index (BMI) 28.1 Intake and Output for Last 24 Hours 10/21/18 10/22/18 10/23/18 23:59 23:59 23:59 Intake Total 920 / 920 480 / 480 420 / 420 Balance 920 / 920 480 / 480 420 / 420 Past Medical History Past Medical History (Chronic Problems): Chronic Problems GERD (gastroesophageal reflux disease) (Chronic) Obesity (Chronic) Rotator cuff arthropathy (Chronic) Osteoarthritis (Chronic) Depression (Chronic) History of pulmonary embolism (Chronic) History of DVT (deep vein thrombosis) (Chronic) Hypertension (Chronic) Allergies codeine Allergy (Verified 09/22/18 17:24) Rash Home Medications: Ambulatory Orders Medication Instructions Recorded Acetaminophen [Tylenol] 325 mg PO TID PRN 09/22/18 Aspirin [Aspirin, Baby] 81 mg PO DAILY@0800 09/22/18 Atorvastatin Calcium [Lipitor] 40 mg PO QHS 09/22/18 Clopidogrel Bisulfate [Plavix] 75 mg PO DAILY 09/22/18 Diclofenac Sodium [Voltaren] 100 gm TP 4X/DAY 09/22/18 Lisinopril [Zestril] 10 mg PO DAILY 09/22/18 Sennosides/Docusate Sodium 1 each PO DAILY 09/22/18 [Senna-S Tablet] Amlodipine [Norvasc] 5 mg PO DAILY 10/19/18 Calcium Carbonate [Tums] 1,000 mg PO Q4H PRN PRN tablet 10/19/18 Enoxaparin [Lovenox] 40 mg SC DAILY@0600 10/19/18 Gabapentin [Neurontin] 200 mg PO 0800,1400 10/19/18 Gabapentin [Neurontin] 400 mg PO QHS 10/19/18 Meclizine HCl [Antivert] 12.5 mg PO BID PRN PRN tablet 10/19/18 Menthol [Bengay Vanishing Scent] 1 applic TOPICAL 4X/DAY PRN PRN 10/19/18 tube Mesalamine [Lialda] 2.4 gm PO BID 10/19/18 Modafinil [Provigil] 200 mg PO DAILY@0600 10/19/18 Ondansetron [Zofran] 4 mg PO Q8H PRN PRN tablet 10/19/18 Oxycodone [Oxyir] 5 mg PO Q6H PRN PRN 7 Days #30 tab 10/19/18 Pantoprazole Sodium [Protonix] 20 mg PO BID 10/19/18 Polyethylene Glycol 3350 [Miralax] 17 gm PO BID 10/19/18 Sertraline HCl [Zoloft] 25 mg PO DAILY #30 tab 10/19/18 Surgical History: colectomy, - - Knee arthroscopic surgery. Back surgery. Psychiatric History: Depression Lives: Spouse/ Significant Other Smoking Status: Former smoker Tobacco Use: Cigarettes Alcohol: None Drugs: None - *Family History Maternal History Items: DVT, - - Blood clots. Paternal History Items: No pertinent history Sibling History Items: - - Brother with history of blood clots as well. Review of Systems Constitutional: Denies: Chills, Fever, Weight Change HEENT: Denies: Head Aches, Sinus Congestion, Sinus Drainage Cardiovascular: Denies: Chest Pain, Palpitations Respiratory: Denies: Cough, Shortness of breath at rest, Sputum production Gastrointestinal: Denies: Abdominal Pain, Nausea, Vomiting Genitourinary: Denies: Dysuria Musculoskeletal: Reports: Shoulder Pain - Left, severe.. Denies: Joint Pain, Joint Tenderness Skin: Denies: Rash, Wounds Neurological: Denies: Numbness, Tingling, Focal weakness Psychiatric: Denies: Anxiety, Depression, Homicidal Ideations, Suicidal Ideations Hematologic/ Lymphatic: Denies: Easy Bruising, Easy Bleeding - Physical Exam General: Alert, Oriented x3, Cooperative HEENT: Atraumatic, PERRLA, EOMI, Normocephalic Neck: Supple, No JVD, Negative Carotid Bruits Lungs: Clear to auscultation, Normal air movement Cardiovascular: Regular rate, No murmurs Abdomen: Bowel Sounds Present, Soft, Non Tender Extremities: No edema, Capillary Refill Less than 3 Seconds Skin: No rashes, No breakdown Musculoskeletal: No Tenderness to Palpation of Joints or Extremities Neurological: Cranial nerves II-XII grossly intact Psych/Mental Status: Normal Affect, Appropriate Vital Signs Temp Pulse Resp BP Pulse Ox 98.3 F 70 18 117/62 92 10/22/18 15:46 10/23/18 10:00 10/23/18 10:00 10/22/18 15:46 10/23/18 10:00 Oxygen Flow Rate (L/min) 3 Oxygen Delivery Method Nasal Cannula Weight: 101.831 kg Body Mass Index (BMI) 28.1 Intake and Output for Last 24 Hours 10/21/18 10/22/18 10/23/18 23:59 23:59 23:59 Intake Total 920 / 920 480 / 480 420 / 420 Balance 920 / 920 480 / 480 420 / 420 Assessment/Plan All Active Problems Elevated factor VIII level (Acute) Severe left internal carotid stenosis (Acute) Occlusion of right internal carotid artery (Acute) Embolic stroke (Acute) 58 year old male with below past medical history [facility] resident, suffered right MCA stroke, admitted to TCU with debility, here for rehabilitation, strengthening, prior to discharge home with spouse. * Pain - Tylenol 1000MG Q8H PRN mild pain, Oxycodone 5MG Q6H PRN severe pain. * Stroke - Aspirin 81MG daily, Plavix 75MG daily. * Left rotator cuff tear - After informed consent, the area was prepped and draped in sterile manner, anesthesia with vapocoolant spray, the subacromial bursa was injected with Kenalog 40MG, Lidocaine 2% 1ML, no immediate complications. * Bilateral carotid artery stenosis - Right ICA occluded, Left ICA > 70% stenosis, recommend left carotid endarterectomy earliest surgery date 03/17/2019.
[2018-10-23 16:00] VITALS: BP 113/75; PULSE 68; RESP 18; TEMP 36.4; O2SAT 95
[2018-10-23] MEDS: Atorvastatin Calcium 40 MG Tablet PO (21:38)
[2018-10-23] MEDS: Gabapentin 400 MG Capsule PO (21:38)
[2018-10-23] MEDS: oxyCODONE 5 MG Tablet PO (21:51)
[2018-10-24] MEDS: Modafinil 200 MG Tablet PO (07:00)
[2018-10-24] MEDS: Lisinopril 10 MG Tablet PO (07:01)
[2018-10-24] MEDS: Sertraline 50 MG Tablet 25 MG PO (07:01)
[2018-10-24] MEDS: amLODIPine 5 MG Tablet PO (07:01)
[2018-10-24] MEDS: Enoxaparin 40 MG/0.4 ML Syringe SC (07:02)
[2018-10-24] MEDS: Mesalamine 1.2 GM Tablet 2.4 GM PO ×2 (07:02→17:29)
[2018-10-24] MEDS: Pantoprazole Sodium 20 MG Tablet PO ×2 (07:02→17:29)
[2018-10-24] MEDS: Clopidogrel Bisulfate 75 MG Tablet PO (07:02)
[2018-10-24] MEDS: Meclizine 12.5 MG Tablet PO ×2 (07:06→20:42)
[2018-10-24] MEDS: Menthol/Lanolin/Calamine/Znox 113 GM Tube 1 APPLIC TOPICAL ×2 (07:15→20:46)
[2018-10-24 07:25] VITALS: O2SAT 94
[2018-10-24] MEDS: Gabapentin 100 MG Capsule 200 MG PO ×2 (08:01→13:44)
[2018-10-24] MEDS: Aspirin 81 MG TAB.CHEW PO (08:01)
[2018-10-24] MEDS: oxyCODONE 5 MG Tablet PO ×2 (11:10→18:39)
[2018-10-24 13:45] VITALS: PULSE 75; RESP 18; O2SAT 96
[2018-10-24 15:27] VITALS: BP 136/75; PULSE 75; RESP 18; TEMP 36.4; O2SAT 93
[2018-10-24] MEDS: Atorvastatin Calcium 40 MG Tablet PO (20:43)
[2018-10-24] MEDS: Gabapentin 400 MG Capsule PO (20:43)
[2018-10-25] MEDS: Modafinil 200 MG Tablet PO (05:42)
[2018-10-25] MEDS: Pantoprazole Sodium 20 MG Tablet PO ×2 (05:48→17:22)
[2018-10-25] MEDS: Mesalamine 1.2 GM Tablet 2.4 GM PO ×2 (05:48→17:22)
[2018-10-25] MEDS: Clopidogrel Bisulfate 75 MG Tablet PO (05:48)
[2018-10-25] MEDS: Sertraline 50 MG Tablet 25 MG PO (05:48)
[2018-10-25] MEDS: amLODIPine 5 MG Tablet PO (05:48)
[2018-10-25] MEDS: Lisinopril 10 MG Tablet PO (05:48)
[2018-10-25] MEDS: Meclizine 12.5 MG Tablet PO ×2 (05:48→19:54)
[2018-10-25] MEDS: Menthol/Lanolin/Calamine/Znox 113 GM Tube 1 APPLIC TOPICAL ×2 (05:51→19:58)
[2018-10-25] MEDS: Enoxaparin 40 MG/0.4 ML Syringe SC (06:12)
[2018-10-25] MEDS: Aspirin 81 MG TAB.CHEW PO (07:36)
[2018-10-25] MEDS: Gabapentin 100 MG Capsule 200 MG PO ×2 (07:36→13:34)
--- NOTE | 2018-10-25 13:30 | NURSING ---
STRAIGHT CATH DONE PER . PT TOLERATED WELL.
[2018-10-25] MEDS: oxyCODONE 5 MG Tablet PO ×2 (13:32→19:53)
[2018-10-25 13:38] LABS: Color, Urine Yellow (Yellow); Glucose, Dipstick Normal (Normal); Ketone-Dipstick Negative (Negative); Leukocyte Esterase-Dipstick 25 /ul (Negative); Nitrite-Dipstick Negative (Negative); Occult Blood-Urine 10 /ul (Negative); Protein-Dipstick 15 mg/dl (Negative); Specific Gravity, Urine 1.025 (1.002-1.030); Urine Bilirubin Dipstick Negative (Negative); Urine Clarity Sl. Cloudy (Clear); Urine Urobilinogen Normal (Normal)
[2018-10-25 13:44] LABS: Bacteria 1+ /hpf (None Seen); Mucous, Urine 1+ /hpf (<or=2+); Red Blood Cells-Urine 0-5 SEEN /hpf (0-5); Squamous Epithelial Cells - UA 0-5 SEEN /hpf (0-5); White Blood Cells 0-5 SEEN /hpf (0-5)
[2018-10-25 15:26] VITALS: BP 127/79; PULSE 63; RESP 14; TEMP 36.9; O2SAT 94
[2018-10-25] MEDS: Gabapentin 400 MG Capsule PO (19:52)
[2018-10-25] MEDS: Atorvastatin Calcium 40 MG Tablet PO (19:52)
[2018-10-25 21:50] VITALS: PULSE 78; RESP 18; O2SAT 97
[2018-10-26] MEDS: Modafinil 200 MG Tablet PO (06:24)
[2018-10-26] MEDS: Mesalamine 1.2 GM Tablet 2.4 GM PO ×2 (06:25→17:50)
[2018-10-26] MEDS: Senna/Docusate Sodium 1 Tablet 2 TABLET PO (06:27)
[2018-10-26] MEDS: Sertraline 50 MG Tablet 25 MG PO (06:27)
[2018-10-26] MEDS: Lisinopril 10 MG Tablet PO (06:27)
[2018-10-26] MEDS: Clopidogrel Bisulfate 75 MG Tablet PO (06:27)
[2018-10-26] MEDS: Pantoprazole Sodium 20 MG Tablet PO ×2 (06:27→17:50)
[2018-10-26] MEDS: Menthol/Lanolin/Calamine/Znox 113 GM Tube 1 APPLIC TOPICAL ×2 (06:28→20:17)
[2018-10-26] MEDS: Meclizine 12.5 MG Tablet PO ×2 (06:28→20:13)
[2018-10-26] MEDS: amLODIPine 5 MG Tablet PO (06:28)
[2018-10-26] MEDS: Enoxaparin 40 MG/0.4 ML Syringe SC (06:35)
[2018-10-26 06:38] VITALS: O2SAT 92
[2018-10-26] MEDS: Gabapentin 100 MG Capsule 200 MG PO ×2 (08:44→14:02)
[2018-10-26] MEDS: Aspirin 81 MG TAB.CHEW PO (08:44)
[2018-10-26 10:00] VITALS: PULSE 84; RESP 18; O2SAT 97
--- NOTE | 2018-10-26 13:15 | CASEMGMT ---
Insurance Clinical information faxed. Pending continued stay approval at this time. Auth#[id number] SHANI Mosley
--- NOTE | 2018-10-26 13:58 | CASEMGMT ---
Insurance Continued stay approved with next update due on 11/02/18. Auth#[id number] SHANI Mosley
[2018-10-26 15:48] VITALS: BP 128/83; PULSE 70; RESP 16; TEMP 37.2; O2SAT 93
[2018-10-26] MEDS: traMADol 50 MG Tablet PO (17:50)
--- NOTE | 2018-10-26 18:03 | NURSING ---
DR MUNOZ WITH NEW ORDERS FOR MIRALAX DECREASED TO DAILY, SENNA S DC'D, OXYIR D/C'D AND NEW ORDER FOR ULTRAM PER PT AND REQUEST.
[2018-10-26 19:54] VITALS: PULSE 65; RESP 18; O2SAT 97
[2018-10-26] MEDS: Gabapentin 400 MG Capsule PO (20:13)
[2018-10-26] MEDS: Atorvastatin Calcium 40 MG Tablet PO (20:13)
[2018-10-27] MEDS: Menthol/Lanolin/Calamine/Znox 113 GM Tube 1 APPLIC TOPICAL ×2 (05:29→20:58)
[2018-10-27] MEDS: Enoxaparin 40 MG/0.4 ML Syringe SC (05:30)
[2018-10-27] MEDS: Sertraline 50 MG Tablet 25 MG PO (05:32)
[2018-10-27] MEDS: Mesalamine 1.2 GM Tablet 2.4 GM PO ×2 (05:33→17:08)
[2018-10-27] MEDS: Pantoprazole Sodium 20 MG Tablet PO ×2 (05:33→17:08)
[2018-10-27] MEDS: Meclizine 12.5 MG Tablet PO ×2 (05:33→20:58)
[2018-10-27] MEDS: amLODIPine 5 MG Tablet PO (05:33)
[2018-10-27] MEDS: Clopidogrel Bisulfate 75 MG Tablet PO (05:33)
[2018-10-27] MEDS: Lisinopril 10 MG Tablet PO (05:33)
[2018-10-27] MEDS: Modafinil 200 MG Tablet PO (05:42)
[2018-10-27 05:53] LABS: Absolute Lymphocyte Count 1.76 X10^3/ul (0.83-4.51); Absolute Neutrophil Count 5.5 X10^3/uL (2.0-7.7); Basophil# 0.04 X10^3/uL; Basophil% 0.5 % (0-1); Eosinophil# 0.15 X10^3/uL; Eosinophils% 1.8 % (0-5); Hematocrit 43.7 % (40-54); Hemoglobin 14.8 g/dl (13.0-16.5); Lymphocyte # 1.76 X10^3/ul (4.0); Lymphocyte % 21.6 % (19-41); Mean Corp Hgb Conc 33.9 g/gl (32-36); Mean Corpuscular Hgb 30.5 pg (27.0-32.0); Mean Corpuscular Volume 89.9 fL (80-94); Mean Platelet Vol. 9.9 fl (6.2-12.0); Monocyte# 0.69 X10^3/uL; Monocyte% 8.5 % (0-10); Neutrophil # 5.46 X10^3/uL (2.7-7.7); Neutrophil % 67.2 % (47-70); Platelet Count 345 K/mm3 (150-450); RBC Distribution Width CV 13.7 % (11.6-14.6); Red Blood Count 4.86 M/mm3 (4.6-6.2); White Blood Count 8.1 K/mm3 (4.4-11.0)
[2018-10-27 05:54] LABS: POSITIVE COUNT NO; POSITIVE DIFFERENTIAL NO; POSITIVE MORPHOLOGY NO
[2018-10-27 06:15] LABS: Anion Gap 10 (5-15); BUN 17 mg/dL (7-18); BUN/Creat Ratio 18.8 RATIO (10-20); Calcium,Total 9.3 mg/dL (8.5-10.1); Chloride 106 mmol/L (98-107); Creatinine, Serum 0.91 mg/dL (0.70-1.30); EST Glomerular Filtration Rate 91 mL/min (>60); Est Glom Filt Rate - Afr Amer 110 mL/min (>60); Estimated Creatinine Clearance 103.17 ml/min; Glucose 91 mg/dL (74-106); Potassium 3.8 mmol/L (3.5-5.1); Sodium Level 140 mmol/L (136-145)
[2018-10-27 06:48] VITALS: O2SAT 93
[2018-10-27] MEDS: Aspirin 81 MG TAB.CHEW PO (08:51)
[2018-10-27] MEDS: Gabapentin 100 MG Capsule 200 MG PO ×2 (08:52→13:56)
[2018-10-27] MEDS: traMADol 50 MG Tablet PO ×2 (08:54→21:03)
[2018-10-27] MEDS: Tuberculin,Purif.prot.deriv. 50 TU/ML Vial 5 ML ID (11:23)
--- NOTE | 2018-10-27 12:55 | CASEMGMT ---
Reviewed and approved TANK PROCESSOR student MDS documentation. SHANI Mosley
[2018-10-27 15:46] VITALS: BP 127/80; PULSE 72; RESP 16; TEMP 36.4; O2SAT 94
--- NOTE | 2018-10-27 15:57 | CHAPLAIN ---
Type of Pastoral Visit _x__ Initial Visit ___ Follow-up Visit ___ On-call Visit ___ General Patient Visit ___ Spiritual Assessment ___ Family Conference ___ Bereavement ___ Rapid Response ___ Code Blue ___ Other (describe below) Pastoral Care Referral From _x__ Patient ___ Family ___ Nurse ___ Physician ___ Data Center Consultant ___ Staff Mechanical Engineer ___ Other (describe below) Sacrament/Intervention _x__ Active listening ___ Anointing ___ Presybeterian ___ Bereavement ___ Communion _x__ Urvashi exploration ___ _x__ Life review _x__ Prayer ___ Reconciliation ___ Sacrament of Sick _x__ Supportive presence ___ Wedding ___ Other (describe below) Pastoral Comments very inspirational conversation; pt wants to succeed and bless his nieces and nephews with life lessons; pt has spiritual heritage that he admits he should develop more in the future; pt is talkative and very open about his life; pt welcomes prayer and future visits
[2018-10-27] MEDS: Atorvastatin Calcium 40 MG Tablet PO (20:59)
[2018-10-27] MEDS: Gabapentin 400 MG Capsule PO (20:59)
[2018-10-27 21:00] VITALS: PULSE 66; O2SAT 97
[2018-10-28] MEDS: Menthol/Lanolin/Calamine/Znox 113 GM Tube 1 APPLIC TOPICAL ×2 (06:39→22:06)
[2018-10-28] MEDS: Mesalamine 1.2 GM Tablet 2.4 GM PO ×2 (06:45→17:04)
[2018-10-28] MEDS: Meclizine 12.5 MG Tablet PO ×2 (06:45→22:05)
[2018-10-28] MEDS: Sertraline 50 MG Tablet 25 MG PO (06:46)
[2018-10-28] MEDS: Pantoprazole Sodium 20 MG Tablet PO ×2 (06:46→17:04)
[2018-10-28] MEDS: Lisinopril 10 MG Tablet PO (06:46)
[2018-10-28] MEDS: Modafinil 200 MG Tablet PO (06:46)
[2018-10-28] MEDS: Enoxaparin 40 MG/0.4 ML Syringe SC (06:46)
[2018-10-28] MEDS: amLODIPine 5 MG Tablet PO (06:46)
[2018-10-28] MEDS: Clopidogrel Bisulfate 75 MG Tablet PO (06:46)
[2018-10-28] MEDS: Gabapentin 100 MG Capsule 200 MG PO ×2 (08:01→14:01)
[2018-10-28] MEDS: Aspirin 81 MG TAB.CHEW PO (08:01)
[2018-10-28 16:00] VITALS: BP 130/80; PULSE 62; RESP 18; TEMP 36.4; O2SAT 94
[2018-10-28] MEDS: traMADol 50 MG Tablet PO (19:42)
[2018-10-28] MEDS: Gabapentin 400 MG Capsule PO (22:05)
[2018-10-28] MEDS: Atorvastatin Calcium 40 MG Tablet PO (22:05)
[2018-10-29] MEDS: Mesalamine 1.2 GM Tablet 2.4 GM PO ×2 (05:47→16:05)
[2018-10-29] MEDS: Enoxaparin 40 MG/0.4 ML Syringe SC (05:48)
[2018-10-29] MEDS: Pantoprazole Sodium 20 MG Tablet PO ×2 (05:48→16:05)
[2018-10-29] MEDS: amLODIPine 5 MG Tablet PO (05:48)
[2018-10-29] MEDS: Sertraline 50 MG Tablet 25 MG PO (05:48)
[2018-10-29] MEDS: Lisinopril 10 MG Tablet PO (05:48)
[2018-10-29] MEDS: Clopidogrel Bisulfate 75 MG Tablet PO (05:48)
[2018-10-29] MEDS: Menthol/Lanolin/Calamine/Znox 113 GM Tube 1 APPLIC TOPICAL ×2 (05:49→22:24)
[2018-10-29] MEDS: Meclizine 12.5 MG Tablet PO ×2 (05:50→22:28)
[2018-10-29] MEDS: Modafinil 200 MG Tablet PO (05:57)
[2018-10-29] MEDS: Aspirin 81 MG TAB.CHEW PO (08:27)
[2018-10-29] MEDS: Gabapentin 100 MG Capsule 200 MG PO ×2 (08:27→12:22)
--- NOTE | 2018-10-29 13:50 | MDS.RN ---
Information for the mds was obtained from review of the clinical record, interview of resident, staff, and direct observation of resident's care.
[2018-10-29 16:00] VITALS: BP 136/89; PULSE 72; RESP 18; TEMP 36.4; O2SAT 92
[2018-10-29] MEDS: traMADol 50 MG Tablet PO (16:05)
--- NOTE | 2018-10-29 16:18 | PCA ---
Assisted pt with transfer to bed form wheelchair. Patient was sitting on side of bed, while i was unlocking and moving the wheelchair patient lifted up his right leg to take off his shoe and then lost his balance and tipped over onto his left side (shoulder) in the bed. RN notified
[2018-10-29] MEDS: Atorvastatin Calcium 40 MG Tablet PO (22:26)
[2018-10-29] MEDS: Gabapentin 400 MG Capsule PO (22:27)
[2018-10-29 22:33] VITALS: PULSE 69; RESP 18; O2SAT 97
[2018-10-30] MEDS: Menthol/Lanolin/Calamine/Znox 113 GM Tube 1 APPLIC TOPICAL ×2 (06:57→20:32)
[2018-10-30] MEDS: Modafinil 200 MG Tablet PO (06:58)
[2018-10-30] MEDS: Lisinopril 10 MG Tablet PO (06:59)
[2018-10-30] MEDS: Meclizine 12.5 MG Tablet PO ×2 (06:59→20:29)
[2018-10-30] MEDS: Clopidogrel Bisulfate 75 MG Tablet PO (06:59)
[2018-10-30] MEDS: amLODIPine 5 MG Tablet PO (06:59)
[2018-10-30] MEDS: Sertraline 50 MG Tablet 25 MG PO (06:59)
[2018-10-30] MEDS: Pantoprazole Sodium 20 MG Tablet PO ×2 (06:59→18:33)
[2018-10-30] MEDS: Mesalamine 1.2 GM Tablet 2.4 GM PO ×2 (06:59→18:33)
[2018-10-30] MEDS: Enoxaparin 40 MG/0.4 ML Syringe SC (07:06)
[2018-10-30 07:17] VITALS: BP 190/92; PULSE 81
[2018-10-30] MEDS: Aspirin 81 MG TAB.CHEW PO (08:52)
[2018-10-30] MEDS: Gabapentin 100 MG Capsule 200 MG PO ×2 (08:52→13:42)
--- NOTE | 2018-10-30 12:56 | CASEMGMT ---
Brief interview for mental status (BIMS) and resident mood interview (PHQ-9) completed on this day. BIMS score 15. PHQ-9 score 10/25
[2018-10-30 15:30] VITALS: PULSE 66; RESP 18; O2SAT 98
--- NOTE | 2018-10-30 15:42 | CASEMGMT ---
Plan of care meeting held. Resident present as well as resident spouse. No discharge date set. Resident to continue with further care and treatment on the Transitional Care Unit. Resident spouse reporting that resident will need a wheelchair and a paul-walker at time of discharge. Resident plans to discharge to home with spouse at time of discharge. Resident with insurance update due on 11/02/18 and is aware that continued stay approval is not guaranteed. Support given. Will continue to follow. Cameron MCLEOD, PRINCE
[2018-10-30 15:50] VITALS: BP 116/73; PULSE 78; RESP 18; TEMP 36.6; O2SAT 97
[2018-10-30] MEDS: traMADol 50 MG Tablet PO (20:25)
[2018-10-30] MEDS: Atorvastatin Calcium 40 MG Tablet PO (20:26)
[2018-10-30] MEDS: Gabapentin 400 MG Capsule PO (20:26)
[2018-10-31] MEDS: Menthol/Lanolin/Calamine/Znox 113 GM Tube 1 APPLIC TOPICAL ×2 (07:00→21:01)
[2018-10-31] MEDS: amLODIPine 5 MG Tablet PO (07:01)
[2018-10-31] MEDS: Pantoprazole Sodium 20 MG Tablet PO ×2 (07:01→18:11)
[2018-10-31] MEDS: Clopidogrel Bisulfate 75 MG Tablet PO (07:01)
[2018-10-31] MEDS: Lisinopril 10 MG Tablet PO (07:01)
[2018-10-31] MEDS: Sertraline 50 MG Tablet 25 MG PO (07:01)
[2018-10-31] MEDS: Mesalamine 1.2 GM Tablet 2.4 GM PO ×2 (07:02→18:12)
[2018-10-31] MEDS: Meclizine 12.5 MG Tablet PO ×2 (07:02→21:01)
[2018-10-31] MEDS: Enoxaparin 40 MG/0.4 ML Syringe SC (07:02)
[2018-10-31] MEDS: Modafinil 200 MG Tablet PO (07:12)
[2018-10-31] MEDS: Gabapentin 100 MG Capsule 200 MG PO ×2 (07:58→14:59)
[2018-10-31] MEDS: Aspirin 81 MG TAB.CHEW PO (07:59)
[2018-10-31] MEDS: traMADol 50 MG Tablet PO ×3 (08:05→21:00)
[2018-10-31 16:00] VITALS: BP 125/73; PULSE 68; RESP 16; TEMP 36.4; O2SAT 95
[2018-10-31] MEDS: Atorvastatin Calcium 40 MG Tablet PO (21:02)
[2018-10-31] MEDS: Gabapentin 400 MG Capsule PO (21:02)
[2018-10-31 21:05] VITALS: PULSE 65; O2SAT 95
[2018-11-01] MEDS: Modafinil 200 MG Tablet PO (06:19)
[2018-11-01] MEDS: Menthol/Lanolin/Calamine/Znox 113 GM Tube 1 APPLIC TOPICAL ×2 (06:21→20:41)
[2018-11-01] MEDS: Mesalamine 1.2 GM Tablet 2.4 GM PO ×2 (06:21→16:54)
[2018-11-01] MEDS: Meclizine 12.5 MG Tablet PO ×2 (06:21→20:40)
[2018-11-01] MEDS: Lisinopril 10 MG Tablet PO (06:22)
[2018-11-01] MEDS: Clopidogrel Bisulfate 75 MG Tablet PO (06:22)
[2018-11-01] MEDS: Pantoprazole Sodium 20 MG Tablet PO ×2 (06:22→16:54)
[2018-11-01] MEDS: amLODIPine 5 MG Tablet PO (06:22)
[2018-11-01] MEDS: Enoxaparin 40 MG/0.4 ML Syringe SC (06:22)
[2018-11-01] MEDS: Sertraline 50 MG Tablet 25 MG PO (06:23)
[2018-11-01] MEDS: Gabapentin 100 MG Capsule 200 MG PO ×2 (07:55→14:27)
[2018-11-01] MEDS: Aspirin 81 MG TAB.CHEW PO (07:55)
[2018-11-01] MEDS: traMADol 50 MG Tablet PO ×2 (12:38→19:01)
[2018-11-01 16:00] VITALS: BP 141/74; PULSE 74; RESP 18; TEMP 36.4; O2SAT 96
[2018-11-01] MEDS: Atorvastatin Calcium 40 MG Tablet PO (20:41)
[2018-11-01] MEDS: Gabapentin 400 MG Capsule PO (20:41)
[2018-11-01 20:42] VITALS: PULSE 65; O2SAT 95
[2018-11-02] MEDS: Modafinil 200 MG Tablet PO (06:29)
[2018-11-02] MEDS: Menthol/Lanolin/Calamine/Znox 113 GM Tube 1 APPLIC TOPICAL ×2 (06:29→20:12)
[2018-11-02] MEDS: Meclizine 12.5 MG Tablet PO ×2 (06:29→20:07)
[2018-11-02] MEDS: Pantoprazole Sodium 20 MG Tablet PO ×2 (06:30→17:39)
[2018-11-02] MEDS: Mesalamine 1.2 GM Tablet 2.4 GM PO ×2 (06:30→17:39)
[2018-11-02] MEDS: Enoxaparin 40 MG/0.4 ML Syringe SC (06:30)
[2018-11-02] MEDS: Clopidogrel Bisulfate 75 MG Tablet PO (06:30)
[2018-11-02] MEDS: amLODIPine 5 MG Tablet PO (06:30)
[2018-11-02] MEDS: Lisinopril 10 MG Tablet PO (06:30)
[2018-11-02] MEDS: Sertraline 50 MG Tablet 25 MG PO (06:30)
[2018-11-02] MEDS: Gabapentin 100 MG Capsule 200 MG PO ×2 (07:49→13:55)
[2018-11-02] MEDS: Aspirin 81 MG TAB.CHEW PO (07:49)
[2018-11-02 11:00] VITALS: PULSE 72; RESP 18; O2SAT 93
--- NOTE | 2018-11-02 12:18 | CASEMGMT ---
Insurance Clinical information sent. Pending continued stay approval at this time. Auth#[id number] Cameron MCLEOD, PRINCE
--- NOTE | 2018-11-02 13:11 | CASEMGMT ---
Reviewed and approved ONLINE ADVERTISING ANALYST student MDS documentation. Cameron MCLEOD, PRINCE
--- NOTE | 2018-11-02 13:46 | CASEMGMT ---
Insurance Continued stay approved with next update due on 11/09/18. Auth#[id number] Cameron MCLEOD, PRINCE
[2018-11-02 15:25] VITALS: BP 122/74; PULSE 70; RESP 16; TEMP 36.7; O2SAT 95
[2018-11-02] MEDS: traMADol 50 MG Tablet PO (20:05)
[2018-11-02] MEDS: Gabapentin 400 MG Capsule PO (20:07)
[2018-11-02] MEDS: Atorvastatin Calcium 40 MG Tablet PO (20:08)
[2018-11-03 05:54] LABS: Absolute Lymphocyte Count 1.99 X10^3/ul (0.83-4.51); Absolute Neutrophil Count 6.1 X10^3/uL (2.0-7.7); Basophil# 0.04 X10^3/uL; Basophil% 0.4 % (0-1); Eosinophil# 0.26 X10^3/uL; Eosinophils% 2.9 % (0-5); Hematocrit 42.3 % (40-54); Hemoglobin 13.8 g/dl (13.0-16.5); Lymphocyte # 1.99 X10^3/ul (4.0); Lymphocyte % 22.1 % (19-41); Mean Corp Hgb Conc 32.6 g/gl (32-36); Mean Corpuscular Hgb 29.9 pg (27.0-32.0); Mean Corpuscular Volume 91.6 fL (80-94); Mean Platelet Vol. 9.6 fl (6.2-12.0); Monocyte# 0.52 X10^3/uL; Monocyte% 5.8 % (0-10); Neutrophil # 6.14 X10^3/uL (2.7-7.7); Neutrophil % 68.4 % (47-70); Platelet Count 292 K/mm3 (150-450); RBC Distribution Width CV 14.1 % (11.6-14.6); RBC Distribution Width SD 46.8 fl (35.1-43.9); Red Blood Count 4.62 M/mm3 (4.6-6.2)
[2018-11-03 05:58] LABS: POSITIVE COUNT NO; POSITIVE DIFFERENTIAL NO; POSITIVE MORPHOLOGY NO
[2018-11-03 06:05] LABS: Anion Gap 10 (5-15); BUN 11 mg/dL (7-18); BUN/Creat Ratio 13.4 RATIO (10-20); Calcium,Total 8.9 mg/dL (8.5-10.1); Chloride 109 mmol/L (98-107); Creatinine, Serum 0.82 mg/dL (0.70-1.30); EST Glomerular Filtration Rate 102 mL/min (>60); Est Glom Filt Rate - Afr Amer 123 mL/min (>60); Glucose 84 mg/dL (74-106); Sodium Level 143 mmol/L (136-145)
[2018-11-03] MEDS: Modafinil 200 MG Tablet PO (06:24)
[2018-11-03] MEDS: Meclizine 12.5 MG Tablet PO ×2 (06:24→21:10)
[2018-11-03] MEDS: amLODIPine 5 MG Tablet PO (06:24)
[2018-11-03] MEDS: Pantoprazole Sodium 20 MG Tablet PO ×2 (06:25→17:35)
[2018-11-03] MEDS: Sertraline 50 MG Tablet 25 MG PO (06:25)
[2018-11-03] MEDS: Mesalamine 1.2 GM Tablet 2.4 GM PO ×2 (06:25→17:35)
[2018-11-03] MEDS: Clopidogrel Bisulfate 75 MG Tablet PO (06:25)
[2018-11-03] MEDS: Enoxaparin 40 MG/0.4 ML Syringe SC (06:30)
[2018-11-03] MEDS: Lisinopril 10 MG Tablet PO (06:30)
[2018-11-03] MEDS: Menthol/Lanolin/Calamine/Znox 113 GM Tube 1 APPLIC TOPICAL ×2 (06:33→21:12)
[2018-11-03] MEDS: Aspirin 81 MG TAB.CHEW PO (07:56)
[2018-11-03] MEDS: Gabapentin 100 MG Capsule 200 MG PO ×2 (07:56→15:19)
[2018-11-03 15:42] VITALS: BP 134/85; PULSE 77; RESP 16; TEMP 36.3; O2SAT 93
--- NOTE | 2018-11-03 16:51 | CASEMGMT ---
Social Work Spoke with resident in room per resident request. Resident reporting to have recently found out about the of a close friend and is inquiring about attending the this . This manager social work offering/providing emotional and verbal support for resident. Resident open to this manager social work sitting and sharing memories of resident's friend and why resident's friend was such an impact on resident's life. Resident phone then rang during conversation, resident speaking with resident spouse about options for transportation to on . Resident spouse, Jd unsure about being able to manage resident needs during . Resident and Jd plan to discuss further and plan to talk with the therapy team tomorrow on what therapy is recommending as a safe plan for resident. Resident aware that the safe plan might be for resident to not go to the . This manager social work exploring how resident feels about thinking about not going to the , resident shrugging shoulders and stating that resident friend was a very important person in resident life. This manager social work voicing understanding of what resident is stating and validating residents thoughts. Support given. Will continue to follow as needed. Cameron MCLEOD, PRINCE
[2018-11-03] MEDS: traMADol 50 MG Tablet PO (19:39)
[2018-11-03 19:48] VITALS: O2SAT 99
[2018-11-03] MEDS: Gabapentin 400 MG Capsule PO (21:10)
[2018-11-03] MEDS: Atorvastatin Calcium 40 MG Tablet PO (21:10)
[2018-11-04] MEDS: traMADol 50 MG Tablet PO ×2 (06:00→19:01)
[2018-11-04] MEDS: Meclizine 12.5 MG Tablet PO ×2 (06:01→21:24)
[2018-11-04] MEDS: Clopidogrel Bisulfate 75 MG Tablet PO (06:01)
[2018-11-04] MEDS: Enoxaparin 40 MG/0.4 ML Syringe SC (06:01)
[2018-11-04] MEDS: Sertraline 50 MG Tablet 25 MG PO (06:01)
[2018-11-04] MEDS: Pantoprazole Sodium 20 MG Tablet PO ×2 (06:01→17:53)
[2018-11-04] MEDS: Mesalamine 1.2 GM Tablet 2.4 GM PO ×2 (06:01→17:53)
[2018-11-04] MEDS: Modafinil 200 MG Tablet PO (06:01)
[2018-11-04] MEDS: Lisinopril 10 MG Tablet PO (06:01)
[2018-11-04] MEDS: amLODIPine 5 MG Tablet PO (06:01)
[2018-11-04] MEDS: Menthol/Lanolin/Calamine/Znox 113 GM Tube 1 APPLIC TOPICAL ×2 (06:11→21:22)
[2018-11-04 07:00] VITALS: O2SAT 95
[2018-11-04] MEDS: Aspirin 81 MG TAB.CHEW PO (09:07)
[2018-11-04] MEDS: Gabapentin 100 MG Capsule 200 MG PO ×2 (09:07→13:00)
[2018-11-04 13:00] VITALS: PULSE 77; RESP 18; O2SAT 96
[2018-11-04 15:49] VITALS: BP 137/83; PULSE 66; RESP 16; TEMP 37; O2SAT 93
[2018-11-04] MEDS: Atorvastatin Calcium 40 MG Tablet PO (21:21)
[2018-11-04] MEDS: Gabapentin 400 MG Capsule PO (21:22)
[2018-11-05] MEDS: traMADol 50 MG Tablet PO ×2 (03:22→10:14)
[2018-11-05] MEDS: Modafinil 200 MG Tablet PO (06:10)
[2018-11-05] MEDS: Meclizine 12.5 MG Tablet PO ×2 (06:10→19:57)
[2018-11-05] MEDS: amLODIPine 5 MG Tablet PO (06:11)
[2018-11-05] MEDS: Pantoprazole Sodium 20 MG Tablet PO ×2 (06:11→19:23)
[2018-11-05] MEDS: Sertraline 50 MG Tablet 25 MG PO (06:11)
[2018-11-05] MEDS: Lisinopril 10 MG Tablet PO (06:11)
[2018-11-05] MEDS: Enoxaparin 40 MG/0.4 ML Syringe SC (06:11)
[2018-11-05] MEDS: Clopidogrel Bisulfate 75 MG Tablet PO (06:12)
[2018-11-05] MEDS: Mesalamine 1.2 GM Tablet 2.4 GM PO ×2 (06:13→19:24)
[2018-11-05] MEDS: Menthol/Lanolin/Calamine/Znox 113 GM Tube 1 APPLIC TOPICAL ×2 (06:15→19:59)
[2018-11-05 06:37] VITALS: O2SAT 95
[2018-11-05] MEDS: Gabapentin 100 MG Capsule 200 MG PO ×2 (07:53→13:25)
[2018-11-05] MEDS: Aspirin 81 MG TAB.CHEW PO (07:53)
--- NOTE | 2018-11-05 10:18 | NURSING ---
PT LEFT JIMMY AT 10:17 WITH FAMILY FOR A . AZIZA,FROM THERAPY TOOK PT DOWN IN WHEEL CHAIR TO HELP PT IN TO CAR. OK PER EDILMA FITCH TO SEND GABAPENTIN WITH PT FOR 1400. GAVE MED TO PT FAMILY MEMBER TO GIVE WITH INSTRUCTIONS. EDILMA FITCH AWARE
[2018-11-05 18:50] VITALS: BP 148/84; PULSE 74; RESP 14; TEMP 36.5; O2SAT 94
[2018-11-05] MEDS: Gabapentin 400 MG Capsule PO (19:57)
[2018-11-05] MEDS: Atorvastatin Calcium 40 MG Tablet PO (19:57)
[2018-11-06 02:00] VITALS: PULSE 60; RESP 18; O2SAT 96
[2018-11-06] MEDS: traMADol 50 MG Tablet PO ×2 (03:25→14:51)
[2018-11-06 06:34] VITALS: O2SAT 94
[2018-11-06] MEDS: Meclizine 12.5 MG Tablet PO ×2 (07:04→20:24)
[2018-11-06] MEDS: Modafinil 200 MG Tablet PO (07:04)
[2018-11-06] MEDS: Mesalamine 1.2 GM Tablet 2.4 GM PO ×2 (07:05→17:28)
[2018-11-06] MEDS: Enoxaparin 40 MG/0.4 ML Syringe SC (07:05)
[2018-11-06] MEDS: amLODIPine 5 MG Tablet PO (07:06)
[2018-11-06] MEDS: Clopidogrel Bisulfate 75 MG Tablet PO (07:06)
[2018-11-06] MEDS: Pantoprazole Sodium 20 MG Tablet PO ×2 (07:06→17:28)
[2018-11-06] MEDS: Sertraline 50 MG Tablet 25 MG PO (07:06)
[2018-11-06] MEDS: Lisinopril 10 MG Tablet PO (07:07)
[2018-11-06] MEDS: Menthol/Lanolin/Calamine/Znox 113 GM Tube 1 APPLIC TOPICAL ×2 (07:13→20:24)
[2018-11-06] MEDS: Gabapentin 100 MG Capsule 200 MG PO ×2 (07:53→14:47)
[2018-11-06] MEDS: Aspirin 81 MG TAB.CHEW PO (07:54)
[2018-11-06 15:36] VITALS: BP 114/66; PULSE 68; RESP 18; TEMP 36.9; O2SAT 92
[2018-11-06] MEDS: Atorvastatin Calcium 40 MG Tablet PO (20:25)
[2018-11-06] MEDS: Gabapentin 400 MG Capsule PO (20:26)
[2018-11-07] MEDS: Menthol/Lanolin/Calamine/Znox 113 GM Tube 1 APPLIC TOPICAL ×2 (06:33→21:32)
[2018-11-07] MEDS: Enoxaparin 40 MG/0.4 ML Syringe SC (06:34)
[2018-11-07] MEDS: Pantoprazole Sodium 20 MG Tablet PO ×2 (06:34→17:46)
[2018-11-07] MEDS: Lisinopril 10 MG Tablet PO (06:34)
[2018-11-07] MEDS: Sertraline 50 MG Tablet 25 MG PO (06:34)
[2018-11-07] MEDS: amLODIPine 5 MG Tablet PO (06:34)
[2018-11-07] MEDS: Meclizine 12.5 MG Tablet PO ×2 (06:34→21:32)
[2018-11-07] MEDS: Clopidogrel Bisulfate 75 MG Tablet PO (06:34)
[2018-11-07] MEDS: Mesalamine 1.2 GM Tablet 2.4 GM PO ×2 (06:34→17:45)
[2018-11-07] MEDS: Modafinil 200 MG Tablet PO (06:37)
[2018-11-07 07:55] VITALS: O2SAT 98
[2018-11-07] MEDS: Gabapentin 100 MG Capsule 200 MG PO ×2 (08:43→15:43)
[2018-11-07] MEDS: Aspirin 81 MG TAB.CHEW PO (08:43)
[2018-11-07 15:18] VITALS: BP 123/76; PULSE 64; RESP 18; TEMP 36.5; O2SAT 94
[2018-11-07] MEDS: traMADol 50 MG Tablet PO (20:53)
[2018-11-07 21:07] VITALS: RESP 15
[2018-11-07] MEDS: Atorvastatin Calcium 40 MG Tablet PO (21:33)
[2018-11-07] MEDS: Gabapentin 400 MG Capsule PO (21:33)
[2018-11-08] MEDS: Lisinopril 10 MG Tablet PO (05:46)
[2018-11-08] MEDS: Sertraline 50 MG Tablet 25 MG PO (05:46)
[2018-11-08] MEDS: Enoxaparin 40 MG/0.4 ML Syringe SC (05:46)
[2018-11-08] MEDS: Clopidogrel Bisulfate 75 MG Tablet PO (05:47)
[2018-11-08] MEDS: Mesalamine 1.2 GM Tablet 2.4 GM PO ×2 (05:47→17:06)
[2018-11-08] MEDS: Menthol/Lanolin/Calamine/Znox 113 GM Tube 1 APPLIC TOPICAL ×2 (05:47→20:40)
[2018-11-08] MEDS: Meclizine 12.5 MG Tablet PO ×2 (05:47→20:40)
[2018-11-08] MEDS: amLODIPine 5 MG Tablet PO (05:47)
[2018-11-08] MEDS: Pantoprazole Sodium 20 MG Tablet PO ×2 (05:47→17:06)
[2018-11-08] MEDS: Modafinil 200 MG Tablet PO (05:53)
[2018-11-08] MEDS: Aspirin 81 MG TAB.CHEW PO (08:19)
[2018-11-08] MEDS: Gabapentin 100 MG Capsule 200 MG PO ×2 (08:19→14:13)
[2018-11-08 10:00] VITALS: RESP 16
[2018-11-08] MEDS: traMADol 50 MG Tablet PO ×2 (11:49→17:54)
[2018-11-08 16:00] VITALS: BP 142/83; PULSE 63; RESP 18; TEMP 36.4; O2SAT 93
[2018-11-08] MEDS: Acetaminophen 500 MG Tablet 1000 MG PO (17:05)
[2018-11-08] MEDS: Atorvastatin Calcium 40 MG Tablet PO (20:39)
[2018-11-08] MEDS: Gabapentin 400 MG Capsule PO (20:40)
[2018-11-09] MEDS: Enoxaparin 40 MG/0.4 ML Syringe SC (06:33)
[2018-11-09] MEDS: Meclizine 12.5 MG Tablet PO ×2 (06:33→19:52)
[2018-11-09] MEDS: Pantoprazole Sodium 20 MG Tablet PO ×2 (06:33→18:17)
[2018-11-09] MEDS: Sertraline 50 MG Tablet 25 MG PO (06:33)
[2018-11-09] MEDS: Lisinopril 10 MG Tablet PO (06:33)
[2018-11-09] MEDS: Mesalamine 1.2 GM Tablet 2.4 GM PO ×2 (06:34→18:17)
[2018-11-09] MEDS: amLODIPine 5 MG Tablet PO (06:34)
[2018-11-09] MEDS: Menthol/Lanolin/Calamine/Znox 113 GM Tube 1 APPLIC TOPICAL ×2 (06:34→19:52)
[2018-11-09] MEDS: Modafinil 200 MG Tablet PO (06:36)
[2018-11-09] MEDS: Clopidogrel Bisulfate 75 MG Tablet PO (06:36)
[2018-11-09] MEDS: Gabapentin 100 MG Capsule 200 MG PO ×2 (08:17→13:59)
[2018-11-09] MEDS: Aspirin 81 MG TAB.CHEW PO (08:17)
[2018-11-09] MEDS: traMADol 50 MG Tablet PO ×2 (09:46→18:22)
[2018-11-09 11:30] VITALS: O2SAT 94
--- NOTE | 2018-11-09 12:50 | CASEMGMT ---
Insurance Clinical update faxed. Will await continued stay determination. Auth # [id number] TYRELL Mccord
[2018-11-09 15:36] VITALS: BP 112/73; PULSE 65; RESP 16; TEMP 36.9; O2SAT 94
--- NOTE | 2018-11-09 15:56 | CASEMGMT ---
Insurance Continued stay approved with next update due on 11/12/18 with possible LCD being issued. Auth # [id number] Phone call to pt and informed of above and possible LCD. TYRELL Mccord
[2018-11-09] MEDS: Gabapentin 400 MG Capsule PO (19:53)
[2018-11-09] MEDS: Atorvastatin Calcium 40 MG Tablet PO (19:53)
[2018-11-09 19:54] VITALS: PULSE 64; O2SAT 97
[2018-11-10 06:27] VITALS: O2SAT 96
[2018-11-10] MEDS: Modafinil 200 MG Tablet PO (06:52)
[2018-11-10] MEDS: Mesalamine 1.2 GM Tablet 2.4 GM PO ×2 (06:53→17:50)
[2018-11-10] MEDS: Meclizine 12.5 MG Tablet PO ×2 (06:53→21:38)
[2018-11-10] MEDS: Menthol/Lanolin/Calamine/Znox 113 GM Tube 1 APPLIC TOPICAL ×2 (06:53→21:39)
[2018-11-10] MEDS: Clopidogrel Bisulfate 75 MG Tablet PO (06:54)
[2018-11-10] MEDS: amLODIPine 5 MG Tablet PO (06:54)
[2018-11-10] MEDS: Pantoprazole Sodium 20 MG Tablet PO ×2 (06:54→17:50)
[2018-11-10] MEDS: Enoxaparin 40 MG/0.4 ML Syringe SC (06:54)
[2018-11-10] MEDS: Sertraline 50 MG Tablet 25 MG PO (06:54)
[2018-11-10] MEDS: Lisinopril 10 MG Tablet PO (06:54)
[2018-11-10] MEDS: Aspirin 81 MG TAB.CHEW PO (07:28)
[2018-11-10] MEDS: Gabapentin 100 MG Capsule 200 MG PO ×2 (07:28→13:22)
[2018-11-10 15:17] VITALS: BP 119/72; PULSE 69; RESP 18; TEMP 36.5; O2SAT 95
--- NOTE | 2018-11-10 16:54 | CASEMGMT ---
Social Work Spoke with resident and resident spouse. Resident and resident spouse aware that continued stay approval by insurance will most likely happen and that resident will need to prepare for discharge later this week. Resident spouse reporting that 11/14/18 would be the chosen date for discharge, if insurance is in fact not approving more time. This social sciences lecturer communicating that when the insurance update is sent in a request for 11/14/18 can be made. Resident plans to discharge to home with spouse. Resident will need a wheelchair (18) and a paul-walker at time of discharge. Resident spouse, Jd planning to get an extended tub bench as well as a bed rail and hand rails for the bathroom. Resident plans to discharge to home with spouse at time of discharge. Jd reporting that requested home health company would be [facility] through [place] for P.T/O.T/S[employer]L.P[employer]/S.N. Support given. Will continue to follow to begin setting up home health care and needed DME, mentioned above. Cameron MCLEOD, PRINCE
[2018-11-10] MEDS: traMADol 50 MG Tablet PO (18:58)
[2018-11-10 19:55] VITALS: PULSE 69; O2SAT 98
[2018-11-10] MEDS: Atorvastatin Calcium 40 MG Tablet PO (21:38)
[2018-11-10] MEDS: Gabapentin 400 MG Capsule PO (21:38)
[2018-11-11 05:57] LABS: Absolute Lymphocyte Count 1.48 X10^3/ul (0.83-4.51); Absolute Neutrophil Count 4.9 X10^3/uL (2.0-7.7); Basophil# 0.04 X10^3/uL; Basophil% 0.6 % (0-1); Eosinophil# 0.21 X10^3/uL; Hematocrit 43.9 % (40-54); Hemoglobin 14.6 g/dl (13.0-16.5); Lymphocyte # 1.48 X10^3/ul (4.0); Lymphocyte % 20.8 % (19-41); Mean Corp Hgb Conc 33.3 g/gl (32-36); Mean Corpuscular Hgb 30.4 pg (27.0-32.0); Mean Corpuscular Volume 91.3 fL (80-94); Mean Platelet Vol. 10.1 fl (6.2-12.0); Neutrophil # 4.85 X10^3/uL (2.7-7.7); Neutrophil % 68.3 % (47-70); Platelet Count 285 K/mm3 (150-450); RBC Distribution Width CV 13.8 % (11.6-14.6); RBC Distribution Width SD 45.8 fl (35.1-43.9); Red Blood Count 4.81 M/mm3 (4.6-6.2); White Blood Count 7.1 K/mm3 (4.4-11.0)
[2018-11-11] MEDS: Meclizine 12.5 MG Tablet PO ×2 (06:05→20:55)
[2018-11-11] MEDS: amLODIPine 5 MG Tablet PO (06:07)
[2018-11-11] MEDS: Mesalamine 1.2 GM Tablet 2.4 GM PO ×2 (06:07→18:01)
[2018-11-11] MEDS: Clopidogrel Bisulfate 75 MG Tablet PO (06:08)
[2018-11-11] MEDS: Lisinopril 10 MG Tablet PO (06:08)
[2018-11-11] MEDS: Pantoprazole Sodium 20 MG Tablet PO ×2 (06:08→18:01)
[2018-11-11] MEDS: Modafinil 200 MG Tablet PO (06:09)
[2018-11-11] MEDS: Sertraline 50 MG Tablet 25 MG PO (06:09)
[2018-11-11] MEDS: Enoxaparin 40 MG/0.4 ML Syringe SC (06:10)
[2018-11-11] MEDS: Menthol/Lanolin/Calamine/Znox 113 GM Tube 1 APPLIC TOPICAL ×2 (06:17→21:01)
[2018-11-11 06:26] LABS: Anion Gap 11 (5-15); BUN 13 mg/dL (7-18); BUN/Creat Ratio 14.5 RATIO (10-20); Calcium,Total 8.9 mg/dL (8.5-10.1); Chloride 107 mmol/L (98-107); EST Glomerular Filtration Rate 92 mL/min (>60); Est Glom Filt Rate - Afr Amer 111 mL/min (>60); Estimated Creatinine Clearance 104.32 ml/min; Glucose 88 mg/dL (74-106); Potassium 3.8 mmol/L (3.5-5.1); Sodium Level 141 mmol/L (136-145)
[2018-11-11 06:27] LABS: POSITIVE COUNT NO; POSITIVE DIFFERENTIAL NO; POSITIVE MORPHOLOGY NO
[2018-11-11 06:30] VITALS: O2SAT 96
[2018-11-11] MEDS: Aspirin 81 MG TAB.CHEW PO (08:12)
[2018-11-11] MEDS: Gabapentin 100 MG Capsule 200 MG PO ×2 (08:12→14:50)
[2018-11-11] MEDS: traMADol 50 MG Tablet PO ×2 (14:50→20:55)
[2018-11-11 15:44] VITALS: BP 122/77; PULSE 69; RESP 18; TEMP 36.9; O2SAT 93
--- NOTE | 2018-11-11 19:54 | DCINST_ITS ---
- Discharge Diagnoses Current Active Problems: Current Active and Chronic Problems GERD (gastroesophageal reflux disease) (Chronic) Obesity (Chronic) Rotator cuff arthropathy (Chronic) Osteoarthritis (Chronic) Depression (Chronic) You will use the following diet at home:: No restrictions, Regular Your food should be the consistency of: Regular Your liquids should be the consistency of: Regular/Thin Discharge Activity: Return to Normal Activity, May Not Drive, May Shower, Use Walker May resume sexual activity in: No Restrictions Weight Bearing Status: Weight bearing as tolerated Call your doctor if you observe: Fever of 101 or Higher, Inability to urinate, Inability to have a bowel movement, Shortness of breath, Chest pain, Uncontrolled pain Allergies/Adverse Reactions: Allergies codeine Allergy (Verified 09/22/18 17:24) Rash Medications to take at Discharge Aspirin [Aspirin, Baby] 81 mg PO DAILY@0800 09/22/18 Diclofenac Sodium [Voltaren] 100 gm TP 4X/DAY 09/22/18 Calcium Carbonate [Tums] 1,000 mg PO Q4H PRN PRN tablet 10/19/18 Menthol [Bengay Vanishing Scent] 1 applic TOPICAL 4X/DAY PRN PRN tube 10/19/18 Acetaminophen [Tylenol] 1,000 mg PO TID PRN PRN tablet 11/11/18 Amlodipine [Norvasc] 5 mg PO DAILY #30 tablet 11/11/18 Atorvastatin Calcium [Lipitor] 40 mg PO QHS #30 tablet 11/11/18 Clopidogrel Bisulfate [Plavix] 75 mg PO DAILY #30 tablet 11/11/18 Diclofenac Sodium [Voltaren] 1 applic TP 0600,1200,1800,0000 #1 tube 11/11/18 Gabapentin [Neurontin] 200 mg PO 0800,1400 #120 capsule 11/11/18 Gabapentin [Neurontin] 400 mg PO QHS #30 capsule 11/11/18 Lisinopril [Zestril] 10 mg PO DAILY #30 tablet 11/11/18 Meclizine HCl [Antivert] 12.5 mg PO BID PRN PRN #60 tablet 11/11/18 Menthol/Lanolin/Calamine/Znox [Calmoseptine Ointment] 1 applic TOPICAL 0600,2200 tube 11/11/18 Mesalamine [Lialda] 2.4 gm PO BID #60 tablet 11/11/18 Mineral Oil/Petrolatum,White [Eucerin] 1 applic TOPICAL 0600,2200 jar 11/11/18 Modafinil [Provigil] 200 mg PO DAILY@0600 #30 tab 11/11/18 Pantoprazole Sodium [Protonix] 20 mg PO BID #60 tablet 11/11/18 Sertraline HCl [Zoloft] 25 mg PO DAILY #30 tab 11/11/18 traMADol [Ultram] 50 mg PO Q6H PRN PRN 7 Days #30 tab 11/11/18 The following prescriptions were given: traMADol [Ultram] 50 mg PO Q6H PRN PRN 7 Days #30 tab PRN Reason: Moderate Pain (4-5/10) Amlodipine [Norvasc] 5 mg PO DAILY #30 tablet Atorvastatin Calcium [Lipitor] 40 mg PO QHS #30 tablet Clopidogrel Bisulfate [Plavix] 75 mg PO DAILY #30 tablet Diclofenac Sodium [Voltaren] 1 applic TP 0600,1200,1800,0000 #1 tube Gabapentin [Neurontin] 200 mg PO 0800,1400 #120 capsule Gabapentin [Neurontin] 400 mg PO QHS #30 capsule Lisinopril [Zestril] 10 mg PO DAILY #30 tablet Meclizine HCl [Antivert] 12.5 mg PO BID PRN PRN #60 tablet PRN Reason: Dizziness Modafinil [Provigil] 200 mg PO DAILY@0600 #30 tab Sertraline HCl [Zoloft] 25 mg PO DAILY #30 tab Mesalamine [Lialda] 2.4 gm PO BID #60 tablet Pantoprazole Sodium [Protonix] 20 mg PO BID #60 tablet Primary Care Physician: Hector Gordon MD [Primary Care Provider] - Please follow up with your Primary Care Physician in: 1 week. Test Results: Test results from this visit will be discussed in further detail at your follow- up appointment, if applicable. Please Follow Up With: Sleep study at discharge Please Follow Up With: Dr. Riddle d/t SLAP lesion with tear When: 1 week. Proposed Discharge Date: 11/14/18
--- NOTE | 2018-11-11 19:54 | PCM.DC.SUM ---
Discharge Date and Diagnosis Date of Admission: 10/19/18 Date of Discharge: 11/14/18 - Secondary Discharge Diagnosis Chronic Problems GERD (gastroesophageal reflux disease) (Chronic) Obesity (Chronic) Rotator cuff arthropathy (Chronic) Osteoarthritis (Chronic) Depression (Chronic) History of pulmonary embolism (Chronic) History of DVT (deep vein thrombosis) (Chronic) Hypertension (Chronic) Hospital Course and Treatment Imaging Results: 10/28/18 14:48 Diet: Cardiac/Low Cholesterol Is pt able to select menu?: Yes Diet Comments: Direct supervision,chin tuck with liquids,right head turn with solids. [facility]NI Labs (Last 48 Hours) 11/11/18 11/11/18 05:10 05:10 WBC 7.1 RBC 4.81 Hgb 14.6 Hct 43.9 MCV 91.3 MCH 30.4 MCHC 33.3 RDW 13.8 RDW Differential 45.8 H Plt Count 285 MPV 10.1 Immature Gran % (Auto) 0.300 Neut % (Auto) 68.3 Lymph % (Auto) 20.8 Morrow % (Auto) 7.0 Eos % (Auto) 3.0 Baso % (Auto) 0.6 Absolute Neuts (auto) 4.9 Absolute Lymphs (auto) 1.48 Total Counted Not Reportable Sodium 141 Potassium 3.8 Chloride 107 Carbon Dioxide 23.0 Anion Gap 11 BUN 13 Creatinine 0.90 Estim Creat Clear Calc 104.32 Est GFR (MDRD) Af Amer 111 Est GFR (MDRD) Non-Af 92 BUN/Creatinine Ratio 14.5 Glucose 88 Calcium 8.9 Operations: None Procedures: None Summary of Care Provided: The patient is a 58 year old Male with below past medical history [facility] resident, suffered right MCA stroke, admitted to TCU with debility, here for rehabilitation, strengthening, prior to discharge home with spouse. 10/23/2018 Left subacromial bursa steroid injection given for left rotator cuff tear. Will need ortho follow up. Bilateral carotid artery stenosis - Right ICA occluded, Left ICA > 70% stenosis, recommend left carotid endarterectomy earliest surgery date 03/17/2019. He is at high risk for sleep apnea, needs sleep study as outpatient. Discharge home with spouse, and Home Health Care. Resident's personal goal, to be able to ride his [employer] motorcycle again. - Physical Exam Vital Signs Temp Pulse Resp BP Pulse Ox 98.5 F 69 18 122/77 H 93 11/11/18 15:44 11/11/18 15:44 11/11/18 15:44 11/11/18 15:44 11/11/18 15:44 Oxygen Flow Rate (L/min) 3 Oxygen Delivery Method Room Air Weight: 102.285 kg Body Mass Index (BMI) 28.1 Intake and Output for Last 24 Hours 11/09/18 11/10/18 11/11/18 23:59 23:59 23:59 Intake Total 780 / 780 840 / 840 840 / 840 Output Total 200 / 200 Balance 580 / 580 840 / 840 840 / 840 Laboratory Tests Past 24 Hrs 11/11/18 11/11/18 05:10 05:10 WBC 7.1 RBC 4.81 Hgb 14.6 Hct 43.9 MCV 91.3 MCH 30.4 MCHC 33.3 RDW 13.8 RDW Differential 45.8 H Plt Count 285 MPV 10.1 Immature Gran % (Auto) 0.300 Neut % (Auto) 68.3 Lymph % (Auto) 20.8 Morrow % (Auto) 7.0 Eos % (Auto) 3.0 Baso % (Auto) 0.6 Absolute Neuts (auto) 4.9 Absolute Lymphs (auto) 1.48 Total Counted Not Reportable Sodium 141 Potassium 3.8 Chloride 107 Carbon Dioxide 23.0 Anion Gap 11 BUN 13 Creatinine 0.90 Estim Creat Clear Calc 104.32 Est GFR (MDRD) Af Amer 111 Est GFR (MDRD) Non-Af 92 BUN/Creatinine Ratio 14.5 Glucose 88 Calcium 8.9 Discharge Diet: No Restrictions Discharge Activity: Return to Normal Activity, May Not Drive, May Shower, Use Walker May resume sexual activity in: No Restrictions Weight Bearing Status: Weight bearing as tolerated Call your doctor if you observe: Fever of 101 or Higher, Inability to urinate, Inability to have a bowel movement, Shortness of breath, Chest pain, Uncontrolled pain Home Medications: Medications to take at Discharge Aspirin [Aspirin, Baby] 81 mg PO DAILY@0800 09/22/18 Diclofenac Sodium [Voltaren] 100 gm TP 4X/DAY 09/22/18 Calcium Carbonate [Tums] 1,000 mg PO Q4H PRN PRN tablet 10/19/18 Menthol [Bengay Vanishing Scent] 1 applic TOPICAL 4X/DAY PRN PRN tube 10/19/18 Acetaminophen [Tylenol] 1,000 mg PO TID PRN PRN tablet 11/11/18 Amlodipine [Norvasc] 5 mg PO DAILY #30 tablet 11/11/18 Atorvastatin Calcium [Lipitor] 40 mg PO QHS #30 tablet 11/11/18 Clopidogrel Bisulfate [Plavix] 75 mg PO DAILY #30 tablet 11/11/18 Diclofenac Sodium [Voltaren] 1 applic TP 0600,1200,1800,0000 #1 tube 11/11/18 Gabapentin [Neurontin] 200 mg PO 0800,1400 #120 capsule 11/11/18 Gabapentin [Neurontin] 400 mg PO QHS #30 capsule 11/11/18 Lisinopril [Zestril] 10 mg PO DAILY #30 tablet 11/11/18 Meclizine HCl [Antivert] 12.5 mg PO BID PRN PRN #60 tablet 11/11/18 Menthol/Lanolin/Calamine/Znox [Calmoseptine Ointment] 1 applic TOPICAL 0600,2200 tube 11/11/18 Mesalamine [Lialda] 2.4 gm PO BID #60 tablet 11/11/18 Mineral Oil/Petrolatum,White [Eucerin] 1 applic TOPICAL 0600,2200 jar 11/11/18 Modafinil [Provigil] 200 mg PO DAILY@0600 #30 tab 11/11/18 Pantoprazole Sodium [Protonix] 20 mg PO BID #60 tablet 11/11/18 Sertraline HCl [Zoloft] 25 mg PO DAILY #30 tab 11/11/18 traMADol [Ultram] 50 mg PO Q6H PRN PRN 7 Days #30 tab 11/11/18 Following Prescrptions Were Given to Patient: traMADol [Ultram] 50 mg PO Q6H PRN PRN 7 Days #30 tab PRN Reason: Moderate Pain (4-5/10) Amlodipine [Norvasc] 5 mg PO DAILY #30 tablet Atorvastatin Calcium [Lipitor] 40 mg PO QHS #30 tablet Clopidogrel Bisulfate [Plavix] 75 mg PO DAILY #30 tablet Diclofenac Sodium [Voltaren] 1 applic TP 0600,1200,1800,0000 #1 tube Gabapentin [Neurontin] 200 mg PO 0800,1400 #120 capsule Gabapentin [Neurontin] 400 mg PO QHS #30 capsule Lisinopril [Zestril] 10 mg PO DAILY #30 tablet Meclizine HCl [Antivert] 12.5 mg PO BID PRN PRN #60 tablet PRN Reason: Dizziness Modafinil [Provigil] 200 mg PO DAILY@0600 #30 tab Sertraline HCl [Zoloft] 25 mg PO DAILY #30 tab Mesalamine [Lialda] 2.4 gm PO BID #60 tablet Pantoprazole Sodium [Protonix] 20 mg PO BID #60 tablet Primary Care Physician: Hector Gordon MD [Primary Care Provider] - Please follow up with your Primary Care Physician in: 1 week. Please Follow Up With: Sleep study at discharge Please Follow Up With: Dr. Riddle d/t SLAP lesion with tear When: 1 week. Disposition: Home with Home Health Minutes spent on discharge:: 35 Patient Condition:: Good Medical Necessity - Tobacco Use Smoking Status: Former smoker Tobacco Use: Cigarettes Meaningful Use Info Meaningful Use Diagnoses (Choose all that apply): None applicable
--- NOTE | 2018-11-11 19:58 | PCM.PN.HH ---
Home Health Note - Plan Overview of reason of hospitalization: The patient is a 58 year old Male with below past medical history [facility] resident, suffered right MCA stroke, admitted to TCU with debility, here for rehabilitation, strengthening, prior to discharge home with spouse. 10/23/2018 Left subacromial bursa steroid injection given for left rotator cuff tear. Will need ortho follow up. Bilateral carotid artery stenosis - Right ICA occluded, Left ICA > 70% stenosis, recommend left carotid endarterectomy earliest surgery date 03/17/2019. He is at high risk for sleep apnea, needs sleep study as outpatient. Discharge home with spouse, and Home Health Care. Resident's personal goal, to be able to ride his [employer] motorcycle again. Problems: Patient was seen for GERD (gastroesophageal reflux disease) (Chronic) Obesity (Chronic) Rotator cuff arthropathy (Chronic) Osteoarthritis (Chronic) Depression (Chronic) Complete List of Medical Problems GERD (gastroesophageal reflux disease) (Chronic) Obesity (Chronic) Rotator cuff arthropathy (Chronic) Osteoarthritis (Chronic) Depression (Chronic) Elevated factor VIII level (Acute) Severe left internal carotid stenosis (Acute) Occlusion of right internal carotid artery (Acute) Embolic stroke (Acute) History of pulmonary embolism (Chronic) History of DVT (deep vein thrombosis) (Chronic) Hypertension (Chronic) - Requirements and Reasons Disciplines Needed/Ordered: Physical Therapy, Speech Therapy Reason for Disciplines: Disease Specific Monitoring/education, Medication Management/Knowledge Deficit, Gait Training, Stair Training, Fall Prevention, Home Safety/Equipment Instruction, Balance and/or Posture Training, Transfer Training, Swallowing Exercise/Education, Improvement in Communication Related To: Change in Medical Treatment Plan, Limited/Poor Endurance, Physical Impairments, Unsteady Gait/Balance, Intractable Pain, Fall Risk Patient is unable to leave the home: Without Aid of Supportive Devices (crutches, cane, wheelchair, walker), Without the assistance of another person Medically Contraindicated related to: Weight Bearing Status - Additional Disciplines Additional Disciplines Needed/Ordered: Occupational Therapy, Manpower Development Specialist, Home Health Aide
[2018-11-11] MEDS: Gabapentin 400 MG Capsule PO (20:55)
[2018-11-11] MEDS: Atorvastatin Calcium 40 MG Tablet PO (20:55)
[2018-11-12] MEDS: Meclizine 12.5 MG Tablet PO ×2 (06:47→20:15)
[2018-11-12] MEDS: Pantoprazole Sodium 20 MG Tablet PO ×2 (06:47→17:36)
[2018-11-12] MEDS: Enoxaparin 40 MG/0.4 ML Syringe SC (06:47)
[2018-11-12] MEDS: Lisinopril 10 MG Tablet PO (06:47)
[2018-11-12] MEDS: Mesalamine 1.2 GM Tablet 2.4 GM PO ×2 (06:47→17:36)
[2018-11-12] MEDS: traMADol 50 MG Tablet PO ×2 (06:47→17:38)
[2018-11-12] MEDS: Clopidogrel Bisulfate 75 MG Tablet PO (06:47)
[2018-11-12] MEDS: amLODIPine 5 MG Tablet PO (06:47)
[2018-11-12] MEDS: Sertraline 50 MG Tablet 25 MG PO (06:47)
[2018-11-12] MEDS: Modafinil 200 MG Tablet PO (06:47)
[2018-11-12] MEDS: Menthol/Lanolin/Calamine/Znox 113 GM Tube 1 APPLIC TOPICAL ×2 (06:53→20:16)
[2018-11-12 07:10] VITALS: O2SAT 94
--- NOTE | 2018-11-12 08:23 | CPS ---
Patient off nasal cannula now, but reports having worn it last night and early this AM.
[2018-11-12] MEDS: Aspirin 81 MG TAB.CHEW PO (09:47)
[2018-11-12] MEDS: Gabapentin 100 MG Capsule 200 MG PO ×2 (09:47→14:42)
--- NOTE | 2018-11-12 10:46 | CASEMGMT ---
Social Work Order for wheelchair and paul-walker faxed to [facility] as [facility] is in network with resident insurance. [facility] to contact resident spouse, Jd with any billing questions. Equipment to be delivered to resident room prior to discharge. [facility] Referral made to physical, occupational, and speech therapy as well as a home health aide. Orders faxed. [facility] to contact this social media content specialist to confirm acceptance. Proposed discharge date: 11/14/18 PLAN: Discharge to home with spouse and home health care. Cameron MCLEOD, PRINCE
--- NOTE | 2018-11-12 10:48 | CASEMGMT ---
Insurance Clinical information faxed. Auth#[id number] Cameron Ortiz MSW, PRINCE
--- NOTE | 2018-11-12 11:27 | CASEMGMT ---
Social Work Telephone call from [facility], they are able to accept resident. Proposed discharge date: 11/14/18 PLAN: Discharge to home with spouse and home health care. Cameron MCLEOD, PRINCE
--- NOTE | 2018-11-12 11:34 | MDS.RN ---
Information for the mds was obtained from review of the clinical record, interview of resident, staff, and direct observation of resident's care.
--- NOTE | 2018-11-12 11:52 | CASEMGMT ---
Addendum entered by Mihaela Oritz 11/12/18 14:48: Reviewed and approved social work student MDS documentation. Cameron Ortiz CHANGE MANAGEMENT FACILITATOR, WHEELCHAIR VAN OPERATOR FIRST RESPONDER Original Note: Brief interview for mental status (BIMS) and mood (PHQ-9) completed on this day. BIMS score . PHQ-9 score 01/23. Zachariah Diehl social work student
--- NOTE | 2018-11-12 13:51 | MDS.RN ---
Pain interview for shari 11/14/18 completed.
[2018-11-12 16:00] VITALS: BP 129/76; PULSE 72; RESP 18; TEMP 36.7; O2SAT 90
[2018-11-12 19:49] VITALS: PULSE 70; O2SAT 94
[2018-11-12] MEDS: Gabapentin 400 MG Capsule PO (20:15)
[2018-11-12] MEDS: Atorvastatin Calcium 40 MG Tablet PO (20:15)
[2018-11-13] MEDS: Mesalamine 1.2 GM Tablet 2.4 GM PO ×2 (04:50→17:02)
[2018-11-13] MEDS: Meclizine 12.5 MG Tablet PO ×2 (04:51→20:23)
[2018-11-13] MEDS: Sertraline 50 MG Tablet 25 MG PO (04:51)
[2018-11-13] MEDS: amLODIPine 5 MG Tablet PO (04:52)
[2018-11-13] MEDS: Clopidogrel Bisulfate 75 MG Tablet PO (04:52)
[2018-11-13] MEDS: Pantoprazole Sodium 20 MG Tablet PO ×2 (04:53→17:02)
[2018-11-13] MEDS: Modafinil 200 MG Tablet PO (04:59)
[2018-11-13] MEDS: Enoxaparin 40 MG/0.4 ML Syringe SC (04:59)
[2018-11-13] MEDS: Lisinopril 10 MG Tablet PO (04:59)
[2018-11-13] MEDS: Menthol/Lanolin/Calamine/Znox 113 GM Tube 1 APPLIC TOPICAL ×2 (05:10→20:25)
[2018-11-13 08:06] VITALS: O2SAT 95
[2018-11-13] MEDS: Aspirin 81 MG TAB.CHEW PO (08:24)
[2018-11-13] MEDS: Gabapentin 100 MG Capsule 200 MG PO (08:24)
[2018-11-13 10:00] VITALS: PULSE 60; RESP 18; O2SAT 92
--- NOTE | 2018-11-13 12:47 | CASEMGMT ---
Social Work Nursing staff notifying this social service worker that resident has been utilizing oxygen at night. An over night oxygen test with be completed this evening and then if resident qualifies for home oxygen social work is to fax orders to [facility]. This social service worker did confirm with [facility] that weekend fax is the same as weekdays. [facility] also confirming to have orders for both wheelchair and paul-walker and to be now waiting for insurance approval prior to contacting resident spouse to set up delivery. Support given. Proposed discharge date: 11/14/18 PLAN: Discharge to home with spouse and home health care. Cameron MCLEOD, PRINCE
[2018-11-13] MEDS: traMADol 50 MG Tablet PO ×2 (12:53→20:19)
[2018-11-13 15:16] VITALS: BP 114/74; PULSE 70; RESP 18; TEMP 36.4; O2SAT 93
[2018-11-13] MEDS: Gabapentin 400 MG Capsule PO (20:23)
[2018-11-13] MEDS: Atorvastatin Calcium 40 MG Tablet PO (20:23)
[2018-11-13 22:12] VITALS: PULSE 74; O2SAT 95
[2018-11-14] MEDS: amLODIPine 5 MG Tablet PO (06:20)
[2018-11-14] MEDS: Pantoprazole Sodium 20 MG Tablet PO (06:20)
[2018-11-14] MEDS: Mesalamine 1.2 GM Tablet 2.4 GM PO (06:20)
[2018-11-14] MEDS: Clopidogrel Bisulfate 75 MG Tablet PO (06:20)
[2018-11-14] MEDS: Lisinopril 10 MG Tablet PO (06:20)
[2018-11-14] MEDS: Modafinil 200 MG Tablet PO (06:20)
[2018-11-14] MEDS: Sertraline 50 MG Tablet 25 MG PO (06:20)
[2018-11-14] MEDS: Meclizine 12.5 MG Tablet PO (06:22)
[2018-11-14] MEDS: Enoxaparin 40 MG/0.4 ML Syringe SC (06:26)
[2018-11-14] MEDS: Menthol/Lanolin/Calamine/Znox 113 GM Tube 1 APPLIC TOPICAL (06:27)
[2018-11-14] MEDS: Aspirin 81 MG TAB.CHEW PO (07:54)
[2018-11-14] MEDS: Gabapentin 100 MG Capsule 200 MG PO ×2 (07:54→14:00)
--- NOTE | 2018-11-14 08:42 | CASEMGMT ---
Social Work Resident not qualifying for home oxygen per over night oxygen test. Resident notified and voicing to have not wanted the oxygen at home. This social media intern did communicate the importance of following up on doctor recommendation to have a sleep study completed as outpatient. Resident voicing understanding. Proposed discharge date: 11/14/18 PLAN: Discharge to home with spouse and home health care. Cameron MCLEOD, PRINCE
[2018-11-14 09:20] VITALS: PULSE 70; RESP 18; O2SAT 95
--- NOTE | 2018-11-14 10:46 | CASEMGMT ---
Social Work Telephone call to [facility] to follow up on order, [facility] on-order desk caller to call this oncology social worker back with update on order for DME as resident is to discharge on this day and resident spouse is reporting to have received no contact information from [facility]. Will continue to follow. Cameron MCLEOD, PRINCE
[2018-11-14 10:54] VITALS: BP 130/73; PULSE 74; RESP 16; TEMP 36.7; O2SAT 95
--- NOTE | 2018-11-14 13:58 | CASEMGMT ---
Social Work Telephone call from Rashaun Riley. Rashaun reporting that order has now been processed and equipment is currently in route to resident room on the Transitional care Unit. Rashaun reporting to have received orders for equipment on of this week but that the orders were never passed on to correct person and processed, Rashaun apologizing for this. Resident and resident family aware. Support given. Proposed discharge date: 11/14/18 PLAN: Discharge to home with spouse and home health care. Cameron Ortiz MSW, PRINCE
--- NOTE | 2018-11-14 16:41 | CASEMGMT ---
Insurance Notified insurance of resident discharge on 11/14/18 to home with spouse and home health care. Auth#[id number] Cameron MCLEOD, PRINCE
--- OUTSIDE RECORDS SUMMARY | 2018-12-22 05:19 | XMS RPT_ITS ---
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 (3) Rotator cuff arthropathy Status: Chronic (4) Osteoarthritis Status: Chronic (5) Depression Status: Chronic (6) Elevated factor VIII level Status: Acute (7) Severe left internal carotid stenosis Status: Acute (8) Occlusion of right internal carotid artery Status: Acute (9) Embolic stroke Status: Acute (10) History of pulmonary embolism Status: Chronic (11) History of DVT (deep vein thrombosis) Status: Chronic (12) Hypertension Status: Chronic History of Present Illness Date of Admission: 10/19/18 Chief Complaint: Here for rehabilitation, strengthening, prior to discharge home with spouse. The patient is a 58 year old Male with below past medical history suffered right MCA embolic stroke 09/16/2018. CT brain showed hyperdense right MCA stroke. Patient transferred to [facility] for consideration of invasive intervention. MRI neck showed right ICA occlusion, > 70% stenosis left ICA. Patient was treated conservatively, medically. 09/23/2018 Admit to [facility]. Provigil started for hypersomnia. Zoloft increased from 25MG to 50MG for post stroke depression. Factor 8 elevated, hematology consulted. Pureed diet, honey thick liquids for dysphagia. Fentanyl patch, Oxycodone for chronic pain. Patient needs formal sleep study to evaluate for sleep apnea. He had urinary retention which resolved with bowel movement. He required IV fluids for refusing to eat. 10/19/2018 Admit to TCU for rehabilitation, strengthening, prior to discharge home with spouse. Past Medical History Past Medical History (Chronic Problems): Chronic Problems GERD (gastroesophageal reflux disease) (Chronic) Obesity (Chronic) Rotator cuff arthropathy (Chronic) Osteoarthritis (Chronic) Depression (Chronic) History of pulmonary embolism (Chronic) History of DVT (deep vein thrombosis) (Chronic) Hypertension (Chronic) Allergies codeine Allergy (Verified 09/22/18 17:24) Rash Home Medications: Ambulatory Orders Medication Instructions Recorded Acetaminophen [Tylenol] 325 mg PO TID PRN 09/22/18 Surgical History: colectomy, - - Knee arthroscopic surgery. Back surgery. Psychiatric History: Depression Lives: Spouse/ Significant Other Smoking Status: Former smoker Tobacco Use: Cigarettes Alcohol: None Drugs: None - *Family History Maternal History Items: DVT, - - Blood clots. Paternal History Items: No pertinent history Sibling History Items: - - Brother with history of blood clots as well. Review of Systems Constitutional: Denies: Chills, Fever, Weight Change HEENT: Denies: Head Aches, Sinus Congestion, Sinus Drainage Cardiovascular: Denies: Chest Pain, Palpitations Respiratory: Denies: Cough, Shortness of breath at rest, Sputum production Gastrointestinal: Denies: Abdominal Pain, Nausea, Vomiting Genitourinary: Denies: Dysuria Musculoskeletal: Denies: Joint Pain, Joint Tenderness Skin: Denies: Rash, Wounds Neurological: Denies: Numbness, Tingling, Focal weakness Psychiatric: Denies: Anxiety, Depression, Homicidal Ideations, Suicidal Ideations Hematologic/ Lymphatic: Denies: Easy Bruising, Easy Bleeding VTE Information - Inpt Only VTE Present on Admission: No VTE Mechan Device Prophylaxis: Knee High GENA Hose VTE Pharm Prophylaxis ordered?: Yes - Physical Exam General: Alert, Oriented x3, Cooperative HEENT: Atraumatic, PERRLA, EOMI, Normocephalic Neck: Supple, No JVD, Negative Carotid Bruits Lungs: Clear to auscultation, Normal air movement Cardiovascular: Regular rate, No murmurs Abdomen: Bowel Sounds Present, Soft, Non Tender Extremities: No edema, Capillary Refill Less than 3 Seconds Skin: No rashes, No breakdown Musculoskeletal: No Tenderness to Palpation of Joints or Extremities Neurological: Cranial nerves II-XII grossly intact, - - Left upper extremity hemiplegia, left lower extremity hemiparesis. Psych/Mental Status: Normal Affect, Appropriate Vital Signs Temp Pulse Resp BP Pulse Ox 98.3 F 57 L 18 123/78 H 95 10/19/18 18:06 10/19/18 18:06 10/19/18 18:06 10/19/18 18:06 10/19/18 18:06 Oxygen Delivery Method Room Air Weight: 102.058 kg Body Mass Index (BMI) 28.1 Assessment/Plan All Active Problems Elevated factor VIII level (Acute) Severe left internal carotid stenosis (Acute) Occlusion of right internal carotid artery (Acute) Embolic stroke (Acute) 58 year old male with below past medical history [facility] resident, suffered right MCA stroke, admitted to TCU with debility, here for rehabilitation, strengthening, prior to discharge home with spouse. * Debility - PT/OT. * Dysphagia - ST. * Pain - Tylenol 1000MG Q8H PRN mild pain, Oxycodone 5MG Q6H PRN severe pain. * Bowel - Miralax 17GM BID, Senna/colace 2 tablets BID, Dulcolax 10MG PO daily PRN. * Pneumonia vaccination - Administer Prevnar 13 and/or Pneumovax 23 as necessary. * DVT prophylaxis - Lovenox 40MG SC daily. * Hypertension - Lisinopril 10MG daily, Amlodipine 5MG daily. * Stroke - Aspirin 81MG daily, Plavix 75MG daily. * Hyperlipidemia - Atorvastatin 40MG QHS. * Indigestion - Pantoprazole 20MG BID, TUMS 1000MG Q4H PRN. * Osteoarthritis - Voltaren gel topical 4x/day, Bengay topical 4x/day PRN. * Neuropathic pain - Gabapentin 200MG BID, 400MG QHS. * Dizziness - Meclizine 12.5MG BID PRN. * Colitis - Lialda 2.4GM BID. * Hypersomnia - Provigil 200MG daily. * Nausea - Zofran 4MG Q8H PRN. * Depression - Sertraline 25MG daily. 10/20/18 0829 <Electronically signed by Florencio Olvera MD> Date Florencio Olvera MD Cosigner Signature: Date (if applicable) CC: Kaci Hammonds MD; Florencio Olvera MD Signed CBC W/DIFF, AUTOMATED Collected: 10/20/2018 Status: F Source: FAINA 5:15 AM [facility] [place], [place] REPOSITORY TYPE CODE TESTS RESULT OUT OF RANGE REFERENCE UNITS LAB L100.1000 4.4-11.0 K/mm3 Normal WBC 8.5 LAB L100.1200 4.6-6.2 M/mm3 Normal RBC 4.85 LAB L100.1300 13.0-16.5 g/dl Normal HGB 14.5 LAB L100.1400 40-54 % Normal HCT 44.3 LAB L100.1500 80-94 fL Normal MCV 91.3 LAB L100.1600 27.0-32.0 pg Normal MCH 29.9 LAB L100.1700 32-36 g/gl Normal MCHC 32.7 LAB L100.1810 11.6-14.6 % Normal RDW CV 14.0 LAB L100.1820 35.1-43.9 fl High RDW SD 46.3 LAB L100.1900 150-450 K/mm3 Normal PLT 267 LAB L100.2000 6.2-12.0 fl Normal MPV 10.2 LAB L100.2100 47-70 % High NEUT% 72.4 LAB L100.2200 19-41 % Low LY% 18.0 LAB L100.2300 0-10 % Normal MONO% 6.6 LAB L100.2400 0-5 % Normal EO% 2.4 LAB L100.2500 0-1 % Normal BASO% 0.4 LAB L100.2550 0.0-0.9 % Normal IM GRAN % 0.200 Result Comment: IG% - Immature Granulocytes (promyelocytes, myelocytes and metamyelocytes) > 1% indicates that a LEFT SHIFT is Present. LAB L100.2620 2.0-7.7 X10 3/uL Normal Absolute Neut 6.2 LAB L100.2720 0.83-4.51 X10 3/ul Normal Absolute Lymph 1.53 Performed By: #### L100.0100 #### [facility] [address] [place], [address] BASIC METABOLIC Collected: 10/20/2018 Status: F Source: EDGARD PROFILE (BMP) 5:15 AM [facility] [place], [place] REPOSITORY TYPE CODE TESTS RESULT OUT OF RANGE REFERENCE UNITS LAB L501.0100 74-106 mg/dL Normal GLU 87 Result Comment: Please note revised GLUCOSE reference range effective 2017. LAB L501.1000 7-18 mg/dL Normal BUN 14 LAB L501.1100 0.70-1.30 mg/dL Normal CREAT,SERUM 0.88 Result Comment: The validity of the calculated GFR AND GFRAA in patients over 70 years has not been determined. Clinical correlation is essential. LAB L501.1110 >60 mL/min Normal EST GFR 94 Result Comment: Non- GFR Calc LAB L501.1115 >60 mL/min Normal EST GFR - AA 113 Result Comment: GFR Calc LAB L501.1255 ml/min Normal Estimated CRCL 106.69 LAB L501.1300 10-20 RATIO BUN/CRE Normal 15.9 LAB L501.2200 8.5-10 mg/dL .1 CA Normal 8.8 LAB L501.5300 136-14 mmol/L 5 NA Normal 144 LAB L501.5600 3.5-5. mmol/L 1 K Normal 4.1 LAB L501.5900 98-107 mmol/L High CL 111 LAB L501.6100 21.0-3 mmol/L 2.0 CO2 Normal 23.0 LAB L501.6200 5-15 GAP Normal 10 Performed By: #### L500.2500 #### [facility] [address] [place], [address] DISCHARGE INSTRUCTION Observed: 10/19/2018 Status: F Source: EDGARD 2:53 PM [facility] [place] REPOSITORY [facility] Medical Records Department [address] [place] [address] Instructions for Home/Discharge Instructions 10/19/18 1425 MR#: [id number] Acct: [id number] Name: BRENDEN SAHA Rep #: [id number] : 1960 58 From: Micki Boyer CORRECTIONAL OFFICER SERGEANTRyan PCP: Status: ADM IN - Discharge Diagnoses Current Active Problems: Current Active and Chronic Problems Elevated factor VIII level (Acute) Severe left internal carotid stenosis (Acute) Occlusion of right internal carotid artery (Acute) Embolic stroke (Acute) History of pulmonary embolism (Chronic) History of DVT (deep vein thrombosis) (Chronic) Hypertension (Chronic) You will use the following diet at home:: Regular Your food should be the consistency of: Regular Your liquids should be the consistency of: Regular/Thin Discharge Activity: May Not Drive, May Shower, Use Walker Weight Bearing Status: Weight bearing as tolerated Call your doctor if you observe: Fever of 101 or Higher, Coldness, Increased Pain, Numbness or Tingling, Change in Color, Inability to urinate, Inability to have a bowel movement, Using more than one pad per hour, Shortness of breath, Dizziness, Fainting spells, Swelling in the ankles, Chest pain, Prolonged hiccoughing, Increased palpitations (irregular heartbeat), Calf discomfort, Uncontrolled pain Allergies/Adverse Reactions: Allergies codeine Allergy (Verified 09/22/18 17:24) Rash Medications to take at Discharge Acetaminophen [Tylenol] 325 mg PO TID PRN 09/22/18 Aspirin [Aspirin, Baby] 81 mg PO DAILY@0800 09/22/18 Atorvastatin Calcium [Lipitor] 40 mg PO QHS 09/22/18 Clopidogrel Bisulfate [Plavix] 75 mg PO DAILY 09/22/18 Diclofenac Sodium [Voltaren] 100 gm TP 4X/DAY 09/22/18 Lisinopril [Zestril] 10 mg PO DAILY 09/22/18 Sennosides/Docusate Sodium [Senna-S Tablet] 1 each PO DAILY 09/22/18 Amlodipine [Norvasc] 5 mg PO DAILY tablet 10/19/18 Calcium Carbonate [Tums] 1,000 mg PO Q4H PRN PRN tablet 10/19/18 Enoxaparin [Lovenox] 40 mg SC DAILY@0600 syringe 10/19/18 Gabapentin [Neurontin] 200 mg PO 0800,1400 capsule 10/19/18 Gabapentin [Neurontin] 400 mg PO QHS capsule 10/19/18 Meclizine HCl [Antivert] 12.5 mg PO BID PRN PRN tablet 10/19/18 Menthol [Bengay Vanishing Scent] 1 applic TOPICAL 4X/DAY PRN PRN tube 10/19/18 Mesalamine [Lialda] 2.4 gm PO BID tablet 10/19/18 Modafinil [Provigil] 200 mg PO DAILY@0600 #30 tab 10/19/18 Ondansetron [Zofran] 4 mg PO Q8H PRN PRN tablet 10/19/18 Oxycodone [Oxyir] 5 mg PO Q6H PRN PRN 7 Days #30 tab 10/19/18 Pantoprazole Sodium [Protonix] 20 mg PO BID tablet 10/19/18 Polyethylene Glycol 3350 [Miralax] 17 gm PO BID packet 10/19/18 Sertraline HCl [Zoloft] 25 mg PO DAILY #30 tab 10/19/18 The following prescriptions were given: Oxycodone [Oxyir] 5 mg PO Q6H PRN PRN 7 Days #30 tab PRN Reason: Severe Pain (-07/08) Modafinil [Provigil] 200 mg PO DAILY@0600 #30 tab Sertraline HCl [Zoloft] 25 mg PO DAILY #30 tab Test Results: Test results from this visit will be discussed in further detail at your follow-up appointment, if applicable. Proposed Discharge Date: 10/19/18 10/19/18 1802 <Electronically signed by Micki RICHEY> Date Micki RICHEY CC: Gucci Iverson Signed SHOULDER MIN 2 VIEWS Observed: 10/12/2018 Status: F Source: FAINA 10:38 AM [facility] REPOSITORY [facility] Imaging Services [address] [place] [address] Shoulder min 2 Views MR#: [id number] Acct: [id number] Name: BRENDEN SAHA Rep #: [id number] : 1960 M 58 From: Kendall Heaton MD PCP: Status: ADM IN Study: Shoulder min 2 Views Date of Exam: 10/12/18 Exam# [id number] Ordering Dr: Micki Boyer STUDY: X-RAY - LEFT SHOULDER REASON FOR EXAM: Male, 58 years old. Pain TECHNIQUE: 3 view(s) of the shoulder. COMPARISON: None. FINDINGS: There is moderate degenerative arthrosis of the glenohumeral articulation. There is degenerative arthrosis of the acromioclavicular joint without inferior osseous spur formation. Normal acromion. Normal humeral head and visualized proximal humerus. The soft tissue structures are unremarkable. Normal visualized pulmonary apex. RAD/Shoulder min 2 Views IMPRESSION: Degenerative arthrosis Electronically Signed: Tomás Heaton MD at 13:27 EST , Service support , CC: DON Boyer Stoneworker: Signed 12 LEAD EKG W/ Observed: 10/08/2018 Status: F Source: [place]INA RHYTHM STRIP 11:13 AM [facility] REPOSITORY [facility] Cardiovascular Services [address] [place] [address] 12 Lead EKG with Rhythm Strip 10/02/18 0517 MR#: [id number] Acct: [id number] Name: BRENDEN SAHA Rep #: [id number] : 1960 58 From: Paresh Dalal MD Attending Dr: Shahriar Tee MD Status: ADM IN Ordering Dr: Cayden Sterling MD Date: 10/02/18 Location: Sex: M C Admitted: 09/22/18 Test Reason : CP Blood Pressure : / mmHG Vent. Rate : 066 BPM Atrial Rate : 066 BPM P-R Int : 148 ms QRS Dur : 090 ms QT Int : 404 ms P-R-T Axes : 021 017 -03 degrees QTc Int : 423 ms Sinus rhythm with Fusion complexes ST AND T wave abnormality, consider inferior ischemia Abnormal ECG Confirmed by KEI SINGLETON, PARESH ([id number]), heel seat filler LEENA ALATORRE ([id number]) on 10/08/2018 11:12:39 AM Referred By: CAYDEN Confirmed By:PARESH DALAL MD 10/08/18 1112 Date Paresh Dalal MD CC: Cayden Sterling MD; Shahriar Tee MD Signed URINALYSIS, COMPLETE Collected: 10/05/2018 Status: F Source: FAINA 3:40 PM [facility] [place] [place] REPOSITORY Order Comment: Order Date: 10/05/18 Has pt arrived? Y Reason for Laboratory Test r/o UTI How was Urine Obtained? CLEAN CATCH TYPE CODE TESTS RESULT OUT OF RANGE REFERENCE UNITS LAB L400.3000 Yellow COLOR Normal Yellow LAB L400.3050 Clear Normal CLARITY Clear LAB L400.3200 Normal mg/dl High GLUCOSE, UR 50 LAB L400.3300 Negative mg/dL High BILIRUBIN URINE 1 Result Comment: COLOR OF URINE MAY AFFECT DIPSTICK RESULTS. LAB L400.3400 Negative mg/dl High KETONE UR 5 LAB L400.3465 1.002-1.030 Normal SP.GR. DIPSTX 1.025 LAB L400.3550 5.0 - 8.0 pH Normal UR 5.0 LAB L400.3600 Negative mg/dl High PROT DIPSTX 15 LAB L400.3700 Normal mg/dl High UROBILI 1 LAB L400.3750 Negative Normal NITRITE UR Negative LAB L400.3780 Negative /ul High OCCULT 25 BLOOD-UR LAB L400.3800 Negative /ul High LEUK ESTERASE 25 LAB L400.4050 0-5 /hpf Normal WBC 0-5 SEEN LAB L400.4100 0-5 /hpf Normal RBC-UA 0-5 SEEN LAB L400.4150 0-5 /hpf Normal SQUAM EPI 0 SEEN LAB L400.4300 None Seen /hpf Normal BACTERIA 0 SEEN LAB L400.4350 <or=2+ /hpf Normal MUCUS, URINE 1+ Performed By: #### L400.0001 #### [facility] [address] [place], [address] Observed: 10/05/2018 Status: F Source: [place] CULTURE, URINE 3:40 PM [facility] [place] [place] REPOSITORY Order Date: 10/05/18 Has pt arrived? Y Reason for Laboratory Test r/o UTI Urine Culture Below infection level. ORGANISM 1: Mixed Gram Positive Organisms Nickerson Count <1000 Performed By: #### M100.0650 #### [facility] [address] [place] [address], [address] BRAIN/HEAD WITHOUT Observed: 10/05/2018 Status: F Source: [place] CONTRAST 10:24 AM [facility] [place] [place] REPOSITORY [facility] Imaging Services [address] [place] [address] Brain/Head without Contrast MR#: [id number] Acct: [id number] Name: BRENDEN SAHA Rep #: [id number] : 1960 M 58 From: Kendall Heaton MD PCP: Status: ADM IN Study: Brain/Head without Contrast Date of Exam: 10/05/18 Exam# [id number] Ordering Dr: Micki Boyer CORRECTIONAL OFFICER SERGEANTRyan STUDY: CT BRAIN WITHOUT CONTRAST REASON FOR EXAM: Male, 58 years old. Mental status change RADIATION DOSAGE (If Supplied By Facility): CTDIvol = ( 44.99 ) mGy, DLP = ( 829.85 ) mGycm TECHNIQUE: Transaxial CT imaging of the brain was performed without administration of intravenous contrast material. Individualized dose optimization techniques were used for this CT. COMPARISON: None. FINDINGS: Normal soft tissue structures. Normal calvarium. Normal size ventricles and extra-axial spaces for the patient's age. Normal white matter tracts of the cerebral hemispheres. Hypoattenuation noted in the right basal ganglia suggests a subacute infarct. No acute hemorrhage noted. Normal brainstem. Normal cerebellum. There is no intracranial hemorrhage. There are no findings of an acute ischemic infarction. Normal visualized paranasal sinuses. CT/Brain/Head without Contrast IMPRESSION: Hypoattenuation in the right basal ganglia suggests subacute infarct. No acute hemorrhage midline shift or mass effect. Electronically Signed: Tomás Heaton MD at 16:46 EST , Service support , CC: DON Boyer Stoneworker: Signed STRESS REPORT Observed: 10/02/2018 Status: F Source: EDGARD 12:59 PM [facility] [place] [place] REPOSITORY [facility] Cardiovascular Services [address] [place] [address] MR#: [id number] Acct: [id number] Name: BRENDEN SAHA Rep #: [id number] : 1960 58 From: Paresh Dalal MD Primary Care: Status: ADM IN Ordering Dr: Alex: Yolanda Azul Stress Test Report Date: 10/02/2018 Procedure: Pharmacologic stress nuclear imaging study Indications: Chest pain Consent: Per the patient Procedure: The patient underwent pharmacologic (Regadenoson) evaluation with a peak heart rate of 96 beats per minute (60 predicted maximal heart rate) and a peak blood pressure of 158/80 mmHg. The baseline ECG demonstrated normal sinus rhythm; nonspecific ST segment abnormality. The peak pharmacologic ECG demonstrated no obvious G changes. There were no cardiac dysrhythmias pretest, during pharmacologic infusion, or recovery. There was no complaint of chest discomfort during pharmacologic infusion or recovery. The examination was discontinued secondary to completion of protocol. Impression: 1. Pharmacologic (Regadenoson) evaluation 2. Peak pharmacologic ECG with no obvious ECG changes. 3. There were no cardiac dysrhythmias pretest, during pharmacologic infusion, or recovery. 4. Nuclear images pending Myocardial perfusion imaging study: Technique: The patient was injected with 14.5 millicuries of technetium 99m Cardiolite and subsequently rest SPECT Cardiolite nuclear imaging was obtained in the horizontal long, vertical long, and short axis views. The patient underwent pharmacologic (Regadenoson) evaluation with a peak heart rate of 96 beats per minute (60 % percent predicted maximal heart rate) and a peak blood pressure of 158/80 mmHg. The patient was injected with 44.8 millicuries of technetium 99m Cardiolite and subsequently stress SPECT Cardiolite nuclear imaging was obtained in the horizontal long, vertical long, and short axis views. A gated Cardiolite study at peak stress was obtained. Interpretation: Rest and stress SPECT Cardiolite nuclear imaging status post realignment, normalization, and attenuation correction demonstrate relative uniform tracer uptake and myocardial perfusion appearing within normal limits. There is end systolic thickening and brightening. The gated Cardiolite study demonstrates myocardial thickening and inward wall motion. The reported LVEF is 82 %. Impression: 1. Rest and stress SPECT Cardiolite nuclear imaging demonstrate relative uniform tracer uptake and myocardial perfusion appearing within normal limits. 2. The gated Cardiolite study reports an LVEF of 82 %. This note was generated with [employer] software. It may contain incorrect words, spelling, and punctuation that were not noted in checking the note before signing. 10/02/18 1259 <Electronically signed by Paresh Dalal MD> Date Paresh Dalal MD CC: Di Rock Date Dictated: 10/02/184 Date Transcribed: 10/02/181253 Stoneworker: PM Signed HH, HEMOGLOBIN AND Collected: 10/02/2018 Status: F Source: [place] HEMATOCRIT 11:40 AM [facility] [place] [place] REPOSITORY TYPE CODE TESTS RESULT OUT OF RANGE REFERENCE UNITS LAB L100.1300 13.0-16.5 g/dl Normal HGB 15.5 LAB L100.1400 40-54 % Normal HCT 46.6 Performed By: #### L100.0600 #### [facility] [address] [place], [address] TROPONIN-I Collected: 10/02/2018 Status: F Source: FAINA 11:40 AM [facility] [place] [place] REPOSITORY Order Comment: 'TROP' Serial specimen #1, #2, #3, or #4: 3 TYPE CODE TESTS RESULT OUT OF RANGE REFERENCE UNITS LAB L501.4010 <0.045 ng/mL Normal < 0.015 TROPONIN-I Result Comment: TROPONIN-I EXPECTED VALUES <0.045 Negative 0.045 - 0.590 Consistent with Cardiac Damage > OR = 0.600 Critical Value Not every elevated troponin is indicative of MN. These values should be used with clinical judgement in examining the patient's clinical picture for diagnosis. To establish a diagnosis of MN versus myocardial injury, there must be a demonstrated rise and/or fall in the troponin values, in addition to ischemic symptoms, EKG changes, new regional wall motion abnormality, and/or angiographical evidence. PLEASE NOTE: REFERENCE RANGES EDITED 18 Performed By: #### L501.4010 #### [place] [address] [place], [address] TROPONIN-I Collected: 10/02/2018 Status: F Source: FAINA 8:35 AM [facility] [place] [place] REPOSITORY Order Comment: 'TROP' Serial specimen #1, #2, #3, or #4: 2 TYPE CODE TESTS RESULT OUT OF RANGE REFERENCE UNITS LAB L501.4010 <0.045 ng/mL Normal < 0.015 TROPONIN-I Result Comment: TROPONIN-I EXPECTED VALUES <0.045 Negative 0.045 - 0.590 Consistent with Cardiac Damage > OR = 0.600 Critical Value Not every elevated troponin is indicative of MN. These values should be used with clinical judgement in examining the patient's clinical picture for diagnosis. To establish a diagnosis of MN versus myocardial injury, there must be a demonstrated rise and/or fall in the troponin values, in addition to ischemic symptoms, EKG changes, new regional wall motion abnormality, and/or angiographical evidence. PLEASE NOTE: REFERENCE RANGES EDITED 18 Performed By: #### L501.4010 #### [facility] [address] [place], [address] BASIC METABOLIC Collected: 10/02/2018 Status: F Source: [place] PROFILE (BMP) 8:35 AM [facility] [place] [place] REPOSITORY TYPE CODE TESTS RESULT OUT OF RANGE REFERENCE UNITS LAB L501.0100 74-106 mg/dL Normal GLU 102 Result Comment: Fasting Glucose result from 100 to 125 mg/dL suggests IMPAIRED HOMEOSTASIS per A.D.A. criteria. Please note revised GLUCOSE reference range effective 2017. LAB L501.1000 7-18 mg/dL Normal BUN 14 LAB L501.1100 0.70-1.30 mg/dL Normal CREAT,SERUM 0.99 Result Comment: The validity of the calculated GFR AND GFRAA in patients over 70 years has not been determined. Clinical correlation is essential. LAB L501.1110 >60 mL/min Normal EST GFR 82 Result Comment: Non- GFR Calc LAB L501.1115 >60 mL/min Normal EST GFR - AA 100 Result Comment: GFR Calc LAB L501.1255 ml/min Normal Estimated CRCL 94.84 LAB L501.1300 10-20 RATIO Normal BUN/CRE 14.2 LAB L501.2200 8.5-10 mg/dL Normal .1 CA 9.2 LAB L501.5300 136-14 mmol/L Normal 5 NA 143 LAB L501.5600 3.5-5. mmol/L Normal 1 K 4.0 LAB L501.5900 98-107 mmol/L High CL 108 LAB L501.6100 21.0-3 mmol/L Normal 2.0 CO2 25.0 LAB L501.6200 5-15 Normal GAP 10 Performed By: #### L500.2500, L501.5200, L501.9520 #### [facility] [address] [place], [place], [address] MAGNESIUM Collected: 10/02/2018 Status: F Source: FAINA 8:35 AM [facility] [place], [place] REPOSITORY TYPE CODE TESTS RESULT OUT OF RANGE REFERENCE UNITS LAB L501.5200 1.6-2.6 mg/dL Normal MG 2.3 Performed By: #### L500.2500, L501.5200, L501.9520 #### [facility] [address] [place], [address] THYROID STIM HORMONE Collected: 10/02/2018 Status: F Source: FAINA (TSH) 8:35 AM [facility] [place], [place] REPOSITORY TYPE CODE TESTS RESULT OUT OF RANGE REFERENCE UNITS LAB L501.9520 0.358-3.74 uIU/mL Normal TSH 0.95 Performed By: #### L500.2500, L501.5200, L501.9520 #### [facility] [address] [place], [address] TROPONIN-I Collected: 10/02/2018 Status: F Source: FAINA 6:22 AM [facility] [place], [place] REPOSITORY Order Comment: 'TROP' Serial specimen #1, #2 or #3: 1 'TROP' Serial specimen #1, #2, #3, or #4: 1 TYPE CODE TESTS RESULT OUT OF RANGE REFERENCE UNITS LAB L501.4010 <0.045 ng/mL Normal < 0.015 TROPONIN-I Result Comment: TROPONIN-I EXPECTED VALUES <0.045 Negative 0.045 - 0.590 Consistent with Cardiac Damage > OR = 0.600 Critical Value Not every elevated troponin is indicative of MN. These values should be used with clinical judgement in examining the patient's clinical picture for diagnosis. To establish a diagnosis of MN versus myocardial injury, there must be a demonstrated rise and/or fall in the troponin values, in addition to ischemic symptoms, EKG changes, new regional wall motion abnormality, and/or angiographical evidence. PLEASE NOTE: REFERENCE RANGES EDITED 18 Performed By: #### L501.4010 #### [facility] [address] [place], [address] HIP, UNI W/ PELVIS Observed: 10/01/2018 Status: F Source: FAINA 2-3 VIEWS 9:10 AM [facility] [place], [place] REPOSITORY [facility] Imaging Services [address] [place] [address] HIP, UNI W/ Pelvis 2-3 Views MR#: [id number] Acct: [id number] Name: BRENDEN SAHA Rep #: [id number] : 1960 M 58 From: Antonio Puentes MD PCP: Status: ADM IN Study: HIP, UNI W/ Pelvis 2-3 Views Date of Exam: 10/01/18 Exam# [id number] Ordering Dr: Micki Boyer STUDY: X-RAY - LEFT HIP REASON FOR EXAM: Male, 58 years old. Left hip pain TECHNIQUE: 2 views of the hip. COMPARISON: None. FINDINGS: Surgery in the lower lumbosacral spine. Degenerative changes of the sacroiliac joints. The hip joints are normal. There are no acute fractures. Calcifications in both groins and there is a prominent prostate are noted in the colon RAD/HIP, UNI W/ Pelvis 2-3 Views IMPRESSION: No acute fracture. Degenerative changes of the lower lumbosacral spine. Electronically Signed: Antonio Puentes MD at 7:23 EST Tel , Service support , CC: DON Boyer Stoneworker: Signed MODIFIED BARIUM Observed: 09/28/2018 Status: F Source: EDGARD SWALLOW STUDY 2:22 PM [facility] [place], [place] REPOSITORY [facility] Speech Pathology [address] [place] [address] Modified Barium Swallow Study MR#: [id number] Acct: [id number] Name: BRENDEN SAHA Rep #: [id number] : 1960 58 From: Lucius Westbrook M.A., CFY-BANKING TEACHER PRIMARY / SECONDARY DIAGNOSIS: dysphagia (I69.391) REFERRING PHYSICIAN: Dr. Ana Hernandez MD CURRENT DIET: mechanical soft textures, honey thickened liquids DENTITION: natural; upper partial MENTAL STATUS: sufficient for participation RESPIRATORY STATUS: O2 via room air PREVIOUS MODIFIED BARIUM SWALLOW STUDY: 09/21/2018 MBS at report details an equivalent of moderate to severe oropharyngeal dysphagia with deficits in oral containment, pharyngeal dyssynchrony and dysmotility with resulting penetration without consistent ejection with SILENT aspiration of thin liquids and overt aspiration of regular textures; recommended repeat MBS in 3-4 weeks. 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 MEDICAL HISTORY: Pulmonary embolism, hypertension, deep vein thrombosis, and gastroesophageal reflux disease. STUDY FINDINGS: Patient participated in a Modified Barium Swallow (MBS) study on 09/28/2018. This study was recorded in the lateral view and images were sent to PACs for storage. The following consistencies were presented to this patient for analysis of oropharyngeal swallow function: thin liquids, pudding, and a regular textured, Megan Doone cookie. Results of the MBS are as follows: PENETRATION / ASPIRATION SCALE (GARG): 1 = does not enter airway 2 = enters airway/above vocal folds/ejected 3 = enters airway/above vocal folds/not ejected 4 = enters airway/contacts vocal folds/ejected 5 = enters airway/contacts vocal folds/not ejected 6 = enters airway/below vocal folds/ejected 7 = enters airway/below vocal folds/not ejected despite effort 8 = enters airway/below vocal folds/no effort PENETRATION / ASPIRATION SCALE (SCORE): Thin liquid - 5 mL tsp.: 1 Thin liquids via cup (single sip): 1 Thin liquids via cup (single sip): 1 Thin liquids via cup (single sip): NA* Thin liquids via straw (single sip): 2 Thin liquids via straw (single sip): 1 Pudding via spoon: 1 Pudding via spoon (left head turn): 1 Thin liquids via straw (single sip): 2 Pudding via spoon (right head turn): 1 Regular textured cookie (right head turn): 1 Thin liquids via straw (chin tuck): 2 Thin liquids via straw (chin tuck): 1 Thin liquids via straw (chin tuck): 1 Thin liquids via straw (single sip): 2 * view compromised by excessive movement, no suspected penetration / aspiration. IMPRESSION: DIAGNOSIS: mild to moderate oropharyngeal dysphagia (I69.391) ORAL PHASE CHARACTERIZED BY: LABIAL SEAL: escape beyond mid chin TONGUE CONTROL DURING BOLUS MANIPULATION: posterior escape of less than half of bolus BOLUS PREPARATION / MASTICATION: slow prolonged chewing/mashing with complete recollection BOLUS TRANSPORT / LINGUAL MOTION: repetitive/disorganized tongue motion ORAL RESIDUE: residue collection on oral structures PHARYNGEAL PHASE CHARACTERIZED BY: INITIATION OF PHARYNGEAL SWALLOW: bolus head at posterior laryngeal surface of epiglottis at first hyoid excursion SOFT PALATE ELEVATION: trace column of contrast/air between soft palate and pharyngeal wall LARYNGEAL ELEVATION: partial superior movement of thyroid cartilage/partial approximation of arytenoids cartilage to epiglottic petiole ANTERIOR HYOID EXCURSION: partial anterior movement EPIGLOTTIC MOVEMENT: complete epiglottic inversion LARYNGEAL VESTIBULE CLOSURE AT HEIGHT OF SWALLOW: complete laryngeal vestibule closure with no air/contrast in laryngeal vestibule PHARYNGEAL STRIPPING WAVE: pharyngeal stripping wave present / diminished PHARYNGOESOPHAGEAL SEGMENT OPENING: partial distension and partial duration; partial obstruction of flow TONGUE BASE RETRACTION: trace column of contrast between tongue base and posterior pharyngeal wall PHARYNGEAL RESIDUE: collection of residue within or on pharyngeal structures ESOPHAGEAL PHASE CHARACTERIZED BY: ESOPHAGEAL BOLUS CLEARANCE IN THE UPRIGHT POSITION: complete clearance; esophageal coating EFFECTS OF TREATMENT STRATEGIES ATTEMPTED: Chin tuck posture = somewhat effective Left head turn = ineffective Right head turn = effective Liquid chaser = effective Reduced bolus size = effective Reduced rate of intake = effective DIET TEXTURE RECOMMENDATIONS: Will recommend a mechanical soft textured, thin liquid diet. 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 Oral phase marked by both intermittent right sided anterior bolus loss in addition to intermittent and premature posterior bolus loss with thin liquids; suboptimal bolus transportation with intermittent delayed onset with mild undulating movements; previously identified tendency for left sided bolus pocketing ameliorated with cueing for right sided bolus manipulate and transportation. Pharyngeal phase primarily marked by mild pharyngeal swallow onset dyssynchrony contributing to intermittent and transient prandial penetration with thin liquids somewhat improved with execution of the chin tuck posture; poor pharyngeal motility attributed to left sided posterior pharyngeal constrictor weakness ameliorated with execution of a right head turn during deglutition. Intermittent reductions in hyolaryngeal excursion correspond to bolus volume, lacking clinical significance, with sufficient laryngeal vestibule pressure generated to expel penetrated material. No aspiration appreciated throughout trials, unable to definitively rule out silent aspiration. RECOMMENDATIONS: Patient requires intensive skilled speech-language intervention targeting continued diet texture management; training and implementation of recommended compensatory strategies; training and implementation of recommended oropharyngeal strengthening exercises to facilitate improved labial control / strength, lingual control / strength, pharyngeal motility, and velopharyngeal competence; Patient and caregiver education regarding dysphagia associated with cerebrovascular accidents; and Patient / caregiver training targeting meal preparation / thickened liquid preparation if unable to advance to baseline diet textures prior to discharge. ADDITIONAL COMMENTS/RECOMMENDATIONS: Results and recommendations were discussed with the Patient immediately following MBS completion, with the Patient verbalizing understanding and agreement with all recommendations and education provided. IMAGE COUNT: [id number] G-CODES: SWALLOWING G8996 Current Status: CK SWALLOWING G8997 Goal Status: KENDRICK Westbrook M.A., CCC-BANKING TEACHER [facility] Department [email or web address] 09/28/18 1422 <Electronically signed by Lucius Westbrook M.A., CFY-BANKING TEACHER> Date Lucius Westbrook M.A., CFY-BANKING TEACHER Co-Signature Required for all Medicare patients Date/Time Co-Signature CC: SWALLOWING FUNCTION Observed: 09/28/2018 Status: F Source: EDGARD W/VIDEO 12:00 AM [facility] [place], [place] REPOSITORY [facility] Imaging Services [address] [place] [address] Swallowing Function w/Video MR#: [id number] Acct: [id number] Name: MARIA ABRENDEN M Rep #: [id number] : 1960 M 58 From: Iggy Dumont MD PCP: Status: ADM IN Study: Swallowing Function w/Video Date of Exam: 09/28/18 Exam# [id number] Ordering Dr: Kehinde Hernandez MD STUDY: SWALLOWING STUDY REASON FOR EXAM: Male, 58 years old. Dysphasia. TECHNIQUE: The examination was performed with Speech Pathology in attendance. Under fluoroscopic observation, the patient ingested thin barium, thick barium, barium pudding, and barium coated cracker. FLUOROSCOPY TIME: 2:41 minutes/seconds. 2488 fluoroscopic spot images were obtained. RADIOLOGIST INVOLVEMENT: Radiologist was present and providing direct supervision. COMPARISON: None. FINDINGS: The following was observed during swallowing of the various mixtures of barium: Thin Barium: Transient penetration with ingestion of thin liquids. Thick Barium: There was no evidence of aspiration or laryngeal penetration. Barium Pudding: There was no evidence of aspiration or laryngeal penetration. Barium Coated Cracker: There was no evidence of aspiration or laryngeal penetration. RAD/Swallowing Function w/Video IMPRESSION: Transient penetration with ingestion of thin liquids. The swallow study findings were discussed with the patient by the speech pathologist at the conclusion of the examination. Please see speech pathology report for more information and recommendations. Electronically Signed: Iggy Dumont MD at 10:57 EST Tel [phone], Service support , CC: Ana Hernandez MD Stoneworker: Signed H AND P W/ COSIGN Observed: 09/24/2018 Status: F Source: FAINA 9:52 AM [facility] [place], [place] REPOSITORY [facility] Medical Records Department [address] [place] [address] H AND P w/ Cosign 09/23/18 1411 MR#: [id number] Acct: [id number] Name: BRENDEN SAHA Rep #: [id number] : 1960 58 From: Micki RICHEY PCP: Status: ADM IN Y Location: [id number] History of Present Illness Date of Admission: 09/22/18 Chief Complaint: CVA The patient is a 58 year old right handed male who was admitted to the rehab unit for rehabilitation after suffering a right MCA embolic stroke. He has a PMH of HTN, GERD, obesity (BMI is 31.1) and PE/DVT following Knee replacement surgery, which he was treated with Lovenox for a month and then Coumadin which he has completed. On 09/16/18 he to an OSH with left sided weakness and R eye deviation. NIHSS was 10. a CTH showed a hyperdense R MCA. He was then transferred to [facility] for possible thrombectomy. An MRI was done which showed a core infarct in R basal ganglia, vessel imaging showed a complete R ICA occlusion and > 70% stenosis of his L ICA. No intervention was done for the acute stroke and he was treated conservatively. He was seen by the Neurosurgery team who recommended follow up as an outpatient for consideration of CEA in 6-8 weeks, and to continue the ASA, and Plavix. Prior to discharge the patient had an episode of chest pain, an EKG was performed along with cardiac enzymes and reportedly, both came back negative. He also had left shoulder surgery on December, that was done for rotator cuff tear. He is still having moderate amount of pain in this area. He has several blisters on his left hand that where the result of a liquid burn from hot coffee, on arrival adaptic was placed on the area and the hand was wrapped in gauze. His left sided flaccidity has not changed. He lives with his in a single story home with no steps to get into the house, he was previously completely functionally independent and is admitted to the rehab unit in order to restore his previous level of functional independence. Past Medical History Past Medical History (Chronic Problems): Chronic Problems History of pulmonary embolism (Chronic) History of DVT (deep vein thrombosis) (Chronic) Hypertension (Chronic) Allergies codeine Allergy (Verified 09/22/18 17:24) Rash Home Medications: Ambulatory Orders Medication Instructions Recorded Acetaminophen [Tylenol] 325 mg PO TID PRN 09/22/18 Aspirin [Aspirin, Baby] 81 mg PO DAILY@0800 09/22/18 Surgical History: colectomy, - - Knee arthroscopic surgery. Back surgery. Psychiatric History: No pertinent psych hx Lives: Spouse/ Significant Other Smoking Status: Former smoker Tobacco Use: Cigarettes Alcohol: None Drugs: None - *Family History Maternal History Items: DVT, - - Blood clots. Paternal History Items: No pertinent history Sibling History Items: - - Brother with history of blood clots as well. Review of Systems Constitutional: Denies: Chills, Fever, Weight Change HEENT: Reports: Head Aches. Denies: Sinus Congestion, Sinus Drainage Cardiovascular: Denies: Chest Pain, Palpitations Respiratory: Denies: Cough, Shortness of breath at rest, Sputum production Gastrointestinal: Denies: Abdominal Pain, Nausea, Vomiting Genitourinary: Denies: Dysuria Musculoskeletal: Denies: Joint Pain, Joint Tenderness Skin: Denies: Rash, Wounds Neurological: Reports: Change in Speech, Focal weakness, Headaches. Denies: Numbness, Tingling Psychiatric: Reports: Depression. Denies: Anxiety, Homicidal Ideations, Suicidal Ideations Hematologic/ Lymphatic: Denies: Easy Bruising, Easy Bleeding VTE Information - Inpt Only VTE Present on Admission: No VTE Mechan Device Prophylaxis: SCD's, Knee High GENA Hose VTE Pharm Prophylaxis ordered?: Yes Patient Problems: Active and Suspected Problems Severe left internal carotid stenosis (Acute) Occlusion of right internal carotid artery (Acute) Embolic stroke (Acute) - Physical Exam General: Alert, Oriented x3, Cooperative, - - left facial droop HEENT: Atraumatic, PERRLA, EOMI, Normocephalic Neck: Supple, No JVD, Negative Carotid Bruits Lungs: Clear to auscultation, Normal air movement Cardiovascular: Regular rate, No murmurs Abdomen: Bowel Sounds Present, Soft, Non Tender Extremities: No edema, Capillary Refill Less than 3 Seconds, - Skin: No rashes, No breakdown Musculoskeletal: No Tenderness to Palpation of Joints or Extremities Neurological: Cranial nerves II-XII grossly intact, Facial Droop - Left, - - Left facial droop, minimal dysarthria, left side hemiplegia. Power on the left upper extremity is 0 x 5, power on the left lower extremity is 3 x 5. Psych/Mental Status: Normal Affect, Appropriate, Depressed Vital Signs Temp Pulse Resp BP Pulse Ox 98.4 F 88 18 145/72 H 94 09/23/18 07:13 09/23/18 07:13 09/23/18 07:13 09/23/18 07:13 09/23/18 07:13 Oxygen Flow Rate (L/min) 2 Oxygen Delivery Method Room Air Weight: 113 kg Body Mass Index (BMI) 31.1 Intake and Output for Last 24 Hours Output Total 250 / 250 Balance -250 / -250 Laboratory Tests Past 24 Hrs WBC 9.9 Active Medications Acetaminophen (Tylenol) 325 mg PO TID PRN PRN Reason: PAIN Amlodipine Besylate (Norvasc) 10 mg PO DAILY [facility] Last Admin: 09/23/18 08:05 Dose: 10 mg Aspirin (Aspirin, Baby) 81 mg PO DAILY@0800 [facility] Last Admin: 09/23/18 08:05 Dose: 81 mg Atorvastatin Calcium (Lipitor) 40 mg PO QHS [facility] Last Admin: 09/22/18 22:05 Dose: 40 mg Bisacodyl (Dulcolax) 10 mg RECTAL .PRN X 1 PRN PRN Reason: Constipation Clopidogrel Bisulfate (Plavix) 75 mg PO DAILY [facility] Last Admin: 09/23/18 08:06 Dose: 75 mg Diclofenac Sodium (Voltaren) 1 applic TP 4X/DAY [facility] Enoxaparin Sodium (Lovenox) 40 mg SC DAILY@0600 [facility] Last Admin: 09/23/18 06:37 Dose: 40 mg Lisinopril (Zestril) 10 mg PO DAILY [facility] Last Admin: 09/23/18 08:06 Dose: 10 mg Magnesium Hydroxide (Milk Of Magnesia) 30 ml PO .PRN X 1 PRN PRN Reason: Constipation Menthol (Bengay Vanishing Scent) 1 applic TOPICAL 4X/DAY PRN PRN PRN Reason: PAIN Last Admin: 09/23/18 08:06 Dose: 1 applic Modafinil (Provigil) 200 mg PO DAILY@0600 [facility] Pantoprazole Sodium (Protonix) 20 mg PO DAILY [facility] Last Admin: 09/23/18 08:06 Dose: 20 mg Senna/Docusate Sodium (Senokot-S, Gladis-Colace) 1 tablet PO DAILY [facility] Last Admin: 09/23/18 09:09 Dose: Not Given Sertraline HCl (Zoloft) 25 mg PO DAILY [facility] Last Admin: 09/23/18 08:06 Dose: 25 mg Assessment/Plan All Active Problems Severe left internal carotid stenosis (Acute) Occlusion of right internal carotid artery (Acute) Embolic stroke (Acute) Debility status post Right MCA, complicated by a complete right ICA occlusion, >70% stenosis of his Left ICA, and HTN. Goal of rehab is samaritan of prior level of functional independence. Plan: - Physical therapy for gait and balance - Occupational Therapy for ADLs - As needed analgesics - Bowel protocol - DVT PPX - Lovenox, SCDs. - HLD - continue home dose of statin - GERD - continue home dose of PPI - HTN - stable => continue on lisinopril, and Norvasc, continue monitoring and adjust medication as needed - Acute right MCA embolic stroke -> continue on Plavix, ASA and statin - Complete occlusion of the right ICA and severe stenosis >70% of the left ICA -> continue aspirin, statins and Plavix, patient will need vascular surgery evaluation for stenosis of the left ICA on discharge as an outpatient. 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 - Hx of GERD: Continue PPI. - Loud Snoring - on O2 at night 2/2 loud snoring, and drop in SATs < 88% at night => Schedule a portable sleep study as soon as possible with placement on Auto-pap once study is complete, on discharge formal sleep study - Depression - continue Zoloft - Hypersomnia - start on Provigil 200mg daily at 0600 AM - Genetic testing for excessive clotting - Factor II, VIII, XI, and Von Willebrand - on discharge 30 day event monitor - Fall precaution 09/23/18 9204 <Electronically signed by Micki MARQUESC> Date Micki MARQUESC 09/24/18 6376<Electronically signed by Gm Abdi MD> Cosigner Signature (if applicable): Date Gm Abdi MD CC: DON Boyer; Gm Abdi MD Signed HEMOGLOBIN A1C Collected: 09/24/2018 Status: F Source: FAINA 6:48 AM [facility] [place], [place] REPOSITORY TYPE CODE TESTS RESULT OUT OF RANGE REFERENCE UNITS LAB L501.9985 4.2-6.3 % High HGB A1C 6.4 Performed By: #### L501.9985 #### [facility] [address] [place], [address] FACTOR II, DNA Collected: 09/24/2018 Status: F Source: FAINA ANALYSIS 6:48 AM [facility] [place], [place] REPOSITORY Order Comment: OK TO CHANGE TO MORNING PER FLORA [place]. TYPE CODE TESTS RESULT OUT OF RANGE REFERENCE UNITS LAB L4500.2100 . Normal FACTOR Comment II,DNA Result Comment: NEGATIVE No mutation identified. Comment: A point mutation ([id number]) in the factor II (prothrombin) gene is the second most common cause of inherited thrombophilia. The incidence of this mutation in the [place] population is about 2% and in the population it is approximately 0.5%. This mutation is rare in the and population. Being heterozygous for a prothrombin mutation increases the risk for developing venous thrombosis about 2 to 3 times above the general population risk. Being homozygous for the prothrombin gene mutation increases the relative risk for venous thrombosis further, although it is not yet known how much further the risk is increased. In women heterozygous for the prothrombin gene mutation, the use of estrogen containing oral contraceptives increases the relative risk of venous thrombosis about 16 times and the risk of developing cerebral thrombosis is also significantly increased. In the prothrombin gene mutation increases risk for venous thrombosis and may increase risk for stillbirth, placental abruption, pre-eclampsia and growth restriction. If the patient possesses two or more congenital or acquired thrombophilic risk factors, the risk for thrombosis may rise to more than the sum of the risk ratios for the individual mutations. This assay detects only the prothrombin [id number] mutation and does not measure genetic abnormalities elsewhere in the genome. Other thrombotic risk factors may be pursued through systematic clinical laboratory analysis. These factors include the R506Q ([place]) mutation in the Factor V gene, plasma homocysteine levels, as well as testing for deficiencies of antithrombin III, protein C and protein S. Genetic Counselors are available for health care providers to discuss results at [phone]). Methodology: DNA analysis of the Factor II gene was performed by PCR amplification followed by restriction analysis. The diagnostic sensitivity is >99% for both. All the tests must be combined with clinical information for the most accurate interpretation. Molecular-based testing is highly accurate, but as in any laboratory test, diagnostic errors may occur. This test was developed and its performance characteristics determined by [facility]. It has not been cleared or approved by the Food and Drug Administration. Poort SR, et al. Blood. 1996; 88:9338-4055. Sharon WALLER. Circulation. 2004; 110:e15-e18. Davin I, et al. Arterioscler Thromb Vasc Biol. 1999; 19:700-703. Khris Cardoza, PhD, [facility] Vero Almonte, PhD, [facility] Leena Randhawa MKenrickS., PhD, FAC Helena Garcias, PhD, FAC Ana Campos, PhD, [facility] Cayden Ulloa, PhD, [facility] Performed By: #### L4500.1999, L4500.8350, L4500.8800 #### [facility] (refer to report for specific site) refer to report for address and phone number VON WILLEBRAND FACTOR Collected: 09/24/2018 Status: F Source: [place] ACTIVITY 6:48 AM [facility] [place], [place] REPOSITORY Order Comment: OK TO CHANGE TO MORNING PER FLORA FRANCE. TYPE CODE TESTS RESULT OUT OF RANGE REFERENCE UNITS LAB L4500.8350 50-200 % Normal vWF ACTIVITY 189 Result Comment: Performed at: - [facility] [address] [place], [place] [id number] Carriage Rider: Jossue Mojica MD, Phone: [phone] Performed at: - [facility] [id number] Carriage Rider: Dalila Dutton MD, Phone: [phone] Performed By: #### L4500.1999, L4500.8350, L4500.8800 #### [facility] (refer to report for specific site) refer to report for address and phone number FACTOR VIII ACTIVITY Collected: 09/24/2018 Status: F Source: [place] 6:48 AM [facility] [place] [place] REPOSITORY Order Comment: OK TO CHANGE TO MORNING PER FLORA FRANCE. TYPE CODE TESTS RESULT OUT OF RANGE REFERENCE UNITS LAB L4500.8800 57-163 % High FAC 8 ACT 217 Result Comment: FVIII activity can increase in a variety of clinical situations including normal , in samples drawn from patients (particularly children) who are visibly stressed at the time of phlebotomy, as acute phase reactants, or in response to certain drug therapies such as DDAVP. Persistently elevated FVIII activity is a risk factor for venous thrombosis as well as recurrence of venous thrombosis. Risk is graded and increases with the degree of elevation. Although elevated FVIII activity has been identified to cluster within families, a genetic basis for the elevation has not yet been elucidated (Br J Haematol. 2012; 157:653-663). Performed By: #### L4500.2000, L4500.8350, L4500.8800 #### [facility] (refer to report for specific site) refer to report for address and phone number URINALYSIS, COMPLETE Collected: 09/23/2018 Status: F Source: [place] 3:50 PM [facility] [place] [place] REPOSITORY Order Comment: Order Date: 09/23/18 How was Urine Obtained? CATHETER SPECIMEN TYPE CODE TESTS RESULT OUT OF RANGE REFERENCE UNITS LAB L400.3000 Yellow COLOR Normal Yellow LAB L400.3050 Clear Normal CLARITY Clear LAB L400.3200 Normal mg/dl Normal GLUCOSE, UR Normal LAB L400.3300 Negative mg/dL Normal BILIRUBIN URINE Negative LAB L400.3400 Negative mg/dl High 50 KETONE UR LAB L400.3465 1.002-1.030 Normal SP.GR. DIPSTX 1.025 LAB L400.3550 5.0 - 8.0 pH UR Normal 6.0 LAB L400.3600 Negative mg/dl High PROT 15 DIPSTX LAB L400.3700 Normal mg/dl High 1 UROBILI LAB L400.3750 Negative Normal NITRITE UR Negative LAB L400.3780 Negative /ul High 10 OCCULT BLOOD-UR LAB L400.3800 Negative /ul LEUK Normal ESTERASE Negative LAB L400.4050 0-5 /hpf WBC 0 Normal SEEN LAB L400.4100 0-5 /hpf Normal RBC-UA 0-5 SEEN LAB L400.4150 0-5 /hpf SQUAM Normal EPI 0-5 SEEN LAB L400.4300 None Seen /hpf 0 Normal BACTERIA SEEN LAB L400.4350 <or=2+ /hpf 0 Normal MUCUS, URINE SEEN Performed By: #### L400.0001 #### [facility] [address] [place], [place], [address] Observed: 09/23/2018 Status: F Source: [place] CULTURE, URINE 3:50 PM [facility] [place] [place] REPOSITORY Order Date: 09/23/18 Urine Culture Culture exhibits no growth. Performed By: #### M100.0650 #### [facility] [address] [facility] [address] [place], [place], [address] CBC-COMPLETE BLOOD CNT Collected: 09/23/2018 Status: F Source: [place] NO DIFF 5:48 AM [facility] [place] [place] REPOSITORY TYPE CODE TESTS RESULT OUT OF RANGE REFERENCE UNITS LAB L100.1000 4.4-11.0 K/mm3 Normal WBC 9.9 LAB L100.1200 4.6-6.2 M/mm3 Normal RBC 5.12 LAB L100.1300 13.0-16.5 g/dl Normal HGB 15.6 LAB L100.1400 40-54 % Normal HCT 44.8 LAB L100.1500 80-94 fL Normal MCV 87.5 LAB L100.1600 27.0-32.0 pg Normal MCH 30.5 LAB L100.1700 32-36 g/gl Normal MCHC 34.8 LAB L100.1810 11.6-14.6 % Normal RDW CV 13.6 LAB L100.1820 35.1-43.9 fl Normal RDW SD 42.2 LAB L100.1900 150-450 K/mm3 Normal PLT 324 LAB L100.2000 6.2-12.0 fl Normal MPV 10.3 Performed By: #### L100.0500 #### [facility] [address] [place], [place], [address] COMPREHENSIVE METABOLIC Collected: 09/23/2018 Status: F Source: [place] PROFIL 5:48 AM [facility] [place] [place] REPOSITORY TYPE CODE TESTS RESULT OUT OF RANGE REFERENCE UNITS LAB L501.0100 74-106 mg/dL Normal GLU 101 Result Comment: Fasting Glucose result from 100 to 125 mg/dL suggests IMPAIRED HOMEOSTASIS per A.D.A. criteria. Please note revised GLUCOSE reference range effective 2017. LAB L501.1000 7-18 mg/dL Normal BUN 13 LAB L501.1100 0.70-1.30 mg/dL Normal CREAT,SERUM 0.95 Result Comment: The validity of the calculated GFR AND GFRAA in patients over 70 years has not been determined. Clinical correlation is essential. LAB L501.1110 >60 mL/min Normal EST GFR 86 Result Comment: Non- GFR Calc LAB L501.1115 >60 mL/min Normal EST GFR - AA 104 Result Comment: GFR Calc LAB L501.1255 ml/min Normal Estimated CRCL 98.83 LAB L501.1300 10-20 RATIO Normal BUN/CRE 13.7 LAB L501.1500 6.4-8. g/dL Normal 2 T PROT 6.8 LAB L501.1800 3.2-5. g/dL Normal 0 ALB 3.3 LAB L501.1950 2.2-4. g/dL Normal 2 GLOB 3.5 LAB L501.2000 0.9-2. RATIO Normal 4 A/G 0.9 LAB L501.2200 8.5-10 mg/dL Normal .1 CA 8.9 LAB L501.4100 15-37 U/L Normal AST 23 LAB L501.4305 45-117 U/L Normal ALK P 52 LAB L501.4405 16-61 U/L Normal ALT 36 LAB L501.4600 0.20-1 mg/dL Normal .00 T BILI 0.50 LAB L501.5300 136-14 mmol/L Normal 5 NA 141 LAB L501.5600 3.5-5. mmol/L Normal 1 K 3.6 LAB L501.5900 98-107 mmol/L High CL 108 LAB L501.6100 21.0-3 mmol/L Normal 2.0 CO2 22.0 LAB L501.6200 5-15 Normal GAP 11 Performed By: #### L500.4050 #### [facility] [address] [address] [place], [address] CONSULTATION Observed: 09/22/2018 Status: F Source: EDGARD 7:20 PM [facility] [place] [place] REPOSITORY [facility] Medical Records Department [address] [place] [address] Consultation 09/22/181902 MR#: [id number] Acct: [id number] Name: BRENDEN SAHA Rep #: [id number] : 1960 58 From: Gucci Iverson MD PCP: Status: ADM IN Y Location: [place] [address] Problem List (1) Severe left internal carotid stenosis Status: Acute (2) Occlusion of right internal carotid artery Status: Acute (3) Embolic stroke Status: Acute (4) History of pulmonary embolism Status: Chronic (5) History of DVT (deep vein thrombosis) Status: Chronic (6) Hypertension Status: Chronic Reason for Consult Date of Consultation: 09/22/18 Reason for Consultation: Medical management after admission to inpatient rehab unit. History of Present Illness: The patient is a 58 year old M with past medical history as mentioned above admitted to inpatient rehabilitation unit after he suffered acute right MCA embolic stroke with resultant left-sided hemiplegia and left-sided facial droop and I am seeing this patient in consultation for medical management. Patient suffered a right MCA stroke on September 16, 2018 with resultant left-sided hemiplegia and left facial droop. No interventions was done for the acute stroke and it was treated conservatively. He was found to have occlusion of the right internal carotid artery and severe stenosis of the left internal carotid artery. The acute stroke presumed to be due to embolic stroke. At this time, patient complained of mild headache. Reportedly, patient had an episode of chest pain at the [facility] [place] [place] today before he was discharged for which EKG done as well as cardiac enzymes and reportedly, both came back negative. At this time, he denied any active chest pain. He did have left shoulder surgery on December, that was done for rotator cuff tear. He had a history of hypertension and according to his , he has not been taking his blood pressure medications consistently. He had a history of DVT and PE long time ago after he had left knee arthroscopic surgery and he was on Lovenox shots for a month and then he was on Coumadin that was completed. His mentioned that he had family history of blood clots as well. He had a history of GERD and he has been on omeprazole which seems to be under control. At this time, his blood pressure is 154/79, other vital signs are stable. Routine blood work from September 16, 2018 that was done at the outside facility was unremarkable. MRI brain revealed a right basal ganglia infarct. Imaging study of the neck revealed occlusion of the right internal carotid artery and severe stenosis of the left internal carotid artery. Past Medical History Past Medical History (Chronic Problems): Chronic Problems History of pulmonary embolism (Chronic) History of DVT (deep vein thrombosis) (Chronic) Hypertension (Chronic) Allergies codeine Allergy (Verified 09/22/18 17:24) Rash Home Medications: Ambulatory Orders Medication Instructions Recorded Acetaminophen [Tylenol] 325 mg PO TID PRN 09/22/18 Aspirin [Aspirin, Baby] 81 mg PO DAILY@0800 09/22/18 Surgical History: colectomy, - - Knee arthroscopic surgery. Back surgery. Psychiatric History: No pertinent psych hx Lives: Spouse/ Significant Other Smoking Status: Former smoker Alcohol: None Drugs: None - *Family History Maternal History Items: DVT, - - Blood clots. Paternal History Items: No pertinent history Sibling History Items: - - Brother with history of blood clots as well. Review of Systems Constitutional: Denies: Anorexia, Chills, Fever, Weakness Eyes: Denies: Blurred vision, Double vision, Drainage, Redness HEENT: Reports: Head Aches. Denies: Difficulty Hearing, Dysphasia, Ear Pain, Eye Pain, Nasal Congestion, Sore Throat Cardiovascular: Denies: Chest Pain, Chest Pressure, Chest Tightness, Heaviness, Light Headedness, Palpitations, Syncope Respiratory: Denies: Cough, Pleuritic Pain, Shortness of Breath, Sputum production, Wheezing Gastrointestinal: Denies: Abdominal Pain, Constipation, Diarrhea, Nausea, Vomiting Genitourinary: Denies: Dysuria, Frequency, Hematuria Musculoskeletal: Denies: Arm Pain, Back Pain, Foot Pain Skin: Denies: Dryness, Rash Neurological: Reports: Change in Speech, Focal weakness, Headaches. Denies: Balance problems, Confusion, Numbness, Tingling Psychiatric: Reports: Depression. Denies: Anxiety Endocrine: Denies: Change in Body Habitus, Polydipsia Patient Problems: Active and Suspected Problems Severe left internal carotid stenosis (Acute) Occlusion of right internal carotid artery (Acute) Embolic stroke (Acute) - Physical Exam General: Alert, Oriented x3, Cooperative, No apparent distress, - - Left facial droop. HEENT: Atraumatic, PERRLA, EOMI, Normocephalic Oral: Moist Mucosa, No Gingival or Mucosal Lesions/ Ulcerations Neck: Supple, No JVD, Negative Carotid Bruits, Trachea Midline, Thyroid Normal Size and Texture Lungs: Clear to auscultation, No rhonchi, No wheeze, No rales, Diminished Cardiovascular: Regular rate, Regular Rhythm, Normal S1, Normal S2, PMI Normal Abdomen: Bowel Sounds Present, Soft, Non Tender, Non-Distended, No Hepato-splenomegaly Extremities: No clubbing, No cyanosis, No edema Skin: No rashes, No breakdown Lymphatic: No Cervical, Supraclavicular, or Inguinal Adenopathy Neurological: - - Left facial droop, minimal dysarthria, left side hemiplegia. Power on the left upper extremity is 0 x 5, power on the left lower extremity is 3 x 5. Psych/Mental Status: Normal Affect, Appropriate, Alert and oriented to time, place, person, mood and affect Vital Signs Temp Pulse Resp BP Pulse Ox 97.5 F L 69 18 154/79 H 95 09/22/18 17:23 09/22/18 17:23 09/22/18 17:23 09/22/18 17:23 09/22/18 17:23 Oxygen Delivery Method Room Air Weight: 249 lb 1.957 oz Body Mass Index (BMI) 31.1 Intake and Output for Last 24 Hours Output Total 250 / 250 Balance -250 / -250 CBC from September 16, 2018: Hemoglobin is 14.8, WBC 10.7, platelet count is 370,000. BMP from September 16, 2018: Glucose 133, sodium 141, potassium 4.5, serum bicarbonate 22, BUN 17, creatinine is 1.03. TSH is 1.03. Assessment/Plan All Active Problems Severe left internal carotid stenosis (Acute) Occlusion of right internal carotid artery (Acute) Embolic stroke (Acute) This is a 58-year-old male patient admitted to inpatient rehabilitation unit from [facility] [place] [place] after he suffered acute right MCA embolic stroke with resultant left-sided hemiplegia and left facial droop and I am seeing this patient in consultation for medical management. #1 acute right MCA embolic stroke: With resultant left-sided hemiplegia. MRI brain from the outside facility reviewed as well as the imaging studies of the neck. Patient was found to have a right basal ganglia infarct. Also, he was found to have complete occlusion of the right internal carotid artery and severe stenosis of the left internal carotid artery. At this time, his vital signs are stable, blood pressure slightly elevated but acceptable. Routine blood work from the outside facility reviewed and was unremarkable. He is on aspirin, statins and Plavix. Blood pressure seems to be under control. Plan for PT OT according to rehab team, CBC and CMP tomorrow morning. #2 occlusion of the right internal carotid artery/severe stenosis of the left internal carotid artery: Plan to continue aspirin, statins and Plavix, patient will need vascular surgery evaluation for the left internal carotid stenosis as outpatient. #3 hypertension: Blood pressure stable at this time, continue on lisinopril, close monitoring, adjust medication as needed. #4 history of DVT/PE: This was a long time ago, it was provoked after left knee arthroscopic surgery. Patient received Lovenox and Coumadin at that time, completed. #5 GERD: Continue PPI. #6 DVT prophylaxis: Subcu Lovenox. This note was generated with ViewRay dictation software. It may contain incorrect words, spelling, and punctuation that were not noted in checking the note before signing. Code Visit Inpatient E AND M: 15735 Init Hosp L2 09/22/181919 <Electronically signed by Gucci Iverson MD> Date Gucci Iverson MD Cosigner Signature (if applicable): Date CC: Gucci Iverson Signed GLUCOSE-POCT Collected: 09/22/2018 Status: F Source: [place] 10:56 AM [facility]ALS REPOSITORY TYPE CODE TESTS RESULT OUT OF RANGE REFERENCE UNITS LAB GLUP(LOINC) 74 - 99 mg/dL High 128 GLUCOSE-POCT Performed By: #### GLUPO #### [facility] [address] [place] [address] TROPONIN I Collected: 09/22/2018 Status: F Source: [facility] 10:43 AM [facility]OSPITALS REPOSITORY TYPE CODE TESTS RESULT OUT OF REFERENCE UNITS RANGE LAB TROP2(LOINC 0.00 - 0.03 ng/mL ) TROPONIN I <0.02 Result Comment: LESS THAN 0.04 NG/ML: NEGATIVE REPEAT TESTING IN FOUR TO SIX HOURS IF CLINICALLY INDICATED. 0.04 - 0.5 NG/ML: CONSISTENT WITH POSSIBLE CARDIAC DAMAGE AND POSSIBLE INCREASED CLINICAL RISK. SERIAL MEASUREMENTS MAY HELP ASSESS EXTENT OF MYOCARDIAL DAMAGE. >0.5 NG/ML: CONSISTENT WITH CARDIAC DAMAGE, INCREASED CLINICAL RISK AND MYOCARDIAL INFARCTION. SERIAL MEASUREMENTS MAY HELP ASSESS EXTENT OF MYOCARDIAL DAMAGE. . Note: Troponin I testing is performed using different testing methodology at [facility] than at other [facility]. Direct result comparisons should only be made within the same method. . Patients receiving more than 5 mg/day of biotin may have interference in test results. A sample should be taken no sooner than eight hours after previous dose. Contact [phone] for additional information. Performed By: #### TROP2 #### [facility] [address] [place] [address] CBC Collected: 09/22/2018 Status: F Source: [place] 8:15 [facility] REPOSITORY TYPE CODE TESTS RESULT OUT OF REFERENCE UNITS RANGE LAB WBCR(LOINC 4.4 - 11.3 x10E9/L ) WBC 8.8 LAB NRBC(LOINC 0.0-0.0 /100 WBC ) NUCLEATED RBC 0.0 LAB RBCCT(LOIN 4.50 - 5.90 x10E12/L C) RBC 4.98 LAB HGB(LOINC) 13.5 - 17.5 g/dL HGB 15.2 LAB HCT(LOINC) 41.0 - 52.0 % HCT 44.7 LAB MCV(LOINC) 80 - 100 fL MCV 90 LAB MCHC2(LOIN 32.0 - 36.0 g/dL C) MCHC 34.0 LAB PLTCT(LOIN 150 - 450 x10E9/L C) PLT 301 LAB RDWCV(LOIN 11.5 - 14.5 % C) RDW-CV 13.2 Performed By: #### CBC #### [facility] [address] [place] [id number] RENAL FUNCTION PANEL Collected: 09/22/2018 Status: F Source: [place] 8:15 [facility] REPOSITORY TYPE CODE TESTS RESULT OUT OF REFERENCE UNITS RANGE LAB GLU(LOINC) 74 - 99 mg/dL GLUCOSE 99 LAB SOD(LOINC) 136 - 145 mmol/L SODIUM 137 LAB K(LOINC) 3.5 - 5.3 mmol/L POTASSIUM 4.2 Result Comment: MILD HEMOLYSIS DETECTED. The result may be falsely elevated due to hemolysis or other interferents. Clinical correlation is recommended. Repeat testing may be considered. LAB CHLOR(LOINC) 98 - 107 mmol/L CHLORIDE 106 LAB BIC(LOINC) 21 - 32 mmol/L BICARBONATE Low 20 LAB ANGAP(LOINC) 10 - 20 mmol/L ANION GAP 15 LAB UREA(LOINC) 6 - 23 mg/dL UREA NITROGEN 11 LAB CREA(LOINC) 0.50 - mg/dL 1.30 CREATININE 0.75 LAB GFRFN(LOINC) >60 mL/min/1.73m 2 GFR-NON AM. >60 LAB GFRAA(LOINC) >60 mL/min/1.73m 2 GFR- AM. >60 Result Comment: CALCULATIONS OF ESTIMATED GFR ARE PERFORMED USING THE MDRD STUDY EQUATION FOR THE IDMS-TRACEABLE CREATININE METHODS. CLIN CHEM 2007;53:766-72 LAB CA(LOINC) 8.6 - 10.6 mg/dL CALCIUM 9.1 LAB PHOS(LOINC) 2.5 - 4.9 mg/dL PHOSPHORUS 3.4 Result Comment: The performance characteristics of phosphorus testing in heparinized plasma have been validated by the individual laboratory site where testing is performed. Testing on heparinized plasma is not approved by the FDA; however, such approval is not necessary. LAB ALB(LOINC) 3.4 - 5.0 g/dL ALBUMIN 3.7 Performed By: #### RENAL #### [facility] [address] [place] [address] DISCHARGE SUMMARY Observed: 09/21/2018 Status: COMPLETED Source: [place] 10:10 PM [facility]ITALS REPOSITORY Send Summary: Discharge Summary Providers: Provider RoleProvider Name AttendingDuandreztJoe Roger Owen Note Recipients: Joe Harris MD Snyder, Roger Owen, MD - [phone] [] Discharge: Summary: Admission Date: .16-Sep-2018 06:40:00 Discharge Date: 22-Sep-2018 Attending Physician at Discharge: Joe Harris Admission Reason: Ischemic stroke Final Discharge Diagnoses: Cerebral infarction due to occlusion or stenosis of left carotid artery, Cerebral infarction due to occlusion or stenosis of right carotid artery, Procedures: None Condition at Discharge: Fair Disposition at Discharge: Rehab Facility or Unit Vital Signs: T PRBPSpO2 Value36.20067443/9395% Date/Time09/21 14: 14: 14: 14: 14:46 Range(36.6C - 37.1C ) (61 - 64 ) (19 - 20 ) (149 - 179 )/ (76 - 93 ) (95% - 96% ) Highest temp of 37.1 C was recorded at 09/21 7:04 Physical Exam: man in bed, bedside. NAD. AO to self, work, and Aug 2018 PERRL. Normal gaze. Left facial droop. LUE flaccid. LLE with minimal withdrawal 1/5. RUE+RLE 5/5 strength. RRR. CTAB. Hospital Course: Brenden Saha is a 58 year old man with HTN who presented to OSH 09/16 with acute L-sided weakness and R eye deviation. NIHSS 10. CTH showed a hyperdense R MCA. He was transferred to [facility] for possible thrombectomy. MRI showed core infarct in R basal ganglia. Considering that his cortex was relatively spared suggesting good collaterals, and vessel imaging showing complete R ICA occlusion, decision was made to not undergo thrombectomy. Etiology considered likely artery-artery embolism. He was started on DAPT (ASA 81mg + Plavix) and atorvastatin 40mg. On further imaging, he was noted to have >70% stenosis of his left internal carotid artery, in addition to aforementioned complete Rt ICA occuslin. He was evaluated by neurosurgery team during his stay, who recommended outpatient follow up for consideration of CEA in 6-8 weeks after discharge, and to continue ASA + Plavix. Mr Saha passed swallow evaluation for dysphagia pureed diet on 09/21. The patient complained of left shoulder pain during his stay, but shoulder xray showed no signs of acute fracture. The patient also complained of new onset chest pain during his stay. EKG showing no ST changes. Patient found to be hypertensive to 170s/100s. BP corrected, and anti-HTN meds adjusted to include 10mg Lisinopril and 5mg Amlodipine. Troponins checked and not elevated. Pain likely referred from left shoulder. He was evaluated by rehab services, who recommended acute rehab, to which he was discharged on 09/22. Follow up was requested with stroke neurology and neurosurgery. Issues to follow up: Neurology: -Duration of DAPT Neurosurgery: -Rt ICA CEA timing Discharge Information: and Continuing Care: Discharge Instructions: Activity: activity with assistance. May shower.. Weight-bearing Instructions: weight-bearing as tolerated. Nutrition/Diet: low cholesterol Diet Consistency/Texture: pureed, honey/extra thick, No straws Rehab Services: Occupational Therapy Orders: Eval and Treat ([facility]) 2 times/day Physical Therapy Orders: Eval and Treat ([facility]) 2 times/day Speech Therapy Orders: Eval and Treat ([facility]) 2 times/day Infectious Disease: PPD Status: not given MRSA: no VRE: no C. Diff: no Other Resistant Organism: no Isolation Type: none Care Recommendation: I recommend that INPATIENT care is required at:: Acute rehab Estimated Stay: Convalescent stay < 30 days Follow Up Appointments: Follow-Up Appointment 01: Physician/Dept/Service: Dr. Joe Harris, Neurology Scheduled Date/Time: 12-Oct-2018 13:00 Location: [address] [place] [address] [address] [place] [address] Follow-Up Appointment 02: Physician/Dept/Service: Dr. Oliver Chatman, Pulmonary Scheduled Date/Time: 27-Oct-2018 13:00 Location: [address] [place] [address], [address], [place]. [facility] Discharge Medications: Home Medication aspirin 81 mg oral tablet, chewable - 1 tab(s) orally once a day atorvastatin - 40 milligram(s) orally once (at bedtime) Plavix 75 mg oral tablet - 1 tab(s) orally once a day enoxaparin - 40 milligram(s) subcutaneous every 24 hours sertraline 25 mg oral tablet - 1 tab(s) orally once a day senna 8.6 mg oral tablet - 1 tab(s) orally once a day polyethylene glycol 3350 oral powder for reconstitution - 1 packet(s) orally once a day lisinopril 10 mg oral tablet - 1 tab(s) orally once a day amLODIPine 5 mg oral tablet - 1 tab(s) orally once a day diclofenac 1% topical gel - Apply topically to affected area 4 times a day on left shoulder omeprazole 20 mg oral delayed release tablet - 1 tab(s) orally once a day PRN Medication Tylenol 325 mg oral capsule - 1 cap(s) orally 3 times a day, As Needed for pain Lab Results - Pending: None Radiology Results - Pending: Xray Complete Pharyngeal + Speech Eval at 21-Sep-2018 14:05:00 Xray Complete Pharyngeal + Speech Eval at 18-Sep-2018 13:20:00 Signature/Cosignature/Attestation: Attending AttestationI saw and evaluated the patient. I personally obtained the garg and critical portions of the history and physical exam or was physically present for garg and critical portions performed by the resident/fellow. I reviewed the resident/fellows documentation and discussed the patient with the resident/fellow. I agree with the resident/fellows medical decision making as documented in the residents note. I personally evaluated the patient (as noted in the above attestation) on 22-Sep-2018 Electronic Signatures: Joe Harris) (Signed 22-Sep-2018 17:22) Authored: Ongoing Care, Signature/Cosignature/Attestation Co-Signer: Ongoing Care, Signature/Cosignature/Attestation Natali Gonzalez (Resident)) (Signed 22-Sep-2018 13:24) Authored: Send Summary, Summary Content, Ongoing Care, Signature/Cosignature/Attestation Last Updated: 22-Sep-2018 17:22 by Joe Harris) DAILY PROGRESS Observed: 09/21/2018 Status: COMPLETED Source: UNIVERSITY NOTE-NEURO - STROKE 5:20 PM [facility]ALS REPOSITORY Service: Neuro - Stroke Subjective Data: BRENDEN SAHA is a 58 year old Male who is Hospital Day # 6. Passed MBS swallow. Was planned for discharge later today, but facility decided to delay until 09/22. Objective Data: Objective Information: T PRBPSpO2 [id number]/9395% Date/Time09/21 14: 14: 14: 14: 14:46 Range(36.6C - 37.1C ) (61 - 64 ) (19 - 20 ) (149 - 179 )/ (76 - 93 ) (95% - 96% ) Highest temp of 37.1 C was recorded at 09/21 7:04 Pain reported at 09/20 21:10: 2 Pain reported at 09/20 20:00: 7 Physical Exam: Constitutional: man in bed, bedside. NAD. AO to self, work, and Aug 2018 PERRL. Normal gaze. Left facial droop. LUE flaccid. LLE with minimal withdrawal. RUE+RLE 5/ strength. RRR. CTAB. Medication: Medications: Continuous Medications 1. Sodium Chloride 0.9% Infusion: 1000 mL IntraVenous <Continuous> Scheduled Medications 1. amLODIPine (NORVASC): 5 mg Oral Daily 2. Aspirin Chewable: 81 mg Feeding tube Daily 3. Atorvastatin: 40 mg Feeding tube At Bedtime 4. Clopidogrel: 75 mg Feeding tube Daily 5. Enoxaparin SubCutaneous: 40 mg SubCutaneous Every 24 Hours 6. Polyethylene Glycol: 17 gram(s) Feeding tube Daily 7. Sennosides: 2 tablet(s) Feeding tube Daily 8. Sertraline: 25 mg Oral Daily PRN Medications 1. Acetaminophen Oral Liquid: 650 mg Feeding tube Every 4 Hours 2. Acetaminophen Rectal: 650 mg Rectal Every 4 Hours 3. Dextrose 50% in Water Injectable: 25 gram(s) IntraVenous Push Every 15 Minutes 4. Dextrose 50% in Water Injectable: 12.5 gram(s) IntraVenous Push Every 15 Minutes 5. Glucagon Injectable: 1 mg IntraMuscular Every 15 Minutes 6. Ondansetron Injectable: 4 mg IntraVenous Push Every 8 Hours Conditional Medication Orders 1. Perflutren Lipid Microsphere (Activated) 1.3 mL / NaCL 0.9% T.V. 10 mL Injectable: 0.5 mL IntraVenous Push Once Recent Lab Results: Results: I have reviewed these laboratory results: Renal Function Panel 21-Sep-2018 08:48:00 ResultValue Glucose, Serum 85 NA 137 K 4.0 CL 108 H Bicarbonate, Serum 19 L Anion Gap, Serum 14 BUN 13 CREAT 0.76 GFR-Non >60 GFR- >60 Calcium, Serum 8.6 Phosphorus, Serum 3.2 ALB 3.5 Complete Blood Count 21-Sep-2018 08:48:00 ResultValue White Blood Cell Count 7.6 Nucleated Erythrocyte Count 0.0 Red Blood Cell Count 4.82 HGB 14.6 HCT 44.0 MCV 91 MCHC 33.2 PLT 283 RDW-CV 12.9 Coagulation Screen 21-Sep-2018 08:48:00 ResultValue Prothrombin Time, Plasma 13.6 H International Normalized Ratio, Plasma 1.2 H Activated Partial Thromboplastin Time 30 Magnesium, Serum 21-Sep-2018 08:48:00 ResultValue Magnesium, Serum 2.04 Radiology Results: Results: Impression: 1. Fluoroscopic support provided to speech pathologist for a modified barium swallow with findings as described above.. Correlate with detailed report from speech pathologist for dietary recommendations. Xray Complete Pharyngeal + Speech Eval [Sep 21 2018 3:22PM] NIHSS: Level of Consciousness: 1 = drowsy LOC Question: 0 = both correct LOC Commands: 0 = obeys both Best Gaze: 0 = normal Visual Field: 0 = no visual loss Facial Paresis: 2 = complete UMN Left Upper Extremity: 4 = no movement Right Upper Extremity: 0 = no drift; 10 seconds Dysarthria: 1 = mild-moderate Left Lower Extremity: 3 = no effort vs gravity Right Lower Extremity: 0 = no drift; 5 seconds Best Language: 0 = no aphasia Limb Ataxia: 0 = absent Sensory: 0 = absent Neglect: 1 = partial NIHSS Score: 12 Assessment and Plan: Admitting Dx: Cerebrovascular accident (CVA) due to embolism of right middle cerebral artery: Entered Date: 16-Sep-2018 07:09 Additional Dx: Cerebral infarction due to occlusion or stenosis of right carotid artery: Entered Date: 17-Sep-2018 13:59 Carotid artery stenosis: Entered Date: 16-Sep-2018 14:54 Assessment: 58 yo M with HTN, presented with R ICA occlusion and R BG & insular cortex infarction causing L-sided weakness. Outside tPA window, not an intervention candidate. Also found to have L ICA stenosis and R ICA complete occlusion. CEA outpatient. Type: Cerebral infarction Subtype: Atherosclerotic Vessels Involved: R ICA, R MCA Neurologic Manifestations: Deficits: Dense L hemiplegia, R gaze preference, mild neglect NIHSS: 12 Initial treatment: None Anti-platelets or Anti-coagulation management: Aspirin Vascular Risk Factors: HTN BP goal: Permissive HTN initially (<220/120) Disposition: rehab #Stroke - Rt ICA occlusion + Lt ICA stenosis-> Rt BG & Insula stroke -Started DAPT ASA 81mg + Plavix 75mg -LDL 109 -> start atorvastatin 40mg -Carotid ultrasound -> L ICA velocities: PSV: 410 cm/s, EDV: 140 cm/s -NSGY consulted: Outpatient consideration for CEA -f/u appointment requested with Dr Jean Paul TAYLOR -CTA for surgical planning done - f/u with stroke 10/12 (Dr. Harris) requested #Dysphagia -Passed MBS for pureed honey thick. No straws. #Shoulder pain -xray with no fractures #Dispo: PT/OT rec acute rehab. Plan for transfer 12/25 AM #FENPAC Fluids- no mIVFs Electrolytes- Replete as needed Nutrition- Regular diet pureed Ppx- DVT: Lovenox. GI: No ppx needed Access- pIV Code- FULL CODE Signature/Cosignature/Attestation: Attending AttestationI saw and evaluated the patient. I personally obtained the garg and critical portions of the history and physical exam or was physically present for garg and critical portions performed by the resident/fellow. I reviewed the resident/fellows documentation and discussed the patient with the resident/fellow. I agree with the resident/fellows medical decision making as documented in the residents note. I personally evaluated the patient (as noted in the above attestation) on 21-Sep-2018 Electronic Signatures: Joe Harris) (Signed 21-Sep-2018 17:45) Authored: Signature/Cosignature/Attestation Co-Signer: Service, Subjective Data, Objective Data, Scales, Assessment and Plan, Signature/Cosignature/Attestation Natali Gonzalez (Resident)) (Signed 21-Sep-2018 17:41) Authored: Service, Subjective Data, Objective Data, Scales, Assessment and Plan, Signature/Cosignature/Attestation Last Updated: 21-Sep-2018 17:45 by Joe Harris) SWALLOW EVALUATION Observed: 09/21/2018 Status: UNK Source: [facility] [place] V2-MODIFIED BARIUM 2:24 PM HOSPITALS REPOSITORY SWALLOW Rehab: Info: Mode of Treatmentspeech-language pathology Time IN13:50 Time OUT14:26 Total Treatment [id number] Communicated with ... at end of sessionbedside nurse; physician Evaluation TypeModified Barium Swallow Patient Effortexcellent Symptoms Noted During/After Treatmentnone Reason for ReferralA Modified Barium Swallow (MBS) study was recommended due to clinical concerns of pharyngeal swallowing deficits to further assess the swallow, determine aspiration risk and to provide recommendations for safest swallowing on least restrictive oral diet. General Observations of PatientMr. Maria A received sitting upright in Hausted chair. Continues to be confused, but alert and participated well in exam. present. Pertinent History of Current Functional [id number] M with HTN, presented with R carotid occlusion and R BG infarction. Outside tPA window, not an intervention candidate. Impression: BANKING TEACHER Swallowing Diagnosismoderate dysphagia; pharyngeal dysfunction; oral dysfunction Assessment (Swallow Eval)MBSS completed. Informed verbal consent received prior to completion of exam. present. Trials of thin, nectar thick, and honey thick liquids were given in addition to pureed and regular solid textures. Pt presents with decreased labial seal (min amounts of anterior spillage with liquid consistencies), A-P transit of bolus and diminished oral coordination characterized by poor bolus formation and premature spillage into pharynx. Delayed swallow onset resulting in trace-transient penetration with honey thick liquids (x1 trial out of 7), deep laryngeal penetration with nectar thick liquids (residue remains on laryngeal surface of epiglottis, placing pt at an increased for aspiration given pt does not sensate material within laryngeal vestibule), trace amounts of SILENT aspiration with thin liquids (productive cued cough - able to expectorate material from laryngeal vestibule), and overt aspiration with solids. During the swallow, pt demonstrates decreased BOT retraction, hyolaryngeal elevation/excursion, and pharyngeal squeeze causing min amounts of pharyngeal residue. Clears with liquid wash and/or double swallow. MD and RN notified of results and recommendations. Speech Therapy RecommendationsPUREED DIET WITH HONEY THICK LIQUIDS VIA CUP ONLY - Must utilizing the following safe swallow strategies: 1. Small bites/sips 2. Eat/drink at a slow rate 3. Alternate bites/sips 4. NO STRAWS 5. Eat/Drink at an upright position 6. Pills crushed in applesauce Would recommend feeding assistance if not available. If any changes to mentation/medical status, please make NPO and alert BANKING TEACHER to reassess swallow function. Given pt's h/o SILENT aspiration, would recommend repeat MBSS in 3-4 weeks. Criteria for Skilled Therapeutic Interventions Met (Swallow Eval)yes; treatment indicated Therapy Frequency (BANKING TEACHER)1 time/wk BANKING TEACHER Diet Recommendations (Swallow Eval)puree; honey thick liquids Recommended Feeding/Eating Techniques (Swallow Eval)alternate between small bites and sips of food/liquid& feed upright in 90 degree position double/multiple swallows& maintain upright posture during/after eating for 30 mins& small sips/bites& slow rate& no straws Monitor for Signs of Aspiration (Swallow Eval)cough; fever; pneumonia Vision/Cognition: Affect/Mental Status (Cognitive)confused MBSS: Mode of Presentation, Thin Liquid (MBSS)spoon; straw Rosenbek's Penetration Aspiration Scale, Thin Liquid (MBSS)(8) contrast passes glottis, visible subglottic residue remains, absent patient response (aspiration) Mode of Presentation, [place] Thick (MBSS)spoon; straw Rosenbek's Penetration Aspiration Scale, [place] Thick (MBSS)(5) contrast contacts vocal cords, visible residue remains (penetration) Mode of Presentation, Honey Thick (MBSS)spoon; straw; cup Rosenbek's Penetration Aspiration Scale, Honey Thick (MBSS)(2) contrast enters airway, remains above the vocal cords, no residue remains (penetration) Mode of Presentation, Puree (MBSS)spoon Rosenbek's Penetration Aspiration Scale, Puree (MBSS)(1) no aspiration, contrast does not enter airway Mode of Presentation, Solid Food (MBSS)spoon Rosenbek's Penetration Aspiration Scale, Solid Food (MBSS)(6) contrast passes glottis, no subglottic residue remains (aspiration) Short Term Goals: Dysphagia/Swallow: Established [id number] Dysphagia/Swallow: Goal Details1. Tolerate LRD with no clinical s/s of aspiration 100% of time Dysphagia/Swallow: Time Frame for Goal30 days Treatment: TreatmentSLP reviewed anatomy/physiology of swallow function, s/s of aspiration, silent aspiration, risk of aspiration, viewed MBSS/results/recommendations, and discussed safe swallow strategies. Pt/Family verbalized understanding and in agreement. BANKING TEACHER also discussed POC. DC Recommendations: Anticipated DIscharge Disposition (Swallow Eval)unable to determine at this time; refer to subsequent notes Electronic Signatures: Belen Harp (BANKING TEACHER) (Signed 21-Sep-2018 15:02) Authored: Rehab Last Updated: 21-Sep-2018 15:02 by Belen Harp (BANKING TEACHER) GI COMP PHARYNGEAL Observed: 09/21/2018 Status: F Source: [facility] SPEECH EVAL 2:05 PM [facility] REPOSITORY Patient Name: BRENDEN SAHA STUDY: GI COMP PHARYNGEAL SPEECH EVAL; 09/21/2018 2:05 pm INDICATION: Signs/Symptoms: stroke. COMPARISON: None. ACCESSION NUMBER(S): [id number] ORDERING CLINICIAN: FLOWER VAZQUEZ TECHNIQUE: Radiographic and videographic assistance was provided to the speech pathologist performing modified barium swallow. The patient was given food of different consistencies mixed with approximately 150 mL of barium and the swallowing response was observed. Fluoroscopic time was 4.3 minutes. FINDINGS: Oral phase swallowing function was abnormal. The pharyngeal phase demonstrates laryngeal penetration with thins, nectar, honey, and solids. There was aspiration detected with thins, nectar, and solids. Esophageal phase did not demonstrate reduced motility. Please see BANKING TEACHER report for further findings and recommendations. IMPRESSION: 1. Fluoroscopic support provided to speech pathologist for a modified barium swallow with findings as described above.. Correlate with detailed report from speech pathologist for dietary recommendations. I personally reviewed the images/study and I agree with the findings as stated. This study was interpreted at [facility], [place], [place]. Electronically signed by: OSCAR BOLAND MD BN SHOULDER, CMPLT, Observed: 09/21/2018 Status: F Source: [facility] MIN 2 VIEWS 1:10 PM [facility]ITALS REPOSITORY Patient Name: BRENDEN SAHA STUDY: SHOULDER CMPLT, MIN 2 VIEWS;Left; 09/21/2018 1:10 pm INDICATION: Signs/Symptoms: for shoulder pain. COMPARISON: None. ACCESSION NUMBER(S): [id number] ORDERING CLINICIAN: FLOWER VAZQUEZ FINDINGS: Multiple views of the left shoulder provided. There is no acute fracture or dislocation. There are mild degenerative changes of the acromioclavicular and glenohumeral joints. There is normal anatomic alignment. IMPRESSION: 1. No acute osseous abnormality. 2. Mild AC and glenohumeral joint osteoarthrosis. I personally reviewed the images/study and I agree with the findings as stated. This study was interpreted at [place], [place]. Electronically signed by: MARIBELL BREWER MD CBC Collected: 09/21/2018 Status: F Source: [facility] [place]AN 8:48 AM [facility] REPOSITORY TYPE CODE TESTS RESULT OUT OF REFERENCE UNITS RANGE LAB WBCR(LOINC 4.4 - 11.3 x10E9/L ) WBC 7.6 LAB NRBC(LOINC 0.0-0.0 /100 WBC ) NUCLEATED RBC 0.0 LAB RBCCT(LOIN 4.50 - 5.90 x10E12/L C) RBC 4.82 LAB HGB(LOINC) 13.5 - 17.5 g/dL HGB 14.6 LAB HCT(LOINC) 41.0 - 52.0 % HCT 44.0 LAB MCV(LOINC) 80 - 100 fL MCV 91 LAB MCHC2(LOIN 32.0 - 36.0 g/dL C) MCHC 33.2 LAB PLTCT(LOIN 150 - 450 x10E9/L C) PLT 283 LAB RDWCV(LOIN 11.5 - 14.5 % C) RDW-CV 12.9 Performed By: #### CBC #### [facility] [address] [place] [address] MAGNESIUM Collected: 09/21/2018 Status: F Source: [place] 8:48 AM [facility] REPOSITORY TYPE CODE TESTS RESULT OUT OF REFERENCE UNITS RANGE LAB MG(LOINC) 1.60 - 2.40 mg/dL MAGNESIUM 2.04 Performed By: #### MG #### [facility] [address] [place] [address] RENAL FUNCTION PANEL Collected: 09/21/2018 Status: F Source: [facility] [place] 8:48 AM [facility] REPOSITORY TYPE CODE TESTS RESULT OUT OF REFERENCE UNITS RANGE LAB GLU(LOINC) 74 - 99 mg/dL GLUCOSE 85 LAB SOD(LOINC) 136 - 145 mmol/L SODIUM 137 LAB K(LOINC) 3.5 - 5.3 mmol/L POTASSIUM 4.0 LAB CHLOR(LOIN 98 - 107 mmol/L C) CHLORIDE High 108 LAB BIC(LOINC) 21 - 32 mmol/L Low BICARBONATE 19 LAB ANGAP(LOIN 10 - 20 mmol/L C) ANION GAP 14 LAB UREA(LOINC 6 - 23 mg/dL ) UREA NITROGEN 13 LAB CREA(LOINC 0.50 - 1.30 mg/dL ) CREATININE 0.76 LAB GFRFN(LOIN >60 mL/min/1.7 C) 3m2 GFR-NON AM. >60 LAB GFRAA(LOIN >60 mL/min/1.7 C) 3m2 GFR- AM. >60 Result Comment: CALCULATIONS OF ESTIMATED GFR ARE PERFORMED USING THE MDRD STUDY EQUATION FOR THE IDMS-TRACEABLE CREATININE METHODS. CLIN CHEM 2007;53:766-72 LAB CA(LOINC) 8.6 - 10.6 mg/dL CALCIUM 8.6 LAB PHOS(LOINC) 2.5 - 4.9 mg/dL PHOSPHORUS 3.2 Result Comment: The performance characteristics of phosphorus testing in heparinized plasma have been validated by the individual laboratory site where testing is performed. Testing on heparinized plasma is not approved by the FDA; however, such approval is not necessary. LAB ALB(LOINC) 3.4 - 5.0 g/dL ALBUMIN 3.5 Performed By: #### RENAL #### [facility] [address] [place] [address] COAGULATION SCREEN Collected: 09/21/2018 Status: F Source: [place] 8:48 AM [facility] REPOSITORY TYPE CODE TESTS RESULT OUT OF REFERENCE UNITS RANGE LAB PT(LOINC) 9.7 - 12.7 sec PROTHROMBIN High TIME 13.6 Result Comment: Note new reference range as of 07/21/2018. LAB INR(LOINC) 0.9 - 1.1 High PT, INR 1.2 LAB APTT(LOINC) 28 - 38 sec APTT 30 Result Comment: Note new reference range as of 07/21/2018. THE APTT IS NO LONGER USED FOR MONITORING UNFRACTIONATED HEPARIN THERAPY. FOR MONITORING HEPARIN THERAPY, USE THE HEPARIN ASSAY. Performed By: #### COAGS #### [facility] [address] [place] [address] CLINICAL EVENT Observed: 09/21/2018 Status: UNK Source: [place] [place] NOTE-NEUROSURGERY SIGN OFF 8:17 AM [facility]ITALS REPOSITORY Event: Topic: Neurosurgery sign off Details: No acute nsgy needed Patient will follow up with Dr. Reaves in his clinic for an elective L ICA stent placement in 6-8 weeks Please discharge patient on ASA and plavix when discharging please call if you have any questions Provider / Team Contact Information: Provider/Team Contact Info-Pager Number: [phone] Electronic Signatures: Neil Keller ( (Resident)) (Signed 21-Sep-2018 08:18) Authored: Event, Provider / Team Contact Information Last Updated: 21-Sep-2018 08:18 by Neil Keller ( (Resident)) CBC Collected: 09/20/2018 Status: F Source: [place] [place] 8:49 AM [facility] REPOSIT[facility] TYPE CODE TESTS RESULT OUT OF REFERENCE UNITS RANGE LAB WBCR(LOINC 4.4 - 11.3 x10E9/L ) WBC 8.2 LAB NRBC(LOINC 0.0-0.0 /100 WBC ) NUCLEATED RBC 0.0 LAB RBCCT(LOIN 4.50 - 5.90 x10E12/L C) RBC 4.57 LAB HGB(LOINC) 13.5 - 17.5 g/dL HGB 14.0 LAB HCT(LOINC) 41.0 - 52.0 % HCT 41.5 LAB MCV(LOINC) 80 - 100 fL MCV 91 LAB MCHC2(LOIN 32.0 - 36.0 g/dL C) MCHC 33.7 LAB PLTCT(LOIN 150 - 450 x10E9/L C) PLT 277 LAB RDWCV(LOIN 11.5 - 14.5 % C) RDW-CV 13.0 Performed By: #### CBC #### [facility] [address] [place] [address] RENAL FUNCTION PANEL Collected: 09/20/2018 Status: F Source: [place] 8:49 AM [facility] REPOSIT[facility] TYPE CODE TESTS RESULT OUT OF REFERENCE UNITS RANGE LAB GLU(LOINC) 74 - 99 mg/dL GLUCOSE 79 LAB SOD(LOINC) 136 - 145 mmol/L SODIUM 140 LAB K(LOINC) 3.5 - 5.3 mmol/L POTASSIUM 4.2 Result Comment: MILD HEMOLYSIS DETECTED. The result may be falsely elevated due to hemolysis or other interferents. Clinical correlation is recommended. Repeat testing may be considered. LAB CHLOR(LOINC) 98 - 107 mmol/L CHLORIDE High 110 LAB BIC(LOINC) 21 - 32 mmol/L BICARBONATE Low 20 LAB ANGAP(LOINC) 10 - 20 mmol/L ANION GAP 14 LAB UREA(LOINC) 6 - 23 mg/dL UREA NITROGEN 14 LAB CREA(LOINC) 0.50 - mg/dL 1.30 CREATININE 0.80 LAB GFRFN(LOINC) >60 mL/min/1.73m 2 GFR-NON AM. >60 LAB GFRAA(LOINC) >60 mL/min/1.73m 2 GFR- AM. >60 Result Comment: CALCULATIONS OF ESTIMATED GFR ARE PERFORMED USING THE MDRD STUDY EQUATION FOR THE IDMS-TRACEABLE CREATININE METHODS. CLIN CHEM 2007;53:766-72 LAB CA(LOINC) 8.6 - 10.6 mg/dL CALCIUM Low 8.5 LAB PHOS(LOINC) 2.5 - 4.9 mg/dL PHOSPHORUS 3.0 Result Comment: The performance characteristics of phosphorus testing in heparinized plasma have been validated by the individual laboratory site where testing is performed. Testing on heparinized plasma is not approved by the FDA; however, such approval is not necessary. LAB ALB(LOINC) 3.4 - 5.0 g/dL ALBUMIN 3.5 Performed By: #### RENAL #### [facility] [address] [place] [address] DAILY PROGRESS Observed: 09/20/2018 Status: COMPLETED Source: UNIVERSITY NOTE-NEURO - STROKE 8:30 AM [facility] RE[facility]IT[facility] Service: Neuro - Stroke Subjective Data: BRENDEN SAHA is a 58 year old Male who is Hospital Day # 5. complains of headache still. Objective Data: Objective Information: T PRBPSpO2 [id number]/63574% Date/Time09/19 23: 23: 23: 23: 23:05 Range(36.2C - 36.8C ) (51 - 67 ) (18 - 20 ) (154 - 175 )/ (74 - 115 ) (94% - 97% ) Pain reported at 09/20 2:40: 0 Pain reported at 09/20 1:40: 8 Physical Exam: Constitutional: no distress. Respiratory/Thorax: breathing comfortably Cardiovascular: normal rate, regular rhythm Neurological: LLE spontaneous, LUE minimal withdrawal to nox stim Medication: Medications: Continuous Medications 1. Sodium Chloride 0.9% Infusion: 1000 mL IntraVenous <Continuous> Scheduled Medications 1. Aspirin Chewable: 81 mg Feeding tube Daily 2. Atorvastatin: 40 mg Feeding tube At Bedtime 3. Clopidogrel: 75 mg Feeding tube Daily 4. Enoxaparin SubCutaneous: 40 mg SubCutaneous Every 24 Hours 5. Polyethylene Glycol: 17 gram(s) Feeding tube Daily 6. Sennosides: 2 tablet(s) Feeding tube Daily 7. Sertraline: 25 mg Oral Daily PRN Medications 1. Acetaminophen Oral Liquid: 650 mg Feeding tube Every 4 Hours 2. Acetaminophen Rectal: 650 mg Rectal Every 4 Hours 3. Dextrose 50% in Water Injectable: 25 gram(s) IntraVenous Push Every 15 Minutes 4. Dextrose 50% in Water Injectable: 12.5 gram(s) IntraVenous Push Every 15 Minutes 5. Glucagon Injectable: 1 mg IntraMuscular Every 15 Minutes 6. Ondansetron Injectable: 4 mg IntraVenous Push Every 8 Hours Conditional Medication Orders 1. Perflutren Lipid Microsphere (Activated) 1.3 mL / NaCL 0.9% T.V. 10 mL Injectable: 0.5 mL IntraVenous Push Once Recent Lab Results: Results: I have reviewed these laboratory results: Renal Function Panel 19-Sep-2018 08:24:00 ResultValue Glucose, Serum 87 NA 137 K 4.2 CL 109 H Bicarbonate, Serum 18 L Anion Gap, Serum 14 BUN 13 CREAT 0.79 GFR-Non >60 GFR- >60 Calcium, Serum 8.8 Phosphorus, Serum 3.0 ALB 3.7 Complete Blood Count Trending View [id number] 08:24:00 19-Sep-2018 03:16:00 White Blood Cell Count9.3 10.2 Nucleated Erythrocyte Count0.0 0.0 Red Blood Cell Count4.79 5.09 HGB14.8 15.3 HCT43.4 45.2 MCV91 89 MCHC34.1 33.8 [id number] 302 RDW-CV12.8 13.1 Radiology Results: Results: Impression: 1. Findings compatible with occlusion of the right ICA beginning at its origin. There is also at least markedly diminished flow or occlusion of the right MCA including M1 and M2 branches with reconstitution of a few more distal branches due to collaterals. 2. Atherosclerotic changes of the left carotid bifurcation and proximal left ICA with a segment of narrowing measuring at least 70%. There is also at least mild narrowing of the intracranial ICA due to calcified plaque. CT Angio Head w/wo Include Post Proc [Sep 19 2018 1:14PM] NIHSS: Level of Consciousness: 0 = alert LOC Question: 0 = both correct LOC Commands: 0 = obeys both Best Gaze: 1 = partial gaze palsy Visual Field: 1 = partial HH Facial Paresis: 1 = minor paresis Left Upper Extremity: 3 = no effort vs gravity Right Upper Extremity: 0 = no drift; 10 seconds Dysarthria: 1 = mild-moderate Left Lower Extremity: 3 = no effort vs gravity Right Lower Extremity: 0 = no drift; 5 seconds Best Language: 0 = no aphasia Limb Ataxia: 0 = absent Sensory: 0 = absent Neglect: 1 = partial NIHSS Score: 11 Assessment and Plan: Assessment: 58yo M with HTN, presented with R ICA occlusion and R BG & insula cortex infarction causing L-sided weakness, especially LUE. Outside tPA window, not an intervention candidate. Also found to have severe L ICA occlusion. Started on DAPT (ASA 81mg & Plavix) + statin. Type: Cerebral infarction Subtype: Atherosclerotic Vessels Involved: R ICA, R MCA Neurologic Manifestations: Deficits: Dense L hemiplegia, R gaze preference, mild neglect NIHSS: 10 Initial treatment: None Anti-platelets or Anti-coagulation management: Aspirin Vascular Risk Factors: HTN BP goal: Permissive HTN initially (<220/120) Disposition: rehab Plan: - started DAPT ASA 81mg + Plavix - LDL 109 -> start atorvastatin 40mg - carotid ultrasound -> L ICA velocities: PSV: 410 cm/s, EDV: 140 cm/s - CTA for surgical planning done yesterday. - headache cocktail as needed - MBS today - f/u with stroke 10/12 (Dr. Harris) DVT prophylaxis: lovenox Dispo: rehab Signature/Cosignature/Attestation: Attending AttestationI saw and evaluated the patient. I personally obtained the garg and critical portions of the history and physical exam or was physically present for garg and critical portions performed by the resident/fellow. I reviewed the resident/fellows documentation and discussed the patient with the resident/fellow. I agree with the resident/fellows medical decision making as documented in the residents note. I personally evaluated the patient (as noted in the above attestation) on 20-Sep-2018 Electronic Signatures: Robby Galarza) (Signed 21-Sep-2018 11:45) Authored: Signature/Cosignature/Attestation Co-Signer: Assessment and Plan, Signature/Cosignature/Attestation Flower Vazquez (Resident)) (Signed 20-Sep-2018 08:38) Authored: Service, Subjective Data, Objective Data, Scales, Assessment and Plan, Signature/Cosignature/Attestation Last Updated: 21-Sep-2018 11:45 by Robby Galarza) DAILY PROGRESS Observed: 09/19/2018 Status: COMPLETED Source: [facility]-NEURO - STROKE 1:03 PM HOSPITALS REPOSITORY Service: Neuro - Stroke Subjective Data: BRENDEN SAHA is a 58 year old Male who is Hospital Day # 4. Overnight, pt's IV infiltrated while at CT angio. Replaced with left IV, which came out and noted some bleeding. CBC and VSS. CT angio not performed as a result. Will plan for repeat CTA today along with repeat MBS. Objective Data: Objective Information: T PRBPSpO2 [id number]/8096% Date/Time09/19 8: 8: 8: 8: 8:59 Range(36.2C - 37.3C ) (55 - 69 ) (14 - 20 ) (154 - 168 )/ (80 - 96 ) (94% - 96% ) As of 18-Sep-2018 23:00:00, patient is on 2 L/min of oxygen via nasal cannula. Highest temp of 37.3 C was recorded at 09/18 15:35 Pain reported at 09/18 20:45: 8 Physical Exam: Constitutional: no distress, drowsy ENMT: NG tube Respiratory/Thorax: breathing comfortably on room air Cardiovascular: normal rate, regular rhythm Neurological: L eye deviation, LLE spontaneous, LUE minimal withdrawal to nox stim Medication: Medications: Continuous Medications 1. Sodium Chloride 0.9% Infusion: 1000 mL IntraVenous <Continuous> Scheduled Medications 1. Aspirin Chewable: 81 mg Feeding tube Daily 2. Atorvastatin: 40 mg Feeding tube At Bedtime 3. Clopidogrel: 75 mg Feeding tube Daily 4. Enoxaparin SubCutaneous: 40 mg SubCutaneous Every 24 Hours 5. Polyethylene Glycol: 17 gram(s) Feeding tube Daily 6. Sennosides: 2 tablet(s) Feeding tube Daily 7. Sertraline: 25 mg Oral Daily PRN Medications 1. Acetaminophen Oral Liquid: 650 mg Feeding tube Every 4 Hours 2. Acetaminophen Rectal: 650 mg Rectal Every 4 Hours 3. Dextrose 50% in Water Injectable: 25 gram(s) IntraVenous Push Every 15 Minutes 4. Dextrose 50% in Water Injectable: 12.5 gram(s) IntraVenous Push Every 15 Minutes 5. Glucagon Injectable: 1 mg IntraMuscular Every 15 Minutes 6. Ondansetron Injectable: 4 mg IntraVenous Push Every 8 Hours Conditional Medication Orders 1. Perflutren Lipid Microsphere (Activated) 1.3 mL / NaCL 0.9% T.V. 10 mL Injectable: 0.5 mL IntraVenous Push Once Recent Lab Results: Results: I have reviewed these laboratory results: Renal Function Panel 19-Sep-2018 08:24:00 ResultValue Glucose, Serum 87 NA 137 K 4.2 CL 109 H Bicarbonate, Serum 18 L Anion Gap, Serum 14 BUN 13 CREAT 0.79 GFR-Non >60 GFR- >60 Calcium, Serum 8.8 Phosphorus, Serum 3.0 ALB 3.7 Complete Blood Count Trending View [id number] 08:24:00 19-Sep-2018 03:16:00 White Blood Cell Count9.3 10.2 Nucleated Erythrocyte Count0.0 0.0 Red Blood Cell Count4.79 5.09 HGB14.8 15.3 HCT43.4 45.2 MCV91 89 MCHC34.1 33.8 [id number] 302 RDW-CV12.8 13.1 Radiology Results: Results: Impression: 1. Essentially nondiagnostic CT angiogram of the head and neck due to suboptimal contrast opacification. 2. Redemonstration of an evolving area of ischemic injury in the right MCA distribution. CT Angio Neck [Sep 19 2018 12:54PM] Impression: 1. Essentially nondiagnostic CT angiogram of the head and neck due to suboptimal contrast opacification. 2. Redemonstration of an evolving area of ischemic injury in the right MCA distribution. CT Angio Head w/wo Include Post Proc [Sep 19 2018 12:54PM] NIHSS: Level of Consciousness: 0 = alert LOC Question: 0 = both correct LOC Commands: 0 = obeys both Best Gaze: 1 = partial gaze palsy Visual Field: 1 = partial HH Facial Paresis: 1 = minor paresis Left Upper Extremity: 3 = no effort vs gravity Right Upper Extremity: 0 = no drift; 10 seconds Dysarthria: 1 = mild-moderate Left Lower Extremity: 3 = no effort vs gravity Right Lower Extremity: 0 = no drift; 5 seconds Best Language: 0 = no aphasia Limb Ataxia: 0 = absent Sensory: 0 = absent Neglect: 1 = partial NIHSS Score: 11 Assessment and Plan: Assessment: 58yo M with HTN, presented with R ICA occlusion and R BG & insula cortex infarction causing L-sided weakness, especially LUE. Outside tPA window, not an intervention candidate. Also found to have severe L ICA occlusion. Started on DAPT (ASA 81mg & Plavix) + statin. Type: Cerebral infarction Subtype: Atherosclerotic Vessels Involved: R ICA, R MCA Neurologic Manifestations: Deficits: Dense L hemiplegia, R gaze preference, mild neglect NIHSS: 10 Initial treatment: None Anti-platelets or Anti-coagulation management: Aspirin Vascular Risk Factors: HTN BP goal: Permissive HTN initially (<220/120) Disposition: rehab Plan: - started DAPT ASA 81mg + Plavix - LDL 109 -> start atorvastatin 40mg - carotid ultrasound -> L ICA velocities: PSV: 410 cm/s, EDV: 140 cm/s - headache cocktail as needed - MBS today - f/u with stroke 10/12 (Dr. Harris) DVT prophylaxis: lovenox Dispo: rehab Signature/Cosignature/Attestation: Attending AttestationI saw and evaluated the patient. I personally obtained the garg and critical portions of the history and physical exam or was physically present for garg and critical portions performed by the resident/fellow. I reviewed the resident/fellows documentation and discussed the patient with the resident/fellow. I agree with the resident/fellows medical decision making as documented in the resident/fellows note with the exception/addition of the following: I personally evaluated the patient (as noted in the above attestation) on 19-Sep-2018 Comments/ Additional Findings If he passes MBS may DC to [facility] tomorrow CTA to detrrmine % LICA stenosis AND NEED FOR cea 4-6 WEEKS - appears 70% BY DUPLEX Electronic Signatures: Curt Bowers (Resident)) (Signed 19-Sep-2018 13:09) Authored: Service, Subjective Data, Objective Data, Scales, Assessment and Plan, Signature/Cosignature/Attestation Robby Galarza) (Signed 19-Sep-2018 16:04) Authored: Signature/Cosignature/Attestation Co-Signer: Service, Subjective Data, Objective Data, Scales, Assessment and Plan, Signature/Cosignature/Attestation Last Updated: 19-Sep-2018 16:04 by Robby Galarza) CBC Collected: 09/19/2018 Status: F Source: [place] [place] 8:24 AM [facility]OSPITALS REPOSITORY TYPE CODE TESTS RESULT OUT OF REFERENCE UNITS RANGE LAB WBCR(LOINC 4.4 - 11.3 x10E9/L ) WBC 9.3 LAB NRBC(LOINC 0.0-0.0 /100 WBC ) NUCLEATED RBC 0.0 LAB RBCCT(LOIN 4.50 - 5.90 x10E12/L C) RBC 4.79 LAB HGB(LOINC) 13.5 - 17.5 g/dL HGB 14.8 LAB HCT(LOINC) 41.0 - 52.0 % HCT 43.4 LAB MCV(LOINC) 80 - 100 fL MCV 91 LAB MCHC2(LOIN 32.0 - 36.0 g/dL C) MCHC 34.1 LAB PLTCT(LOIN 150 - 450 x10E9/L C) PLT 280 LAB RDWCV(LOIN 11.5 - 14.5 % C) RDW-CV 12.8 Performed By: #### CBC #### [facility] [id number] [place] [address] RENAL FUNCTION PANEL Collected: 09/19/2018 Status: F Source: [place] 8:24 AM [facility]OSPITALS REPOSITORY TYPE CODE TESTS RESULT OUT OF REFERENCE UNITS RANGE LAB GLU(LOINC) 74 - 99 mg/dL GLUCOSE 87 LAB SOD(LOINC) 136 - 145 mmol/L SODIUM 137 LAB K(LOINC) 3.5 - 5.3 mmol/L POTASSIUM 4.2 LAB CHLOR(LOIN 98 - 107 mmol/L C) CHLORIDE High 109 LAB BIC(LOINC) 21 - 32 mmol/L Low BICARBONATE 18 LAB ANGAP(LOIN 10 - 20 mmol/L C) ANION GAP 14 LAB UREA(LOINC 6 - 23 mg/dL ) UREA NITROGEN 13 LAB CREA(LOINC 0.50 - 1.30 mg/dL ) CREATININE 0.79 LAB GFRFN(LOIN >60 mL/min/1.7 C) 3m2 GFR-NON AM. >60 LAB GFRAA(LOIN >60 mL/min/1.7 C) 3m2 GFR- AM. >60 Result Comment: CALCULATIONS OF ESTIMATED GFR ARE PERFORMED USING THE MDRD STUDY EQUATION FOR THE IDMS-TRACEABLE CREATININE METHODS. CLIN CHEM 2007;53:766-72 LAB CA(LOINC) 8.6 - 10.6 mg/dL CALCIUM 8.8 LAB PHOS(LOINC) 2.5 - 4.9 mg/dL PHOSPHORUS 3.0 Result Comment: The performance characteristics of phosphorus testing in heparinized plasma have been validated by the individual laboratory site where testing is performed. Testing on heparinized plasma is not approved by the FDA; however, such approval is not necessary. LAB ALB(LOINC) 3.4 - 5.0 g/dL ALBUMIN 3.7 Performed By: #### RENAL #### [facility] [id number] [place] [address] ANGIO NECK Observed: 09/19/2018 Status: F Source: [place] 6:38 AM [facility]OSPITALS REPOSITORY Patient Name: BRENDEN SAHA STUDY: NR CT ANGIO HEAD W/O-W INCLUDE POST PROC; NR CT ANGIO NECK; 09/19/2018 6:38 am INDICATION: Signs/Symptoms: L ICA stenosis, R ICA occlusion, Lie Flat: Yes. COMPARISON: Head CT September 17, 2018 ACCESSION NUMBER(S): [id number]; [id number] ORDERING CLINICIAN: HAMMAD MONTANA TECHNIQUE: Low dose axial CT images of the head were obtained. Subsequently, 100 mL Isovue 370 was administered intravenously and axial images of the head and neck were acquired. Coronal, sagittal, and 3-D reconstructions were provided for review. FINDINGS: The low-dose unenhanced images of the head again demonstrate a focus of abnormal diminished attenuation with loss of roland/white matter differentiation involving the right caudate and lentiform nuclei, insular and gladis-insular regions, and adjacent white matter. There is again local mass effect including partial effacement of the right lateral ventricle. There is slight bowing of the midline structures from right to left. Within the limitations of this low-dose technique, there is no definite acute intracranial hemorrhage. There is again increased attenuation in the region of the right MC A. There are calcifications of the carotid siphons and distal vertebral arteries. A retention cyst or polyp is demonstrated along the left maxillary sinus floor. CTA HEAD FINDINGS: Anterior circulation: There is absence of flow related enhancement along the intracranial ICA. There may be faint enhancement at the right carotid terminus. There is absence of enhancement along the right MCA including M1 and M2 branches. There is enhancement within a few more distal MCA branches on the right due to collaterals. The A1 segment of the right KAMINI is markedly diminutive in caliber. The A2 segment is supplied via the anterior communicating artery. There are 3 A2 segments of the ACAS, a normal variant. There are diffuse calcifications along the intracranial left ICA with at least mild associated luminal narrowing. The proximal left MCA is patent. Posterior circulation: There are calcifications of the intracranial vertebral arteries. There is at least moderate narrowing along a short segment on the right. The basilar artery and proximal art historian are patent. CTA NECK FINDINGS: There are calcifications of the aortic arch and at the origins of the arch vessels. There is a common origin of the innominate and left common carotid arteries from the aortic arch, a normal variant. Right carotid vessels: The common carotid artery is normal. There is both calcified and noncalcified plaque at the carotid bifurcation. There is loss of flow enhancement of the ICA beginning at its origin. Left carotid vessels: The common carotid artery is normal. There is both calcified and noncalcified plaque at the carotid bifurcation and along the proximal internal and external carotid arteries. There is at least 70% stenosis of the ICA with narrowing extending for a length of approximately 9 mm and beginning approximately 1.3 cm distal to its origin. The remainder of the cervical ICA is normal in caliber. Vertebral vessels: The proximal vertebral arteries are degraded by streak artifact, right greater than left. Otherwise, the cervical segments of the vertebral arteries are normal in caliber with the left being slightly dominant. There are emphysematous changes within the lung apices. Degenerative changes of the cervical spine are most pronounced at C5/6. IMPRESSION: 1. Findings compatible with occlusion of the right ICA beginning at its origin. There is also at least markedly diminished flow or occlusion of the right MCA including M1 and M2 branches with reconstitution of a few more distal branches due to collaterals. 2. Atherosclerotic changes of the left carotid bifurcation and proximal left ICA with a segment of narrowing measuring at least 70%. There is also at least mild narrowing of the intracranial ICA due to calcified plaque. Electronically signed by: JAMIE ROACH DO NR CT ANGIO HEAD Observed: 09/19/2018 Status: F Source: [place] W/O-W INCLUDE POST 6:38 AM HOSPITALS REPOSITORY PROC Patient Name: BRENDEN SAHA STUDY: NR CT ANGIO HEAD W/O-W INCLUDE POST PROC; NR CT ANGIO NECK; 09/19/2018 6:38 am INDICATION: Signs/Symptoms: L ICA stenosis, R ICA occlusion, Lie Flat: Yes. COMPARISON: Head CT September 17, 2018 ACCESSION NUMBER(S): [id number]; [id number] ORDERING CLINICIAN: HAMMAD MONTANA TECHNIQUE: Low dose axial CT images of the head were obtained. Subsequently, 100 mL Isovue 370 was administered intravenously and axial images of the head and neck were acquired. Coronal, sagittal, and 3-D reconstructions were provided for review. FINDINGS: The low-dose unenhanced images of the head again demonstrate a focus of abnormal diminished attenuation with loss of roland/white matter differentiation involving the right caudate and lentiform nuclei, insular and gladis-insular regions, and adjacent white matter. There is again local mass effect including partial effacement of the right lateral ventricle. There is slight bowing of the midline structures from right to left. Within the limitations of this low-dose technique, there is no definite acute intracranial hemorrhage. There is again increased attenuation in the region of the right MC A. There are calcifications of the carotid siphons and distal vertebral arteries. A retention cyst or polyp is demonstrated along the left maxillary sinus floor. CTA HEAD FINDINGS: Anterior circulation: There is absence of flow related enhancement along the intracranial ICA. There may be faint enhancement at the right carotid terminus. There is absence of enhancement along the right MCA including M1 and M2 branches. There is enhancement within a few more distal MCA branches on the right due to collaterals. The A1 segment of the right KAMINI is markedly diminutive in caliber. The A2 segment is supplied via the anterior communicating artery. There are 3 A2 segments of the ACAS, a normal variant. There are diffuse calcifications along the intracranial left ICA with at least mild associated luminal narrowing. The proximal left MCA is patent. Posterior circulation: There are calcifications of the intracranial vertebral arteries. There is at least moderate narrowing along a short segment on the right. The basilar artery and proximal art historian are patent. CTA NECK FINDINGS: There are calcifications of the aortic arch and at the origins of the arch vessels. There is a common origin of the innominate and left common carotid arteries from the aortic arch, a normal variant. Right carotid vessels: The common carotid artery is normal. There is both calcified and noncalcified plaque at the carotid bifurcation. There is loss of flow enhancement of the ICA beginning at its origin. Left carotid vessels: The common carotid artery is normal. There is both calcified and noncalcified plaque at the carotid bifurcation and along the proximal internal and external carotid arteries. There is at least 70% stenosis of the ICA with narrowing extending for a length of approximately 9 mm and beginning approximately 1.3 cm distal to its origin. The remainder of the cervical ICA is normal in caliber. Vertebral vessels: The proximal vertebral arteries are degraded by streak artifact, right greater than left. Otherwise, the cervical segments of the vertebral arteries are normal in caliber with the left being slightly dominant. There are emphysematous changes within the lung apices. Degenerative changes of the cervical spine are most pronounced at C5/6. IMPRESSION: 1. Findings compatible with occlusion of the right ICA beginning at its origin. There is also at least markedly diminished flow or occlusion of the right MCA including M1 and M2 branches with reconstitution of a few more distal branches due to collaterals. 2. Atherosclerotic changes of the left carotid bifurcation and proximal left ICA with a segment of narrowing measuring at least 70%. There is also at least mild narrowing of the intracranial ICA due to calcified plaque. Electronically signed by: JAMIE ROACH DO CBC Collected: 09/19/2018 Status: F Source: [facility] 3:16 AM HOSPITALS REPOSITORY TYPE CODE TESTS RESULT OUT OF REFERENCE UNITS RANGE LAB WBCR(LOINC 4.4 - 11.3 x10E9/L ) WBC 10.2 LAB NRBC(LOINC 0.0-0.0 /100 WBC ) NUCLEATED RBC 0.0 LAB RBCCT(LOIN 4.50 - 5.90 x10E12/L C) RBC 5.09 LAB HGB(LOINC) 13.5 - 17.5 g/dL HGB 15.3 LAB HCT(LOINC) 41.0 - 52.0 % HCT 45.2 LAB MCV(LOINC) 80 - 100 fL MCV 89 LAB MCHC2(LOIN 32.0 - 36.0 g/dL C) MCHC 33.8 LAB PLTCT(LOIN 150 - 450 x10E9/L C) PLT 302 LAB RDWCV(LOIN 11.5 - 14.5 % C) RDW-CV 13.1 Performed By: #### CBC #### [facility] [address] [place] [address] CLINICAL EVENT NOTE-IV Observed: 09/18/2018 Status: UNK Source: [facility] 10:46 PM HOSPITALS REPOSITORY Event: Topic: IV infiltrated Details: Called by radiology that the patient's IV infiltrated while in the CT scanner for CT angio. CT was non-diagnostic per radiology. I went to the bedside to examine the patient. No significant swelling in right arm noted. Pulses were intact in the hand. Patient with no pain at infiltrated sight. Nurse replaced IV in the LUE. Asked nurse to keep arm elevated, apply heat pack, and requested to do neuro vascular check in the RUE in 2-3 hrs. Will re- order CTA. Called by nurse later. Patient accidently pulled out his IV. Bleeding, but was stopped. Hemodynamically stable. Exam unchanged. Nurses to replace IV. Electronic Signatures: Hammad Montana ( (Resident)) (Signed 19-Sep-2018 03:02) Authored: Event Last Updated: 19-Sep-2018 03:02 by Hammad Montana ( (Resident)) NR CT ANGIO HEAD Observed: 09/18/2018 Status: F Source: [place] W/O-W INCLUDE POST 10:12 PM HOSPITALS REPOSITORY PROC Patient Name: BRENDEN SAHA STUDY: NR CT ANGIO HEAD W/O-W INCLUDE POST PROC; NR CT ANGIO NECK; 09/18/2018 10:12 pm INDICATION: Signs/Symptoms: L ICA stenosis, R ICA occlusion, Lie Flat: Yes. COMPARISON: Head CT August 30, 2018 ACCESSION NUMBER(S): [id number]; [id number] ORDERING CLINICIAN: RUI KAPLAN TECHNIQUE: Low dose axial CT images of the head were obtained. Subsequently, 90 mL Isovue 370 was administered intravenously and axial images of the head and neck were acquired. Coronal and sagittal reconstructions were provided for review. 3D reconstructions could not be formed due to suboptimal timing of the contrast bolus. FINDINGS: Low-dose unenhanced images of the head again demonstrate a focus of abnormal diminished attenuation with loss of roland/white matter differentiation involving the right caudate and lentiform nuclei, external capsule, insula, and surrounding white matter. There is again mass effect with partial effacement of the adjacent right lateral ventricle. There is minimal bowing of the midline structures from right to left. No definite acute intracranial hemorrhage is identified within the limitations of this low-dose technique. There are calcifications of the carotid siphons and intracranial vertebral arteries. There are retention cysts or polyps along the left maxillary sinus floor. CTA HEAD FINDINGS: The CT angiogram of the intracranial vasculature is essentially nondiagnostic due to suboptimal timing of the contrast bolus. CTA NECK FINDINGS: The CT angiogram of the cervical vessels is essentially nondiagnostic due to timing of the contrast bolus. There are atherosclerotic calcifications of the carotid bifurcations and proximal ICAs bilaterally. There are also scattered calcifications along the thoracic aortic arch and involving the origins of the arch vessels. There is a common origin of the innominate and left common carotid arteries from the aortic arch, a normal variant. There are patchy ground-glass opacities and areas of septal thickening within the lung apices. Degenerative changes of the cervical spine are most pronounced at C5/6. IMPRESSION: 1. Essentially nondiagnostic CT angiogram of the head and neck due to suboptimal contrast opacification. 2. Redemonstration of an evolving area of ischemic injury in the right MCA distribution. Electronically signed by: JAMIE ROACH DO NR CT ANGIO NECK Observed: 09/18/2018 Status: F Source: [place] 10:12 PM HOSPITALS REPOSITORY Patient Name: BRENDEN SAHA STUDY: NR CT ANGIO HEAD W/O-W INCLUDE POST PROC; NR CT ANGIO NECK; 09/18/2018 10:12 pm INDICATION: Signs/Symptoms: L ICA stenosis, R ICA occlusion, Lie Flat: Yes. COMPARISON: Head CT August 30, 2018 ACCESSION NUMBER(S): [id number]; [id number] ORDERING CLINICIAN: RUI KAPLAN TECHNIQUE: Low dose axial CT images of the head were obtained. Subsequently, 90 mL Isovue 370 was administered intravenously and axial images of the head and neck were acquired. Coronal and sagittal reconstructions were provided for review. 3D reconstructions could not be formed due to suboptimal timing of the contrast bolus. FINDINGS: Low-dose unenhanced images of the head again demonstrate a focus of abnormal diminished attenuation with loss of roland/white matter differentiation involving the right caudate and lentiform nuclei, external capsule, insula, and surrounding white matter. There is again mass effect with partial effacement of the adjacent right lateral ventricle. There is minimal bowing of the midline structures from right to left. No definite acute intracranial hemorrhage is identified within the limitations of this low-dose technique. There are calcifications of the carotid siphons and intracranial vertebral arteries. There are retention cysts or polyps along the left maxillary sinus floor. CTA HEAD FINDINGS: The CT angiogram of the intracranial vasculature is essentially nondiagnostic due to suboptimal timing of the contrast bolus. CTA NECK FINDINGS: The CT angiogram of the cervical vessels is essentially nondiagnostic due to timing of the contrast bolus. There are atherosclerotic calcifications of the carotid bifurcations and proximal ICAs bilaterally. There are also scattered calcifications along the thoracic aortic arch and involving the origins of the arch vessels. There is a common origin of the innominate and left common carotid arteries from the aortic arch, a normal variant. There are patchy ground-glass opacities and areas of septal thickening within the lung apices. Degenerative changes of the cervical spine are most pronounced at C5/6. IMPRESSION: 1. Essentially nondiagnostic CT angiogram of the head and neck due to suboptimal contrast opacification. 2. Redemonstration of an evolving area of ischemic injury in the right MCA distribution. Electronically signed by: JAMIE ROACH DO CLINICAL EVENT NOTE-IV Observed: 09/18/2018 Status: UNK Source: [facility] 10:04 PM HOSPITALS REPOSITORY Event: Topic: IV infiltrate Details: Called by technologist with regard to IV infiltration. Bedside evaluation completed. Patient reports mild pain and numbness of the RUE, new from prior to scan. NAD, pleasant Not tachypneic, non labored breathing RUE extremity warm 4/5 RUE hand strength 2+ RUE radial/ulnar pulses Intact RUE hand sensation. Imaging reviewed. Nondiagnostic CTA Head and Neck study. Recommendations: - Apply warm compresses to infiltrate site - Elevate extremity - Monitor extremity neurovascular status - If symptoms continue to worsen, hand consultation recommended. - Imaging and clinical findings communicated to provider. - If repeat scan is needed, new IV access must be established. Discussed with Dr. Cowan at 10:07 PM 09/09/18 with readback verification. Parish Wilkins MD PGY-3 Radiology [id number] Electronic Signatures: Parish Wilkins ( (Resident)) (Signed 18-Sep-2018 22:07) Authored: Event Last Updated: 18-Sep-2018 22:07 by Parish Wilkins (Resident)) NUTRITION THERAPY-ASSESSMENT Observed: 09/18/2018 Status: UNK Source: [facility] 3:56 PM [facility]OSPITALS REPOSITORY Assessment Subjective/Objective: Note Type: Assessment Note Authored by: Registered Dietitian Wool Scourer Pager Number: [phone] Nutrition Note: The pt is a 58 yo M with HTN, GERD, DVT who presented with R ICA occlusion and R BG & insula cortex infarction causing L-sided weakness, especially LUE. Outside tPA window, not an intervention candidate. Also found to have severe L ICA occlusion. Started on DAPT (ASA 81mg & Plavix) + statin. Failed MBSS this afternoon. Pulled NG and is refusing to have another placed. Currently does not have enteral access. Objective Information: Intake Output Enteral - Tube 10 mL Urine 250 mL Irrigation Solutions 800 mL Height/Weight: Height in cm: 190 centimeter(s) Weight (kg): 113 BMI (kg/m2): 31.301 square meter DBW (kg): 89 %DBW: 127 Weight history/ % weight change: unknown Recent Lab Results: Results: I have reviewed these laboratory results: Renal Function Panel 18-Sep-2018 07:10:00 ResultValue Glucose, Serum 94 NA 139 K 4.2 CL 109 H Bicarbonate, Serum 20 L Anion Gap, Serum 14 BUN 12 CREAT 0.92 GFR-Non >60 GFR- >60 Calcium, Serum 8.7 Phosphorus, Serum 2.9 ALB 3.6 Complete Blood Count 18-Sep-2018 07:10:00 ResultValue White Blood Cell Count 7.4 Nucleated Erythrocyte Count 0.0 Red Blood Cell Count 4.89 HGB 14.9 HCT 45.2 MCV 92 MCHC 33.0 PLT 283 RDW-CV 13.0 Nutrition Labs: Special Chemistry: 16-Sep-2018 08:01, Hemoglobin A1C, Level Hemoglobin A1C, Level 5.8 Diagnosis of Diabetes-Adults Non-Diabetic: < or = 5.6% Increased risk for developing diabetes: 5.7-6.4% Diagnostic of diabetes: > or = 6.5% . Monitoring of Diabetes Age (y) Therapeutic Goal (%) Adults: >18 <7.0 Pediatrics: 13-18 <7.5 7-12 <8.0 0- 6 7.5-8.5 [place] [employer]. Diabetes Care 33(S1), Sep 2009. Current Active Medications/PN: Atorvastatin, Tablet (LIPITOR) DOSE = 40 mg Feeding tube At Bedtime, 17-Sep-2018 Clopidogrel, Tablet (PLAVIX) DOSE = 75 mg Feeding tube Daily, 17-Sep-2018 Polyethylene Glycol, Powder for Reconstitution (MIRALAX) DOSE = 17 gram(s) Feeding tube Daily, 17-Sep-2018 Sennosides, Tablet (SENOKOT) DOSE = 2 tablet(s) Feeding tube Daily, 17-Sep-2018 Nutrition Orders: NPO, Routine Until Swallow Evaluation completed by RN or physician, 16-Sep-2018 Enteral Feeding (CMC), Routine, Isosource 1.5 Rudy Rate: ( Continuous & Cycle Only)- mL/hr: 65 mL/hr ,<Continuous> Route: NG (Nasogastric Tube, Continuous Special Instructions: Start at 10 mL/hr, titrate by 10 mL/hr every 4 hours to goal, 17-Sep-2018 Enteral Feeding Water Flush, 400, NG (Nasogastric Tube), 4 Times a Day, 17-Sep-2018 Nutrition Focused Physical Findings: Physical Findings: deferred Pt not cooperative at this time. Other Physical Findings: Skin: intact Edema: none Change in Metabolic Demand: no Subjective Global Assessment Rating: unable to determine at this time Estimated Needs: kcals/day: ~2500+ gms protein/day: ~106+ mL fluid/day: per team Nutrition Diagnosis: Diagnosis1 new. Dx: Swallowing difficulties. related to R BG stroke as evidenced by inability to safely swallow necessitating dobhoff placement. Nutrition Interventions: Individualized Nutrition Prescription Provided for: enteral nutrition, fluids Provided Nutrition Support Recommendations: Isosource 1.5 @ 65ml/hr (@ goal provides 2340 kcals, 106 grams protein, 1192ml free water daily) Coordination of Care with: Stroke team, nursing, BANKING TEACHER Nutrition Goals: Goals: Nutrition Therapy: nutrition support goals are met within 48 hrs, tube feed tolerance, maintain stable weight NUTRITION RECOMMENDATIONS: Recommendations: When enteral access achieved: -Current TF order adequate to meet estimated needs. Can begin as ordered. -Free water per stroke team. Dietitian Monitoring and Evaluation Plan: Monitoring and Evaluation Plan: Nutrition Support tolerance/adequacy, weight trend, labs Time Spent (minutes): 45 Nutrition Support: yes Electronic Signatures: Francia Batres (ZAK, MARY) (Signed 18-Sep-2018 16:06) Authored: Assessment Subjective/Objective, Nutrition Focused Physical Findings, Estimated Needs, Nutrition Diagnosis, Nutrition Interventions, Nutrition Goals, Nutrition Recommendations, Dietitian Monitoring and Evaluation Plan, Time Spent/Nutrition Support Last Updated: 18-Sep-2018 16:06 by Francia Batres (ZAK, MARY) SWALLOW EVALUATION Observed: 09/18/2018 Status: UNK Source: [facility] V2-MODIFIED BARIUM 1:36 PM HOSPITALS REPOSITORY SWALLOW Rehab: Info: Mode of TreatmentModified Barium Swallow Study Time IN12:45 Time OUT13:15 Total Treatment [id number] Evaluation TypeModified Barium Swallow Reason for ReferralA Modified Barium Swallow (MBS) study was recommended due to clinical concerns of pharyngeal swallowing deficits to further assess the swallow, determine aspiration risk and to provide recommendations for safest swallowing on least restrictive oral diet. General Observations of PatientMr. Saha received sitting upright in Hausted chair. Increased lethargy this PM when compared to encounter earlier this AM. Patient complaining of headache. RN and medical team made aware. Impression: Assessment (Swallow Eval)Mr. aSha presented with a moderate oropharyngeal dysphagia. Adequate airway protection inconsistent throughout today's study for nectar thick and honey thick liquids. For nectar thick via cup, inconsistent deep laryngeal penetration to the vocal cords, with residue along the anterior portion of the laryngeal vestibule upon completion of the swallow. One instance of silent aspiration to the underside of the vocal cords during the swallow. Material cleared from underside upon completion of the swallow, but too remained within the laryngeal vestibule. For honey thick liquids via cup, one episode of deep laryngeal penetration to the vocal cords during the swallow. Seemingly consistent with nectar, residue along the anterior portion of the laryngeal vestibule upon completion of the swallow. Cued, weak coughs/throat clears unsuccessful at clearing residue from laryngeal vestibule during periods of penetration. Chin tuck maneuver initially deeemed effective at improving swallowing function for nectar thick liquids, but with increased PO trials, deep laryngeal penetration to the vocal cords occurred. Further trials discontinued, as patient required frequent redirection and continued to complain of head pain. No laryngeal penetration or aspiration on purees. Rehab Potential/Prognosis (Swallow Eval)Poor for safe PO at this time Criteria for Skilled Therapeutic Interventions Met (Swallow Eval)PLAN: BANKING TEACHER to follow. Therapy Frequency (BANKING TEACHER)2 times/wk BANKING TEACHER Diet Recommendations (Swallow Eval)1. NPO. Consider replacing Dobhoff for short-term means of nutrition/hydration/medication 2. Therapeutic PO trials with BANKING TEACHER only 3. Repeat MBSS following consistent alertness (i.e., no waxing and waning) 4. OK for small amounts of ice chips, but only after aggressive oral care to avoid colonization of bacteria within oral cavity MBSS: Volume and Consistency Presented, [place] Thick (MBSS)tsp sips; single cup sips; single cup sips with chin tuck Oral Phase Results, [place] Thick (MBSS)Adequate labial seal around presented modalities and with no anterior bolus loss. Impaired bolus propulsion, with disorganized lingual motion for all consistencies. Mild oral residue along lingual surface for all consistencies, with residual contrast pooling to the level of the piriforms after the swallow for both honey and nectar thick liquids. Patient not sensate to pooling, with BANKING TEACHER cueing patient to dry reswallow for clearance of oral residue within pharyngeal cavity. Pharyngeal Phase Results, [place] Thick (MBSS)Delayed pharyngeal swallow onset to the valleculae for purees, to the posterior laryngeal portion of the epiglottis for honey, and to the piriforms for nectar thick. Reduced: BOT to PPW approximation and pharyngeal stripping wave. As a result, mild residue both at the level of the valleculae and piriforms for honey thick liquids after the swallow. Verbal cues required for patient to initiate dry reswallow. Chin tuck maneuver deemed unsuccessful at improving swallowing function for nectar thick liquids via cup. Rosenbek's Penetration Aspiration Scale, [place] Thick (MBSS)(6) contrast passes glottis, no subglottic residue remains (aspiration) Volume and Consistency Presented, Honey Thick (MBSS)single sips via cup Oral Phase Results, Honey Thick (MBSS)Please see the Oral Phase Results, [place] Liquid (MBSS) and Pharyngeal Phase Results, [place] Liquid (MBSS) under the [place] Liquid Trial (MBSS) portion of this report for all details from today's study. Pharyngeal Phase Results, Honey Thick (MBSS)Please see the Oral Phase Results, [place] Liquid (MBSS) and Pharyngeal Phase Results, [place] Liquid (MBSS) under the [place] Liquid Trial (MBSS) portion of this report for all details from today's study. Rosenbek's Penetration Aspiration Scale, Honey Thick (MBSS)(5) contrast contacts vocal cords, visible residue remains (penetration) Volume and Consistency Presented, Puree (MBSS)spoon Oral Phase Results, Puree (MBSS)Please see the Oral Phase Results, [place] Liquid (MBSS) and Pharyngeal Phase Results, [place] Liquid (MBSS) under the [place] Liquid Trial (MBSS) portion of this report for all details from today's study. Pharyngeal Phase Results, Puree (MBSS)Please see the Oral Phase Results, [place] Liquid (MBSS) and Pharyngeal Phase Results, [place] Liquid (MBSS) under the [place] Liquid Trial (MBSS) portion of this report for all details from today's study. Rosenvandanak's Penetration Aspiration Scale, Puree (MBSS)(1) no aspiration, contrast does not enter airway DC Recommendations: Anticipated DIscharge Disposition (Swallow Eval)unable to determine at this time; refer to subsequent notes Electronic Signatures: Teresa rAaya (BANKING TEACHER) (Signed 18-Sep-2018 13:59) Authored: Rehab Last Updated: 18-Sep-2018 13:59 by Teresa Araya (BANKING TEACHER) GI COMP PHARYNGEAL Observed: 09/18/2018 Status: F Source: [facility] SPEECH EVAL 1:20 PM HOSPITALS REPOSITORY Patient Name: BRENDEN SAHA STUDY: GI COMP PHARYNGEAL SPEECH EVAL; 09/18/2018 1:20 pm INDICATION: Signs/Symptoms: stroke. COMPARISON: None. ACCESSION NUMBER(S): [id number] ORDERING CLINICIAN: FLOWER VAZQUEZ TECHNIQUE: Radiographic and videographic assistance was provided to the speech pathologist performing modified barium swallow. The patient was given food of different consistencies mixed with approximately 150 mL of barium and the swallowing response was observed. Fluoroscopic time was 2.6 minutes. FINDINGS: Oral phase swallowing function was abnormal. The pharyngeal phase demonstrates abnormal findings of there angio penetration with nectar and honey; and aspiration detected with nectar. Esophageal phase did not demonstrate reduced motility. Please see BANKING TEACHER report for further findings and recommendations. IMPRESSION: 1. Fluoroscopic support provided to speech pathologist for a modified barium swallow with findings as described above.. Correlate with detailed report from speech pathologist for dietary recommendations. I personally reviewed the images/study and I agree with the findings as stated. This study was interpreted at [place], [place]. Electronically signed by: CHRISTIANO CHAVEZ MD, PHD SWALLOW EVALUATION Observed: 09/18/2018 Status: UNK Source: [facility] [place] V2-REPEAT CLINICAL 10:09 AM HOSPITALS REPOSITORY BEDSIDE SWALLOW EVALUA Rehab: Info: Mode of TreatmentRepeat Clinical Bedside Swallow Evaluation Time IN08:30 Time OUT08:45 Total Treatment [id number] Communicated with ... at end of sessionbedside nurse Reason for ReferralMrKenrick Saha seen this date for repeat clinical bedside swallow evaluation in order to determine need for Modified Barium Swallow Study (MBSS) General Observations of PatientMr. Maria A received lying in bed, sleeping; however, easy to wake. Alert and cooperative throughout today's encounter. Dobhoff out, which patient stated was pulled out accidently. Impression: Assessment (Swallow Eval)Clinically, continued concern for oropharyngeal dysphagia. 3-ounce water challenge administered 2x, but unsuccessfully completed. On initial 3-ounce, patient unable to complete in its entirety; therefore, concerning for swallow-breathe coordination. On repeat 3-ounce, patient able to complete, but followed with a delayed postprandial cough; therefore, concerning for silent aspiration and consequently poor airway protection. As a result, recommendation for further instrumental examination still warranted. Rehab Potential/Prognosis (Swallow Eval)Pending further workup Criteria for Skilled Therapeutic Interventions Met (Swallow Eval)PLAN: MBSS BANKING TEACHER Diet Recommendations (Swallow Eval)1. NPO. Ok for small amounts of ice chips for pleasure/swallow stimulation, but only after aggressive oral care to avoid colonization of bacteria within oral cavity 2. MBSS - order already in system CSE: Volume and Consistency Presented, Thin Liquid (CSE)ice chips; tsp sips; single cup sips; 3-ounce water challenge 2x via cup DC Recommendations: Anticipated DIscharge Disposition (Swallow Eval)unable to determine at this time; refer to subsequent notes Recommended Diagnostics (Swallow Eval)VFSS (videofluoroscopic swallowing study) [MBS (modified barium swallow)] Electronic Signatures: Teresa Araya (BANKING TEACHER) (Signed 18-Sep-2018 10:24) Authored: Rehab Last Updated: 18-Sep-2018 10:24 by Teresa Araya (BANKING TEACHER) DAILY PROGRESS Observed: 09/18/2018 Status: COMPLETED Source: [facility] NOTE-NEURO - STROKE 7:37 AM HOSPITALS REPOSITORY Service: Neuro - Stroke Subjective Data: BRENDEN SAHA is a 58 year old Male who is Hospital Day # 3. Pulled NG out this morning. Scheduled for MBS today, NPO in the mean time. Update @ 2pm: Patient not cooperative with instructions during MBS. Unable to evaluate for aspiration. I personally spoke to patient following the MBS. I explained that he did not cooperate with the MBS (he replied that's bull), and until he passes a swallow eval he cannot safely take anything orally. I said he needs an NG tube to get nutrition & medications. He refused. I explained the risks of stroke and he said it doesn't matter, he does not want an NG tube. Medications currently include ASA 81mg, Plavix, atorvastatin 40mg. He has not gotten these meds yet today. Rectal aspirin ordered for now. Repeat MBS planned for tomorrow. Objective Data: Objective Information: T PRBPSpO2 [id number]/8998% Date/Time09/18 4: 4: 4: 4: 4:00 Range(36.3C - 36.7C ) (52 - 66 ) ( - ) (137 - 172 )/ (76 - 113 ) (95% - 98% ) Pain reported at 09/18 1:15: 8 Physical Exam: Constitutional: no distress, drowsy ENMT: NG tube Respiratory/Thorax: breathing comfortably on room air Cardiovascular: normal rate, regular rhythm Neurological: L eye deviation, LLE spontaneous, LUE minimal withdrawal to nox stim Medication: Medications: Continuous Medications 1. Sodium Chloride 0.9% Infusion: 1000 mL IntraVenous <Continuous> Scheduled Medications 1. Aspirin Chewable: 81 mg Feeding tube Daily 2. Atorvastatin: 40 mg Feeding tube At Bedtime 3. Clopidogrel: 75 mg Feeding tube Daily 4. diphenhydrAMINE Injectable: 25 mg IntraVenous Push Once 5. Enoxaparin SubCutaneous: 40 mg SubCutaneous Every 24 Hours 6. Polyethylene Glycol: 17 gram(s) Feeding tube Daily 7. Sennosides: 2 tablet(s) Feeding tube Daily 8. Sertraline: 25 mg Oral Daily PRN Medications 1. Acetaminophen Oral Liquid: 650 mg Feeding tube Every 4 Hours 2. Dextrose 50% in Water Injectable: 25 gram(s) IntraVenous Push Every 15 Minutes 3. Dextrose 50% in Water Injectable: 12.5 gram(s) IntraVenous Push Every 15 Minutes 4. Glucagon Injectable: 1 mg IntraMuscular Every 15 Minutes 5. Ondansetron Injectable: 4 mg IntraVenous Push Every 8 Hours Conditional Medication Orders 1. Perflutren Lipid Microsphere (Activated) 1.3 mL / NaCL 0.9% T.V. 10 mL Injectable: 0.5 mL IntraVenous Push Once Assessment and Plan: Assessment: 58yo M with HTN, presented with R ICA occlusion and R BG & insula cortex infarction causing L-sided weakness, especially LUE. Outside tPA window, not an intervention candidate. Also found to have severe L ICA occlusion. Started on DAPT (ASA 81mg & Plavix) + statin. Type: Cerebral infarction Subtype: Atherosclerotic Vessels Involved: R ICA, R MCA Neurologic Manifestations: Deficits: Dense L hemiplegia, R gaze preference, mild neglect NIHSS: 10 Initial treatment: None Anti-platelets or Anti-coagulation management: Aspirin Vascular Risk Factors: HTN BP goal: Permissive HTN initially (<220/120) Disposition: rehab Plan: - started DAPT ASA 81mg + Plavix - LDL 109 -> start atorvastatin 40mg - carotid ultrasound -> L ICA velocities: PSV: 410 cm/s, EDV: 140 cm/s - headache cocktail as needed - MBS today - f/u with stroke 10/12 (Dr. Harris) DVT prophylaxis: lovenox Dispo: rehab Signature/Cosignature/Attestation: Attending AttestationI saw and evaluated the patient. I personally obtained the garg and critical portions of the history and physical exam or was physically present for garg and critical portions performed by the resident/fellow. I reviewed the resident/fellows documentation and discussed the patient with the resident/fellow. I agree with the resident/fellows medical decision making as documented in the residents note. I personally evaluated the patient (as noted in the above attestation) on 18-Sep-2018 Electronic Signatures: Rui Kaplan (Resident)) (Signed 18-Sep-2018 14:02) Authored: Service, Subjective Data, Objective Data, Assessment and Plan, Signature/Cosignature/Attestation Robby Galarza) (Signed 19-Sep-2018 16:02) Authored: Signature/Cosignature/Attestation Last Updated: 19-Sep-2018 16:02 by Robby Galarza) CBC Collected: 09/18/2018 Status: F Source: [facility] 7:10 AM HOSPITALS REPOSITORY TYPE CODE TESTS RESULT OUT OF REFERENCE UNITS RANGE LAB WBCR(LOINC 4.4 - 11.3 x10E9/L ) WBC 7.4 LAB NRBC(LOINC 0.0-0.0 /100 WBC ) NUCLEATED RBC 0.0 LAB RBCCT(LOIN 4.50 - 5.90 x10E12/L C) RBC 4.89 LAB HGB(LOINC) 13.5 - 17.5 g/dL HGB 14.9 LAB HCT(LOINC) 41.0 - 52.0 % HCT 45.2 LAB MCV(LOINC) 80 - 100 fL MCV 92 LAB MCHC2(LOIN 32.0 - 36.0 g/dL C) MCHC 33.0 LAB PLTCT(LOIN 150 - 450 x10E9/L C) PLT 283 LAB RDWCV(LOIN 11.5 - 14.5 % C) RDW-CV 13.0 Performed By: #### CBC #### [facility] [address] [place] [address] RENAL FUNCTION PANEL Collected: 09/18/2018 Status: F Source: [place] [place] 7:10 AM HOSPITALS REPOSITORY TYPE CODE TESTS RESULT OUT OF REFERENCE UNITS RANGE LAB GLU(LOINC) 74 - 99 mg/dL GLUCOSE 94 LAB SOD(LOINC) 136 - 145 mmol/L SODIUM 139 LAB K(LOINC) 3.5 - 5.3 mmol/L POTASSIUM 4.2 LAB CHLOR(LOIN 98 - 107 mmol/L C) CHLORIDE High 109 LAB BIC(LOINC) 21 - 32 mmol/L Low BICARBONATE 20 LAB ANGAP(LOIN 10 - 20 mmol/L C) ANION GAP 14 LAB UREA(LOINC 6 - 23 mg/dL ) UREA NITROGEN 12 LAB CREA(LOINC 0.50 - 1.30 mg/dL ) CREATININE 0.92 LAB GFRFN(LOIN >60 mL/min/1.7 C) 3m2 GFR-NON AM. >60 LAB GFRAA(LOIN >60 mL/min/1.7 C) 3m2 GFR- AM. >60 Result Comment: CALCULATIONS OF ESTIMATED GFR ARE PERFORMED USING THE MDRD STUDY EQUATION FOR THE IDMS-TRACEABLE CREATININE METHODS. CLIN CHEM 2007;53:766-72 LAB CA(LOINC) 8.6 - 10.6 mg/dL CALCIUM 8.7 LAB PHOS(LOINC) 2.5 - 4.9 mg/dL PHOSPHORUS 2.9 Result Comment: The performance characteristics of phosphorus testing in heparinized plasma have been validated by the individual laboratory site where testing is performed. Testing on heparinized plasma is not approved by the FDA; however, such approval is not necessary. LAB ALB(LOINC) 3.4 - 5.0 g/dL ALBUMIN 3.6 Performed By: #### RENAL #### [facility] [address] [place] [address] HEAD WO Observed: 09/17/2018 Status: F Source: [facility] CONTRAST 5:10 PM HOSPITALS REPOSITORY Patient Name: BRENDEN SAHA STUDY: CT HEAD WO CONTRAST; 09/17/2018 5:10 pm INDICATION: Signs/Symptoms: stroke, Lie Flat: Yes. COMPARISON: MRI brain from 09/16/2018. ACCESSION NUMBER(S): [id number] ORDERING CLINICIAN: RUI KAPLAN TECHNIQUE: Routine unenhanced CT of the head was performed. FINDINGS: There is an evolving acute or subacute infarct in the right caudate and lentiform nuclei, external capsule, insula, and surrounding white matter there is mild mass effect on the adjacent right lateral ventricle, new since the prior MRI. There is no midline shift. There is no hemorrhagic transformation. There is hyperattenuation in the right ICA and in the M1 and proximal M2 segment of the right MCA which is most consistent with thrombus. Smaller foci of infarct in the right cerebral hemisphere seen on the prior MRI are not well appreciated on C T. There is no abnormal extra-axial fluid collection. There is a small mucosal retention cyst in the left maxillary sinus, otherwise the visualized paranasal sinuses and mastoid air cells are clear. Calvarium is unremarkable in appearance. IMPRESSION: Evolving right MCA territory infarct involving the basal ganglia, surrounding white matter, and the right insula. Redemonstration of hyperattenuation in the right ICA and MCA consistent with thrombus. This study was interpreted at [facility]. 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 MRI/MRA Head/ Neck; Carotid US showed right cerebral hemisphere watershed infarction, occluded Right ICA and severe stenosis left ICA. Per Stroke significant risk of bleeding into basal ganglia infarct; Neurosurgery consulted for severe Left ICA stenosis. Pertinent medical Hx obtained from chart, patient and interview. Stroke Arrival/Symptom Onset: Last Known Well - Date/Time: 15-Sep-2018 21:00 Review Family/Social History and ROS: Review Family/Social History and ROS: I have reviewed the family and social history and review of systems from the History and Physical, and have the following additions: Mother: from brain tumor Brothers x2: Hx of DVT's, HTN Constitutional: NEGATIVE: Fever, Chills, Anorexia, Weight Loss, Malaise Eyes: NEGATIVE: Blurry Vision, Drainage, Diploplia, Redness, Vision Loss/ Change ENMT: NEGATIVE: Nasal Discharge, Nasal Congestion, Ear Pain, Mouth Pain, Throat Pain Respiratory: NEGATIVE: Dry Cough, Productive Cough, Hemoptysis, Wheezing, Shortness of Breath Cardiac: NEGATIVE: Chest Pain, Dyspnea on Exertion, Orthopnea, Palpitations, Syncope Gastrointestinal: NEGATIVE: Nausea, Vomiting, Diarrhea, Constipation, Abdominal Pain Genitourinary: NEGATIVE: Discharge, Dysuria, Flank Pain, Frequency, Hematuria Musculoskeletal: POSITIVE: Weakness; NEGATIVE: Decreased ROM, Pain, Swelling Neurological: POSITIVE: Headache; NEGATIVE: Dizziness, Confusion, Seizures, Syncope Psychiatric: NEGATIVE: Mood Changes, Anxiety, Hallucinations, Sleep Changes, Suicidal Ideas Skin: NEGATIVE: Mass, Pain, Pruritus, Rash, Ulcer Endocrine: NEGATIVE: Heat Intolerance, Cold Intolerance, Sweat, Polyuria, Thirst Hematologic/Lymph: NEGATIVE: Anemia, Bruising, Easy Bleeding, Night Sweats, Petechiae Allergic/Immunologic: NEGATIVE: Anaphylaxis, Itchy/ Teary Eyes, Itching, Sneezing, Swelling Past Medical/Surgical History: Medical History: PE (pulmonary thromboembolism): DVT (deep venous thrombosis): GERD (gastroesophageal reflux disease): HTN (hypertension): Allergies: codeine: Rash Objective: Objective Information: T PRBPSpO2 [id number]% Date/Time09/17 6: 6: 6: 6: 6:00 Range(37.1C - 37.5C ) (51 - 74 ) (10 - 18 ) (134 - 169 )/ (81 - 100 ) (94% - 99% ) Highest temp of 37.5 C was recorded at 09/16 20:00 Pain reported at 09/17 0:13: 0 Pain reported at 09/17 8:00: 0 Weights 09/17 3:04: Weight in kg (Weight (kg)) 113 09/17 3:04: Weight in lbs ((lbs)) 249.1 09/17 3:04: BMI (kg/m2) (BMI (kg/m2)) 31.301 Physical Exam: Constitutional: In bed, awake, restless, no distress; c/o generalized headache Eyes: PERRL, EOMI; no nystagmus noted; no gaze preference noted ENMT: feeding tube to left nares; oral mucosa pink, moist; no oral lesions noted; tongue midline Head/Neck: normocephalic; trachea midline Respiratory/Thorax: Equal chest expansion; lungs clear bilaterally Cardiovascular: S1 & S2 regular Gastrointestinal: BS +x4, soft, round, non-tender; no nausea/vomiting Genitourinary: denies dysuria; Musculoskeletal: left hemiplegia Extremities: no edema; pulses palpable x4 Neurological: Alert, oriented x3; left facial droop, follows commands; RUE/RLE 5/5, sensation intact; LUE flaccid, withdraws minamally; LLE quad/knee 2/5, no dorsiflexion or plantar flexion; +numbness to left side; no clonus noted Psychological: calm; cooperative Skin: Warm, dry, intact; good tugor Medications: Medications: Continuous Medications 1. Sodium Chloride 0.9% Infusion: 1000 mL IntraVenous <Continuous> Scheduled Medications 1. Aspirin Chewable: 81 mg Feeding tube Daily 2. Atorvastatin: 40 mg Feeding tube At Bedtime 3. Clopidogrel: 75 mg Feeding tube Daily 4. Enoxaparin SubCutaneous: 40 mg SubCutaneous Every 24 Hours 5. Polyethylene Glycol: 17 gram(s) Feeding tube Daily 6. Sennosides: 2 tablet(s) Feeding tube Daily PRN Medications 1. Acetaminophen Oral Liquid: 650 mg Feeding tube Every 4 Hours 2. Dextrose 50% in Water Injectable: 25 gram(s) IntraVenous Push Every 15 Minutes 3. Dextrose 50% in Water Injectable: 12.5 gram(s) IntraVenous Push Every 15 Minutes 4. Glucagon Injectable: 1 mg IntraMuscular Every 15 Minutes Conditional Medication Orders 1. Perflutren Lipid Microsphere (Activated) 1.3 mL / NaCL 0.9% T.V. 10 mL Injectable: 0.5 mL IntraVenous Push Once Recent Lab Results: Results: I have reviewed these laboratory results: Renal Function Panel 17-Sep-2018 08:10:00 ResultValue Glucose, Serum 134 H NA 138 K 4.2 CL 109 H Bicarbonate, Serum 21 Anion Gap, Serum 12 BUN 13 CREAT 0.95 GFR-Non >60 GFR- >60 Calcium, Serum 9.1 Phosphorus, Serum 2.9 ALB 3.8 Complete Blood Count 17-Sep-2018 08:10:00 ResultValue White Blood Cell Count 8.6 Nucleated Erythrocyte Count 0.0 Red Blood Cell Count 4.89 HGB 14.8 HCT 44.9 MCV 92 MCHC 33.0 PLT 298 RDW-CV 13.3 Coagulation Screen 17-Sep-2018 08:10:00 ResultValue Prothrombin Time, Plasma 12.5 International Normalized Ratio, Plasma 1.1 Activated Partial Thromboplastin Time 28 Troponin I, Serum Trending View [id number] 08:10:00 16-Sep-2018 08:01:00 16-Sep-2018 06:44:00 Troponin I, Serum<0.02 <0.02 <0.02 Lipid Panel 16-Sep-2018 08:01:00 ResultValue Cholesterol, Serum 158 . AGE DESIRABLE BORDERLINE HIGH HIGH 0-19 Y 0 - 169 170 - 199 >/= 200 20-24 Y 0 - 189 190 - 224 >/= 225 >24 Y 0 - 199 200 - 239 >/= 240 All ranges are based on fasting samp HDL Cholesterol, Serum 38.9 . AGE VERY LOW LOW NORMAL HIGH 0-19 Y < 35 < 40 40-45 ---- 20-24 Y ---- < 40 >45 ---- >24 Y ---- < 40 40-60 >60 . A Cholesterol/HDL Ratio 4.1 REF VALUES DESIRABLE < 3.4 HIGH RISK > 5.0 LDL, Level 109 . NEAR BORD AGE DESIRABLE OPTIMAL HIGH HIGH VERY HIGH 0-19 Y 0 - 109 --- 110-129 >/= 130 ---- 20-24 Y 0 - 119 --- 120-159 >/= 160 ---- >24 Y 0 - H VLDL, Serum 11 Triglycerides, Serum 53 . AGE DESIRABLE BORDERLINE HIGH HIGH VERY HIGH 0 D-90 D 19 - 174 ---- ---- ---- 91 D- 9 Y 0 - 74 75 - 99 >/= 100 ---- 10-19 Y 0 - 89 90 - 129 >/= 130 ---- Hemoglobin A1C, Level 16-Sep-2018 08:01:00 ResultValue Estimated Average Glucose 120 Hemoglobin A1C, Level 5.8 Diagnosis of Diabetes-Adults Non-Diabetic: < or = 5.6% Increased risk for developing diabetes: 5.7-6.4% Diagnostic of diabetes: > or = 6.5% . Monitoring of Diabetes Age (y) Therapeutic Goal (%) Adults: >1 Thyroid Stimulating Hormone, Serum 16-Sep-2018 08:01:00 ResultValue Thyroid Stimulating Hormone, Serum 1.03 Brain Natriuretic Peptide 16-Sep-2018 08:01:00 ResultValue Brain Natriuretic Peptide 22 Radiology Results: Results: Conclusion: CONCLUSIONS: [facility] Carotid Artery Duplex Ultrasound [Sep 16 2018 4:30PM] Conclusion: CONCLUSIONS: 1. Poorly visualized anatomical structures due to suboptimal image quality. 2. The left ventricular systolic function is hyperdynamic with a 65-70% estimated ejection fraction. 3. Spectral Doppler shows an impaired relaxation pattern of left ventricular diastolic filling. QUANTITATIVE DATA SUMMARY: 2D MEASUREMENTS: Normal Ranges: IVSd: 1.10 cm (0.6-1.1cm) LVPWd: 1.27 cm (0.6-1.1cm) LVIDd: 3.93 cm (3.9-5.9cm) LVIDs: 2.65 cm LV Mass Index: 66.3 g/m2 LV % FS 32.6 % LA VOLUME: Normal Ranges: LA Vol A4C: 32.7 ml (22+/-6mL/m2) LA Vol A2C: 38.7 ml LA Vol BP: 36.0 ml LA Vol Index A4C: 13.7ml/m2 LA Vol Index A2C: 16.2 ml/m2 LA Vol Index BP: 15.1 ml/m2 LA Area A4C: 13.2 cm2 LA Area A2C: 14.5 cm2 LA Major Wheaton A4C: 4.5 cm LA Major Wheaton A2C: 4.6 cm LA Volume Index: 15.1 ml/m2 AORTA MEASUREMENTS: Normal Ranges: Ao Sinus, d: 3.60 cm (2.1-3.5cm) LV SYSTOLIC FUNCTION BY 2D PLANIMETRY (MOD): Normal Ranges: EF-A4C View: 73.6 % (>55%) EF-A2C View: 74.8 % EF-Biplane: 75.4 % LV DIASTOLIC FUNCTION: Normal Ranges: MV Peak E: 0.55 m/s (0.7-1.2 m/s) MV Peak A: 0.96 m/s (0.42-0.7 m/s) E/A Ratio: 0.58 (1.0-2.2) MV e' 0.08 m/s (>8.0) MV lateral e' 0.07 m/s MV medial e' 0.08 m/s MV A Dur: 129.00 msec E/e' Ratio: 7.37 (<8.0) MV DT: 298 msec (150-240 msec) MITRAL VALVE: Normal Ranges: MV DT: 298 msec (150-240msec) AORTIC VALVE: Normal Ranges: AoV Vmax: 1.67 m/s (<1.7m/s) AoV Peak P.2 mmHg (<20mmHg) AoV Mean P.0 mmHg (1.7-11.5mmHg) LVOT Max Luis: 1.28 m/s (<1.1m/s) AoV VTI: 27.60 cm (18-25cm) LVOT VTI: 21.70 cm LVOT Diameter: 2.00 cm (1.8-2.4cm) AoV Area, VTI: 2.47 cm2 (2.5-5.5cm2) AoV Area,Vmax: 2.41 cm2 (2.5-4.5cm2) AoV Dimensionless Index: 0.79 Echocardiogram [Sep 16 2018 12:54PM] Impression: *Watershed infarction in the right cerebral hemisphere *Occluded right internal carotid artery *Severe stenosis left internal carotid artery. *THIS MRA Neck without Contrast [Sep 16 2018 8:41AM] Impression: *Watershed infarction in the right cerebral hemisphere *Occluded right internal carotid artery *Severe stenosis left internal carotid artery. *THIS MRA Head without Contrast [Sep 16 2018 8:41AM] Impression: *Watershed infarction in the right cerebral hemisphere *Occluded right internal carotid artery *Severe stenosis left internal carotid artery. 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 MRI/MRA Head/ Neck; Carotid US showed right cerebral hemisphere watershed infarction, occluded Right ICA and severe stenosis left ICA. Per Stroke significant risk of bleeding into basal ganglia infarct; Neurosurgery consulted for severe Left ICA stenosis. Imaging personally reviewed; reviewed by Neurosurgery team Plan: -likely non-emergent stent placement for severe left ICA stenosis (>70%); -continue ASA, plavix and statin Discussed with Neurosurgery staff, Chief, will discuss with Attending, Dr. Kelly Ray Call with questions [id number] Signature/Cosignature/Attestation: Comments/ Additional Findings Time spent on the assessment of patient, gathering and interpreting data, review of medical record/patient history, personally reviewing radiographic imaging and formulation of this note 60 minutes. Electronic Signatures: Maria T Cowan (TABLET MACHINE OPERATOR-BUGGY LADLE TENDER) (Signed 17-Sep-2018 17:28) Authored: Service, History of Present Illness, Stroke Arrival/Symptom Onset, Review Family/Social History and ROS, Past Medical/Surgical History, Allergies, Objective, Assessment/Recommendations, Signature/Cosignature/Attestation Last Updated: 17-Sep-2018 17:28 by Maria T Cowan (TABLET MACHINE OPERATOR-BUGGY LADLE TENDER) SWALLOW EVALUATION Observed: 09/17/2018 Status: UNK Source: [place] V2-BEDSIDE CLINICAL 11:35 AM HOSPITALS REPOSITORY SWALLOW Rehab: Info: Mode of TreatmentClinical Bedside Swallow Evaluation Time IN10:45 Time OUT11:15 Total Treatment [id number] Communicated with ... at end of sessionbedside nurse; physician Evaluation TypeBedside Clinical Swallow Reason for ReferralConcern for oropharyngeal dysphagia. Per chart review, patient failed Nursing Swallow Screen. Dobhoff in place. General Observations of PatientMr. Saha received lying in bed, alert. at bedside. Patient reports feeling groggy and complaining of horrible headache. RN made aware. Pertinent History of Current Functional Hppkesn52ly M with HTN, presented with R carotid occlusion and R BG infarction. Outside tPA window, not an intervention candidate. Impression: Assessment (Swallow Eval)Clinically, Mr. Saha exhibited concerns for oropharyngeal dysphagia. 3-ounce water challenge not administered due to high aspiration risk. Mr. Saha with delayed postprandial cough on single cup sips; therefore, concerning for silent aspiration. Silent aspiration puts patient at high risk for adequate airway protection. Further instrumental evaluation of swallow is warranted to determine physiology of swallow mechanism and make recommendations for safest diet consistency. Rehab Potential/Prognosis (Swallow Eval)Pending further workup Criteria for Skilled Therapeutic Interventions Met (Swallow Eval)PLAN: MBSS BANKING TEACHER Diet Recommendations (Swallow Eval)1. NPO. Continue alternate means of nutrition/hydration/medication via Dobhoff 2. Modified Barium Swallow Study on 09/18 to further assess oropharyngeal swallow and to rule out aspiration. BANKING TEACHER to reassess tomorrow AM to ensure MBSS warranted given lethargy this AM 3. OK for small amounts of ice chips for pleasure/swallow stimulation, but only after aggressive oral care to avoid colonization of bacteria within oral cavity Oral Assess: Lesions/Structural AbnormalitiesAn evaluation of the patient's oral-facial anatomy and musculature was conducted. They showed reduced range of motion during all the activities they were asked to perform, with: right-sided lingual deviation during protrusion task; left-sided facial droop; and reduced left-sided labial movement during lingual retraction task. Intelligible articulatory speech, though distorted. Mild vocal hoarseness. Strong congested volitional cough. Absent wet vocal quality. Dentition (Oral Mechanism)Edentulous maxillary incisors - has partial dentures Current DietTF via dobhoff Respiratory Support Currently in UseRoom Air. No overt s/s of respiratory distress. CSE: Volume and Consistency Presented, Thin Liquid (CSE)ice chips; tsp sips water; single cup sips - per patient request. Comment, Thin Liquid (CSE)Adequate labial seal around presented modalities and with no anterior bolus loss. A-P oral cavity transfer time appeared delayed, as did pharyngeal swallow onset time. Delayed reflexive cough on single cup sips. Short Term Goals: Dysphagia/Swallow: Established [id number] Dysphagia/Swallow: Goal DetailsPatient will tolerate least restrictive diet with no overt s/s of aspiration DC Recommendations: Anticipated DIscharge Disposition (Swallow Eval)unable to determine at this time; refer to subsequent notes Electronic Signatures: Teresa Araya (BANKING TEACHER) (Signed 17-Sep-2018 12:06) Authored: Rehab Last Updated: 17-Sep-2018 12:06 by Teresa Araya (BANKING TEACHER) CONSULT - NEURO-SURGERY Observed: 09/17/2018 Status: UNK Source: [place] 11:07 AM HOSPITALS REPOSITORY This report has been cancelled. SWALLOW EVALUATION Observed: 09/17/2018 Status: AKHILK Source: [place] V2-ATTEMPTED CLINICAL 9:50 AM HOSPITALS REPOSITORY BEDSIDE SWALLOW MELITA Rehab: Info: Mode of TreatmentAttempted Clinical Bedside Swallow Evaluation Time IN09:50 Evaluation Not PerformedAttempted to see patient for clinical bedside swallow evaluation. Mr. Saha not seen due to: another service at bedside. Will attempt again as able. Electronic Signatures: Teresa Araya (BANKING TEACHER) (Signed 17-Sep-2018 09:51) Authored: Rehab Last Updated: 17-Sep-2018 09:51 by Teresa Araya (BANKING TEACHER) CBC Collected: 09/17/2018 Status: F Source: [place] 8:10 AM HOSPITALS REPOSITORY TYPE CODE TESTS RESULT OUT OF REFERENCE UNITS RANGE LAB WBCR(LOINC 4.4 - 11.3 x10E9/L ) WBC 8.6 LAB NRBC(LOINC 0.0-0.0 /100 WBC ) NUCLEATED RBC 0.0 LAB RBCCT(LOIN 4.50 - 5.90 x10E12/L C) RBC 4.89 LAB HGB(LOINC) 13.5 - 17.5 g/dL HGB 14.8 LAB HCT(LOINC) 41.0 - 52.0 % HCT 44.9 LAB MCV(LOINC) 80 - 100 fL MCV 92 LAB MCHC2(LOIN 32.0 - 36.0 g/dL C) MCHC 33.0 LAB PLTCT(LOIN 150 - 450 x10E9/L C) PLT 298 LAB RDWCV(LOIN 11.5 - 14.5 % C) RDW-CV 13.3 Performed By: #### CBC #### [facility] [address] [place] [address] COAGULATION SCREEN Collected: 09/17/2018 Status: F Source: [place] 8:10 AM [facility] REPOSITORY TYPE CODE TESTS RESULT OUT OF REFERENCE UNITS RANGE LAB PT(LOINC) 9.7 - 12.7 sec PROTHROMBIN TIME 12.5 Result Comment: Note new reference range as of 07/21/2018. LAB INR(LOINC) 0.9 - 1.1 PT, INR 1.1 LAB APTT(LOINC) 28 - 38 sec APTT 28 Result Comment: Note new reference range as of 07/21/2018. THE APTT IS NO LONGER USED FOR MONITORING UNFRACTIONATED HEPARIN THERAPY. FOR MONITORING HEPARIN THERAPY, USE THE HEPARIN ASSAY. Performed By: #### COAGS #### [facility] [address] [place] [address] TROPONIN I Collected: 09/17/2018 Status: F Source: [place] 8:10 AM [facility] REPOSITORY TYPE CODE TESTS RESULT OUT OF REFERENCE UNITS RANGE LAB TROP2(LOINC 0.00 - 0.03 ng/mL ) TROPONIN I <0.02 Result Comment: LESS THAN 0.04 NG/ML: NEGATIVE REPEAT TESTING IN FOUR TO SIX HOURS IF CLINICALLY INDICATED. 0.04 - 0.5 NG/ML: CONSISTENT WITH POSSIBLE CARDIAC DAMAGE AND POSSIBLE INCREASED CLINICAL RISK. SERIAL MEASUREMENTS MAY HELP ASSESS EXTENT OF MYOCARDIAL DAMAGE. >0.5 NG/ML: CONSISTENT WITH CARDIAC DAMAGE, INCREASED CLINICAL RISK AND MYOCARDIAL INFARCTION. SERIAL MEASUREMENTS MAY HELP ASSESS EXTENT OF MYOCARDIAL DAMAGE. . Note: Troponin I testing is performed using different testing methodology at [facility] than at other [facility]. Direct result comparisons should only be made within the same method. . Patients receiving more than 5 mg/day of biotin may have interference in test results. A sample should be taken no sooner than eight hours after previous dose. Contact [phone] for additional information. Performed By: #### TROP2 #### [facility] [address] [place] [address] RENAL FUNCTION PANEL Collected: 09/17/2018 Status: F Source: [place] 8:10 AM HOSPITALS REPOSITORY TYPE CODE TESTS RESULT OUT OF REFERENCE UNITS RANGE LAB GLU(LOINC) 74 - 99 mg/dL GLUCOSE High 134 LAB SOD(LOINC) 136 - 145 mmol/L SODIUM 138 LAB K(LOINC) 3.5 - 5.3 mmol/L POTASSIUM 4.2 LAB CHLOR(LOIN 98 - 107 mmol/L C) CHLORIDE High 109 LAB BIC(LOINC) 21 - 32 mmol/L BICARBONATE 21 LAB ANGAP(LOIN 10 - 20 mmol/L C) ANION GAP 12 LAB UREA(LOINC 6 - 23 mg/dL ) UREA NITROGEN 13 LAB CREA(LOINC 0.50 - 1.30 mg/dL ) CREATININE 0.95 LAB GFRFN(LOIN >60 mL/min/1.7 C) 3m2 GFR-NON AM. >60 LAB GFRAA(LOIN >60 mL/min/1.7 C) 3m2 GFR- AM. >60 Result Comment: CALCULATIONS OF ESTIMATED GFR ARE PERFORMED USING THE MDRD STUDY EQUATION FOR THE IDMS-TRACEABLE CREATININE METHODS. CLIN CHEM 2007;53:766-72 LAB CA(LOINC) 8.6 - 10.6 mg/dL CALCIUM 9.1 LAB PHOS(LOINC) 2.5 - 4.9 mg/dL PHOSPHORUS 2.9 Result Comment: The performance characteristics of phosphorus testing in heparinized plasma have been validated by the individual laboratory site where testing is performed. Testing on heparinized plasma is not approved by the FDA; however, such approval is not necessary. LAB ALB(LOINC) 3.4 - 5.0 g/dL ALBUMIN 3.8 Performed By: #### RENAL #### [facility] [address] [place] [address] DAILY PROGRESS Observed: 09/17/2018 Status: COMPLETED Source: [facility]-NEURO - STROKE 7:34 AM HOSPITALS REPOSITORY Service: Neuro - Stroke Subjective Data: BRENDEN SAHA is a 58 year old Male who is Hospital Day # 2. No events overnight. Objective Data: Objective Information: T PRBPSpO2 [id number]/9897% Date/Time09/17 6: 6: 6: 6: 6:00 Range(36.6C - 37.5C ) (51 - 80 ) (10 - 20 ) (134 - 171 )/ (81 - 100 ) (94% - 99% ) Highest temp of 37.5 C was recorded at 09/16 20:00 Pain reported at 09/17 0:13: 0 Pain reported at 09/16 23:13: 6 Physical Exam: Constitutional: no distress, drowsy ENMT: NG tube Respiratory/Thorax: breathing comfortably on room air Cardiovascular: normal rate, regular rhythm Neurological: L eye deviation, LLE spontaneous, LUE minimal withdrawal to nox stim Medication: Medications: Continuous Medications 1. Sodium Chloride 0.9% Infusion: 1000 mL IntraVenous <Continuous> Scheduled Medications 1. Aspirin Chewable: 81 mg Oral Daily 2. Atorvastatin: 40 mg Oral At Bedtime 3. Clopidogrel: 75 mg Oral Daily 4. Docusate: 100 mg Oral 2 Times a Day 5. Heparin SubCutaneous: 5000 unit(s) SubCutaneous Every 12 Hours 6. LORazepam Injectable: 0.5 mg IntraVenous Push Once 7. LORazepam Injectable: 0.5 mg IntraVenous Push Once 8. Sennosides: 2 tablet(s) Oral Daily PRN Medications 1. Acetaminophen Oral Liquid: 650 mg Oral Every 4 Hours 2. Dextrose 50% in Water Injectable: 12.5 gram(s) IntraVenous Push Every 15 Minutes 3. Dextrose 50% in Water Injectable: 25 gram(s) IntraVenous Push Every 15 Minutes 4. Glucagon Injectable: 1 mg IntraMuscular Every 15 Minutes 5. Labetalol Injectable: 20 mg IntraVenous Push Every 2 Hours 6. Morphine Injectable: 2 mg IntraVenous Push Every 4 Hours Conditional Medication Orders 1. Perflutren Lipid Microsphere (Activated) 1.3 mL / NaCL 0.9% T.V. 10 mL Injectable: 0.5 mL IntraVenous Push Once NIHSS: Level of Consciousness: 1 = drowsy LOC Question: 0 = both correct LOC Commands: 0 = obeys both Best Gaze: 1 = partial gaze palsy Visual Field: 0 = no visual loss Facial Paresis: 1 = minor paresis Left Upper Extremity: 3 = no effort vs gravity Right Upper Extremity: 0 = no drift; 10 seconds Dysarthria: 0 = normal Left Lower Extremity: 2 = effort vs gravity Right Lower Extremity: 0 = no drift; 5 seconds Best Language: 1 = mild-moderate aphasia Limb Ataxia: 0 = absent Sensory: 1 = partial loss Neglect: 1 = partial NIHSS Score: 11 Assessment and Plan: Assessment: 58yo M with HTN, presented with R ICA occlusion and R BG infarction causing L-sided weakness, especially LUE. Outside tPA window, not an intervention candidate. Also found to have severe L ICA occlusion. Started on DAPT ([id number] & Plavix) + statin. Type: Cerebral infarction Subtype: Atherosclerotic Vessels Involved: R ICA, R MCA Neurologic Manifestations: Deficits: Dense L hemiplegia, R gaze preference, mild neglect NIHSS: 10 Initial treatment: None Anti-platelets or Anti-coagulation management: Aspirin Vascular Risk Factors: HTN BP goal: Permissive HTN initially (<220/120) Disposition: rehab Plan: - start DAPT ASA 81mg + Plavix - LDL 109 -> start atorvastatin 40mg - carotid ultrasound - headache cocktail as needed - meds through NG - f/u with stroke Misc - Monitor RFP, replete electrolytes as needed - ISS and hypoglycemia protocol - SQH + SCDs Dispo: rehab Signature/Cosignature/Attestation: Attending AttestationI saw and evaluated the patient. I personally obtained the garg and critical portions of the history and physical exam or was physically present for garg and critical portions performed by the resident/fellow. I reviewed the resident/fellows documentation and discussed the patient with the resident/fellow. I agree with the resident/fellows medical decision making as documented in the resident/fellows note with the exception/addition of the following: I personally evaluated the patient (as noted in the above attestation) on 17-Sep-2018 Comments/ Additional Findings Left hemiplegia persists He is mildly encephalopathic We are re-assessing swallowing and need for PEG [facility]ative [facility] Get duplex LICA - consider LCEA in 6-8 weeks Discussed with Electronic Signatures: Rui Kaplan (Resident)) (Signed 17-Sep-2018 13:42) Authored: Service, Subjective Data, Objective Data, Scales, Assessment and Plan, Signature/Cosignature/Attestation Robby Galarza) (Signed 17-Sep-2018 13:58) Authored: Signature/Cosignature/Attestation Co-Signer: Service, Subjective Data, Objective Data, Assessment and Plan, Signature/Cosignature/Attestation Last Updated: 17-Sep-2018 13:58 by Robby Galarza) DISCHARGE PLANNING Observed: 09/17/2018 Status: [facility] Source: UNIVERSITY NOTE 3:09 AM HOSPITALS REPOSITORY Discharge Needs Assessment: Discharge Planning Assessment [id number] Discharge Planning Assessment Completed byTanya Mendosa RN Primary Care PhysicianKaci Hammonds ([place]) Adult Information: Primary Support Person During Hospitalizationwife Person to be Involved in Discharge Planningwife Patient Learning: Factors that Impact Ability to Learnnone(1) Other Factors: Functional Screen: In the recent/past 2-4 weeks, patient or family have noticeda significant change in speech or language, a significant change in ability to chew or swallow, a significant change in function affecting balance, or the ability to safely transfer or ambulate (And is not on bedrest)(1) Discharge Needs: Anticipated Discharge Facility/Level of Care NeedsRehab Facility or Unit Stroke Family Assessment: Primary Caregiver After Discharge: spouse, Amisha Physical Layout of Home: one story Caregiver can Provide Assistance in ADLs: yes Caregiver Can Provide Mobility Assistance for Transfer In and Out of Bed, Chair, Car, etc: yes Medications: Caregiver Can Obtain Prescriptions: yes Medications: Caregiver Can Assist with Medication Administration: yes Medications: Caregiver Verbalizes Understanding of Medications: yes Caregiver/Family Agrees with Discharge Plan to Home: yes Caregiver/Family Verbalizes They Have Necessary Resources and Are Capable of Caring for Patient at Home: yes Discharge Planning: Recommended Placement: Patient/family agrees with the recommendation for facility placement. Document details of discussion below. [facility] team to meet with patient to offer choice. Discharge Plannin09/17/18 0309 Admission Discharge Planning Note: Pt. admitted to LT4 from ED evening of 09/16/18 after life flighted from [facility] for Stroke. Pt. Normally independent of all ADL's, Lives with Amisha Saha [phone], in [place] home, no stairs. Pt. will need PT/OT/BANKING TEACHER. Pt also has some history of back surgerys and recent shoulder surgery. Will continue to monitor. Regine Mark RN 09/17/18 1600 Wire Spiral Binder note Patient in bed with at the bedside. Patient lives in ranch style home with and is own garg learner. Patient's is primary support person and will assist patient with transportation to appointments and pharmacy. Patient states no difficulty obtaining or paying for medications. Patient independent with ADL's and with ambulation. Patient states they feel safe at home. No current home care or DME equipment. PT/OT recommended acute Rehab, PCN will preference patient. Pharmacy and demographic info verified with patient and face sheet. Patient has no questions at this time. Tanya Mendosa RN Wire Spiral Binder [id number] 09/17/2018 7:35PM SOCIAL WORK ASSESSMENT SUMMARY (BRIEF) The patient was referred by the Corn Press Operator Dionna to the team ( home care administrator, navigator and me) this morning about the need for transfer to an inpatient rehab facility. (This was just recommended by Physical Therapy and Occupational Therapy this morning) We were mistakenly told that the patient was medically cleared for discharge once NSURG did a consult re a future CEA but I later discovered that the patient needs an MBS tomorrow and has not been cleared for p.o. intake. While the post-hospital plans did not require my involvement, patient's asked for my involvement and I therefore did speak with her, with the home care administrator and navigator, with patient's [facility] insurance and will a group home facility [facility] and an acute rehab facility ([facility]). I also left a message for [facility] in [place] to see if they a re in network with the insurance (no reply). I shared what I learned with the patient's , the navigator and the home care administrator. I explained to patient's that [facility] is a skilled and not an acute rehab facility and that acute rehab is strongly recommended (and why). In addition, the group home facility is out of network with patient's insurance. She asked about [facility], which is also a group home facility and not listed on the [facility] website as in network (which I told her). She agreed we could apply to [facility] and I asked the navigator to do that, but she said Thajonylisa was not working so she will try again tomorrow. Patient's has my contact information should she need anything more from me. (GENE Bloom, [facility], pager [phone]) 09/17/18 20:35 Patient Mail Handler Sent referral to [facility]. Awaiting facility response and for anticipated discharge date. Christie Greer, Patient Mail Handler, 09/18/18 0440 Nursing Note: Patient neuro exam/VSS, pulled out dobhoff last night (not due for any PO meds until 9am) and is awaiting an MBS for this morning. Pt is to be discharged to [facility] once medically ready. Will continue to monitor for discharged needs. Jess Fung RN 09/18/18 08:02 Patient Mail Handler Note: Patient has been accepted at [facility]. They have started precert. Christie Greer, Patient Mail Handler, phone [phone] 09/18/18 11:16 Patient Mail Handler Note: Precert obtained and precert is good through weekend for d/c. aware and waiting on final discharge orders. If patient is ready over the weekend, please call Admissions at [facility] (phone [phone]) to let her know time of discharge. Christie Greer Patient Mail Handler, 09/21/18 15:51 Patient Mail Handler Note: Per MD, patient is medically ready for discharge. Pre-cert is still good through today and [facility] is able to accept patient today. Navigator was not able to get a transportation time until 21:00[facility] , RN, and patient's aware. Number for RN report is [phone] (ask for RN Therese). Will follow up with [facility]. UPDATE: [facility] now stating they are unable to take patient until tomorrow. Navigator cancelled transport for tonight and scheduled transport, via ambulance, for 10:30am 09/22/18. , RN, and patient's aware. Number for RN report is [phone]. -Terrence Bergman, Patient Mail Handler, Pager [phone] 09/22/182033 Nursing Note: [facility]. All patient belongings sent with patient, IV access removed. Report called. Anat Hawkins RN Final Disposition/Discharge: Disposition/Discharge Information: Discharge/Transfer Information: Discharge/Transfer Date/[id number] 14:30 [facility] Valuables/Medications/Belongings Returnedyes Belongings CommentSent with patient [facility] Electronic Signatures: Tanya Mendosa (CLIN COOR) (Signed 17-Sep-2018 17:59) Authored: Discharge Planning Note Suzanne Greer (COOR) (Signed 18-Sep-2018 11:18) Authored: Discharge Planning Note Anat Nair (STAFF N) (Signed 22-Sep-2018 20:38) Authored: Discharge Planning Note, Final Disposition/Discharge Regine Mark (RN) (Signed 17-Sep-2018 03:14) Authored: Discharge Planning Note Terrence Bergman (ASST) (Signed 21-Sep-2018 17:00) Authored: Discharge Planning Note Jess Fung (RN) (Signed 18-Sep-2018 04:43) Authored: Discharge Planning Note Leah Velasquez (TRAFFIC LIEUTENANT) (Signed 17-Sep-2018 19:36) Authored: Discharge Planning Note Last Updated: 22-Sep-2018 20:38 by nAat Nair (STAFF N) References: 1. Data Referenced From Admission Risk Screen - Adult 09/17/2018 2:40 AM PATIENT PROFILE - Observed: 09/17/2018 Status: UNK Source: [place] ADULT V2 3:04 AM HOSPITALS REPOSITORY Profile: Initial Info: How to be AddressedRod Spoken Language PreferredEnglish Are you currently using the Personal NodePing Health Record or [place] Stated Reason for AdmissionStroke Arrived Fromemergency department Patient Belongingsremains with patient Patient Belongings Remaining with Patientvision aids Medications Brought to Hospitalno General Health: Weight in kg113 kilogram(s) Weight in jes719.1 pound(s) Height in cm190 centimeter(s) BMI (kg/m2)31.301 square meter Weight Methodstated Scale Typebed Height Methodstated Blood Avoidance/Restrictionsnone Sleep Aids/Routinedark room; relaxation/quiet time; sleep mask RSP Based Care: How would you like to participate in your carework at getting better What is the number one concern for you during this hospitalizationwhat happens next What is the most important thing we can do to support you during this hospitalizationkeep me informed Is there anything we need to know to best care for youI don't like bright lights Hobbiessports; TV/movies Substance: Current or Former Substance Use never: Cigarette/Tobacco, e-Cigarette/Vaping, Alcohol, Street Drugs Health Mgmt: Symptoms/Conditions Managed at Homecardiovascular; gastrointestinal Cardiovascular Symptoms/Conditionshypertension Cardiovascular Management Strategiesmedication therapy Cardiovascular Managementnot managed Gastrointestinal Symptoms/Conditionsreflux/heartburn Gastrointestinal Management Strategiesdiet modification; medication therapy Gastrointestinal Managementmanaged Relationship/Environ: Primary Source of Support/Comfortspouse Lives Withspouse Living Arrangementshouse Resource/Environmental Concernsnone Anticipated Transition Toinpatient rehabilitation facility Services Anticipated at Transitionoutpatient care; rehabilitation services Significant IndicatorsComplete Information Review: Allergies, Home Meds and Significant Events have been Reviewed and Verified with Patient/Familyyes ALLERGY, INTOLERANCE, ADVERSE EVENT: Allergies: codeine: Drug, Rash, Active Significant Events: 16-Sep-2018 Hypertension (HTN): Past Medical History, Active Electronic Signatures: Regine Mark (EDILMA) (Signed 17-Sep-2018 03:08) Authored: Profile, Additional Information Last Updated: 17-Sep-2018 03:08 by Regine Mark) TH ABDOMEN AP VIEW Observed: 09/17/2018 Status: F Source: [place] 2:52 AM HOSPITALS REPOSITORY Patient Name: BRENDEN SAHA STUDY: TH ABDOMEN AP VIEW; 09/17/2018 2:52 am INDICATION: Signs/Symptoms: DOBHOFF advanced.. COMPARISON: Same-day radiograph ACCESSION NUMBER(S): [id number] ORDERING CLINICIAN: HARJINDER KILLIAN FINDINGS: Dobhoff tube is identified with distal tip overlying the gastric body. Slight advancement may be considered. Nonobstructive bowel gas pattern. Limited evaluation of pneumoperitoneum on supine imaging, however no gross evidence of free air is noted. Visualized lungs are clear. Osseous structures demonstrate no acute bony changes. IMPRESSION: 1. Dobhoff tube is identified with distal tip overlying the gastric body. Slight advancement may be considered.. 2. Nonobstructive bowel gas pattern. I personally reviewed the images/study and I agree with the findings as stated. This study was interpreted at [place], [place]. Electronically signed by: REAL BATES MD ADMISSION RISK SCREEN Observed: 09/17/2018 Status: UNK Source: [facility] - ADULT 2:40 AM HOSPITALS REPOSITORY Allergies: Allergies: codeine: Rash Patient Verification: New W ID Band Applied in my Departmentyes Patient Identity Verified Bypatient ID Band FULL Name, include Middle, spelling matches patient's ID used for verificationyes ID Band Matches Patient ID used for Verficationyes ID Band MRN Matches EMR MRNyes Advance Directive: Advance Directive Medicalno Advance Directive Information Givenpatient/family declined Falls Screen: Type of Assessmentadmission Moderate Risk Factorspatient care equipment (scds, ivs, chest tubes, loera, etc) High Risk Factorsgait instability, recent falls, symptoms due to meds (sedatives, hypnotics, new diuretics and new laxatives) Risk for Injury Associated with Fallcoagulation blood thinners (Coumadin, heparin gtt), coagulopathy Fall Risk Conclusionhigh falls risk with risk for associated injury [place] Safety InterventionsWDL *orient to call system *instruct to call for assistance before getting out of bed *non-slip footwear when patient is out of bed *call maravilla in reach *personal items and telephone in reach *physically safe environment (no spills or clutter) *bed in lowest position with wheels locked *appropriate side rails in place *room/bathroom lighting operational, light cord in reach *appropriate signage on door Fall and Injury Risk Interventionssupervised toileting (mandatory for all high risk patients), exit (bed/chair) alarms (mandatory for all high risk patients), bed alarm - zero scale to ensure bed alarm operation, collaborate with team for PT/OT consult/ambulatory aids, educate pt/family, if orthostatic, encourage patient to sit on the edge of the bed before standing, educate patient/family for risk for injury (fractures and bleeding), do not leave patient unattended while in the bathroom Family Violence Screen: Are you or have you been threatened or abused physically, emotionally, or sexually by anyoneno Do you feel UNSAFE going back to the place where you are livingno Clinical assessment: Are there any apparent signs of injuries/behaviors that could be related to abuse/neglectno Social Service Consult for abuse/neglect needed this visitno Functional screen: Functional Screen: In the recent/past 2-4 weeks, patient or family have noticeda significant change in speech or language, a significant change in ability to chew or swallow, a significant change in function affecting balance, or the ability to safely transfer or ambulate (And is not on bedrest) Learning Assessment (Patient): Patient is Able to be Assessed for Learningyes Factors Influencing Readiness to Learnacuteness of illness; motivation to learn Factors that Impact Ability to Learnnone Devices/Methods Used to Communicateglasses Learning Preferencesvideo; verbal instruction Cultural Considerationsnone Developmental Considerationsnone Evangelical Considerationsnone Learning Assessment (Other Learner): Other learner availableno Suicide/Depression Screen: During the past month, have you often been bothered by feeling down, depressed or hopelessno During the past month, have you often had little interest or pleasure in doing thingsno Have you had any thoughts of harming yourselfno (1) Have you had any thoughts of harming anyone elseno (1) Adult Nutrition Screen: Have you recently lost weight without tryingno Have you been eating poorly because of a decreased appetiteno MST Score0 RiskMST = 0 or 1 Not at risk. Eating well with little or no weight loss Nutrition Consult needed this visitno Can Patient Participate in Room Serviceyes Patient requires Paper Dishes/Plastic Utensilsno Pain Screen: Pain Scalenumerical 0-10 Pain Scale Educationteaching provided Current Pain Level5 = Moderate Acceptable Pain Level3 = Mild Expression of Pain (nonverbal)grimace, verbalization Chronic Painyes Chronic Upper Extremity pain locationleft, shoulder Spiritual Screen: Are there any cultural, spiritual, caodaism practices/values/needs that are important for us to knowno CAGE: Is this an injured patient at a Trauma Center ([facility]): no Vaccinations: Vaccination - Influenza Vaccination Screen: Is it flu season (between and )Yes Screening for identified contraindications to influenza vaccination patient/caregiver refusal Vaccination - Pneumonia Vaccination Screen: Patient has received a previous pneumonia vaccine:no/unknown... Immunocompetent persons with underlying chronic conditions or reside in terminal make up operator care facilitiesnone of these conditions Persons with Functional or Anatomic Asplenianone of these conditions Immunocompromised Personsnone of these conditions Pneumonia vaccine NOT indicated due to:patient DOES NOT have a condition that indicates vaccination Simone: Skin - Simone Scale: Simone: Sensory Perception (response to environment)(3) slightly limited Simone: Moisture (degree skin exposed to moisture)(4) rarely moist Simone: Activity (ability to walk)(1) bedfast Simone: Mobility (amount/control of body movement)(3) slightly limited Simone: Nutrition (quality of food intake)(3) adequate Simone: Friction and Shear(3) no apparent problem Simone: Score17 Skin Intervention Orders (Nursing orders will be generated)elevate heels, up in chair < 1 hr intervals, turn side to side every 2 hrs, assess for therapeutic equipment, assess pressure points, hygiene care, toilet/ADL every 2 hrs awake, toilet/ADL every 4 hrs asleep, educate prevent/treat pressure ulcer Significant Indicatiors: Significant Indicators: Complete Pressure Injury: Pressure Injury Present on Admissionno Electronic Signatures: Regine Mark (EDILMA) (Signed 17-Sep-2018 02:47) Authored: Admission Risk Screens, Vaccinations, Simone, Pressure Injury Last Updated: 17-Sep-2018 02:47 by Regine Mark (EDILMA) References: 1. Data Referenced From Triage - ED 09/16/2018 06:42 AM TH ABDOMEN AP VIEW Observed: 09/17/2018 Status: F Source: [facility] 2:17 AM HOSPITALS REPOSITORY Patient Name: BRENDEN SAHA STUDY: TH ABDOMEN AP VIEW; 09/17/2018 2:17 am INDICATION: Signs/Symptoms: Confirm Dobhoff. COMPARISON: None. ACCESSION NUMBER(S): [id number] ORDERING CLINICIAN: HARJINDER KILLIAN FINDINGS: Dobbhoff tube is identified with distal tip overlying the distal esophagus, advancement is recommended.. Nonobstructive bowel gas pattern. Limited evaluation of pneumoperitoneum on supine imaging, however no gross evidence of free air is noted. Visualized lungs are clear. Osseous structures demonstrate no acute bony changes. IMPRESSION: 1. Dobbhoff tube is identified with distal tip overlying the distal esophagus. Advancement is recommended. 2. Nonobstructive bowel gas pattern. I personally reviewed the images/study and I agree with the findings as stated. This study was interpreted at [facility], [place], [place]. Electronically signed by: REAL BATES MD PROGRESS Observed: 09/16/2018 Status: COMPLETED Source: [place] 8:30 PM [facility] REPOSITORY HNO ID: [id number] Author: Namita Santiago Service: (none) Author Type: Nurse Practitioner Type: Progress Notes Filed: 09/22/2018 7:40 PM Note Text: Critical Care Transport Note Patient Name: Brenden Saha Service Date: 09/16/18 Referring Physician: Arthur Accepting Physician: Thompson Referring Facility: [facility] SUBJECTIVE/CHIEF COMPLAINT: Acute stroke REASON FOR TRANSPORT: Higher level of care and complex neurological evaluation and possible intervention not available at current facility. History of Present Illness: The following history is what was known to CCT team at time of given care and summarized through review of available medical records, patient/family interview and from referring physician and nursing report. Brenden Saha is a 58 year old male with a past medical history significant for HTN and DVT (15 years ago post-shoulder surgery) who presented to [facility] ER in [place] with stroke like symptoms. He was last known well at 2100 when we went to bed. He awoke at 0330 and was unable to walk and noticed he was talking funny. He called his into the room who called EMS. Upon arrival to the ER, she was exhibiting symptoms of right MCA syndrome including left sided facial droop, left arm and leg weakness, dysarthria and gaze preference. NIHSS reported to be 10. Non-contrast brain CT revealed hyperdensity in the M1 segment of the right MCA consistent with acute thrombus. The patient was c/o nausea but remained alert and oriented. NIHSS unchanged while in the ER. At this time, the physician managing the patient requested transfer [place] [facility] for tertiary and/or quaternary services unavailable at the referring facility. The physician managing the patient requested the [facility] Critical Care Transport Team transport and treat the patient for the purpose of tertiary care, evaluation, and management of his medical condition(s). Patient condition at time of exam was: Acutely ill and critically ill. Due to the unique circumstances of the patient, it was determined that this was the closest, most appropriate facility by referring physician. ROS: A complete review of systems was performed and is negative except as noted PAST MEDICAL HISTORY: Hypertension PAST SURGICAL HISTORY: Shoulder surgery ALLERGIES: Patient has no allergy information on record. SOCIAL HISTORY: Former smoker FAMILY HISTORY: No family history on file. HOME MEDICATIONS: No prescriptions on file. Medications Administered by Referring Facility: None OBJECTIVE: Recent Labs, Diagnostics AND Procedure Reports reviewed as available. Referring Facility Labs CBC: WBC 11.6k, Hgb 14.8, Hct 44.4, Plt 295K Coags: INR 1.1, PT 13.3 Glucose: 97 Diagnostics AND Procedure Reports ECG: normal EKG, normal sinus rhythm CT Scan non contrast brain: Hyperdensity in the MN segment of the right MCA consistent with acute thrombus. No mass effect or midline shift. PHYSICAL EXAM: Upon CCT Arrival at Referring Facility Vital Signs: HR 80bpm, BP 165/77mmHg, RR 18, SpO2 95% Oxygen/Ventilator Settings: room air General appearance: awake and alert, c/o left leg cramping. HEENT: normocephalic, EOMI, PERRL. Oropharynx clear, no plaques or exudates,Posterior Oropharynx symmetric,Mucous membranes moist Respiratory: clear to auscultation bilaterally,no respiratory distress,no rales,no rhonchi,no wheezing. Cardiovascular: no murmurs, no rubs, no gallops, regular rate and rhythm, peripheral pulses symmetric. Gastrointestinal: soft, nontender, nondistended. Genitourinary: deferred Musculoskeletal: No clubbing, cyanosis or edema Skin: normal. Heme/Lymph: deferred Neurologic: awake alert and normally oriented. Exhibiting signs of right MCA syndrome including facial droop, dysarthria, left gaze preference, left arm flaccid and left leg weakness. NIHSS: 1(a). Mental Status - LOC 0 = Alert and Attentive 1(b). LOC Questions 0 = Correct age and month 1(c). LOC-Commands 0 = Both 2. Gaze 1 = Partial gaze, not forced or total 3. Visual [place] 0 = Full 4. Facial Weakness 1 = Minor, lower 5(a). Left Arm 4 = No movement 5(b). Right Arm 0 = No drift 6(a). Left Leg 1 = Drift, but does not hit bed 6(b). Right Leg 0 = No drift 7. Ataxia 2 = Two Limbs 8. Sensory 0 = Normal 9. Aphasia 0 = None 10. Dysarthria 1 = Mild to Moderate 11. Neglect 0 = None NIHSS Total (0-42): 10 CRITICAL CARE COURSE Upon bedside arrival at referring facility the patient was assessed and detailed physical exam performed. Initial exam findings as described above. The patient was placed on the transport monitor and all transport equipment transitioned in standard fashion. Zofran 4mg IV given for c/o nausea and motion sickness. The patient was transferred to the transport cot and transported to the Aircraft and loaded without incident. The patient was medically managed, monitored, and reassessed during transport. Medications Managed AND Administered by CCT: Zofran 4mg IV ASSESSMENT/PLAN: Brenden Saha is a 58 year old male with history of hypertension who presented to [facility] in [place] with stroke like symptoms after waking up with the inability to walk and slurred speech. Acute right MCA stroke -Initial NIHSS at OSH 10 with facial droop, gaze preference, left hemiparesis and dysarthria -Non contrast brain CT showed acute thrombus in the M1 segment of the right MCA -No medications given in the ER, Zofran 4mg IV administered prior to flight -SBP maintained above 140mmHg and patient transported for urgent stroke team evaluation [place] [facility] -NIHSS remained 10 throughout transport The transport was completed without significant incident or change in the patient's status. The patient was transported [place] the [facility] by [facility] (Helicopter) for tertiary and/or quaternary evaluation and management of his Critical Medical condition(s). Upon arrival to the receiving facility, a [id number] report was given to bedside nursing staff in ER and Stroke team. Patient care was transferred. The patient condition was Stable at the time of transfer. SPECIAL EQUIPMENT: None MODE OF TRANSPORT: [facility] (Helic[facility]) CRITICAL CARE TIME:I personally performed 40 minutes of critical care time exclusive of separately billable procedures, ambulance charges and treating other patients. This was necessary to treat or prevent further deterioration of the following condition(s): Acute stroke COMPUTER AIDE impairment which the patient had and/or had a high probability of suddenly developing. SIGNATURE: Namita Santiago APRN.BUGGY LADLE TENDER Acute Care Nurse Practitioner [facility] Critical Care Transport Team DISCHARGE PROFILE2 Observed: 09/16/2018 Status: UNK Source: [place] 2:53 PM HOSPITALS REPOSITORY Discharge Orders: Anticipated Discharge Date: Anticipated Discharge [id number] Problem List: Admitting Dx: Cerebrovascular accident (CVA) due to embolism of right middle cerebral artery: Catalog Name: Cerebral infarction due to embolism of right middle cerebral artery Additional Dx: Carotid artery stenosis: Catalog Name: Occlusion and stenosis of unspecified carotid artery Prelim Disch Dx: Stroke: Catalog Name: Cerebral infarction, unspecified Stroke: Catalog Name: Cerebral infarction, unspecified DNAR: DNAR Statusnone Activity: activity with assistance. May shower. Weight-bearing Instructions: weight-bearing as tolerated. Diet: Dietlow cholesterol Diet Consistency/Texturepureed, honey/extra thick, No straws Call Provider If (Homegoing Patients): Temperature is greater than 102 degrees. Chills. Acting very sleepy and difficult to awaken. Vomiting (throwing up) and not able to eat or drink for 12 hours. Hospital Course (Home Care/Gold Form): Hospital Course: Hospital Course: include significant abnormal lab values Brenden Saha is a 58 year old man with HTN who presented to OSH 09/16 with acute L-sided weakness and R eye deviation. NIHSS 10. CTH showed a hyperdense R MCA. He was transferred to [facility] for possible thrombectomy. MRI showed core infarct in R basal ganglia. Considering that his cortex was relatively spared suggesting good collaterals, and vessel imaging showing complete R ICA occlusion, decision was made to not undergo thrombectomy. Etiology considered likely artery-artery embolism. He was started on DAPT (ASA 81mg + Plavix) and atorvastatin 40mg. On further imaging, he was noted to have >70% stenosis of his left internal carotid artery, in addition to aforementioned complete Rt ICA occuslin. He was evaluated by neurosurgery team during his stay, who recommended outpatient follow up for consideration of CEA in 6-8 weeks after discharge, and to continue ASA + Plavix. Mr Maria A passed swallow evaluation for dysphagia pureed diet on 09/21. The patient complained of left shoulder pain during his stay, but shoulder xray showed no signs of acute fracture. The patient also complained of new onset chest pain during his stay. EKG showing no ST changes. Patient found to be hypertensive to 170s/100s. BP corrected, and anti-HTN meds adjusted to include 10mg Lisinopril and 5mg Amlodipine. Troponins checked and not elevated. Pain likely referred from left shoulder. He was evaluated by rehab services, who recommended acute rehab, to which he was discharged on 09/22. Follow up was requested with stroke neurology and neurosurgery. Issues to follow up: Neurology: -Duration of DAPT Neurosurgery: -Rt ICA CEA timing Infectious Disease: PPD Statusnot given MRSAno VREno C. Diffno Other Resistant Organismno Isolation Typenone Gold Form Orders: Care Recommendation: I recommend that INPATIENT care is required at:Acute rehab Estimated StayConvalescent stay < 30 days PrognosisGood Rehab Potential/FunctionImprove Provider CertificationI certify that inpatient care is required at the level recommended above. To the best of my knowledge, all information provided about the individual is a true and accurate reflection of the individual's condition. Therapy Orders: Occupational Therapy OrdersEval and Treat ([facility]) 2 times/day Physical Therapy OrdersEval and Treat ([facility]) 2 times/day Speech Therapy OrdersEval and Treat ([facility]) 2 times/day Provider FINAL REVIEW of Orders: Final Review: Final Review of Medication Reconciliation and Orders Completedby Physician Reviewing ProviderMhd Bill Gonzalez MD (Resident) at 22-Sep-2018 12:15:54 Appointments: Follow-Up Appointment 01: Physician/Dept/ServiceDr. Joe Harris, Neurology Scheduled Date/[id number] 13:[id number] [place] [address] Phone [phone] CommentsPlease bring your insurance card, photo id, a list of medication in the original bottle, any co-pays you may have, and the discharge summary Follow-Up Appointment 02: Physician/Dept/ServiceDr. Oliver Chatamn, Pulmonary Scheduled Date/[id number] 13:00 [id number] , [address], [place]. [address] Phone [phone] CommentsPlease arrive 10-15 minutes early, bring photo ID, insurance card, discharge summary, and list of current medications and dosages. If unable to keep this appointment, please call to cancel. Follow-Up Appointment 03: Physician/Dept/ServiceNeurosurg: Dr Reaves CommentsOrder received after discharge ; .Jesus Hassan Form - Nursing Summary: Special Treatments/Procedures (in past 14 days): Chemotherapyno Dialysisno IV Medicationno Oxygen Therapyno Transfusionsno Feverno Radiationno Ventilatorno Tracheostomyno Suctioningno Nutrition: Nutritional StatusPureed with honey thick liquids Sensory/Comfort: Visionadequate, uses glasses/contacts Hearingadequate Speechdysarthric at times Painyes Pain TypeHeadache Pain LocationHead, shoulder and back chronic Pain Relieved Bytylenol Elimination: Bladderincontinent Bowelcontinent, incontinent Last Bowel [id number] Toiletingurinal Safety: Siderailsyes Siderails Number/Reasonx3 safety Restraintsno Sitterno Fall Riskheadaches, previous falls, weakness Medication/Hygiene/Mobility: Medication Administrationpersons/equipment Bathingtotal dependent Dressingpersons/equipment Bed Mobilitytotal dependent Wheelchairtotal dependent Transferstotal dependent Ambulationpersons/equipment Skin comment: Skin commentmoni Hassan Form - Membership Secretary Summary: Referral Information: Referral [facility] Referring Facility [place] [address] Contact Fredrick Bergman Contact Phone [phone] Insurance 1: [place] [id number] Social Security: Social Security [id number] Mental & Functional Status: Functional Status Prior To AdmissionPatient lives in ranch style home with and is own garg learner. Patient's is primary support person and will assist patient with transportation to appointments and pharmacy. Patient states no difficulty obtaining or paying for medications. Patient independent with ADL's and with ambulation. Patient states they feel safe at home. Capacity For Independent Living/Group Home PlanReturn home with home care. Electronic Signatures: Gabbi Mohan (PT ACC REP) (Signed 24-Sep-2018 16:55) Authored: Appointments Rui Kaplan ( (Resident)) (Signed 17-Sep-2018 14:09) Authored: Discharge Orders, Hospital Course (Home Care/Gold Form), Gold Form Orders, Provider FINAL REVIEW of Orders, Gold Form - Membership Secretary Summary Cynthia Pena (CN) (Signed 21-Sep-2018 22:20) Authored: Gold Form - Nursing Summary Romy Morgan (PT SVS REP) (Signed 18-Sep-2018 13:27) Authored: Appointments Regine Mark (RN) (Signed 17-Sep-2018 04:34) Authored: Gold Form - Nursing Summary Diane Lemons (PT ACC REP) (Signed 17-Sep-2018 16:29) Authored: Appointments Terrence Bergman (ASST) (Signed 21-Sep-2018 15:26) Authored: Gold Form - Membership Secretary Summary Jess Fung (RN) (Signed 18-Sep-2018 04:48) Authored: Gold Form - Nursing Summary Natali Gonzalez ( (Resident)) (Signed 22-Sep-2018 12:15) Authored: Discharge Orders, Hospital Course (Home Care/Gold Form), Provider FINAL REVIEW of Orders Last Updated: 24-Sep-2018 16:55 by Gabbi Mohan (PT ACC REP) VASC LAB CAROTID Observed: 09/16/2018 Status: C Source: [facility] ARTERY DUPLEX 2:21 PM HOSPITALS [facility], [address] [place] [address] and Vascular Lab Report Carotid Artery Duplex Ultrasound Patient Name: BRENDEN Yolanda Castillo Physician: [id number] Alvin Unger DO Study Date: 09/16/2018 Referring Physician: Therese Huizar MD MRN/PID: [id number] PCP: Accession/Order#: [id number] CC Report to: Date of : 1960 Technologist: Teddy Barrientos RVT Gender: M Technologist 2: Admission Status: Inpatient Location Performed: [facility] Diagnosis/ICD: R09.89-Other specified symptoms and signs involving the circulatory and respiratory systems; I65.23- Occlusion and stenosis of bilateral carotid arteries Procedure/CPT: 44753 Cerebrovacular Carotid Duplex scan complete-[id number] Patient History: Pertinent History: CVA. CRITICAL RESULT Critical Result: Right carotid occlusion and left carotid stenosis Notification called to Dr. Vasquez on 09/16/2018 at 3:06:02 PM by Ronald Barrientos T. CONCLUSIONS: Right Carotid: Findings are consistent with an occlusion of the right ICA. The right vertebral artery is patent with antegrade flow. Left Carotid: Findings are consistent with greater than 70% stenosis of the left ICA. There are elevated velocities in the left ECA that are suggestive of disease. The left vertebral artery is patent with antegrade flow. Imaging AND Doppler Findings: Right Left PSV PSV EDV 129 cm/s CCA P 122 cm/s 51 cm/s CCA D 105 cm/s ICA P 410 cm/s 140 cm/s ICA M 143 cm/s ICA D 156 cm/s 252 cm/s ECA 207 cm/s 60 cm/s Vertebral 65 cm/s 140 cm/s Subclavian 161 cm/s Left ICA/CCA Ratio 3.9 [id number] Alvin Unger DO Final (Updated) CLINICAL EVENT Observed: 09/16/2018 Status: UNK Source: [place] NOTE-PLAN OF CARE 12:07 PM HOSPITALS REPOSITORY UPDATES Event: Topic: Plan of care updates Details: History and imaging reviewed with team. Plan: - start DAPT ASA + Plavix - start atorvastatin 40mg - carotid ultrasound - headache cocktail - f/u with stroke Electronic Signatures: Rui Kaplan (Resident)) (Signed 16-Sep-2018 12:08) Authored: Event Last Updated: 16-Sep-2018 12:08 by Rui Kaplan (Resident)) COAGULATION SCREEN Collected: 09/16/2018 Status: CANCELLED Source: [facility] [place] 11:53 AM HOSPITALS REPOSITORY Order Comment: TEST COAGULATION SCREEN WAS CANCELLED, 09/17/2018 02:43 NO SPECIMEN RECEIVED IN LAB to be drawn at 0400. TYPE CODE TESTS RESULT OUT OF REFERENCE UNITS RANGE LAB PT(LOINC) PROTHROMBIN TIME Canceled Result Comment: Note new reference range as of 07/21/2018. LAB INR(LOINC) Canceled PT, INR LAB APTT(LOINC) Canceled APTT Result Comment: Note new reference range as of 07/21/2018. THE APTT IS NO LONGER USED FOR MONITORING UNFRACTIONATED HEPARIN THERAPY. FOR MONITORING HEPARIN THERAPY, USE THE HEPARIN ASSAY. Performed By: #### COAGS #### [facility] [address] [place] [address] CBC Collected: 09/16/2018 Status: CANCELLED Source: [place] 11:53 [facility] REPOSITORY Order Comment: TEST CBC WAS CANCELLED, 09/17/2018 02:43 NO SPECIMEN RECEIVED IN LAB to be drawn at 0400. TYPE CODE TESTS RESULT OUT OF REFERENCE UNITS RANGE LAB WBCR(LOINC ) WBC Canceled LAB NRBC(LOINC ) NUCLEATED RBC Canceled LAB RBCCT(LOIN C) RBC Canceled LAB HGB(LOINC) HGB Canceled LAB HCT(LOINC) HCT Canceled LAB MCV(LOINC) MCV Canceled LAB MCHC2(LOIN C) MCHC Canceled LAB PLTCT(LOIN C) PLT Canceled LAB RDWCV(LOIN C) RDW-CV Canceled Performed By: #### CBC #### [facility] [address] [place] [address] RENAL FUNCTION PANEL Collected: 09/16/2018 Status: CANCELLED Source: [place] [id number] [place] [address] REPOSITORY Order Comment: TEST RENAL FUNCTION PANEL WAS CANCELLED, 09/17/2018 02:43 NO SPECIMEN RECEIVED IN LAB to be drawn at 0400. TYPE CODE TESTS RESULT OUT OF REFERENCE UNITS RANGE LAB GLU(LOINC) GLUCOSE Canceled LAB SOD(LOINC) SODIUM Canceled LAB K(LOINC) POTASSIUM Canceled LAB CHLOR(LOIN C) CHLORIDE Canceled LAB BIC(LOINC) BICARBONATE Canceled LAB ANGAP(LOIN C) ANION GAP Canceled LAB UREA(LOINC ) UREA NITROGEN Canceled LAB CREA(LOINC ) CREATININE Canceled LAB GFRFN(LOIN C) GFR-NON AM. Canceled LAB GFRAA(LOIN C) GFR- AM. Canceled Result Comment: CALCULATIONS OF ESTIMATED GFR ARE PERFORMED USING THE MDRD STUDY EQUATION FOR THE IDMS-TRACEABLE CREATININE METHODS. CLIN CHEM 2007;53:766-72 LAB CA(LOINC) CALCIUM Canceled LAB PHOS(LOINC) PHOSPHORUS Canceled Result Comment: The performance characteristics of phosphorus testing in heparinized plasma have been validated by the individual laboratory site where testing is performed. Testing on heparinized plasma is not approved by the FDA; however, such approval is not necessary. LAB ALB(LOINC) Canceled ALBUMIN Performed By: #### RENAL #### [facility] [address] [place] [address] BNP Collected: 09/16/2018 Status: CANCELLED Source: [place] 10:57 [facility] REPOSITORY Order Comment: TEST BNP WAS CANCELLED, 09/17/2018 02:41 DUPLICATE ORDER. TYPE CODE TESTS RESULT OUT OF REFERENCE UNITS RANGE LAB BNP2(LOINC) BNP Canceled Result Comment: . <100 pg/mL - Heart failure unlikely 100-299 pg/mL - Intermediate probability of acute heart . failure exacerbation. Correlate with clinical . context and patient history. >=300 pg/mL - Heart Failure likely. Correlate with clinical . context and patient history. BNP testing is performed using different testing methodology at [facility] than at other [facility]. Direct result comparisons should only be made within the same method. Performed By: #### BNP2 #### [facility] [address] [place] [address] HEMOGLOBIN A1C Collected: 09/16/2018 Status: CANCELLED Source: [place] 10:57 [facility] REPOSITORY Order Comment: TEST HEMOGLOBIN A1C WAS CANCELLED, 09/17/2018 16:28 DUPLICATE ORDER. TYPE CODE TESTS RESULT OUT OF REFERENCE UNITS RANGE LAB HBA1C(LOINC ) HGB A1C Canceled Result Comment: Diagnosis of Diabetes-Adults Non-Diabetic: < or = 5.6% Increased risk for developing diabetes: 5.7-6.4% Diagnostic of diabetes: > or = 6.5% . Monitoring of Diabetes Age (y) Therapeutic Goal (%) Adults: >18 <7.0 Pediatrics: 13-18 <7.5 7-12 <8.0 0- 6 7.5-8.5 [place] [employer]. Diabetes Care 33(S1), Sep 2009. LAB ESAVG(LOINC) EST.AVG.GLUCOSE Canceled LAB A1CHB(LOINC) % HGB A1C Canceled Result Comment: Diagnosis of Diabetes-Adults Non-Diabetic: < or = 5.6% Increased risk for developing diabetes: 5.7-6.4% Diagnostic of diabetes: > or = 6.5% . Monitoring of Diabetes Age (y) Therapeutic Goal (%) Adults: >18 <7.0 Pediatrics: 13-18 <7.5 7-12 <8.0 0- 6 7.5-8.5 [place] [employer]. Diabetes Care 33(S1), Sep 2009. Performed By: #### HBA1E #### [facility] [id number] [place], [place] [address]. [place] [address] ECHOCARDIOGRAM Observed: 09/16/2018 Status: F Source: [facility] 10:24 AM [facility], [id number] [place] [address] and TRANSTHORACIC ECHOCARDIOGRAM REPORT Patient Name: BRENDEN Guerrero MARIA A Reading Physician: [id number] Lane Tovar MD Study Date: 09/16/2018 Referring Physician: Therese Huizar MD MRN/PID: [id number] PCP: Accession/Order#: [id number] Department Location: [facility] Non Invasive Date of : 1960 Fellow: Gender: M Nurse: Jesusita Ohara RN, BSN, PCCN Admit Date: 09/16/2018 Bail Agent: Nallely Freire RD Admission Status: Inpatient - Additional Staff: Routine Height: 187.96 cm CC Report to: Emerg Dept [facility] Weight: 112.95 kg Study Type: Echocardiogram BSA: 2.39 m2 Blood Pressure: 160 /94 mmHg Diagnosis/ICD: G45.9-Transient cerebral ischemic attack, unspecified (NOT on LCD) Indication: stroke Procedure/CPT: Echo Complete w Full Doppler-[id number] Patient History: Pertinent History: HTN. Study Detail: Technically challenging study due to poor acoustic windows, the patient's lack of cooperation and body habitus. Unable to obtain subcostal, suprasternal notch and apical long view. A bubble study was not performed. PHYSICIAN INTERPRETATION: Left Ventricle: The left ventricular systolic function is hyperdynamic, with an estimated ejection fraction of 65-70%. The left ventricular cavity size is normal. There is mild concentric left ventricul ar hypertrophy. Spectral Doppler shows an impaired relaxation pattern of left ventricular diastolic filling. Left Atrium: The left atrium is normal in size. Right Ventricle: The right ventricle is normal in size. There is normal right ventricular global systolic function. Right Atrium: The right atrium is normal in size. Aortic Valve: The aortic valve was not well visualized. There is no evidence of aortic valve regurgitation. The peak instantaneous gradient of the aortic valve is 11.2 mmHg. The mean gradient of the aortic valve is 5.0 mmHg. Mitral Valve: The mitral valve is normal in structure. There is mild mitral annular calcification. There is trace mitral valve regurgitation. Tricuspid Valve: The tricuspid valve was not well visualized. There is trace tricuspid regurgitation. Pulmonic Valve: The pulmonic valve is not well visualized. There is trace pulmonic valve regurgitation. Pericardium: There is a trivial pericardial effusion. Aorta: The aortic root is normal. CONCLUSIONS: 1. Poorly visualized anatomical structures due to suboptimal image quality. 2. The left ventricular systolic function is hyperdynamic with a 65-70% estimated ejection fraction. 3. Spectral Doppler shows an impaired relaxation pattern of left ventricular diastolic filling. QUANTITATIVE DATA SUMMARY: 2D MEASUREMENTS: Normal Ranges: IVSd: 1.10 cm (0.6-1.1cm) LVPWd: 1.27 cm (0.6-1.1cm) LVIDd: 3.93 cm (3.9-5.9cm) LVIDs: 2.65 cm LV Mass Index: 66.3 g/m2 LV % FS 32.6 % LA VOLUME: Normal Ranges: LA Vol A4C: 32.7 ml (22+/-6mL/m2) LA Vol A2C: 38.7 ml LA Vol BP: 36.0 ml LA Vol Index A4C: 13.7ml/m2 LA Vol Index A2C: 16.2 ml/m2 LA Vol Index BP: 15.1 ml/m2 LA Area A4C: 13.2 cm2 LA Area A2C: 14.5 cm2 LA Major Wheaton A4C: 4.5 cm LA Major Wheaton A2C: 4.6 cm LA Volume Index: 15.1 ml/m2 AORTA MEASUREMENTS: Normal Ranges: Ao Sinus, d: 3.60 cm (2.1-3.5cm) LV SYSTOLIC FUNCTION BY 2D PLANIMETRY (MOD): Normal Ranges: EF-A4C View: 73.6 % (>55%) EF-A2C View: 74.8 % EF-Biplane: 75.4 % LV DIASTOLIC FUNCTION: Normal Ranges: MV Peak E: 0.55 m/s (0.7-1.2 m/s) MV Peak A: 0.96 m/s (0.42-0.7 m/s) E/A Ratio: 0.58 (1.0-2.2) MV e' 0.08 m/s (>8.0) MV lateral e' 0.07 m/s MV medial e' 0.08 m/s MV A Dur: 129.00 msec E/e' Ratio: 7.37 (<8.0) MV DT: 298 msec (150-240 msec) MITRAL VALVE: Normal Ranges: MV DT: 298 msec (150-240msec) AORTIC VALVE: Normal Ranges: AoV Vmax: 1.67 m/s (<1.7m/s) AoV Peak P.2 mmHg (<20mmHg) AoV Mean P.0 mmHg (1.7-11.5mmHg) LVOT Max Luis: 1.28 m/s (<1.1m/s) AoV VTI: 27.60 cm (18-25cm) LVOT VTI: 21.70 cm LVOT Diameter: 2.00 cm (1.8-2.4cm) AoV Area, VTI: 2.47 cm2 (2.5-5.5cm2) AoV Area,Vmax: 2.41 cm2 (2.5-4.5cm2) AoV Dimensionless Index: 0.[id number] MD Electronically signed on 09/16/2018 at 12:54:13 PM Final TROPONIN I Collected: 09/16/2018 Status: CANCELLED Source: [facility] [place] 8:01 AM [facility]ITALS REPOSITORY Order Comment: TEST TROPONIN I WAS CANCELLED, 09/16/2018 08:09 DUPLICATE ORDER. TYPE CODE TESTS RESULT OUT OF REFERENCE UNITS RANGE LAB TROP2(LOIN C) TROPONIN I Canceled Result Comment: LESS THAN 0.04 NG/ML: NEGATIVE REPEAT TESTING IN FOUR TO SIX HOURS IF CLINICALLY INDICATED. 0.04 - 0.5 NG/ML: CONSISTENT WITH POSSIBLE CARDIAC DAMAGE AND POSSIBLE INCREASED CLINICAL RISK. SERIAL MEASUREMENTS MAY HELP ASSESS EXTENT OF MYOCARDIAL DAMAGE. >0.5 NG/ML: CONSISTENT WITH CARDIAC DAMAGE, INCREASED CLINICAL RISK AND MYOCARDIAL INFARCTION. SERIAL MEASUREMENTS MAY HELP ASSESS EXTENT OF MYOCARDIAL DAMAGE. . Note: Troponin I testing is performed using different testing methodology at [facility] than at other [facility]. Direct result comparisons should only be made within the same method. . Patients receiving more than 5 mg/day of biotin may have interference in test results. A sample should be taken no sooner than eight hours after previous dose. Contact [phone] for additional information. Performed By: #### TROP2 #### [facility] [address] [place] [address] CBC Collected: 09/16/2018 Status: F Source: [place] 8:01 [facility] REPOSITORY TYPE CODE TESTS RESULT OUT OF REFERENCE UNITS RANGE LAB WBCR(LOINC 4.4 - 11.3 x10E9/L ) WBC 10.7 LAB NRBC(LOINC 0.0-0.0 /100 WBC ) NUCLEATED RBC 0.0 LAB RBCCT(LOIN 4.50 - 5.90 x10E12/L C) RBC 4.90 LAB HGB(LOINC) 13.5 - 17.5 g/dL HGB 14.8 LAB HCT(LOINC) 41.0 - 52.0 % HCT 42.9 LAB MCV(LOINC) 80 - 100 fL MCV 88 LAB MCHC2(LOIN 32.0 - 36.0 g/dL C) MCHC 34.5 LAB PLTCT(LOIN 150 - 450 x10E9/L C) PLT 317 LAB RDWCV(LOIN 11.5 - 14.5 % C) RDW-CV 13.2 Performed By: #### CBC #### [facility] [address] [place] [address] TROPONIN I Collected: 09/16/2018 Status: F Source: [place] 8:01 [facility] REPOSITORY TYPE CODE TESTS RESULT OUT OF REFERENCE UNITS RANGE LAB TROP2(LOINC 0.00 - 0.03 ng/mL ) TROPONIN I <0.02 Result Comment: LESS THAN 0.04 NG/ML: NEGATIVE REPEAT TESTING IN FOUR TO SIX HOURS IF CLINICALLY INDICATED. 0.04 - 0.5 NG/ML: CONSISTENT WITH POSSIBLE CARDIAC DAMAGE AND POSSIBLE INCREASED CLINICAL RISK. SERIAL MEASUREMENTS MAY HELP ASSESS EXTENT OF MYOCARDIAL DAMAGE. >0.5 NG/ML: CONSISTENT WITH CARDIAC DAMAGE, INCREASED CLINICAL RISK AND MYOCARDIAL INFARCTION. SERIAL MEASUREMENTS MAY HELP ASSESS EXTENT OF MYOCARDIAL DAMAGE. . Note: Troponin I testing is performed using different testing methodology at [facility] than at other [facility]. Direct result comparisons should only be made within the same method. . Patients receiving more than 5 mg/day of biotin may have interference in test results. A sample should be taken no sooner than eight hours after previous dose. Contact [phone] for additional information. Performed By: #### TROP2 #### [facility] [address] [place] [id number] TSH Collected: 09/16/2018 Status: F Source: [place] [address] [place] [address] REPOSITORY TYPE CODE TESTS RESULT OUT OF RANGE REFERENCE UNITS LAB TSH2(LOINC) 0.44 - 3.98 mIU/L TSH 1.03 Result Comment: TSH testing is performed using different testing methodology at [facility] than at other [facility]. Direct result comparisons should only be made within the same method. . Patients receiving more than 5 mg/day of biotin may have interference in test results. A sample should be taken no sooner than eight hours after previous dose. Contact [phone] for additional information. Performed By: #### TSH2 #### [facility] [address] [place] [id number] BASIC METABOLIC PANEL Collected: 09/16/2018 Status: F Source: [place] [address] [place] [address] REPOSITORY TYPE CODE TESTS RESULT OUT OF REFERENCE UNITS RANGE LAB GLU(LOINC) 74 - 99 mg/dL GLUCOSE High 133 LAB SOD(LOINC) 136 - 145 mmol/L SODIUM 141 LAB K(LOINC) 3.5 - 5.3 mmol/L POTASSIUM 4.5 LAB CHLOR(LOIN 98 - 107 mmol/L C) CHLORIDE High 108 LAB BIC(LOINC) 21 - 32 mmol/L BICARBONATE 22 LAB ANGAP(LOIN 10 - 20 mmol/L C) ANION GAP 16 LAB UREA(LOINC 6 - 23 mg/dL ) UREA NITROGEN 17 LAB CREA(LOINC 0.50 - 1.30 mg/dL ) CREATININE 1.03 LAB GFRFN(LOIN >60 mL/min/1.7 C) 3m2 GFR-NON AM. >60 LAB GFRAA(LOIN >60 mL/min/1.7 C) 3m2 GFR- AM. >60 Result Comment: CALCULATIONS OF ESTIMATED GFR ARE PERFORMED USING THE MDRD STUDY EQUATION FOR THE IDMS-TRACEABLE CREATININE METHODS. CLIN CHEM 2007;53:766-72 LAB CA(LOINC) 8.6 - 10.6 mg/dL CALCIUM 9.6 Performed By: #### BMP #### [facility] [address] [place] [address] LIPID PANEL (CORONARY Collected: 09/16/2018 Status: F Source: [facility] 2) 8:01 AM HOSPITALS REPOSITORY TYPE CODE TESTS RESULT OUT OF REFERENCE UNITS RANGE LAB CHOL(LOINC 0 - 199 mg/dL ) CHOLESTEROL 158 Result Comment: . AGE DESIRABLE BORDERLINE HIGH HIGH 0-19 Y 0 - 169 170 - 199 >/= 200 20-24 Y 0 - 189 190 - 224 >/= 225 >24 Y 0 - 199 200 - 239 >/= 240 All ranges are based on fasting samples. Specific therapeutic targets will vary based on patient-specific cardiac risk. . Pediatric guidelines reference:Pediatrics 2011, 128(S5). Adult guidelines reference: NCEP ATPIII Guidelines, OPHELIA 2001, 258:2486-97 . Venipuncture immediately after or during the administration of Metamizole may lead to falsely low results. Testing should be performed immediately prior to Metamizole dosing. LAB HDL(LOINC) mg/dL Abnormal HDL-CHOLESTEROL 38.9 Result Comment: . AGE VERY LOW LOW NORMAL HIGH 0-19 Y < 35 < 40 40-45 ---- 20-24 Y ---- < 40 >45 ---- >24 Y ---- < 40 40-60 >60 . LAB CHHDL(LOINC) CHOLESTEROL/HDL RATIO 4.1 Result Comment: REF VALUES DESIRABLE < 3.4 HIGH RISK > 5.0 LAB LDLF(LOINC) 0 - 99 mg/dL High LDL 109 Result Comment: . NEAR BORD AGE DESIRABLE OPTIMAL HIGH HIGH VERY HIGH 0-19 Y 0 - 109 --- 110-129 >/= 130 ---- 20-24 Y 0 - 119 --- 120-159 >/= 160 ---- >24 Y 0 - 99 100-129 130-159 160-189 >/=190 . LAB VLDL(LOINC) 0 - 40 mg/dL VLDL 11 LAB TRIG(LOINC) 0 - 149 mg/dL TRIGLYCERIDES 53 Result Comment: . AGE DESIRABLE BORDERLINE HIGH HIGH VERY HIGH 0 D-90 D 19 - 174 ---- ---- ---- 91 D- 9 Y 0 - 74 75 - 99 >/= 100 ---- 10-19 Y 0 - 89 90 - 129 >/= 130 ---- 20-24 Y 0 - 114 115 - 149 >/= 150 ---- >24 Y 0 - 149 150 - 199 200- 499 >/= 500 . Venipuncture immediately after or during the administration of Metamizole may lead to falsely low results. Testing should be performed immediately prior to Metamizole dosing. Performed By: #### LIPID #### [facility] [address] [place] [address] BNP Collected: 09/16/2018 Status: F Source: [place] [address] [place] [address] REPOSITORY TYPE CODE TESTS RESULT OUT OF RANGE REFERENCE UNITS LAB BNP2(LOINC) 0 - 99 pg/mL BNP 22 Result Comment: . <100 pg/mL - Heart failure unlikely 100-299 pg/mL - Intermediate probability of acute heart . failure exacerbation. Correlate with clinical . context and patient history. >=300 pg/mL - Heart Failure likely. Correlate with clinical . context and patient history. BNP testing is performed using different testing methodology at [facility] than at other [facility]. Direct result comparisons should only be made within the same method. Performed By: #### BNP2 #### [facility] [address] [place] [id number] HEMOGLOBIN A1C Collected: 09/16/2018 Status: F Source: [place] [address] [place] [address] REPOSITORY TYPE CODE TESTS RESULT OUT OF RANGE REFERENCE UNITS LAB HBA1C(LOINC % ) HGB A1C 5.8 Result Comment: Diagnosis of Diabetes-Adults Non-Diabetic: < or = 5.6% Increased risk for developing diabetes: 5.7-6.4% Diagnostic of diabetes: > or = 6.5% . Monitoring of Diabetes Age (y) Therapeutic Goal (%) Adults: >18 <7.0 Pediatrics: 13-18 <7.5 7-12 <8.0 0- 6 7.5-8.5 [place] [employer]. Diabetes Care 33(S1), Sep 2009. LAB ESAVG(LOINC) MG/DL EST.AVG.GLUCOSE 120 Performed By: #### HBA1E #### [facility] [address] [place] [address] HEMOGLOBIN A1C Collected: 09/16/2018 Status: CANCELLED Source: [place] 8:01 AM [facility]ITALS REPOSITORY Order Comment: TEST HEMOGLOBIN A1C WAS CANCELLED, 09/17/2018 16:29 DUPLICATE ORDER. TYPE CODE TESTS RESULT OUT OF REFERENCE UNITS RANGE LAB HBA1C(LOINC ) HGB A1C Canceled Result Comment: Diagnosis of Diabetes-Adults Non-Diabetic: < or = 5.6% Increased risk for developing diabetes: 5.7-6.4% Diagnostic of diabetes: > or = 6.5% . Monitoring of Diabetes Age (y) Therapeutic Goal (%) Adults: >18 <7.0 Pediatrics: 13-18 <7.5 7-12 <8.0 0- 6 7.5-8.5 [place] [employer]. Diabetes Care 33(S1), Sep 2009. LAB ESAVG(LOINC) EST.AVG.GLUCOSE Canceled LAB A1CHB(LOINC) % HGB A1C Canceled Result Comment: Diagnosis of Diabetes-Adults Non-Diabetic: < or = 5.6% Increased risk for developing diabetes: 5.7-6.4% Diagnostic of diabetes: > or = 6.5% . Monitoring of Diabetes Age (y) Therapeutic Goal (%) Adults: >18 <7.0 Pediatrics: 13-18 <7.5 7-12 <8.0 0- 6 7.5-8.5 [place]. Diabetes Care 33(S1), Sep 2009. Performed By: #### HBA1E #### [facility] [id number] [place] [address] CLINICAL EVENT NOTE Observed: 09/16/2018 Status: UNK Source: [place] 7:56 AM [facility] Event: Details: I authorized lifeflight transfer from [facility] for apparent right hemisphere infarction LKW 9PM last nite so outside IV tpa window MR shows DW+ infarction deep right basal ganglia but cotex is spared suggesting good collateral as AUSTEN is occlusded on MRA. I think risk > benefit for mechanical thrombectomy as significant risk of bleeding into basal ganglia infarct with any reperfusion and natural collaterals to hemisphere appear good Provider / Team Contact Information: Provider/Team Contact Info-Pager Number: Robby Galarza Electronic Signatures: Robby Galarza) (Signed 16-Sep-2018 08:01) Authored: Event, Provider / Team Contact Information Last Updated: 16-Sep-2018 08:01 by Robby Galarza) NR MRI BRAIN WO Observed: 09/16/2018 Status: F Source: [place] 7:30 AM [facility] REPOSITORY Patient Name: BRENDEN SAHA STUDY: NR MRI BRAIN WO; NR MRA HEAD W/O C; NR MRA NECK WO.C; 09/16/2018 7:30 am INDICATION: Signs/Symptoms: BAT pt, Lie Flat: Yes, Pre Med: No. COMPARISON: None. ACCESSION NUMBER(S): [id number]; [id number]; [id number] ORDERING CLINICIAN: THERESE HUIZAR TECHNIQUE: The brain was studied in the sagittal, axial and coronal planes utilizing FLAIR, T1 and T2 weighted images. Examination is somewhat limited due to motion artifact FINDINGS: *4 cm region of diffusion restriction in the right basal ganglia and internal capsule with associated ADC changes consistent with acute/subacute infarction. No associated hemorrhage or mass effect. *Foci of abnormal diffusion restriction are also noted in the right temporal tip and in the right frontal operculum. *Normal size ventricular system without midline shift or herniation *No evidence of hemorrhage on gradient echo T2 weighted images *Magnetic resonance angiography demonstrates occlusion of the right internal carotid artery at the origin with absence of flow related signal throughout the cervical, petrous and cavernous portion of the right internal carotid artery. There is absent flow related signal in the right middle cerebral artery. There is severe stenosis and proximal left internal carotid artery with the lumen is narrowed to greater than 75% approximately 2 cm above the bifurcation. There is normal flow related signal in the cervical, petrous and cavernous portion of the left internal carotid artery. The vertebral arteries, vertebrobasilar junction and basilar artery are normal *Magnetic resonance angiography of the intracranial circulation demonstrates normal flow related signal in the anterior cerebral arteries, posterior cerebral arteries and left middle cerebral artery. IMPRESSION: *Watershed infarction in the right cerebral hemisphere *Occluded right internal carotid artery *Severe stenosis left internal carotid artery. *THIS EXAMINATION WAS INTERPRETED AT [facility] Electronically signed by: TRISTIN SILVA MD NR MRA HEAD W/O C Observed: 09/16/2018 Status: F Source: [place] 7:30 AM [facility] REPOSITORY Patient Name: BRENDEN SAHA STUDY: NR MRI BRAIN WO; NR MRA HEAD W/O C; NR MRA NECK WO.C; 09/16/2018 7:30 am INDICATION: Signs/Symptoms: BAT pt, Lie Flat: Yes, Pre Med: No. COMPARISON: None. ACCESSION NUMBER(S): [id number]; [id number]; [id number] ORDERING CLINICIAN: THERESE HUIZAR TECHNIQUE: The brain was studied in the sagittal, axial and coronal planes utilizing FLAIR, T1 and T2 weighted images. Examination is somewhat limited due to motion artifact FINDINGS: *4 cm region of diffusion restriction in the right basal ganglia and internal capsule with associated ADC changes consistent with acute/subacute infarction. No associated hemorrhage or mass effect. *Foci of abnormal diffusion restriction are also noted in the right temporal tip and in the right frontal operculum. *Normal size ventricular system without midline shift or herniation *No evidence of hemorrhage on gradient echo T2 weighted images *Magnetic resonance angiography demonstrates occlusion of the right internal carotid artery at the origin with absence of flow related signal throughout the cervical, petrous and cavernous portion of the right internal carotid artery. There is absent flow related signal in the right middle cerebral artery. There is severe stenosis and proximal left internal carotid artery with the lumen is narrowed to greater than 75% approximately 2 cm above the bifurcation. There is normal flow related signal in the cervical, petrous and cavernous portion of the left internal carotid artery. The vertebral arteries, vertebrobasilar junction and basilar artery are normal *Magnetic resonance angiography of the intracranial circulation demonstrates normal flow related signal in the anterior cerebral arteries, posterior cerebral arteries and left middle cerebral artery. IMPRESSION: *Watershed infarction in the right cerebral hemisphere *Occluded right internal carotid artery *Severe stenosis left internal carotid artery. *THIS EXAMINATION WAS INTERPRETED AT [facility] Electronically signed by: TRISTIN SILVA MD NR MRA NECK WO.C Observed: 09/16/2018 Status: F Source: [place] 7:30 AM [facility] Patient Name: BRENDEN SAHA STUDY: NR MRI BRAIN WO; NR MRA HEAD W/O C; NR MRA NECK WO.C; 09/16/2018 7:30 am INDICATION: Signs/Symptoms: BAT pt, Lie Flat: Yes, Pre Med: No. COMPARISON: None. ACCESSION NUMBER(S): [id number]; [id number]; [id number] ORDERING CLINICIAN: THERESE HUIZAR TECHNIQUE: The brain was studied in the sagittal, axial and coronal planes utilizing FLAIR, T1 and T2 weighted images. Examination is somewhat limited due to motion artifact FINDINGS: *4 cm region of diffusion restriction in the right basal ganglia and internal capsule with associated ADC changes consistent with acute/subacute infarction. No associated hemorrhage or mass effect. *Foci of abnormal diffusion restriction are also noted in the right temporal tip and in the right frontal operculum. *Normal size ventricular system without midline shift or herniation *No evidence of hemorrhage on gradient echo T2 weighted images *Magnetic resonance angiography demonstrates occlusion of the right internal carotid artery at the origin with absence of flow related signal throughout the cervical, petrous and cavernous portion of the right internal carotid artery. There is absent flow related signal in the right middle cerebral artery. There is severe stenosis and proximal left internal carotid artery with the lumen is narrowed to greater than 75% approximately 2 cm above the bifurcation. There is normal flow related signal in the cervical, petrous and cavernous portion of the left internal carotid artery. The vertebral arteries, vertebrobasilar junction and basilar artery are normal *Magnetic resonance angiography of the intracranial circulation demonstrates normal flow related signal in the anterior cerebral arteries, posterior cerebral arteries and left middle cerebral artery. IMPRESSION: *Watershed infarction in the right cerebral hemisphere *Occluded right internal carotid artery *Severe stenosis left internal carotid artery. *THIS EXAMINATION WAS INTERPRETED AT [facility] Electronically signed by: TRISTIN SILVA MD HISTORY AND PHYSICAL - Observed: 09/16/2018 Status: COMPLETED Source: [place] [facility]URO-STROKE 7:12 AM [facility] REPOSITORY History of Present Illness: Service: Service: Stroke History Present Illness: Admission Reason: Stroke HPI: Brenden Saha is a 58 yo man being transferred to [facility] for L sided weak. Patient went to bed at 9pm and woke up at 3AM with L hemiplegia and R eye deviation. CTH showed a hyperdense R MCA and no other early signs of stroke. NIHSS was 10. Because he is outside of the TPA window, he was transferred to [facility] for possible thrombectomy. BP on arrival to [facility] was 150's/80's. MRI at [facility] showed core infarct in the basal ganglia, and a relatively spared cortex suggesting good collateral flow. Considering that patient has mild neglect and significant weakness, it was decided that there is limited benefit for thrombectomy and significant risk, so thrombectomy was not pursued. ROS: A 10-point ROS was attempted, and limited by patient somnolence. PMH/PSH: HTN GERD Back pain/injuries. 5 back surgeries 25 year DVT and PE ~6 years ago after knee surgery, on heparin 1 week, lovenox 1 month, and coumadin 2 years. Allergies: Codeine Medications: Lisinopril Omeprazole FHX: noncontributory SHX: Lives with Comorbidities: Comorbid Conditionshypertension Stroke Arrival/Symptom Onset: Last Known Well - Date/Time: 15-Sep-2018 21:00(1) Allergies: codeine: Rash Medications Prior to Admission: lisinopril 10 mg oral tablet: 1 tab(s) orally once a day omeprazole 20 mg oral delayed release tablet: 1 tab(s) orally once a day. Objective Information: Objective Information: T PRBPSpO2 [id number]/8296% Date/Time09/16 6: 6: 6: 6: 6:42 Range(36.8C - 36.8C ) (77 - 77 ) (16 - 16 ) (161 - 161 )/ (82 - 82 ) (96% - 96% ) General Neurology: General Neurology Extensive Exam: GENERAL APPEARANCE: No distress, alert, interactive and cooperative. CARDIOVASCULAR: Regular, rate and rhythm, no murmurs, normal S1 and S2. Carotid pulses intact. Pulses +2 and equal in all extremities. No swelling, varicosities, edema, or tenderness to palpation. MENTAL STATE: Patient was drowsy. Orientation was normal to time, place and person. Recent and remote memory was intact. Attention span and concentration were moderately impaired. Language testing was normal for comprehension, repetition, expression, and naming. The patient could correctly interpret a picture. General fund of knowledge was intact. There was mild L sensory neglect, but no spatial or visual neglect. OPHTHALMOSCOPIC: Limited by cooperatoin CRANIAL NERVES: CN 2 Visual Acuity Visual sabillon full to confrontation. CN 3, 4, 6 Pupils round, 3 mm in diameter, equally reactive to light. Lids symmetric; no ptosis. EOMs normal alignment, R gaze preference but able to cross midline, full range with normal saccades, pursuit and convergence. VOR normal. No nystagmus. CN 5 Facial sensation intact bilaterally. CN 7 L face flattening. Decreased L facial strength. CN 8 Hearing intact to conversation. CN 9 Palate elevates symmetrically. CN 11 Normal strength of shoulder shrug and neck turning. CN 12 Tongue midline, with normal bulk and strength; no fasciculations. MOTOR: Motor exam was abnormal. Muscle bulk and tone were normal in both upper and lower extremities. On the right, muscle strength was 5/5 in distal and proximal muscles in upper and lower extremities. On the left, muscle strength was 0/5 in upper extremity and 2/5 in lower extremity. No fasciculations, tremor or other abnormal movements were present. REFLEXES: Reflexes were normal. RIGHT UE LEFT UE BR:2 BR:2 Biceps:2 Biceps:2 Triceps:2 Triceps:2 RIGHT LLE LEFT LLE Knee:2 Knee:2 Ankle:2 Ankle:2 Babinski: R toes mute, L toes upgoing to plantar stimulation. No clonus, frontal release signs or other pathologic reflexes present. SENSORY: Sensory exam was normal. In both upper and lower extremities, sensation was intact to light touch; COORDINATION: Coordination exam was normal. In right upper extremities, [id number] was intact without dysmetria or overshoot. GAIT: Gait was untestable because of significant LLE weakness. Medications: Medications: Continuous Medications No continuous medications are active Scheduled Medications 1. Aspirin Chewable: 81 mg Oral Daily 2. Atorvastatin: 40 mg Oral At Bedtime 3. Docusate: 100 mg Oral 2 Times a Day 4. Heparin SubCutaneous: 5000 unit(s) SubCutaneous Every 12 Hours 5. LORazepam Injectable: 0.5 mg IntraVenous Push Once 6. LORazepam Injectable: 0.5 mg IntraVenous Push Once 7. Sennosides: 2 tablet(s) Oral Daily PRN Medications 1. Acetaminophen Rectal: 325 mg Rectal Every 4 Hours 2. Dextrose 50% in Water Injectable: 25 gram(s) IntraVenous Push Every 15 Minutes 3. Dextrose 50% in Water Injectable: 12.5 gram(s) IntraVenous Push Every 15 Minutes 4. Glucagon Injectable: 1 mg IntraMuscular Every 15 Minutes 5. Labetalol Injectable: 20 mg IntraVenous Push Every 2 Hours Conditional Medication Orders 1. Perflutren Lipid Microsphere (Activated) 1.3 mL / NaCL 0.9% T.V. 10 mL Injectable: 0.5 mL IntraVenous Push Once Recent Lab Results: Results: I have reviewed these laboratory results: Basic Metabolic Panel Trending View [id number] 08:01:00 16-Sep-2018 06:44:00 Glucose, [id number] H 144 H NA141 141 K4.5 4.3 CL108 H 109 H Bicarbonate, Serum22 21 Anion Gap, Serum16 15 BUN17 17 CREAT1.03 1.02 GFR-Non >60 >60 GFR->60 >60 Calcium, Serum9.6 9.8 Complete Blood Count 16-Sep-2018 08:01:00 ResultValue White Blood Cell Count 10.7 Nucleated Erythrocyte Count 0.0 Red Blood Cell Count 4.90 HGB 14.8 HCT 42.9 MCV 88 MCHC 34.5 PLT 317 RDW-CV 13.2 Lipid Panel 16-Sep-2018 08:01:00 ResultValue Cholesterol, Serum 158 . AGE DESIRABLE BORDERLINE HIGH HIGH 0-19 Y 0 - 169 170 - 199 >/= 200 20-24 Y 0 - 189 190 - 224 >/= 225 >24 Y 0 - 199 200 - 239 >/= 240 All ranges are [facility] HDL Cholesterol, Serum 38.9 . AGE VERY LOW LOW NORMAL HIGH 0-19 Y < 35 < 40 40-45 ---- 20-24 Y ---- < 40 >45 ---- >24 Y ---- < 40 40-60 >60 . A Cholesterol/HDL Ratio 4.1 REF VALUES DESIRABLE < 3.4 HIGH RISK > 5.0 LDL, Level 109 . NEAR BORD AGE DESIRABLE OPTIMAL HIGH HIGH VERY HIGH 0-19 Y 0 - 109 --- 110-129 >/= 130 ---- 20-24 Y 0 - 119 --- 120-159 >/= 160 ---- >24 Y 0 - H VLDL, Serum 11 Triglycerides, Serum 53 . AGE DESIRABLE BORDERLINE HIGH HIGH VERY HIGH 0 D-90 D 19 - 174 ---- ---- ---- 91 D- 9 Y 0 - 74 75 - 99 >/= 100 ---- 10-19 Y 0 - 89 90 - 129 >/= 130 ---- Thyroid Stimulating Hormone, Serum 16-Sep-2018 08:01:00 ResultValue Thyroid Stimulating Hormone, Serum 1.03 Troponin I, Serum Trending View [id number] 08:01:00 16-Sep-2018 06:44:00 Troponin I, Serum<0.02 <0.02 Complete Blood Count + Differential 16-Sep-2018 06:44:00 ResultValue White Blood Cell Count 12.5 H Nucleated Erythrocyte Count 0.0 Red Blood Cell Count 5.04 HGB 15.1 HCT 43.6 MCV 87 MCHC 34.6 PLT 310 RDW-CV 13.1 Neutrophil % 88.0 Immature Granulocytes % 0.6 Lymphocyte % 7.5 Monocyte % 3.4 Eosinophil % 0.1 Basophil % 0.4 Neutrophil Count 10.97 H Lymphocyte Count 0.93 L Monocyte Count 0.42 Eosinophil Count 0.01 Basophil Count 0.05 PT + INR, Plasma 16-Sep-2018 06:44:00 ResultValue Prothrombin Time, Plasma 11.8 International Normalized Ratio, Plasma 1.1 NIH Stroke Scale: Level of Consciousness: 0 = alert LOC Question: 0 = both correct LOC Commands: 0 = obeys both Best Gaze: 1 = partial gaze palsy Visual Field: 0 = no visual loss Facial Paresis: 1 = minor paresis Left Upper Extremity: 4 = no movement Right Upper Extremity: 0 = no drift; 10 seconds Dysarthria: 1 = mild-moderate Left Lower Extremity: 2 = effort vs gravity Right Lower Extremity: 0 = no drift; 5 seconds Best Language: 0 = no aphasia Limb Ataxia: 0 = absent Sensory: 0 = absent Neglect: 1 = partial NIHSS Score: 10 IV tPA Exclusions and Consent: IV tPA Therapy for Acute Ischemic Stroke: Last known well date/time 15-Sep-2018 21:00. CT/MRI was interpreted as it was being performed. Contraindications for IV tPA Therapy: Time from last known well (or stroke onset) is > 4.5 hours. Assessment and Plan: Assessment: Brenden Saha is a 58 yo man with a h/o HTN, presenting for L hemiplegia, and R carotid occlusion. MRI at [facility] showed core infarct in the basal ganglia, and a relatively spared cortex suggesting good collateral flow. Considering that patient has mild neglect and significant weakness, it was decided that there is limited benefit for thrombectomy and significant risk, so thrombectomy was not pursued. 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 I personally obtained the garg and critical portions of the history and physical exam or was physically present for garg and critical portions performed by the resident/fellow. I reviewed the resident/fellows documentation and discussed the patient with the resident/fellow. I agree with the resident/fellows medical decision making as documented in the resident/fellows note with the exception/addition of the following: I personally evaluated the patient (as noted in the above attestation) on 16-Sep-2018 Comments/ Additional Findings I authorized transfer from [facility] to consider [facility] intervention LKN 21:00 yesterday so well outside IV tpa window [facility] left hemiplegia; eyes right consistent with significant RMCA syndrome Reviewed MR/MRA which showed DW+ deep right basal ganglia infarct but largely spared cortex suggesting excellent collaterals We did not do PWMR AUSTEN occluded at origin consistent with ruptured plaque. Also has >70% LICA stenosis In consultation with neurointerventional team we elected to treat medically due to potentially technically difficult intervention of unceertain benefir but with increased hemorrhage risk into a deep infarct Plan antiplatelet therapy; statin; risk factor control (noncompliant with BP meds per ) Discussed with at length Prognosis for RTW or ADL guarded - won't know for 3 months Rehab plan at [facility] - may need to fix LICA in 6-8 weeks Attending Provider Inpatient Certification StatementI certify this patients need for inpatient care based on the above documentation including; the order to admit as inpatient, the anticipated length of stay, diagnosis, problem list and plan of care, and discharge plan. Electronic Signatures: Harjinder Killian (Resident)) (Signed 16-Sep-2018 10:45) Authored: History of Present Illness, Comorbidities, Stroke Arrival/Symptom Onset, Allergies, Medications Prior to Admission, Objective, NIH Stroke Scale, IV tPA Exclusions and Consent, Assessment and Plan, Signatures/Attestation/Certification Robby Galarza) (Signed 16-Sep-2018 13:30) Authored: Signatures/Attestation/Certification Co-Signer: History of Present Illness, Objective, NIH Stroke Scale, IV tPA Exclusions and Consent, Assessment and Plan, Signatures/Attestation/Certification Last Updated: 16-Sep-2018 13:30 by Robby Galarza) References: 1. Data Referenced From Triage - ED 09/16/2018 06:42 AM PROVIDER NOTE - ED Observed: 09/16/2018 Status: COMPLETED Source: [place] V2 6:52 AM [facility]ITALS REPOSITORY Provider Note - ED v2: Chart Review: ED NOTES ED NOTES: HPI: The patient is a 58-year-old male who presents the emergency department with strokelike symptoms as a transfer from [facility]. Per report, patient was last seen well at 9 PM last night. He woke at 3:30 in the morning and was having left-sided facial droop as well as left upper and lower extremity weakness/paralysis. Patient arrived at [facility] early this morning and underwent stroke evaluation protocol. Patient was transferred to [facility] for possible thrombectomy for right-sided MCA syndrome. Patient arrives hemodynamically stable, NIH stroke scale is 10 on arrival. Patient is alert and maintaining his airway appropriately. Symptoms were sudden in onset, exacerbated and alleviated by nothing.. ROS: --Constitutional: No fever, chills --Eye: No vision changes, pain, photophobia --Ear: No hearing loss, ear pain --Oropharynx: no throat pain --Neck: no stiffness, pain --CV: no chest pain --Pulm: No shortness of breath --GI: No abdominal pain --: No dysuria or urinary frequency --Msk: No muscular pain --Neuro: left-sided facial droop, left upper extremity and lower extremity weakness --Psych: No anxiety or depression --Endocrine: No polyuria, polydipsia, weight change --Integumentary: No rashes or lesions EXAM: --Gen: alert, oriented, no acute distress --HEENT: EOMI/PERRL; MMM, no oropharyngeal erythema --CV: RRR with normal S1/S2, no murmurs --Pulm: Clear to auscultation b/l, no wheezes or crackles --GI: Abdomen is soft, nontender --: No suprapubic tenderness, no CVAT --Extremities: No edema, no trauma or malformation --Skin: Warm, Dry, no rashes/lesions --Neuro: left-sided facial droop, left upper extremity paralysis, left lower extremity paralysis, no ataxia on cozqga-gj-hdis testing with the right upper extremity, patient is alert and oriented --Psych: Mood/affect appropriate ED COURSE / MDM: Allergies, Triage note, and EMR reviewed. Patient was interviewed and examined on arrival. PLAN: Discussed diagnosis, differential, and plan with the patient and/or guardian. Patient presents to the ED with NIH stroke scale of 10. Patient was taken to MRI for further evaluation. Per neurology resident, they will not pursue thrombectomy based on MRI results. He remained hemodynamically stable. Patient will be admitted to the neurology service of Dr. Florian for further management and secondary care. DISPO: admission to neurology Zack Jacobson DO Emergency Medicine HISTORY OF PRESENTING ILLNESS BRENDEN is a 58 year old Male and was seen by me at 16-Sep-2018 06:45 for a chief complaint of stroke symptoms . Other complaints include: life flight from [facility] for stroke symptoms. LKW 2100. pt got up to use bathroom and fell at 0300. Left facial droop, LUE, LLE weakness. right gaze favors . Triage Information: Most recent Vital Sign Value Date Temp (F): 98.2 09-16-2018 06:42 Temp (C): 36.8 09-16-2018 06:42 Heart Rate (beats/min): 77 09-16-2018 06:42 Respirations (breaths/min): 16 09-16-2018 06:42 SpO2 (%): 96 09-16-2018 06:42 BP Systolic (mm Hg): 161 09-16-2018 06:42 BP Diastolic (mm Hg): 82 09-16-2018 06:42 PAST MEDICAL HISTORY ATTESTATION: I have reviewed and confirmed nurse's/medic's notes for patient's medications, allergies, medical history, and surgical history ALLERGIES/INTOLERANCES: Allergy Allergen: codeine Type: Drug Reaction: Rash HEALTH HISTORY: No documented data. OUTPATIENT MEDICATIONS: Home Medications Review Status for Reconciliation: Complete Med Status: No Current Medications Drug Name: lisinopril 10 mg oral tablet Instructions: 1 tab(s) orally once a day Drug Name: omeprazole 20 mg oral delayed release tablet Instructions: 1 tab(s) orally once a day SIGNIFICANT EVENTS: Past Medical History Description:Hypertension (HTN) CLINICAL DECISION SUPPORT STROKE DOCUMENTATION Time Last Known Well Date/Time:known(1); 15-Sep-2018 21:00(1) NIHSS Level of Consciousness: (0) Alert; keenly responsive LOC Questions: (0) Answers both questions correctly LOC Commands: (0) Performs both tasks correctly Best Gaze: (0) Normal Visual: (0) No visual loss Facial Palsy: (1) Minor paralysis (flattened nasolabial fold, asymmetry on smiling) Motor Arm, Left: (4) No movement Motor Arm, Right: (0) No drift; limb holds 90 (or 45) degrees for full 10 secs Motor Leg, Left: (4) No movement Motor Leg, Right: (0) No drift; leg holds 30 degree position for full 5 secs Limb Ataxia: (0) Absent Sensory: (0) Normal; no sensory loss Best Language: (0) No aphasia; normal Dysarthria: (1) Hnyq-wh-xwbhlkee dysarthria; patient slurs at least some words and, at worst, can be understood with some difficulty Extinction and Inattention (formally neglect): (0) No abnormality NIH Stroke Scale: Total: 10 IV tPA Therapy for Ischemic Stroke Time Last Known Well Date/Time: known; 15-Sep-2018 21:00 CLINICAL IMPRESSION Diagnosis/Annotation: ED Dx Name:Cerebrovascular accident (CVA) due to vascular occlusion Code:I63.9 Name:Stroke Code:I63.9 Prelim Disch Dx Name:Stroke Code:I63.9 Name:Stroke Code:I63.9 Dispostion: hospitalized Admit to: Telemetry. Admitting Considerations: Condition on Disposition: stable ATTESTATION Attestation: I saw and evaluated the patient. I personally obtained the garg and critical portions of the history and physical exam or was physically present for garg and critical portions performed by the resident/fellow. I reviewed the resident/fellows documentation and discussed the patient with the resident/fellow. I agree with the resident/fellows medical decision making as documented in the residents note CRITICAL CARE TIME Is this a critically ill patient: no Electronic Signatures: Zack Jacobson (DO (Resident)) (Signed 16-Sep-2018 07:46) Authored: Provider Note - ED v2 Therese Huizar) (Signed 17-Sep-2018 05:56) Authored: Provider Note - ED v2 Co-Signer: Provider Note - ED v2 Last Updated: 17-Sep-2018 05:56 by Therese Huizar) References: 1. Data Referenced From Triage - ED 09/16/2018 6:42 AM PT/INR Collected: 09/16/2018 Status: F Source: [place] 6:44 AM [facility] REPOSITORY TYPE CODE TESTS RESULT OUT OF REFERENCE UNITS RANGE LAB PT(LOINC) 9.7 - 12.7 sec PROTHROMBIN TIME 11.8 Result Comment: Note new reference range as of 07/21/2018. LAB INR(LOINC) 0.9 - 1.1 PT, INR 1.1 Performed By: #### PTINR #### [facility] [address] [place] [address] CBC AND DIFFERENTIAL Collected: 09/16/2018 Status: F Source: [place] 6:44 AM [facility] REPOSITORY TYPE CODE TESTS RESULT OUT OF REFERENCE UNITS RANGE LAB WBCR(LOINC 4.4 - 11.3 x10E9/L ) WBC High 12.5 LAB NRBC(LOINC 0.0-0.0 /100 WBC ) NUCLEATED RBC 0.0 LAB RBCCT(LOIN 4.50 - 5.90 x10E12/L C) RBC 5.04 LAB HGB(LOINC) 13.5 - 17.5 g/dL HGB 15.1 LAB HCT(LOINC) 41.0 - 52.0 % HCT 43.6 LAB MCV(LOINC) 80 - 100 fL MCV 87 LAB MCHC2(LOIN 32.0 - 36.0 g/dL C) MCHC 34.6 LAB PLTCT(LOIN 150 - 450 x10E9/L C) PLT 310 LAB RDWCV(LOIN 11.5 - 14.5 % C) RDW-CV 13.1 LAB NEUT(LOINC 40.0 - 80.0 % ) % NEUTROPHIL 88.0 LAB IG(LOINC) 0.0 - 0.9 % % AUTOMATED 0.6 IMMATURE GRAN Result Comment: Percent differential counts (%) should be interpreted in the context of the absolute cell counts (cells/L). LAB LYMPH(LOINC) 13.0 - 44.0 % % LYMPHOCYTE 7.5 LAB MONO(LOINC) 2.0 - 10.0 % % MONOCYTE 3.4 LAB EOS(LOINC) 0.0 - 6.0 % % EOSINOPHIL 0.1 LAB BASO(LOINC) 0.0 - 2.0 % % BASOPHIL 0.4 LAB #NEUT(LOINC) 1.20 - 7.70 x10E9/L NEUTROPHIL High 10.97 LAB #LYMP(LOINC) 1.20 - 4.80 x10E9/L Low LYMPHOCYTE 0.93 LAB #MONO(LOINC) 0.10 - 1.00 x10E9/L MONOCYTE 0.42 LAB #EOS(LOINC) 0.00 - 0.70 x10E9/L EOSINOPHIL 0.01 LAB #BASO(LOINC) 0.00 - 0.10 x10E9/L BASOPHIL 0.05 Performed By: #### CBCDF #### [facility] [address] [place] [address] BASIC METABOLIC PANEL Collected: 09/16/2018 Status: F Source: [place] 6:44 AM [facility] TYPE CODE TESTS RESULT OUT OF REFERENCE UNITS RANGE LAB GLU(LOINC) 74 - 99 mg/dL GLUCOSE High 144 LAB SOD(LOINC) 136 - 145 mmol/L SODIUM 141 LAB K(LOINC) 3.5 - 5.3 mmol/L POTASSIUM 4.3 LAB CHLOR(LOIN 98 - 107 mmol/L C) CHLORIDE High 109 LAB BIC(LOINC) 21 - 32 mmol/L BICARBONATE 21 LAB ANGAP(LOIN 10 - 20 mmol/L C) ANION GAP 15 LAB UREA(LOINC 6 - 23 mg/dL ) UREA NITROGEN 17 LAB CREA(LOINC 0.50 - 1.30 mg/dL ) CREATININE 1.02 LAB GFRFN(LOIN >60 mL/min/1.7 C) 3m2 GFR-NON AM. >60 LAB GFRAA(LOIN >60 mL/min/1.7 C) 3m2 GFR- AM. >60 Result Comment: CALCULATIONS OF ESTIMATED GFR ARE PERFORMED USING THE MDRD STUDY EQUATION FOR THE IDMS-TRACEABLE CREATININE METHODS. CLIN CHEM 2007;53:766-72 LAB CA(LOINC) 8.6 - 10.6 mg/dL CALCIUM 9.8 Performed By: #### BMP #### [facility] [address] [place] [id number] TROPONIN I Collected: 09/16/2018 Status: F Source: [place] 6:44 AM [facility] TYPE CODE TESTS RESULT OUT OF REFERENCE UNITS RANGE LAB TROP2(LOINC 0.00 - 0.03 ng/mL ) TROPONIN I <0.02 Result Comment: LESS THAN 0.04 NG/ML: NEGATIVE REPEAT TESTING IN FOUR TO SIX HOURS IF CLINICALLY INDICATED. 0.04 - 0.5 NG/ML: CONSISTENT WITH POSSIBLE CARDIAC DAMAGE AND POSSIBLE INCREASED CLINICAL RISK. SERIAL MEASUREMENTS MAY HELP ASSESS EXTENT OF MYOCARDIAL DAMAGE. >0.5 NG/ML: CONSISTENT WITH CARDIAC DAMAGE, INCREASED CLINICAL RISK AND MYOCARDIAL INFARCTION. SERIAL MEASUREMENTS MAY HELP ASSESS EXTENT OF MYOCARDIAL DAMAGE. . Note: Troponin I testing is performed using different testing methodology at [facility] than at other [facility]. Direct result comparisons should only be made within the same method. . Patients receiving more than 5 mg/day of biotin may have interference in test results. A sample should be taken no sooner than eight hours after previous dose. Contact [phone] for additional information. Performed By: #### TROP2 #### [facility] [address] [place] [address] TRIAGE - ED Observed: 09/16/2018 Status: UNK Source: [place] 6:42 AM [facility] Chart Review: CHIEF COMPLAINT BRENDEN SAHA is a Male patient with a chief complaint of stroke symptoms. Onset of the Complaint: 15-Sep-2018 21:00 Other Complaints: life flight from [facility] for stroke symptoms. LKW 2100. pt got up to use bathroom and fell at 0300. Left facial droop, LUE, LLE weakness. right gaze favors Triage Date/Time: 16-Sep-2018 06:42 Vital Signs: Temperature: 98.2F ( 36.8C) Blood Pressure: 161/82 Mean: Heart Rate: 77 Respiratory Rate: 16 Pulse Oximetry: 96% on room air, no respiratory support. Height: feet inches. 190.0 CM Weight: 249.1 pounds. Calculated 113.0 kg. (stated) Calculated BMI (kg/m2): 31.301 Calculated BSA (m2) 2.44 Cough lasting greater than 3 weeks: no Patient immunocompromised related to: N/A Allergies: yes Patient has suicidal thoughts: no Patient has homicidal thoughts: no MATTHEW: 2 Blood Glucose POC Results (mg/dL): 121 Symptoms Are POSITIVE For: facial droop. Last Known Well: known Time Last Known Well Date/Time: 15-Sep-2018 21:00 PAIN Pain Scale Used: JAIMIE Past Medical History: Past Medical History Reviewedyes Hypertension (HTN): Past Medical History, Active Electronic Signatures: Deborah Lee (SANJUANA) (Signed 16-Sep-2018 06:47) Authored: Triage, Past Medical History Last Updated: 16-Sep-2018 06:47 by Deborah Lee (SANJUANA) CBC W/ AUTO DIFF Collected: 09/16/2018 Status: F Source: [facility] 5:15 AM [facility] REPOSITORY TYPE CODE TESTS RESULT OUT OF RANGE REFERENCE UNITS LAB [id number](L 3.6-11.0 E3/mcL OINC) High WBC 11.6 LAB [id number](L 3.90-6.10 E6/mcL OINC) Normal RBC 4.84 LAB 59986019(L 13.5-18.0 G/DL OINC) Normal Hgb 14.8 LAB [id number](L 42.0-52.0 % OINC) Normal Hct 44.4 LAB 30068558(L 11.5-14.5 % OINC) Normal RDW 13.9 LAB [id number](L 27.0-31.0 pg OINC) Normal MCH 30.6 LAB [id number](L 33.0-37.0 G/DL OINC) Normal MCHC 33.3 LAB [id number](L 78.0-100.0 fL OINC) Normal MCV 91.7 LAB 25887821(L 7.4-11.0 fL OINC) Normal MPV 8.1 LAB [id number](L 130-400 E3/mcL OINC) Normal Platelet 295 Performed By: #### [id number] #### JASMINEric ArzolaHemnathalie [address] [place], [place] [id number] AUTO DIFF Collected: 09/16/2018 Status: F Source: [facility] 5:15 AM [facility] REPOSITORY Order Comment: Order Added by Discern Expert. TYPE CODE TESTS RESULT OUT OF RANGE REFERENCE UNITS LAB [id number](L 37.0-75.0 % OINC) High Neutro Auto 83.6 LAB 53976861(L 20.0-55.0 % OINC) Low Lymph Auto 11.0 LAB 45534182(L 0.0-10.0 % OINC) Normal [place] Auto 3.9 LAB 16175804(L 0.0-11.0 % OINC) Normal Eos Auto 0.9 LAB 70578332(L 0.0-2.0 % OINC) Normal Basophil Auto 0.6 LAB 29100078(L 1.4-6.5 E3/mcL OINC) High Neutro 9.7 Absolute LAB 12640453(L 1.2-3.4 E3/mcL OINC) Normal Lymph Absolute 1.3 LAB 10822561(L 0.0-0.7 E3/mcL OINC) Normal [place] Absolute 0.5 LAB 58068210(L 0.0-0.7 E3/mcL OINC) Normal Eos Absolute 0.1 LAB 70986072(L 0.0-0.2 E3/mcL OINC) Normal Basophil 0.1 Absolute Performed By: #### [id number] #### JASMIN NessHemo [facility] [place] [address] PT Collected: 09/16/2018 Status: F Source: [facility] 5:15 AM [facility] REPOSITORY TYPE CODE TESTS RESULT OUT OF RANGE REFERENCE UNITS LAB [id number](LO 1.0-1.2 INC) Normal INR 1.1 Result Comment: INR Recommended Therapeuptic Ranges: Prophylaxis/treatment of DVT and PE?2.0-3.0 Prevention of systemic embolism?.2.0-3.0 Mechanical prosthetic values?2.5-3.5 CRITICAL VALUES?.>4.0 LAB 23676328(LOINC) 11.6-14.6 second(s) Normal 13.3 PT Performed By: #### [id number] #### JASMIN [facility] [employer] [employer] [address] [place] [address] CMP Collected: 09/16/2018 Status: F Source: [place] 5:15 AM [facility] REPOSITORY TYPE CODE TESTS RESULT OUT OF RANGE REFERENCE UNITS LAB [id number](L 70-99 mg/dL OINC) High Glucose Lvl 161 LAB 36315112(L 6-23 mg/dL OINC) BUN Normal 16 LAB 2047296(LO 0.5-1.3 mg/dL INC) Normal Creatinine 1.1 LAB 11218701(L 8.6-10.3 mg/dL OINC) Calcium Normal Lvl 9.4 LAB 16440578(L 136-145 mEq/L OINC) Sodium Normal Lvl 140 LAB 85944697(L 3.5-5.3 mEq/L OINC) Normal Potassium Lvl 4.1 LAB 78463570(L 98-107 mEq/L OINC) High Chloride 110 LAB [id number](L 21.0-32.0 mEq/L OINC) CO2 Normal 23.0 LAB 40628145(L 33-136 Int._Unit/ OINC) L Alk Phos Normal 42 LAB 23150162(L 0.00-1.20 mg/dL OINC) Bili Normal Total 0.29 LAB 22275139(L 3.4-5.0 gm/dL OINC) Albumin Normal Lvl 4.0 LAB 94373494(L 6.4-8.2 gm/dL OINC) Total Normal Protein 6.7 LAB 71405795(L 10-52 Int._Unit/ OINC) L ALT Normal 29 LAB 52184178(L 9-39 Int._Unit/ OINC) L AST Normal 20 LAB [id number](L 5.4-30.0 ratio OINC) Normal BUN/Creat Ratio 14.5 LAB 46813641(L 10-20 mEq/L OINC) AGAP Normal 11 LAB 36670458(L 2.0-4.0 G/DL OINC) Globulin Normal 3.0 LAB 38370846(L 1.1-1.9 ratio OINC) A/G Normal Ratio 1.5 Performed By: #### [id number] #### JASMIN [facility] [address] [place] [address] EGFR Collected: 09/16/2018 Status: F Source: [facility] 5:15 [facility] REPOSITORY Order Comment: Order added by Discern Expert. TYPE CODE TESTS RESULT OUT OF RANGE REFERENCE UNITS LAB 14815341(LO mL/min/1.73 INC) m2 Normal eGFR >60 LAB 12566100(LO mL/min/1.73 INC) m2 Normal eGFR AA >60 Performed By: #### [id number] #### JASMIN [facility] [place], [place] [id number] TROPONIN-I Collected: 09/16/2018 Status: F Source: [facility] 5:15 AM [facility] REPOSITORY TYPE CODE TESTS RESULT OUT OF RANGE REFERENCE UNITS LAB [id number](LO .00-.03 ng/mL INC) Normal .03 Troponin-I Performed By: #### [id number] #### JASMIN Phood[facility]z [facility] [place] [id number] XR CHEST AP PORTABLE Observed: 09/16/2018 Status: F Source: [facility] 5:09 AM [facility] REPOSITORY Exam Date/Time: 09/16/2018 05:20 EST Reason for Exam: Difficulty breathing Report STUDY: XR Chest AP Portable; 09/16/2018 5:20 am INDICATION: Difficulty breathing. COMPARISON: None. ACCESSION NUMBER(S): [id number] ORDERING CLINICIAN: Artis Gibson FINDINGS: CARDIOMEDIASTINAL SILHOUETTE: Cardiomediastinal silhouette is normal in size and configuration. LUNGS: No pulmonary consolidation, pleural effusion or pneumothorax. Mild bibasilar atelectasis. ABDOMEN: No remarkable upper abdominal findings. BONES: No acute osseous abnormality. IMPRESSION: Mild bibasilar atelectasis. FINAL REPORT Dictated: 09/16/2018 5:38 am Inga Rayo MD Signed (Electronic Signature): 09/16/2018 5:38 am Signed by: Inga Rayo MD Technologist: DOUG CT BRAIN(ED ONLY-STROKE Observed: 09/16/2018 Status: F Source: [facility]) 4:50 AM [facility] REPOSITORY Exam Date/Time: 09/16/2018 05:01 EST Reason for Exam: Stroke Report STUDY: CT Brain(ED Only-Stroke Protocol); 09/16/2018 5:01 am INDICATION: Stroke. COMPARISON: None. ACCESSION NUMBER(S): [id number] ORDERING CLINICIAN: Artis Gibson TECHNIQUE: Axial noncontrast CT images of the head. FINDINGS: BRAIN PARENCHYMA: There is hyperdensity in the M1 segment of the right middle cerebral artery, consistent with acute thrombosis. There is decreased attenuation the right lentiform nucleus and right insular ribbon. No mass effect or midline shift. HEMORRHAGE: No acute intracranial hemorrhage. VENTRICLES and EXTRA-AXIAL SPACES: Normal size. EXTRACRANIAL SOFT TISSUES: Right occipital scalp lipoma noted. PARANASAL SINUSES/MASTOIDS: Polyp or mucous retention cyst in the left maxillary sinus. CALVARIUM: No depressed skull fracture. No destructive osseous lesion. OTHER FINDINGS: None. IMPRESSION: Findings consistent with acute thrombosis of the right M1 segment of the middle cerebral artery, with early ischemic changes involving the right basal ganglia and insular cortex. No acute intracranial hemorrhage, mass effect or midline shift. Stroke alert results communicated on 09/16/2018 at 5:08 a.m. FINAL REPORT Dictated: 09/16/2018 5:10 am Inga Rayo MD Signed (Electronic Signature): 09/16/2018 5:10 am Signed by: Inga Rayo MD Technologist: DOUG CNCRITCR Observed: 09/16/2018 Status: COMPLETED Source: [place] 12:00 AM [facility] REPOSITORY Critical Care Transport (CCT) BRENDEN SAHA ([id number]) 1960 M Date Time Provider Department 09/16/18 NAMITA SANTIAGO During your visit today, we recorded the following information about you: Namita Santiago APRN.CNP 09/22/2018 7:40 PM Addendum Critical Care Transport Note Patient Name: Brenden Saha Service Date: 09/16/18 Referring Physician: Arthur Accepting Physician: Thompson Referring Facility: [facility] [place] SUBJECTIVE/CHIEF COMPLAINT: Acute stroke REASON FOR TRANSPORT: Higher level of care and complex neurological evaluation and possible intervention not available at current facility. History of Present Illness: The following history is what was known to CCT team at time of given care and summarized through review of available medical records, patient/family interview and from referring physician and nursing report. Brenden Saha is a 58 year old male with a past medical history significant for HTN and DVT (15 years ago post-shoulder surgery) who presented to [facility] ER in [place] with stroke like symptoms. He was last known well at 2100 when we went to bed. He awoke at 0330 and was unable to walk and noticed he was talking funny. He called his into the room who called EMS. Upon arrival to the ER, she was exhibiting symptoms of right MCA syndrome including left sided facial droop, left arm and leg weakness, dysarthria and gaze preference. NIHSS reported to be 10. Non-contrast brain CT revealed hyperdensity in the M1 segment of the right MCA consistent with acute thrombus. The patient was c/o nausea but remained alert and oriented. NIHSS unchanged while in the ER. At this time, the physician managing the patient requested [place] [facility] [place] tertiary and/or quaternary services unavailable at the referring facility. The physician managing the patient requested the [facility] Critical Care Transport Team transport and treat the patient for the purpose of tertiary care, evaluation, and management of his medical condition(s). Patient condition at time of exam was: Acutely ill and critically ill. Due to the unique circumstances of the patient, it was determined that this was the closest, most appropriate facility by referring physician. ROS: A complete review of systems was performed and is negative except as noted PAST MEDICAL HISTORY: Hypertension PAST SURGICAL HISTORY: Shoulder surgery ALLERGIES: Patient has no allergy information on record. SOCIAL HISTORY: Former smoker FAMILY HISTORY: No family history on file. HOME MEDICATIONS: No prescriptions on file. Medications Administered by Referring Facility: None OBJECTIVE: Recent Labs, Diagnostics AND Procedure Reports reviewed as available. Referring Facility Labs CBC: WBC 11.6k, Hgb 14.8, Hct 44.4, Plt 295K Coags: INR 1.1, PT 13.3 Glucose: 97 Diagnostics AND Procedure Reports ECG: normal EKG, normal sinus rhythm CT Scan non contrast brain: Hyperdensity in the MN segment of the right MCA consistent with acute thrombus. No mass effect or midline shift. PHYSICAL EXAM: Upon CCT Arrival at Referring Facility Vital Signs: HR 80bpm, BP 165/77mmHg, RR 18, SpO2 95% Oxygen/Ventilator Settings: room air General appearance: awake and alert, c/o left leg cramping. HEENT: normocephalic, EOMI, PERRL. Oropharynx clear, no plaques or exudates,Posterior Oropharynx symmetric,Mucous membranes moist Respiratory: clear to auscultation bilaterally,no respiratory distress,no rales,no rhonchi,no wheezing. Cardiovascular: no murmurs, no rubs, no gallops, regular rate and rhythm, peripheral pulses symmetric. Gastrointestinal: soft, nontender, nondistended. Genitourinary: deferred Musculoskeletal: No clubbing, cyanosis or edema Skin: normal. Heme/Lymph: deferred Neurologic: awake alert and normally oriented. Exhibiting signs of right MCA syndrome including facial droop, dysarthria, left gaze preference, left arm flaccid and left leg weakness. NIHSS: 1(a). Mental Status - LOC 0 = Alert and Attentive 1(b). LOC Questions 0 = Correct age and month 1(c). LOC-Commands 0 = Both 2. Gaze 1 = Partial gaze, not forced or total 3. Visual [place] 0 = Full 4. Facial Weakness 1 = Minor, lower 5(a). Left Arm 4 = No movement 5(b). Right Arm 0 = No drift 6(a). Left Leg 1 = Drift, but does not hit bed 6(b). Right Leg 0 = No drift 7. Ataxia 2 = Two Limbs 8. Sensory 0 = Normal 9. Aphasia 0 = None 10. Dysarthria 1 = Mild to Moderate 11. Neglect 0 = None NIHSS Total (0-42): 10 CRITICAL CARE COURSE Upon bedside arrival at referring facility the patient was assessed and detailed physical exam performed. Initial exam findings as described above. The patient was placed on the transport monitor and all transport equipment transitioned in standard fashion. Zofran 4mg IV given for c/o nausea and motion sickness. The patient was transferred to the transport cot and transported to the Aircraft and loaded without incident. The patient was medically managed, monitored, and reassessed during transport. Medications Managed AND Administered by CCT: Zofran 4mg IV ASSESSMENT/PLAN: Brenden Saha is a 58 year old male with history of hypertension who presented to [facility] in [place] with stroke like symptoms after waking up with the inability to walk and slurred speech. Acute right MCA stroke -Initial NIHSS at OSH 10 with facial droop, gaze preference, left hemiparesis and dysarthria -Non contrast brain CT showed acute thrombus in the M1 segment of the right MCA -No medications given in the ER, Zofran 4mg IV administered prior to flight -SBP maintained above 140mmHg and patient transported for urgent stroke team evaluation [place] [facility] -NIHSS remained 10 throughout transport The transport was completed without significant incident or change in the patient's status. The patient was transported [place] [facility] [place] Rotor (Helicopter) for tertiary and/or quaternary evaluation and management of his Critical Medical condition(s). Upon arrival to the receiving facility, a [id number] report was given to bedside nursing staff in ER and Stroke team. Patient care was transferred. The patient condition was Stable at the time of transfer. SPECIAL EQUIPMENT: None MODE OF TRANSPORT: Rotor (Helicopter) CRITICAL CARE TIME:I personally performed 40 minutes of critical care time exclusive of separately billable procedures, ambulance charges and treating other patients. This was necessary to treat or prevent further deterioration of the following condition(s): Acute stroke COMPUTER AIDE impairment which the patient had and/or had a high probability of suddenly developing. SIGNATURE: Namita Santiago APRN.[facility] Acute Care Nurse Practitioner [facility] Critical Care Transport Team Allergies As of Date: 09/16/2018 (Not on File) Date Reviewed: Never Reviewed Reason for Visit: Critical Care Transport [1718] Problem List As Of Date: 09/16/2018 (None) Follow-up and Disposition History Recorded Encounter Status:Closed by NAMITA SANTIAGO CNP on 09/16/18 EMERGENCY DEPARTMENT Observed: 02/20/2018 Status: F Source: [facility] SUMMARY 9:59 AM [facility] EMERGENCY DEPARTMENT SUMMARY NAME NUMBER SEX AGE ADMIT DISC TYPE MED.RECORD# MARIA A BANEGAS [id number] M 57 11/04/17 11/04/17 Hector [id number] ROOM: ER-C DATE OF : 1960 PHYSICIAN NO.:[id number] PHYSICIAN NAME: MANDEEP BETTENCOURT DO PHYSICIAN: CASSIUS CLEMONS HISTORY OF PRESENT ILLNESS: The patient is a 57-year-old male who presents after a fall. The patient states that he was walking when he slipped on some ice. The patient states that he fell forward, hit his chin and left shoulder. He states that he did also hit his left knee. He states there is no level of consciousness. However, he did need to be helped to a standing position. The patient was brought to the emergency room with his coworker. The patient, on arrival was alert and oriented. He denied any neck pain. He complained of some left shoulder pain, described as a sharp stabbing pain, worsened with rotation and movement of the left shoulder. In addition, the patient complained of some left knee pain. The patient was ambulatory into the ED. The patient had no other complaints. Immunizations up to date. ALLERGIES: Codeine. REVIEW OF SYSTEMS: Positive for all, left shoulder and left knee pain. Remainder of review of systems is unremarkable. PHYSICAL EXAMINATION: Constitutional: No acute distress. Alert and oriented. Nontoxic appearing. HEENT: Normocephalic, atraumatic. EOMI. PERRLA. TMs clear bilaterally. Moist mucous membranes. Negative for edema, erythema or exudative discharge, negative for tracheal deviation, meningismus signs. Negative for midline spinal tenderness. Full range of motion of the head and neck. Cardiac: Regular rate and rhythm, negative for murmurs, rubs, gallops, positive S1 and S2. Pulmonary: Clear to auscultation bilaterally. Negative for wheezes, rales, or crackles. Abdomen: Soft, nontender, nondistended. Normal bowel sounds all 4 quadrants. Negative for rigidity, guarding, or distention. Musculoskeletal: Normal radial and DP pulses bilaterally. Decreased range of motion of the left shoulder, no evidence of clavicle fracture, no edema, erythema or ecchymosis noted. Negative for anterior or posterior drawer. Normal Lul's test, mild pain to palpation near the lateral aspect of the left knee. No evidence of edema, effusion or ecchymosis. No pain to palpation of the fibular head. Neurologic: Cranial nerves II-XII intact and normal. Normal motor and sensor in upper and lower extremities. Normal vjxdtx-ds-wjzz and xmyj-tz-jqon bilaterally. DIAGNOSTIC DATA: CT head was normal. X-ray of the left knee was normal. X-ray of the left shoulder was normal. EMERGENCY DEPARTMENT COURSE AND TREATMENT: The patient on arrival was alert and oriented x 3, was NEXUS negative, thus did not feel need for obtaining CT imaging of the neck. We did obtain a CT image of his head as he did fall and hit his chin. At this time, that was normal. In addition, the patient did have a shoulder x-ray as well as a knee x-ray which were both normal. The patient has been diagnosed with a closed head injury, left shoulder injury and a left knee injury. The patient was given a prescription for Naproxen 500 mg b.i.d. and has been instructed to follow up with Vivian Walden for reevaluation. I did explain to the patient that he may have a headache and have some nausea associated with the head injury as he most likely has a slight concussion. At this time, the patient is ambulatory in the ED, laughing, smiling and looks appropriate. DIAGNOSES: 1. Closed head injury. 2. Left shoulder injury. 3. Left knee injury. PLAN/DISPOSITION: I have instructed the patient that if any of his symptoms were to change or worsen he is to return to the ED. At this time, the patient is agreeable and amenable to this plan. The patient has been given indications for when to return the ED and has since been discharged home. D: Mandeep Bettencourt DO TD: 08:54 JOB #: [id number] Electronically signed by: MANDEEP BETTENCOURT DO 02/20/18 09:56 Transcribed by: michelle 11/05/2017 09:57 MRI SHOULDER W/O Observed: 11/14/2017 Status: F Source: VINNIE CONTRAST LEFT 9:50 AM [facility] REPOSITORY Exam Date/Time: 11/14/2017 10:41 EST Reason for Exam: LEFT SHOULDER INJURY DOI 11/04/2017 Report MRI SHOULDER W/O CONTRAST LEFT CLINICAL STATEMENT: Left shoulder injury. Status post fall 11/04/2017. Limited range of motion. Left shoulder pain. TECHNIQUE: Multiplanar, multisequence MRI of the left shoulder was performed without contrast. This included axial T2 fat-sat, sagittal T2 fat-sat, sagittal PD, coronal T2 fat sat, coronal PD fat-sat, coronal T1, and coronal STIR imaging. COMPARISON: None available. FINDINGS: There is a mild marginal spur at the acromioclavicular joint with minor subchondral edema and subchondral cystic change. No os acromiale is identified. A type I acromion is seen. There is mild to moderate increased fluid in the subacromial/subdeltoid bursa. Evaluation of the rotator cuff tendons is somewhat motion degraded. There is mild to moderate supraspinatus tendinosis. There is a full-thickness interstitial insertional tear of the anterior supraspinatus tendon fibers measuring 3 x 4 mm, AP by transverse dimension, involving less than 50% of the tendon thickness. Infraspinatus tendon is intact. There is mild to moderate subscapularis tendinosis with mild adjacent perifascial edema which may correlate with a low-grade injury. No rotator cuff muscle atrophy is identified. The biceps tendon is intact and normally located. Minimal fluid in the biceps tendon sheath is of a degree expected for the volume of glenohumeral joint effusion. Tear of the superior to posterior superior labrum extends from 10 o'clock to 12 o'clock. The labral tissue appears otherwise unremarkable. No paralabral cyst is identified. No significant glenohumeral joint osteoarthritis is seen. A small glenohumeral joint effusion. No appreciable thickening of the inferior glenohumeral ligament is noted. No fracture is identified. IMPRESSION: 1. Tear of the superior to posterior superior labrum between 10 o'clock and 12 o'clock. 2. Mild to moderate supraspinatus tendinosis with low to intermediate grade interstitial insertional tear of the anterior supraspinatus tendon fibers Exam Date/Time: 11/14/2017 10:41 EST Report measuring 3 x 4 mm. 3. Perifascial edema along the distal subscapularis tendon suggesting a low-grade strain. 4. Mild to moderate acromioclavicular joint osteoarthritis. Mild subacromial bursitis. FINAL REPORT Dictated: 11/14/2017 1:32 pm Mandeep Ramirez DO Signed (Electronic Signature): 11/14/2017 1:32 pm Signed by: Mandeep Ramirez DO Technologist: MM KNEE COMPLETE LT MIN Observed: 11/04/2017 Status: F Source: [facility] CLAIREELIZ[facility]ETH 4 VIEWS 8:17 AM [place] [address] Patient: Denisha SAHA Phone#: : 1960 Age: 57 Gender: M Pt. Type: ER Account: [id number] Location: 052 Ordering: MANDEEP BETTENCOURT Exam Date: 11/04/2017/7:51 Family Phys: Charge Code: 124927 Physician: [place] Order #: [id number] DLP Dose#: PROCEDURE: X-RAY KNEE LT COMPLETE 4 VIEWS COMPARISON: None. INDICATIONS: Fall FINDINGS: BONES: Of degenerative changes of the knee are present. There is narrowing of the medial compartment. There is no evidence of acute bone abnormality. SOFT TISSUES: Vascular calcifications are present posterior to the knee. EFFUSION: None visible. OTHER: Negative. CONCLUSION: No acute disease. Dictated by: Yin Lira MD on 11/04/2017 at 8:20 Approved by: Yin Lira MD on 11/04/2017 at 8:20 SHOULDER COMPLETE LT Observed: 11/04/2017 Status: F Source: [place] 8:17 AM [place] [id number] Patient: Denisha SAHA Phone#: : 1960 Age: 57 Gender: M Pt. Type: ER Account: [id number] Location: 052 Ordering: MANDEEP [employer] Exam Date: 11/04/2017/7:57 Family Phys: Charge Code: [id number] Physician: [place] Order #: [id number] DLP Dose#: PROCEDURE: X-RAY SHOULDER LT MIN 2 VIEWS COMPARISON: None. INDICATIONS: Fall FINDINGS: BONES: Degenerative changes are present at the acromioclavicular joint. There is no evidence of acute fracture or dislocation. SOFT TISSUES: Negative. No visible soft tissue swelling. EFFUSION: None visible. OTHER: Negative. CONCLUSION: No acute disease. Dictated by: Yin Lira MD on 11/04/2017 at 8:21 Approved by: Yin Lira MD on 11/04/2017 at 8:21 CT BRAIN W/O CONTRAST Observed: 11/04/2017 Status: F [facility] [place] [address] Patient: Denisha SAHA Phone#: : 1960 Age: 57 Gender: M Pt. Type: ER Account: [id number] Location: 052 Ordering: MANDEEP [employer] Exam Date: 11/04/2017/7:49 Family Phys: Charge Code: [id number] Physician: [place] Order #: [id number] DLP Dose#: [id number] PROCEDURE: CT BRAIN WITHOUT CONTRAST COMPARISON: None. INDICATIONS: Trauma TECHNIQUE: CT images were obtained without contrast material. All CT scans at this facility use dose modulation, iterative reconstruction, and/or weight based dosing when appropriate to reduce radiation dose to as low as reasonably achievable. IV CONTRAST: No IV contrast used,0ml TOTAL DOSE: 57.50 CTDIvol(mGy) FINDINGS: CEREBRUM: Age-appropriate atrophy is present, without visible acute hemorrhage or lesion. CEREBELLUM: No edema, hemorrhage, mass, acute infarction, or inappropriate atrophy. BRAINSTEM: No edema, hemorrhage, mass, acute infarction, or inappropriate atrophy. CSF SPACES: Ventricles, cisterns, and sulci are appropriate for age. No hydrocephalus, subarachnoid hemorrhage, or mass. SKULL: No mass or other significant visible lesion. SINUSES: Limited views demonstrate no significant mucosal thickening or fluid. ORBITS: Limited views are unremarkable. OTHER: Negative. CONCLUSION: No acute disease. Dictated by: Yin Lira MD on 11/04/2017 at 8:15 Approved by: Yin Lira MD on 11/04/2017 at 8:15 ALLERGIES ALLERGIES DATE TYPE / CODE NAME / CODE REACTION SEVERITY SOURCE 09/22/2018 Drug codeine/[id number] Rash Unknown [place] Allergy/416 0(RXNORM) Community 319028([facility] ED CT) Repository Drug/356168 nabumetone NAUSEA, Religion 003([facility]ED [facility]) System Repository Drug/321334 codeine [id number] Religion 003([facility]) System Repository Drug/668895 Percocet 5/325 [id number] Religion 003([facility] CT) System Repository Drug/398157 Darvocet-N 100 [id number] Religion 003([facility] CT) System Repository Drug/053413 oxyCODONE Religion 003(SNOMED [facility] CT) System Repository Drug/584203 oxyCODONE stomach issues Religion 003(SNOMED and itching [facility] CT) System Repository Drug CODEINE/82381375( Moderate Pablito Pomerene Allergy/416 RXNORM) ([facility] 048487([facility] ED CT) (Qualifier Repository Value) ENCOUNTERS ENCOUNTERS ADMIT/DISCHARGE ACCOUNT NUMBER ADMITTING ENCOUNTER LOCATION SOURCE CLASS 10/22/2018 [id number] [facility] 10/19/2018 [id number] Florencio Olvera Inpatient [place] Faina Chi Encounter [facility] ng:TCURoom: Repository QPH50Tyk: 1 09/22/2018/ [id number] Mary, Inpatient Faina [place] 019 [place]e S. Encounter [facility] ng:RURoom: Repository VL763Gyw: 1 09/22/2018 [id number] Mary, Ambulatory BMSBuilding:BM [place] Kehinde S. S.[facility] Repository 09/22/2018 [id number] Mary, Ambulatory BMSBuilding:BM Faina [place] S. S.[facility] Repository 09/22/2018 [id number] Mary, Ambulatory BMSBuilding:[facility] Repository 09/22/2018 [id number] Mary, Ambulatory BMSBuilding:[facility] Repository 09/22/2018 [id number] Mary, Ambulatory BMSBuilding:[facility] Repository 09/22/2018 [id number] Mary, Ambulatory BMSBuilding:[facility] Repository 09/22/2018 [id number] Ambulatory BMSBuilding:[facility] Repository 09/16/2018/ [id number] Dr. Geovanni Inpatient UHCBuilding:[place] [address] Robby Baldo Encounter 04Room: [facility] E5275Mmj: Repository [id number] 09/16/2018/ [id number] [place], Emergency Religion Religion 018 [facility] ng: EDRoom: Health System Repository 09/16/2018 [id number] Ambulatory [address] [place] [address] Repository 07/09/2018/ [id number] [facility] 018 [facility] MedicineBuildi Repository ng:Good 05/28/2018/ [id number] [facility], [facility] Religion 018 Delilah [facility] MedicineBuildi Repository ng:Claudia m: Room 6 04/16/2018/ [id number] [place], Ambulatory Samariran Religion 018 [facility] Repository ng:KayleyoRonathalie m: Room 1 04/14/2018/ [id number] [facility] Religion 018 [facility] access hospital MedicineBuildi Repository ng:Good 03/17/2018/ [id number] [facility], Ambulatory Religion Religion 018 Delilah [facility] ng:.[facility] Health [facility] Repository 03/17/2018 [id number] Ambulatory [address] [place] [address] Repository 03/03/2018/ [id number] [place], Ambulatory [facility] Religion 018 Delilah Nino [facility] System MedicineBuildi Repository ng:SamOrthoRoo m: Room 4 02/03/2018/ [id number] [place], Ambulatory [facility] Religion 018 Delilah Nino [facility] System MedicineBuildi Repository ng:SamOrthoRoo m: Room 1 01/27/2018/ [id number] [facility]18 [facility] System MedicineBuildi Repository ng:Kayleyo 01/19/2018/ [id number] [place], Ambulatory [facility] 018 [facility] ng:[facility] Health System Repository 01/08/2018/ [id number] [place]entes, Ambulatory [facility] 018 Hussein [facility] System MedicineBuildi Repository ng:NitinAmadoroRoo m: Room 1 12/30/2017/ [id number] [place]entes, Ambulatory [facility]18 [facility] MedicineBuildi Repository ng:NitinAmadoroRoo m: Room 1 12/08/2017/ [id number] Ambulatory [address] Regional ng:[facility] Repository 12/04/2017/ [id number] [place], Ambulatory Religion Religion 018 [facility] ng:[facility] Health System Repository 12/02/2017/ [id number] Fu[place], Ambulatory [facility] Religion 018 [facility] MedicineBuildi Repository ng:SamOrthoRoo m: Room 6 11/20/2017/ [id number] [place]entes, Ambulatory [facility] Religion 018 [facility] System MedicineBuildi Repository ng:KayleyoRoo m: Room 5 11/14/2017/ [id number] [place], Ambulatory [facility] 018 [facility] ng:SH.[facility] Health System Repository 11/04/2017/ [id number] BETHEL, Emergency [address] [place] [address] MANDEEP om: ERBed: [facility] Repository PAYERS PAYERS ENCOUNTER GUARANTOR PAYER SUBSCRIBER SOURCE 10/22/2018 BRENDEN Guerrero Primary BRENDEN Guerrero Faina [id number] Insurance:SUMMA TEDROWDOB: Community [place] CAREPolicy Number: [id number] [id number] Repository [address]Oyx: (419) Date:7519-77-59[phone] () [place] [address]RZ: 10/22/2018 Secondary NOT GIVENUNK Faina Insurance:SELF PAY [facility] Number: Effective Repository Date:2018-10-22 10/19/2018 BRENDEN Guerrero Primary BRENDEN Guerrero Faina [id number] Insurance:SUMMA TEDROWDOB: Community [place] CAREPolicy Number: [id number] [place], [place] [id number] Repository [address]Nuz: (419) Date:3200-12-67XW [phone] (HP) [place] [address]IQ: 10/19/2018 Secondary NOT GIVENUNK F[place] Insurance:SELF PAY [facility] Number: Effective Repository Date:2018-10-19 09/22/2018 BRENDEN Guerrero Primary BRENDEN Guerrero Faina [id number] Insurance:SUMMA TEDROWDOB: Community [place] CAREPolicy Number: [id number] [place], [place] [id number] Repository [address]Efm: (419) Date:9014-27-52YL [phone] (HP) [address] [address]QT: 09/22/2018 Secondary NOT GIVENUNK [place] Insurance:SELF PAY [facility] Number: Effective Repository Date:2018-09-22 09/22/2018 BRENDEN Guerrero Primary BRENDEN Guerrero Faina [id number] Insurance:SUMMA TEDROWDOB: Community [place] CAREPolicy Number: [id number] Market, [place] [id number] Repository 364[address]Bpt: (419) Date:2609-24-11YU [phone] (HP) [address] [address]WT: 09/22/2018 Secondary NOT GIVENUNK [place] Insurance:SELF PAY Community [facility] Number: Effective Repository Date:2018-09-22 09/22/2018 BRENDEN Guerrero Primary BRENDEN Guerrero [place] [id number] Insurance:SUMMA TEDROWDOB: Community [place] CAREPolicy Number: [id number] [place], [place] [id number] Repository [address]Jcv: (419) Date:7955-94-15KH [phone] (HP) [address] [address]RR: 09/22/2018 Secondary NOT GIVENUNK [place] Insurance:SELF PAY [facility] Number: Effective Repository Date:2018-09-22 09/22/2018 BRENDEN Guerrero Primary BRENDEN Guerrero Faina [id number] Insurance:SUMMA TEDROWDOB: Community [place] CAREPolicy Number: [id number] [place], [place] [id number] Repository 883[address]Zht: (419) Date:5273-22-86AP [phone] (HP) [address] [address]EL: 09/22/2018 Secondary NOT GIVENUNK [place] Insurance:SELF PAY [facility] Number: Effective Repository Date:2018-09-22 09/22/2018 BRENDEN Guerrero Primary BRENDEN Guerrero Faina [id number] Insurance:SUMMA TEDROWDOB: Community [place] CAREPolic Number: [id number] [place], [place] [id number] Repository [address]Snp: (419) Date:4558-90-84EH [phone] (HP) [place] [address]KQ: 09/22/2018 Secondary NOT GIVENUNK [place] Insurance:SELF PAY [facility] Number: Effective Repository Date:2018-09-22 09/22/2018 BRENDEN Guerrero [facility] BRENDEN Guerrero Faina [id number] Insurance:SUMMA TEDROWDOB: Community [place] [facility] Number: [id number] [place], [place] [id number] Repository [address]Nak: (419) Date:7777-02-30PE [phone] () [address] [place] [address]IV: 09/22/2018 Secondary NOT GIVENUNK [place] Insurance:SELF PAY [facility] Number: Effective Repository Date:2018-09-22 09/22/2018 BRENDEN Guerrero [facility] BRENDEN Guerrero Faina [id number] Insurance:SUMMA TEDROWDOB: [facility] Number: [id number] Market, [place] [id number] Repository [address]Tsb: (419) Date:0342-87-26LH [phone] () [address] [place] [address]PB: 09/22/2018 Secondary NOT GIVENUNK [place] Insurance:SELF PAY [facility] Number: Effective Repository Date:2018-09-22 09/22/2018 BRENDEN Guerrero [facility] BRENDEN Guerrero [place] [id number] Insurance:SUMMA TEDROWDOB: [facility] Number: [id number] [place], [place] [id number] Repository [address]Cgg: [phone]) Date:5931-55-00VS [phone] (HP) [address] [place] [address]AP: 09/22/2018 Secondary NOT GIVENUNK [place] Insurance:SELF PAY [facility] Number: Effective Repository Date:2018-09-22 09/16/2018 BRENDEN Guerrero [facility] BRENDEN Guerrero [employer] TEDROWDOB: Insurance:SummaCarePol TEDROWDOB: [facility] icy Number: [id number] Repository [place] [id number] [place] Date:Plan Name:[place], [place] [id number]: [address], [place] [address]Ijz: [phone]: [phone]) (HP) [phone] (HP) 09/16/2018 BRENDEN [facility] BRENDEN [facility] TEDROWDOB: Insurance:SummaCarePol TEDROWDOB: [facility] icy Number: Effective [id number] System [place] Date:2018-09-16 - [place] 8438-00-92Wadh [place] [address]Tel: Name:CD:[id number] [place] [id number]: [address] [place] [address] (HP) [phone]: [phone]) (HP) [phone] () 09/16/2018 BRENDEN [facility] TED[facility]: Insurance:SummaCarePol TEDROWDOB: [facility] icy Number: [id number] Repository [place] [id number] [place] Date:Plan Name:[place], [place] [id number]: [address]BandarIlbostonP[place], [place] [address]Ygb: [phone]: [phone] (HP) [phone] (HP) 07/09/2018 BRENDEN [facility] AMISHA Nava Religion TEDROWDOB: Insurance:SummaCarePol TEDROWDOB: [facility] icy Number: Effective [id number] System [place] Date:2018-05-28 - [place] Rep[place] 7354-00-69Klbn [place] [address]Sdm: Name:CD:[id number] [address] [address]Tet: [address] [place] [address] (HP) [phone]: [phone]) (HP) [phone] (WP) 05/28/2018 BRENDEN Guerrero Primary Insurance:1500 BRENDEN Taveras TEDROWDOB: WORKER'S COMPENSATION TEDROWDOB: [facility] - BWCPolicy Number: [id number] System [place] Effective [place] Repository [place] Date:2018-05-28 - [place] [address]Dor: [id number] [address]Ztf: Name:CD:[phone] (HP) (HP) (WP) 04/16/2018 BRENDEN Guerrero Primary Insurance:Chrystal Taveras TEDROWDOB: WORKER'S COMPENSATION TEDROWDOB: [facility] - BWCPolicy Number: [id number] System [place] Effective [place] Repository [place] Date:2018-04-16 - [place] [address]Tel: [phone] [address]Izh: Name:CD:[phone] (HP) (HP) (WP) 04/14/2018 BRENDEN Guerrero Primary AMISHA Taveras TEDROWDOB: Insurance:SummaCarePol TEDROWDOB: [facility] icy Number: Effective [id number] System [place] Date:2018-03-03 - [place] 0503-82-38Inrr [place] [address]Tel: Name:CD:[id number] [facility] [address]Gyu: [address] [place] [address] (HP) [id number]: [phone]) (HP) [phone] (WP) 03/17/2018 [facility] TEDROWDOB: Insurance:BWCPolicy TEDROWDOB: [facility] Number: Effective [id number] System [place] Date:2018-03-03 - [place] 9745-82-34Hqnn [place] [address]Zwy: Name:Worker's [address]Nwe: [id number] (HP) [place], [place] (HP)Tel: [phone]: [phone] (WP) 03/17/2018 [facility] TEDROWDOB: Insurance:[employer] TEDROWDOB: [facility] licy Number: [id number] Repository [place] [id number] [place] Date:Plan Name:[place], [place] [id number]: [phone]: (HP) (HP) 03/03/2018 BRENDEN Primary Insurance:[facility] BRENDEN [facility] TEDROWDOB: WORKER'S COMPENSATION TEDROWDOB: [facility] - BWCPolicy Number: [id number] System [place] Effective [place] Repository [place] Date:2018-03-03 - [place] [address]Tel: [id number] [address]Ifs: Name:CD:[phone] (HP) (HP) (WP) 02/03/2018 BRENDEN Primary Insurance:[facility] BRENDEN Guerrero Religion TEDROWDOB: WORKER'S COMPENSATION TEDROWDOB: [facility] - BWCPolicy Number: [id number] System [place] Effective [place] Repository [place] Date:2018-02-03 - [place] [address]Bfc: [phone] [address]Nyw: Name:CD:[phone] (HP) (HP) (WP) 01/27/2018 BRENDEN Guerrero Primary AMISHA Taveras TEDROWDOB: Insurance:SummaCarePol TEDROWDOB: [facility] icy Number: Effective [id number] System [place] Date:2017-12-30 - [place] 8954-72-99Ggur [place] [address]Tel: Name:CD:[id number] [place] [id number]: [address] [place] [address] (HP) [id number]: [phone]) (HP) [phone] (WP) 01/19/2018 BRENDEN Guerrero Primary BRENDEN Taveras TEDROWDOB: Insurance:BWCPolicy TEDROWDOB: [facility] Number: Effective [id number] System [place] Date:2018-01-12 - [place] Rep[place] 6011-78-27Jsov [place] [address]Bjd: Name:Worker's [phone]: Compensation (HP) (HP) (WP) 01/19/2018 Secondary AMISHA D Religion Insurance:SummaCarePol TEDROWDOB: [facility] icy Number: Effective [id number] System Date:2018-01-12 - [place] Repository 6601-69-15[place]dd[place], [place] Name:CD:[id number] [facility] [address]Kiz: [address] [place] [phone]: [phone]) (HP) [phone] (WP) 01/08/2018 BRENDEN Guerrero Primary Insurance:1500 BRENDEN Taveras TEDROWDOB: WORKER'S COMPENSATION TEDROWDOB: [facility] - BWCPolicy Number: [id number] System [place] Effective [place] Repository [place] Date:2018-01-08 [place] [address]Tdx: [id number] [address]Xaw: Name:CD:[phone] (HP) (HP) (WP) 12/30/2017 BRENDEN uGerrero Primary Insurance:1500 BRENDEN Taveras TEDROWDOB: WORKER'S COMPENSATION TEDROWDOB: [facility] - BWCPolicy Number: [id number] System [place] Effective [place] Repository [place], [place] Date:2017-12-30 [place] [address]Iil: [id number] [address]Ips: Name:CD:[phone] (HP) (HP) (WP) 12/08/2017 BRENDEN Guerrero Primary Insurance:1500 AMISHA Taveras TEDROWDOB: SUMMACAREPolicy TEDROWDOB: [facility] Number: Effective [id number] System [place] Date:2016-12-30 - [place] Rep[place] 8145-12-91Wytb [place] [address]Otz: Name:CD:[id number]: [address] (HP) [phone]: ([phone]) (HP) [phone] (WP) 12/04/2017 BRENDEN Guerrero Primary BRENDEN Taveras TEDROWDOB: Insurance:BWCPolicy TEDROWDOB: [facility] Number: Effective [id number] System [place] Date:2017-11-27 - [place] 2664-85-38Zhcf [place] [address]Ayq: Name:Worker's [id number]: [id number] (HP) [place], [place] (HP)Tel: [phone]: [phone] (WP) 12/02/2017 BRENDEN Guerrero Primary Insurance:1500 BRENDEN Taveras TEDROWDOB: WORKER'S COMPENSATION TEDROWDOB: [facility] Number: [id number] System [facility] Effective [facility] [place], [place] Date:2017-12-02 - [place] [address]Blk: [id number] [id number]: Name:[id number] (HP) (HP) (WP) 11/20/2017 BRENDEN Guerrero Primary Insurance:1500 AMISHA Taveras TEDROWDOB: WORKER'S COMPENSATION TEDROWDOB: [facility] - [facility] Number: [id number] System [facility] [place], [place] Date:2017-11-20 - [place] [address]Tiu: [id number]: Name:[id number] (HP) (HP) (WP) 11/14/2017 BRENDEN Guerrero Primary BRENDEN Taveras TEDROWDOB: Insurance:BWCPolicy TEDROWDOB: [facility] Number: Effective [id number] System [facility] Date:2017-11-13 - [facility] [place], [place] [id number] [place] [address]Pma: Name:Worker's [id number]: [id number] (HP) [place], [place] ()Tel: [phone]: [phone] () 11/04/2017 BRENDEN De La Torre TEDROWDOB: Insurance:WORKERS COMP TEDROWDOB: [facility] [id number] [facility] [id number] [facility] Number: [facility] [place] [id number], [place] [address]Xew: [phone]) Date:Plan Name: [phone] ()
== END 2018-11-14 15:10 | disposition home health service (06) | DRG 948 ==
PROVIDERS: Admitting Provider Family Medicine Geriatric Medicine; Family Provider Family Medicine; PCP Family Medicine; Referring Provider Family Medicine Geriatric Medicine; Visit Provider Family Medicine Geriatric Medicine
DX: R53.81 Other malaise (principal); G81.94 Hemiplegia, unspecified affecting left nondominant side; F32.9 Major depressive disorder, single episode, unspecified; M19.90 Unspecified osteoarthritis, unspecified site; I10 Essential (primary) hypertension; E78.5 Hyperlipidemia, unspecified; K52.9 Noninfective gastroenteritis and colitis, unspecified; K21.9 Gastro-esophageal reflux disease without esophagitis; Z86.711 Personal history of pulmonary embolism; Z86.718 Personal history of other venous thrombosis and embolism; Z87.891 Personal history of nicotine dependence; G89.29 Other chronic pain
CPT/HCPCS: 36415; 80048; 81001; 85025; 92507; 92526; 92610; 97032; 97110; 97116; 97163; 97166; 97530; 97535; 97802

== ENCOUNTER → 2018-10-22 14:32 | Outpatient (CLI) | payer OTHER, SELFPAY ==
[2018-10-19 19:54] VITALS: BMI 28.1
--- NOTE | 2018-10-22 14:37 | MRI_ITS ---
STUDY: MRI LEFT SHOULDER REASON FOR EXAM: Male, 58 years old. Left shoulder pain. Status post fall. Prior surgery in December 2017. TECHNIQUE: Standardized fat and water weighted pulse sequences were obtained in all 3 orthogonal planes. COMPARISON: X-ray October 12, 2018. FINDINGS: There is supraspinatus tendinosis with tendon thickening, but without a demonstrated tendon tear. Normal infraspinatus tendon. Normal subscapularis tendon. Normal teres minor tendon. Normal supraspinatus muscle. Normal infraspinatus muscle. Normal subscapularis muscle. Normal teres minor muscle. There is a small volume joint effusion of the glenohumeral joint. There is tract from prior intervention at the anterior medial humeral head, series 3 image 12/20. Normal biceps labral complex. Normal intracapsular long biceps tendon. There is tear of the superior labrum adjacent to the biceps anchor, series 6 images 8/20 and 9/20. Normal capsulo- ligamentous complex. Normal rotator interval. There is mild osteoarthritis of the acromioclavicular articulation. There is a Type II morphology (curved) acromion, with a neutral orientation. There is minimal fluid distention of the subacromial bursa, consistent with mild subacromial-subdeltoid bursitis. Normal visualized coracohumeral and coracoacromial ligaments. Normal quadrilateral space. Normal axillary space. Normal deltoid muscle. Normal trapezius muscle. MRI/Upper Ext Joint Only(Routine) IMPRESSION: Tendinosis of the supraspinatus. No full-thickness rotator cuff tear. SLAP lesion with tear of the superior labrum adjacent to the biceps anchor. Electronically Signed: Amanuel Torres MD at 18:24 EST , Service support ,
== END ==
LOC: MRI 14:33
PROVIDERS: Family Provider Family Medicine; PCP Family Medicine; Referring Provider Family Medicine Geriatric Medicine; Visit Provider Family Medicine Geriatric Medicine
DX: M25.512 Pain in left shoulder (principal); W19.XXXA Unspecified fall, initial encounter
CPT/HCPCS: 73221

== ENCOUNTER → 2023-06-26 | Outpatient (CLI) | payer MEDICARE, SELFPAY ==
--- NOTE | 2023-06-26 07:29 | CT_ITS ---
HISTORY: HEMATURIA, URINARY CALCULI. TECHNIQUE: Helically acquired images were obtained of the abdomen and pelvis before and after the intravenous administration of 100mL Isovue-370. A radiation dose optimization technique was used for this scan. 579 images. COMPARISON: None. FINDINGS: LOWER CHEST: Mild right lower lobe scarring with small bulla. BOWEL: Bowel nondilated. No periappendiceal or pericolonic inflammatory change observed. Rectosigmoid anastomosis. PERITONEUM: No significant ascites. LIVER: No enhancing mass. GALLBLADDER/BILIARY TREE: Gallbladder present. SPLEEN: Homogeneous and nonenlarged. PANCREAS: Small calcification of the pancreatic head. Mild atrophy with relative preservation of parenchyma in the tail. KIDNEYS: Punctate 1 to 2 mm right interpolar and lower pole calculi without hydronephrosis. No left nephrolithiasis or hydronephrosis. 8 mm left upper pole cyst. 5 mm left ureterovesical junction calculus with mild distal hydroureter. Contrast excretion distal to the UVJ calculus on delayed images. ADRENAL GLANDS: 1.1 cm low-attenuation left adrenal nodule. VESSELS: No abdominal aortic aneurysm or dissection. Calcified plaque of the abdominal aorta and origins of its major branches, and greater than 50% stenosis at the origins of the bilateral renal arteries. PELVIC ORGANS: 2 mm posterior bladder calculus. ABDOMINAL WALL: Anterior abdominal wall postoperative change. BONES: Degenerative change. L5-S1 decompressive laminectomy. Small bone islands in the pelvis. CT/CT Abd/Pelvis W/WO Contrast IMPRESSION: Mild left distal hydroureter secondary to a 5 mm UVJ calculus. Small left renal cyst. Small nonobstructing right renal calculi. Small bladder calculus. Small left adrenal adenoma. Electronically Signed: Di Villalpando MD at 8:41 EDT ,
[2023-06-26 08:00] LABS: CREATININE FINGERSTICK 1.2 mg/dL (0.70-1.30); EGFR FINGERSTICK > 60.0000 mL/min (>60)
== END | disposition home or self-care (01) ==
PROVIDERS: PCP Family Medicine; Referring Provider Urology; Visit Provider Urology
DX: R31.0 Gross hematuria (principal); Z87.442 Personal history of urinary calculi
CPT/HCPCS: 74178; Q9967